=== PATIENT | male | born 1940 | race Caucasian/White ===

== ENCOUNTER 2017-08-14 13:01 | Emergency (ER) | payer BC ==
[2017-08-14] MEDS ORDERED: Tetan/Diph/Pertus SYR(Tdap)* 0.5 ML SYR(BOOSTRIX) use SYR IM ONE (14:06)
--- NOTE | 2017-08-14 14:28 | ED ---
Skin Complaint - HPI Summary HPI Summary: Patient is a 77-year-old male who presents emergency department for multiple skin tears that occurred just prior to arrival. Patient states he was cleaning out his garage when he tripped on a piece of equipment and fell to his left side. Patient did catch himself and did not fall to the ground. He denies striking his head or loss of consciousness. He is on [place]. Patient is unaware of his last tetanus immunization. Patient complains of some mild right wrist pain but otherwise is feeling well. Prior to falling patient denies chest pain, shortness of breath, lightheadedness, dizziness, recent illness. Symptoms are mild in severity. No current modifying factors. - History of Current Complaint Chief Complaint: EDExtremityUpper Time Seen by Provider: 08/14/17 13:50 Stated Complaint: FALL ARM LAC Hx Obtained From: Patient Pain Intensity: 8 - Additional Pertinent History Primary Care Physician: SARAH - Allergy/Home Medications Allergies/Adverse Reactions: Allergies Allergy/AdvReac Type Severity Reaction Status Date / Time No Known Allergies Allergy Verified 04/19/15 13:48 Home Medications: Home Medications Apixaban* [Eliquis*] 5 mg PO BID 08/14/17 [History Confirmed 08/14/17] Chlorthalidone TAB* [Hygroton TAB*] 25 mg PO DAILY 08/14/17 [History Confirmed 08/14/17] Diltiazem CD CAP* [Cardizem CD CAP*] 240 mg PO DAILY 08/14/17 [History Confirmed 08/14/17] Ferrous Sulfate TAB* 325 mg PO BID 08/14/17 [History Confirmed 08/14/17] Omeprazole CAP* [Prilosec CAP* 20 MG] 40 mg PO BID 08/14/17 [History Confirmed 08/14/17] PMH/Surg Hx/FS Hx/Imm Hx Previously Healthy: Yes Endocrine/Hematology History: Reports: Hx Blood Transfusions - For Upper GI Bleed, Hx Anemia Denies: Hx Diabetes, Hx Thyroid Disease Cardiovascular History: Reports: Hx Atrial Fibrillation, Hx Hypertension Denies: Hx Congestive Heart Failure, Hx Deep Vein Thrombosis, Hx Hypercholesterolemia Respiratory History: Denies: Hx Pneumonia, Hx Seasonal Allergies, Hx Sleep Apnea GI History: Reports: Hx Gastroesophageal Reflux Disease, Hx Gastrointestinal Bleed - Upper GI, Other GI Disorders - Gastritis Denies: Hx Hiatal Hernia Musculoskeletal History: Reports: Hx Arthritis, Hx Back Problems Denies: Hx Osteoporosis Sensory History: Reports: Hx Cataracts - Removal bilaterally, Hx Contacts or Glasses Denies: Hx Hearing Aid Opthamlomology History: Reports: Hx Cataracts - Removal bilaterally, Hx Contacts or Glasses Neurological History: Denies: Hx Headaches Psychiatric History: Reports: Hx Anxiety, Hx Depression - Surgical History Surgery Procedure, Year, and Place: -Cataract removal. -Bilateral hip replacement. -Left knee replacement. -Carpal tunnel Infectious Disease History: No Infectious Disease History: Denies: Traveled Outside the [place] in Last 30 Days - Social History Occupation: Retired Lives: With Family Alcohol Use: Daily Alcohol Amount: Some wine Hx Substance Use: No Substance Use Type: Reports: None Hx Tobacco Use: Yes Smoking Status (MU): Former Smoker Type: Cigarettes Length of Time of Smoking/Using Tobacco: 35 years Have You Smoked in the Last Year: No Review of Systems Constitutional: Negative Eyes: Negative ENT: Negative Cardiovascular: Negative Respiratory: Negative Gastrointestinal: Negative Positive: Other - Right wrist pain Positive: Other - Skin tears to left and right arm and right leg Neurological: Negative Negative: Weakness, Paresthesia, Numbness, Syncope All Other Systems Reviewed And Are Negative: Yes Physical Exam Triage Information Reviewed: Yes Vital Signs On Initial Exam: Initial Vitals Temp Pulse Resp BP Pulse Ox 98.2 F 88 18 142/84 97 08/14/17 13:18 08/14/17 13:18 08/14/17 13:18 08/14/17 13:18 08/14/17 13:18 Vital Signs Reviewed: Yes Appearance: Positive: Well-Appearing - Pt. sitting on the side of the bed in no acute distress. Pleasant. Skin: Positive: Warm, Dry Eyes: Positive: Normal Neck: Positive: Supple Musculoskeletal: Positive: Other - Superficial skin tear noted to the left distal forearm on the dorsal aspect without bony tenderness. No active bleeding. Superficial skin tear noted to the right medial distal forearm without bleeding. Mild pain over the medial wrists. Full range of motion of wrist. No proximal pain. Extremities are neurovascularly intact. Diagnostics - Vital Signs Vital Signs Temp Pulse Resp BP Pulse Ox 08/14/17 13:18 98.2 F 88 18 142/84 97 - Laboratory Lab Statement: Any lab studies that have been ordered have been reviewed, and results considered in the medical decision making process. Course/Dx - Course Course Of Treatment: Pt. presenting for evaluations of multiple skin tears after a minor injury. He does have some mild right wrist pain but declines xrays. He is afebrile with stable vital signs. Tetanus was updated. Wounds were cleaned and dressed. To f.u with PCP. To ice affected areas. Tylenol for pain as directed. To return to ER if symptoms change or worsen. - Diagnoses Provider Diagnoses: Skin tear Discharge - Sign-Out/Discharge Documenting (check all that apply): Discharge/Admit/Transfer - Discharge Plan Condition: Good Disposition: HOME Patient Education Materials: Skin Tear (ED) Referrals: Js Gonzalez MD [Primary Care Provider] - Additional Instructions: Follow up with your PCP Keep wounds clean and dry Can take Tylenol for pain as directed Can apply ice intermittently for pain Return to ER if symptoms change or worsen - Billing Disposition and Condition Condition: GOOD Disposition: HOME
[2017-08-14 14:58] VITALS: BP 150/81
== END 2017-08-14 14:53 | disposition home or self-care (01) ==
LOC: ED 13:01
DX: S41.112A Laceration without foreign body of left upper arm, initial encounter (principal); S41.111A Laceration without foreign body of right upper arm, initial encounter; S81.811A Laceration without foreign body, right lower leg, initial encounter; W01.0XXA Fall on same level from slipping, tripping and stumbling without subsequent striking against object, initial encounter; Y93.E9 Activity, other interior property and clothing maintenance; Y92.9 Unspecified place or not applicable; I48.91 Unspecified atrial fibrillation; I10 Essential (primary) hypertension; Z23 Encounter for immunization; Z87.891 Personal history of nicotine dependence; Z86.2 Personal history of diseases of the blood and blood-forming organs and certain disorders involving the immune mechanism
CPT/HCPCS: 90471; 90715; 99281

== ENCOUNTER 2018-09-27 14:24 | Inpatient (IN) | payer BC ==
[2018-09-27] MEDS ORDERED: NS 0.9% 1000 ML** 1,000 ML IV ONE ×3 (14:35→20:03)
[2018-09-27] MEDS ORDERED: Morphine 4 MG/ML VIAL (1 ml) 4 MG/ML VIAL IV ONE (14:42)
[2018-09-27] MEDS ORDERED: cefTRIAXone(*) 1 GM in NS 0.9% 50 ML* 50 ML IVPB ONE (14:44)
[2018-09-27] MEDS ORDERED: NS 0.9% 1000 ML** 2,720 ML IV ONE (14:45)
--- NOTE | 2018-09-27 14:46 | ED ---
Lower Extremity - HPI Summary HPI Summary: Patient is a 78 y old M brought by EMS to [facility] accompanied by with chief complaint of left lower extremity pain after falling on to his left [place] on [place] cruise [place] rated at 12/10 in severity with onset of 2 days. Symptoms alleviated by nothing and aggravated by movement. Patient reports that he has not been ambulatory since the fall. Per nurse, patient can no longer tolerate sitting in a wheel chair. Per nurse, patient has chills, temporal fever 100.4 F , tachycardia. Patient reports PMHx glaucoma. PMHX atrial fibrillation, gastritis, hypertension. Patient reports taking Eliquis. Per nurse, patient urinates a lot from blood pressure medication and is on Percocet. - History of Current Complaint Chief Complaint: EDHipPelvisInjury Stated Complaint: "LT HIP PAIN AFTER FALL PER EMS" Time Seen by Provider: 09/27/18 14:30 Hx Obtained From: Patient, Other: - nurse Mechanism Of Injury: Other - falling on to his left side on a cruise ship Onset/Duration: Still Present - 2 Severity Currently: Moderate Pain Intensity: 12 Pain Scale Used: 0-10 Numeric Timing: Constant Associated Signs And Symptoms: Positive: Fever, Other - chills, tachycardia Aggravating Factor(s): Movement Alleviating Factor(s): Nothing - Allergies/Home Medications Allergies/Adverse Reactions: Allergies Allergy/AdvReac Type Severity Reaction Status Date / Time No Known Allergies Allergy Verified 04/19/15 13:48 Home Medications: Home Medications Latanoprost 0.005%* [Xalatan 0.005%*] 1 drop BOTH EYES QPM 09/27/18 [History Confirmed 09/27/18] Oxycodone HCl/Acetaminophen [Percocet] 1 tab PO Q6HR PRN 09/27/18 [History Confirmed 09/27/18] PMH/Surg Hx/FS Hx/Imm Hx Previously Healthy: No Endocrine/Hematology History: Reports: Hx Blood Transfusions - For Upper GI Bleed, Hx Anemia Denies: Hx Diabetes, Hx Thyroid Disease Cardiovascular History: Reports: Hx Atrial Fibrillation, Hx Hypertension Denies: Hx Congestive Heart Failure, Hx Deep Vein Thrombosis, Hx Hypercholesterolemia Respiratory History: Denies: Hx Pneumonia, Hx Seasonal Allergies, Hx Sleep Apnea GI History: Reports: Hx Gastroesophageal Reflux Disease, Hx Gastrointestinal Bleed - Upper GI, Other GI Disorders - Gastritis Denies: Hx Hiatal Hernia Musculoskeletal History: Reports: Hx Arthritis, Hx Back Problems Denies: Hx Osteoporosis Sensory History: Reports: Hx Cataracts - Removal bilaterally, Hx Contacts or Glasses, Hx Glaucoma Denies: Hx Hearing Aid Opthamlomology History: Reports: Hx Cataracts - Removal bilaterally, Hx Contacts or Glasses, Hx Glaucoma Neurological History: Denies: Hx Headaches Psychiatric History: Reports: Hx Anxiety, Hx Depression - Surgical History Surgery Procedure, Year, and Place: -Cataract removal. -Bilateral hip replacement. -Left knee replacement. -Carpal tunnel Infectious Disease History: No Infectious Disease History: Reports: Traveled Outside the [place] in Last 30 Days - Family History Known Family History: Negative: Diabetes - Social History Alcohol Use: Daily Alcohol Amount: Some wine Hx Substance Use: No Substance Use Type: Reports: None Hx Tobacco Use: Yes Smoking Status (MU): Former Smoker Type: Cigarettes Length of Time of Smoking/Using Tobacco: 35 years Have You Smoked in the Last Year: No Review of Systems Positive: Fever - low grade, Chills Positive: Other - tachycardia Positive: Other - Left lower extremity pain, unable to ambulate All Other Systems Reviewed And Are Negative: Yes Physical Exam - Summary Physical Exam Summary: VITAL SIGNS: Reviewed. GENERAL: Patient is a well-developed and nourished MALE who is lying comfortable in the stretcher. Patient is not in any acute respiratory distress. HEAD AND FACE: No signs of trauma. No ecchymosis, hematomas or skull depressions. No sinus tenderness. EYES: PERRLA, EOMI x 2, No injected conjunctiva, no nystagmus. EARS: Hearing grossly intact. Ear canals and tympanic membranes are within normal limits. MOUTH: Oropharynx within normal limits. NECK: Supple, trachea is midline, no adenopathy, no JVD, no carotid bruit, no c- spine tenderness, neck with full ROM. CHEST: Symmetric, no tenderness at palpation. LUNGS: Clear to auscultation bilaterally. No wheezing or crackles. CVS: Regular rate and rhythm, S1 and S2 present, no murmurs or gallops appreciated. ABDOMEN: Soft, non-tender. No signs of distention. No rebound, no guarding, and no masses palpated. Bowel sounds are normal. EXTREMITIES: Decreased range of motion in left hip secondary to pain, tenderness in left hip upon palpation, good pulses in capillary field, shortening of the left lower extremity. NEURO: Alert and oriented x 3. No acute neurological deficits. Speech is normal and follows commands. SKIN: Dry and warm. Triage Information Reviewed: Yes Vital Signs On Initial Exam: Initial Vitals Temp Pulse Resp BP Pulse Ox 100.4 F 103 19 154/78 94 09/27/18 14:29 09/27/18 14:29 09/27/18 14:29 09/27/18 14:29 09/27/18 14:29 Vital Signs Reviewed: Yes Diagnostics - Vital Signs Vital Signs Temp Pulse Resp BP Pulse Ox 09/27/18 14:29 100.4 F 103 19 154/78 94 - Laboratory Result Diagrams: 09/29/18 06:53 09/29/18 06:53 Lab Statement: Any lab studies that have been ordered have been reviewed, and results considered in the medical decision making process. - Radiology Left hip x-ray Radiology Interpretation Completed By: Radiologist Summary of Radiographic Findings: 1. Normally located LEFT total hip prosthesis. No periprosthetic fracture or evidence for prosthesis loosening. ED physician has reviewed this report. [place] x-ray Radiology Interpretation Completed By: Radiologist Summary of Radiographic Findings: 1. Stigmata of obstructive lung disease. Cardiomegaly. No acute pulmonary or cardiac process evident. ED physician has reviewed this report. - CT Pelvis CT CT Interpretation Completed By: Radiologist Summary of CT Findings: Per radiologist,. 1. Negative for periprosthetic or other fracture or evidence for prosthesis loosening. 2. Subtle soft tissue fullness about the LEFT hip asymmetric with the RIGHT which may. reflect presence of a joint effusion. ED physician has reviewed this report. Re-Evaluation - Re-Evaluation First Eval Re-Evaluation Time: 17:48 Comment: Physician gave patient update on plan of care. Lower Extremity Course/Dx - Course Assessment/Plan: In the ED course the patient was placed in a registered nurse cardiac telemetry, IV access was obtained. I was informed by the nurse that the patient made in the sepsis criteria and the patient is febrile. Therefore the patient was given 30 ccs per KG and the patient was given Rocephin. Blood work without any significant abnormality except for WBCs of 11.9, hemoglobin is 8.3, hematocrit is 25, absolute neutrophils 10.0, ESR is 106, sodium 134, chloride 100, glucose 144, CRP and 185.9. Urinalysis is negative for UTI. Hip x ray IMPRESSION: #. Normally located LEFT total hip prosthesis. No periprosthetic fracture or evidence for prosthesis loosening. Hip CT IMPRESSION: #. Negative for periprosthetic or other fracture or evidence for prosthesis loosening. #. Subtle soft tissue fullness about the LEFT hip asymmetric with the RIGHT which may reflect the presence of a joint effusion. CXR IMPRESSION: #. Stigmata of obstructive lung disease. Cardiomegaly. No acute pulmonary or cardiac process evident. At this point I did not find any infection in the urine or the chest. The patient continues to have left hip pain therefore we need to rule out an infected joint. Therefore I discuss my physical exam and findings with and Dr. Abdul from orthopedics and he recommends for the hip to be aspirated. Therefore, he discussed the case with Dr. Valentine from radiology and he will do an aspiration via fluoroscopy for this patient. He also recommends for the patient to be admitted to the hospital services. Dr. Valentine reports that he was not able to obtain any fluid from the joint. As per recommendation from Dr. Abdul, I will order vancomycin and another dose of morphine for the pain and I will admit the patient to the hospital services to rule out possible septic joint. Therefore, I discussed my physical exam and findings with Dr. Infante from the hospitalist services who accepted the patient for admission. - Diagnoses Provider Diagnoses: Sepsis, Hip pain, Fever - Physician Notifications Discussed Care Of Patient With: Raúl Garza Time Discussed With Above Provider: 17:22 Instructed by Provider To: Other - Dr. Garza, orthopedics, spoke to Dr. Valentine, and said that Dr. Valentine agreed to perform an aspiration of the left hip to rule out septic left joint. At 18:57, Dr. Infante, hospitalist, agrees to admit patient. Discharge - Sign-Out/Discharge Documenting (check all that apply): Patient Departure - Admit Patient Received Moderate/Deep Sedation with Procedure: No - Discharge Plan Condition: Stable Disposition: ADMITTED TO [facility] - Billing Disposition and Condition Condition: STABLE Disposition: Admitted to [facility] - Attestation Statements Document Initiated by Scribe: Yes Documenting Scribe: Faith Sargent Provider For Whom Scribe is Documenting (Include Credential): Yaakov Mensah MD [employer] Attestation: I, Faith Sargent, scribed for Yaakov Mesnah MD on 09/29/18 at 2009. [place] Documentation Reviewed: Yes Provider Attestation: The documentation as recorded by the khanh, Faith Sargent accurately reflects the service I personally performed and the decisions made by , Yaakov Mensah MD Status of Scrbalaji Document: Viewed
[2018-09-27 15:11] LABS: ABS Lymphocytes 0.6 10^3/ul (1.0-4.8); ABS Monocytes 1.3 10^3/ul (0-0.8); Eosinophil % 0.2 %; Hematocrit 25 % (42-52); Hemoglobin 8.3 g/dL (14.0-18.0); Lymphocyte % 5.2 %; Mean Corpuscular HGB Conc 33 g/dL (31-36); Mean Corpuscular Hemoglobin 33 pg (27-31); Mean Corpuscular Volume 102 fL (80-94); Mean Platelet Volume 8.1 fL (7.4-10.4); Platelet Count 173 10^3/uL (150-450); Red Blood Count 2.49 10^6 /uL (4.18-5.48); Red Cell Distribution Width 14 % (10-15); White Blood Count 11.9 10^3/uL (3.5-10.8)
[2018-09-27 15:29] LABS: C Reactive Protein 185.96 mg/L (<8.01)
[2018-09-27 15:58] LABS: Albumin 3.8 g/dL (3.2-5.2); BUN/Creatinine Ratio 22.3 (8-20); Calcium 9.6 mg/dL (8.6-10.3); EGFR Non-African American 70.2 (>60); Potassium 3.7 mmol/L (3.5-5.0)
[2018-09-27 15:59] LABS: Albumin/Globulin Ratio 1.2 (1-3); Globulin 3.2 g/dL (2-4); Total Bilirubin 0.8 mg/dL (0.2-1.0)
[2018-09-27 16:32] LABS: Erythrocyte Sed Rate 106 mm/Hr (0-19)
[2018-09-27] MEDS ORDERED: Acetaminophen SUPP* 650 MG SUPP PR ONE (16:32)
[2018-09-27] MEDS ORDERED: Ondansetron INJ* 2 MG/ML VIAL IV ONE (16:47)
[2018-09-27] MEDS ORDERED: Vancomycin(*) 1,000 MG in NS 0.9% 250 ML* 250 ML IVPB ONE ×2 (17:05→19:02)
[2018-09-27 17:39] LABS: Urine Appearance Cloudy; Urine Bacteria Absent (Absent); Urine Bilirubin Negative (Negative); Urine Blood Negative (Negative); Urine Color Yellow; Urine Glucose Negative (Negative); Urine Ketones Negative (Negative); Urine Nitrite Negative (Negative); Urine Protein 2+(100 mg/dL) (Negative); Urine Red Blood Cell Absent (Absent); Urine Specific Gravity 1.018 (1.010-1.030); Urine Squamous Epithelial Cell Present (Absent); Urine Urobilinogen Negative (Negative); Urine White Blood Cell 1+(6-10/hpf) (Absent)
[2018-09-27] MEDS ORDERED: Acetaminophen TAB* 325 MG PO ONE (18:04)
[2018-09-27] MEDS ORDERED: oxyCODONE/Acetamin 5/325 MG* TAB PO PRN (19:58)
[2018-09-27] MEDS ORDERED: Morphine INJ* 2 MG/ML 1 ML SYRINGE (TWO MG - NEW SYRINGE VERSION) IV PRN ×2 (19:59→21:54)
[2018-09-27] MEDS ORDERED: Ferrous Sulfate TAB* 325 MG PO SCH (21:00)
--- NOTE | 2018-09-27 21:14 | CONSULT ---
Consult Consult: Orthopedic Surgery Consultation Date: 09/27/2018 Requesting Service: ER Chief Complaint: Left hip pain. History: A 78-year-old male who was on a cruise in the [place] when he fell while trying to sit down in a chair, 2 days ago. He landed on his lower back and on his left side. He had immediate pain in these areas, but was able to ambulate back to his room. Since that time he has been unable to ambulate. He does report that at baseline he is very stiff and does have difficulty walking. He reports no antecedent symptoms, however, in the left hip. No antecedent pain. No fevers. He returned to [place] and came into the emergency room for an evaluation. In the emergency room he was found to be febrile with a Tmax of 102.1. X-rays and CT scan of the left hip were obtained, which did not reveal any fractures or obvious prosthetic complication. Radiology attempted an aspiration of the left hip under fluoroscopic guidance, but had a dry tap. I did discuss with the radiologist and he is extremely confident that he was in the correct place. He does report that he has been battling a case of shingles on his right thorax 4 weeks. But otherwise has been feeling normal and at his baseline. The pain is located at the left hip and down the left leg and is constant, marked, sharp. Pain worse with moving the leg and attempting weightbearing and lessened when rested. Review of Systems: Negative for, recent visual changes, difficulty swallowing, chest pain, shortness of breath, abdominal pain, hematuria, easy bruising, and diffuse rash. Positive for fever, shingles, baseline difficulty with ambulation and stiffness, chronic low back pain. He reports frequent urination at baseline. PMH: Hypertension, atrial fibrillation, GERD, chronic back pain, gastritis PSH: Right total hip replacement by Dr. Berumen in 2013. Left total hip replacement by Dr. San about 20 years ago. Left knee replacement by Dr. Raza. Carpal tunnel release. Cataracts. Medications: Latanoprost, Percocet, Eliquis Allergies: No known drug allergies SH: No tobacco use. Mild alcohol use. FH: Noncontributory. Physical Examination: Constitutional: Temp Pulse Resp BP Pulse Ox 100.3 F 98 20 153/80 100 07/13/19 19:20 09/27/18 21:01 09/27/18 21:01 09/27/18 21:01 09/27/18 21:01 General appearance is healthy and non-septic in no acute distress. Cardiovascular: Pulse examination demonstrates positive pedal pulses with brisk capillary refill. There are no varicosities. Abdomen: Soft and nontender Lymphatic: No lymphadenopathy appreciated. Skin: Bilateral upper and lower extremity examination demonstrates no ulcerative lesions. Psychiatric / Neurological: Appropriate affect. Alert and oriented to person, place and time. There is no significant abnormality in coordination appreciated. Normoreflexive deep tendon reflex of the affected extremity. Musculoskeletal: Bilateral upper extremities and contralateral lower extremity show no evidence of instability and no tenderness with palpation and 5/5 strength. There is no gross deformity. Skin intact He does have tenderness to palpation at the lateral hip. He does have a shooting pain down the leg with straight leg raise. He doesn't have any pain with internal and external rotation of the hip. Gentle flexion the hip does not cause pain with a short arc of about 20, but he does have pain beyond this. 5/5 motor strength distally with intact sensation to light touch There is no global swelling, edema, or varicosities. No TTP at knee, lower leg, ankle, foot Palpable DP pulse. Flexes and extends ankle and toes. Imaging: X-rays and CT scan did not show any fractures about the left hip or any complication with the prosthesis. Labs: WBC 11.9 HCT 25 Platelets 173 Cr 1.03 ESR 106 CRP 185 UA negative Impression and Plan: Mr. Miller is a 78-year-old man with low back pain and left hip pain after a fall 2 days ago. Imaging does not reveal fracture of the left hip. Of more concern, is his fever and elevated inflammatory markers. Given that the worst of his pain appears to be at the left hip, there is concern for infection of his left total hip prosthesis. His exam is not totally consistent with this. He does not have much pain with gentle range of motion, and he does seem to be also having pain radiating down his leg from the lumbar spine. The story is also odd for an infection, given that his pain started after a fall. Attempted aspiration of the joint revealed no fluid. However, I do think an infected left total hip replacement still possible. I recommend imaging of his lumbar spine to better assess this potential source of pain. Please hold Eliquis. I agree with admission to the hospital for further workup of infection. I appreciate the medical team's input. I recommend chemical and mechanical DVT prophylaxis. Orthopedics will continue to follow along. Raúl Garza MD
[2018-09-27] MEDS ORDERED: Morphine 4 MG/ML VIAL (1 ml) 4 MG/ML VIAL IV PRN (22:02)
[2018-09-27] MEDS ORDERED: Vancomycin per Pharmacy* NOTE FOLLOW UP PRN (22:40)
--- NOTE | 2018-09-27 22:43 | HP ---
CC: Dr. Gonzalez.* HOSPITAL MEDICINE HISTORY AND PHYSICAL: DATE OF ADMISSION: 09/27/18 PRIMARY CARE PHYSICIAN: Dr. Gonzalez. ATTENDING PHYSICIAN: Dr. Candi Carty * (dictation provided by Ivone Gandara NP). CHIEF COMPLAINT: Left hip pain and fever. HISTORY OF PRESENT ILLNESS: Mr. Miller is a 78-year-old male with a past medical history of a left and right total hip replacement, a left knee replacement, anemia of uncertain source, atrial fibrillation on apixiban and hypertension who presents today to the hospital with concern for fever and left hip pain. Mr. Miller was in his normal state of health. He was on a cruise on when he went to sit in a chair and fell backwards and landed on his hip. He was able to get up, though it was painful and walked over to the medical office. By the time he arrived there, he was having severe pain in his left hip. He was assessed by the team on the ship with a x-ray, which per the report showed no fracture or malignment of the prosthesis. The patient did have a fever up to 103 at that point and was given Tylenol. He was also given Percocet and used a wheelchair to get around for the rest of the trip. He flew back from the cruise and arrived in [place]. He was then driven home to [place] by his . Immediately on arriving home, he was unable to get out of the car due to the pain and therefore, emergency medical services were called to bring him to the hospital. He has been taking the oxycodone and Percocet for his pain and there was no report of fever other than the one noted on the cruise. The patient denies pain, otherwise. He has no pain in the right hip, no pain in the left knee. He denies chest pain and denies shortness of breath. He states he has not had a bowel movement since . He has no abdominal pain, no nausea. He has been tolerating oral intake. The other thing to note is that the patient has a recent bout of shingles on the right torso at the base of the ribs that is resolving. In the emergency room, Mr. Miller had labs, which showed a white blood cell count of 11.9, his ESR is 106 and his CRP is 185.96. In the emergency room, his vitals showed a temperature max of 102.1. The remainder of his vitals show that his electrolytes are essentially normal. His BUN and creatinine are normal. His lactic acid is only 1.8. He has a hemoglobin of 8.3 and hematocrit 23, but this is consistent with the values that we see back up until 2013. He had a hip pelvis x- ray and a pelvis CT that failed to show any evidence of dislocation or fracture. There was also an attempt at hip aspiration from which they were unable to aspirate any fluid at all. PAST MEDICAL HISTORY: 1. Left total knee arthroplasty. 2. Right and left total hip replacements. 3. Anemia. 4. Hypertension. 5. Atrial fibrillation, on chronic Eliquis therapy. 6. GERD. 7. Chronic back pain. 8. History of carpal tunnel release. MEDICATIONS: Outpatient are: 1. Oxycodone with acetaminophen 1 tab p.o. q.6 hours p.r.n. 2. Omeprazole 40 mg p.o. b.i.d. 3. Ferrous sulfate 325 mg p.o. b.i.d. 4. Diltiazem CD 240 mg p.o. daily. 5. Chlorthalidone 25 mg p.o. daily. 6. Apixaban 5 mg p.o. b.i.d. 7. Latanoprost to both eyes nightly. ALLERGIES: No known drug allergies. FAMILY HISTORY: The patient reports his father around age 60 suddenly either from a heart attack or stroke. His mother lived into her 80s and with complications related to dementia. SOCIAL HISTORY: The patient is a former smoker and quit in 1987. He drinks about 2 glasses of wine per night. No reported drug use or illicit use. His is the healthcare proxy. REVIEW OF SYSTEMS: A 14-point review of systems was completed with Mr. Miller and all other than those mentioned above were negative. PHYSICAL EXAMINATION GENERAL: Mr. Miller is lying in the bed. He is shivering, but otherwise in no acute distress. His is at the bedside. VITAL SIGNS: Temperature max 102.1, last checked it was 100.3; heart rate 105; respiratory rate 18; O2 saturation 98% on room air; blood pressure 133/73. LUNGS: Clear to auscultation bilaterally. No accessory muscle use and good aeration. HEART: S1 and S2. No murmurs, rubs or gallop, and regular. ABDOMEN: Soft, nontender with bowel sounds positive x4. EXTREMITIES: No cyanosis or edema. Pain in the hip with any movement of the left lower extremity. NEURO: He is alert, he is oriented x3. He moves all extremities equally except for the left leg, which is limited by pain. There is no facial asymmetry or focal weakness. His extraocular movements are intact. SKIN: Intact. There is no evidence of herpetic lesions on the torso. DIAGNOSTIC STUDIES/LAB DATA: WBC 11.9, hemoglobin 8.3, hematocrit 25, platelet count 173,000. ESR 106. Sodium 134, potassium 3.7, chloride 100, serum bicarbonate 24, BUN 23, creatinine 1.03, glucose 144, CRP 185.96. Urine shows no evidence of infection. The hip/pelvis x-ray is as follows. "Normally located left total hip prosthesis. No periprosthetic fracture or evidence of prosthesis loosening." The chest x-ray is as follows. "Stigmata of obstructive lung disease, cardiomegaly, no acute pulmonary or cardiac process evident." The pelvis CT is as follows. "Negative for periprosthetic or other fracture or evidence for prosthesis loosening. Subtle soft tissue fullness about the left hip, asymmetric at the right, which may reflect presence of a joint effusion." EKG shows atrial fibrillation with a heart rate of 100 and no evidence of ischemia. ASSESSMENT/PLAN: Mr. Miller is a 78-year-old male with past medical history of left and right total hip replacement as well as the left knee replacement, anemia, atrial fibrillation on who presents today to the hospital with concern for a fall on resulting in severe hip pain associated with fever, felt to have likely septic arthritis to the left hip prosthesis. Our plans are for inpatient admission and his expected length of stay would be greater than 2 days with the following. 1. Sepsis: The patient's urinalysis is negative. His chest x-ray shows no evidence of an infection. I suspect based on the severe hip pain that this is septic arthritis. I will note that his lactic acid is normal and blood cultures have been sent. He did receive an appropriate level amount of IV fluids in the ED and I will be continuing those at a maintenance fluid rate. 2. Septic arthritis. Based on the fact that there was no aspirate obtained, we will continue with empiric treatment for traumatic bacterial arthritis with vancomycin and ceftriaxone. Dr. Garza from Orthopedics has been consulted and an orthopedic physician will be seeing the patient in consultation. He will have pain medications p.r.n. with bowel regimen. 3. Atrial fibrillation. Plan to hold apixiban for anticipation of a possible surgical procedure. Continue diltiazem. 4. Anemia. The patient's hemoglobin and hematocrit are consistent with previous, although on the most recent check they were higher. We will continue to monitor closely, recheck CBC in the a.m. I plan to hold his iron supplementation given that he will be on narcotics and likely will have difficulty with constipation and in fact, he has not had a bowel movement since . 5. Gastroesophageal reflux disease. Continue omeprazole. 6. Hypertension. Continue diltiazem, but hold chlorthalidone. 7. Glaucoma. Plan to continue latanoprost if available in formulary. 8. DVT prophylaxis with SCDs and we will be holding Eliquis dose and I would recommend that the patient start heparin subcu once this apixaban has had an opportunity to wash out. 9. Code status is full code. This was reviewed with the patient and his who was at the bedside. TIME SPENT: Approximately 60 minutes were spent on the admission of this patient, more than half the time spent with the patient at the bedside reviewing the events leading up to this hospitalization, performing the physical examination, and reviewing the plan of care. IVONE GANDARA NP [id number]/[facility] #: [id number] [place]
[2018-09-28] MEDS: Vancomycin(*) 1,250 MG in NS 0.9% 250 ML* 250 ML IVPB SCH ×3 (02:11→18:54)
[2018-09-28 06:41] LABS: ABS Lymphocytes 0.5 10^3/ul (1.0-4.8); ABS Monocytes 1.2 10^3/ul (0-0.8); ABS Neutrophils 8.8 10^3/ul (1.5-7.7); Hematocrit 23 % (42-52); Hemoglobin 7.7 g/dL (14.0-18.0); Lymphocyte % 4.8 %; Mean Corpuscular HGB Conc 34 g/dL (31-36); Mean Corpuscular Hemoglobin 35 pg (27-31); Mean Corpuscular Volume 102 fL (80-94); Mean Platelet Volume 8.5 fL (7.4-10.4); Platelet Count 138 10^3/uL (150-450); Red Blood Count 2.23 10^6 /uL (4.18-5.48); Red Cell Distribution Width 15 % (10-15); White Blood Count 10.6 10^3/uL (3.5-10.8)
[2018-09-28 06:56] LABS: Anion Gap 8 mmol/L (2-11); BUN/Creatinine Ratio 23.1 (8-20); Blood Urea Nitrogen 21 mg/dL (6-24); CO2 Carbon Dioxide 21 mmol/L (22-32); Calcium 7.9 mg/dL (8.6-10.3); Chloride 104 mmol/L (101-111); Glucose 160 mg/dL (70-100); Potassium 3.9 mmol/L (3.5-5.0); Sodium 133 mmol/L (135-145)
[2018-09-28] MEDS: Diltiazem CD CAP* 240 MG PO SCH (08:30)
[2018-09-28] MEDS: Pantoprazole TAB * 40 MG TAB PO SCH ×3 (08:30→21:04)
[2018-09-28] MEDS: oxyCODONE/Acetamin 5/325 MG* TAB PO PRN ×2 (08:34→21:04)
--- NOTE | 2018-09-28 10:56 | PN ---
Progress Note - Progress Note Date of Service: 09/28/18 SOAP: Subjective: He reports having less pain, but attributes that to just lying in bed. He reports that he has started having a productive cough this morning. He also noted pain with attempted insertion of a Shay. Otherwise, no complaints. Objective: Alert and oriented x3. No acute distress. He is frequently coughing and splitting out sputum. He is having a little bit more left hip pain with range of motion today, when compared to yesterday. He still has pain with straight leg raise. Temp Pulse Resp BP Pulse Ox 98.7 F 83 22 124/59 100 09/28/18 07:50 09/28/18 07:50 09/28/18 08:34 09/28/18 07:50 09/28/18 07:50 His blood culture is growing staph aureus. WPC now 10.6. Assessment/Plan: Some 6 or omentum with bacteremia. Also has lower back and left hip pain after a fall 3 days ago. He has developed a productive cough. Left hip septic arthritis is certainly still on the differential. I would still recommend imaging of his spine to rule out this as the source of infection. Appreciate the medical services workup of his infection. If no source is found, we may need to move forward with a left hip I&D. We will need to obtain implant information tomorrow from medical records given how old the prosthesis is. Raúl Garza MD
--- NOTE | 2018-09-28 12:18 | PN ---
Subjective Interval History: Blood cultures + for staph aureus, non MRSA. Afebrile (though diaphoretic and warm to touch on exam) Hgb 7.7 from 8.3. MCV 102 drinks 4-5 glasses of wine a night dull pain in left lateral thigh since the fall (into a soft chair) no blood in BMs that they can tell colonoscopy up to date Objective Active Medications: Acetaminophen (Tylenol Tab*) 650 mg PO Q6H PRN PRN Reason: pain/fever Diltiazem HCl (Cardizem Cd Cap*) 240 mg PO DAILY [facility] Last Admin: 09/28/18 08:30 Dose: 240 mg Docusate Sodium (Colace Cap*) 100 mg PO BID PRN PRN Reason: CONSTIPATION Vancomycin HCl 1,250 mg/ (Sodium Chloride) 250 mls @ 166.667 mls/hr IVPB Q8H [facility]; Protocol Last Admin: 09/28/18 09:51 Dose: 166.667 mls/hr Ceftriaxone Sodium 1 gm/ (Sodium Chloride) 50 mls @ 100 mls/hr IVPB Q24H [facility] Latanoprost (Xalatan 0.005%*) 1 drop BOTH EYES QPM [facility] Morphine Sulfate (Morphine 4 Mg/Ml Vial (1 Ml)) 4 mg IV Q2H PRN PRN Reason: SEVERE PAIN Oxycodone/Acetaminophen (Percocet 5/325 Tab*) 1 tab PO Q4H PRN PRN Reason: moderate pain Last Admin: 09/28/18 08:34 Dose: 1 tab Oxycodone/Acetaminophen (Percocet 5/325 Tab*) 2 tab PO Q4H PRN PRN Reason: SEVERE PAIN Pantoprazole Sodium (Protonix Tab*) 40 mg PO BID [facility] Last Admin: 09/28/18 08:30 Dose: 40 mg Pharmacy Consult (Vancomycin Per Pharmacy*) 1 note FOLLOW UP . PRN PRN Reason: PER PROTOCOL Pharmacy Profile Note (Vancomycin Trough Check) 1 note FOLLOW UP 1800 ONE Stop: 09/28/18 18:01 Polyethylene Glycol/Electrolytes (Miralax*) 17 gm PO DAILY PRN PRN Reason: CONSTIPATION Senna (Senokot Tab*) 1 tab PO BEDTIME [facility] Last Admin: 09/28/18 00:00 Dose: Not Given Vital Signs - 8 hr 09/28/18 09/28/18 09/28/18 07:50 08:00 08:34 Temperature 98.7 F Pulse Rate 83 Respiratory 22 22 22 Rate Blood Pressure 124/59 (mmHg) O2 Sat by Pulse 100 Oximetry 09/28/18 09/28/18 11:24 11:30 Temperature 99.8 F Pulse Rate 82 Respiratory 24 24 Rate Blood Pressure 127/64 (mmHg) O2 Sat by Pulse 100 Oximetry Oxygen Devices in Use Now: Nasal Cannula Appearance: NAD Eyes: No Scleral Icterus Ears/Nose/Mouth/Throat: NL Teeth, Lips, Gums Neck: NL Appearance and Movements; NL JVP, Trachea Midline Respiratory: Symmetrical Chest Expansion and Respiratory Effort, Clear to Auscultation Cardiovascular: NL Sounds; No Murmurs; No JVD, RRR Abdominal: NL Sounds; No Tenderness; No Distention, No Hepatosplenomegaly Extremities: No Edema, - - tenderness to palpation left hip Skin: No Rash or Ulcers Neurological: Alert and Oriented x 3, NL Sensation Nutrition: Taking PO's Result Diagrams: 09/28/18 06:27 09/28/18 06:27 Additional Lab and Data: Laboratory Results - last 24 hr 09/27/18 09/28/18 09/28/18 17:27 06:27 06:27 WBC 10.6 RBC 2.23 L Hgb 7.7 L Hct 23 L MCV 102 H MCH 35 H MCHC 34 RDW 15 Plt Count 138 L MPV 8.5 Neut % (Auto) 83.6 Lymph % (Auto) 4.8 [place] % (Auto) 11.5 Eos % (Auto) 0.0 Baso % (Auto) 0.1 Absolute Neuts (auto) 8.8 H Absolute Lymphs (auto) 0.5 L Absolute Monos (auto) 1.2 H Absolute Eos (auto) 0.0 Absolute Basos (auto) 0.0 Absolute Nucleated RBC 0.0 Nucleated RBC % 0.0 Sodium 133 L Potassium 3.9 Chloride 104 Carbon Dioxide 21 L Anion Gap 8 BUN 21 Creatinine 0.91 Est GFR ( Amer) 98.0 Est GFR (Non-Af Amer) 81.0 BUN/Creatinine Ratio 23.1 H Glucose 160 H Calcium 7.9 L Magnesium 1.6 L Iron < 20 L TIBC 358 % Saturation 6 L Unsat Iron Binding < 343 Transferrin 256 Ferritin 62.5 Vitamin B12 565 Folate 7.20 Urine Color Yellow Urine Appearance Cloudy Urine pH 5.0 Ur Specific [place] 1.018 Urine Protein 2+(100 mg/dl) A Urine Ketones Negative Urine Blood Negative Urine Nitrate Negative Urine Bilirubin Negative Urine Urobilinogen Negative Ur Leukocyte Esterase Negative Urine WBC (Auto) 1+(6-10/hpf) A Urine RBC (Auto) Absent Ur Squamous Epith Cells Present A Urine Bacteria Absent Hyaline Casts Present A Urine Glucose Negative Microbiology and Other Data: Microbiology 09/27/18 14:56 Aerobic Blood Culture - Preliminary Blood Venous Blood MRSA/MSSA (PCR) - Final Mrsa Negative S.aureus Positive 09/27/18 12:14 Aerobic Blood Culture - Preliminary Blood Venous Blood MRSA/MSSA (PCR) - Final Mrsa Negative S.aureus Positive Assess/Plan/Problems-Billing Assessment: 78 year old male PMH pAfib(Eliquis), HTN, b/l hip replacements, daily 4-5 glass wine drinker, [place]NER p/w fever and left hip pain after fell backward into soft chair. Sepsis secondary to MSSA bacteremia. Hgb 7.7 - Patient Problems (1) MSSA bacteremia Current Visit: Yes Status: Acute Code(s): R78.81 - BACTEREMIA SNOMED Code( s): 950525163 Comment: Repeat BCx today; repeat until clear Will continue vancomycin/ceftriaxone for now given still with increased left hip pain. May be able to switch to cefazolin tomorrow. Transthoracic ECHO to rule out vegetations. did have skin breaks since June when developed Zoster to right chest/back. ? source Will get MRI lumbar spine to rule out epidural abscess per request by Ortho. Has some left think and lower back pain CRP 186 at risk for hardware infection (b/l hip replacement) would need CECILIA if persistent bacteremia. (2) Sepsis Current Visit: Yes Status: Acute Comment: source MSSA bacteremia fever(resolving), tachycardia(resolved), leukocytois 11.9 CRP 186 no lactic acisdosis (3) Daily consumption of alcohol Current Visit: Yes Status: Acute Code(s): Z78.9 - OTHER SPECIFIED HEALTH STATUS SNOMED Code(s): 132943982 Comment: Last drink 09/24 no history of withdrawals or seizures (4) Macrocytic anemia Current Visit: Yes Status: Acute Code(s): D53.9 - NUTRITIONAL ANEMIA, UNSPECIFIED SNOMED Code(s): 97598079 Comment: Likely combination or iron deficiency and chronic EtOH related. B12 565 folate 7.20 Iron <20 Iron Sat 8% restart iron supplementation. CBC daily no hematochezia or other source. colonoscopy few years ago. (5) Left hip pain Current Visit: Yes Status: Acute Code(s): M25.552 - PAIN IN LEFT HIP SNOMED Code(s): 49054455 Comment: no e/o fracture on CT scan or Xray appreciate Ortho recs. ordered PT activity - up with assistance as tolerated (6) Chronic atrial fibrillation Current Visit: No Status: Acute Code(s): I48.2 - CHRONIC ATRIAL FIBRILLATION SNOMED Code(s): 946217009 Comment: Continue Diltiazem Eliquis is being held per Ortho. replete Mg>2, K>4 prn (7) DVT prophylaxis Current Visit: No Status: Acute Code(s): AFK9444 - SNOMED Code(s): 063179482 Comment: SCDs and heparin 5000TID (holding home eliquis per surgery) (8) Essential hypertension Current Visit: No Status: Acute Code(s): I10 - ESSENTIAL (PRIMARY) HYPERTENSION SNOMED Code(s): 60094001 Comment: continue Dilt 240mg daily Status and Disposition: medicine inpatient. Ortho consulting.
[2018-09-28 12:31] LABS: Total Iron Binding Capacity 358 mcg/dL (250-450); Transferrin 256 mg/dL (203-362)
[2018-09-28 12:32] LABS: Magnesium 1.6 mg/dL (1.9-2.7)
[2018-09-28 12:53] LABS: Ferritin 62.5 ng/mL (24-336)
[2018-09-28 12:55] LABS: % Iron Saturation 6 % (15-55); Iron < 20 ug/dL (50-212)
[2018-09-28] MEDS ORDERED: cefTRIAXone(*) 1 GM in NS 0.9% 50 ML* 50 ML IVPB SCH (15:00)
[2018-09-28] MEDS ORDERED: Magnesium Sulfate 2 GM IV* 2 GM/50 ML BAG IVPB ONE (16:59)
[2018-09-28] MEDS ORDERED: Vancomycin Trough Check NOTE FOLLOW UP ONE (18:00)
[2018-09-28] MEDS: Latanoprost 0.005%* 2.5 ml BTL BOTH EYES SCH (18:34)
[2018-09-28] MEDS: Senna TAB PO SCH ×2 (21:04)
[2018-09-28] MEDS: Ferrous Gluconate TAB* 324 MG TAB PO SCH (21:04)
[2018-09-29] MEDS: Vancomycin(*) 1,250 MG in NS 0.9% 250 ML* 250 ML IVPB SCH ×2 (02:30→10:03)
[2018-09-29 07:18] LABS: ABS Lymphocytes 0.4 10^3/ul (1.0-4.8); ABS Neutrophils 8.4 10^3/ul (1.5-7.7); Eosinophil % 0.1 %; Hematocrit 22 % (42-52); Hemoglobin 7.6 g/dL (14.0-18.0); Lymphocyte % 3.8 %; Mean Corpuscular HGB Conc 35 g/dL (31-36); Mean Corpuscular Hemoglobin 35 pg (27-31); Mean Corpuscular Volume 100 fL (80-94); Mean Platelet Volume 8.2 fL (7.4-10.4); Nucleated Red Blood Cells % 0.1; Platelet Count 152 10^3/uL (150-450); Red Blood Count 2.19 10^6 /uL (4.18-5.48); Red Cell Distribution Width 15 % (10-15); White Blood Count 9.7 10^3/uL (3.5-10.8)
[2018-09-29 07:35] LABS: INR 1.3 (0.82-1.09)
[2018-09-29 07:43] LABS: BUN/Creatinine Ratio 19.3 (8-20); Calcium 8.1 mg/dL (8.6-10.3); EGFR African American 47.3 (>60); EGFR Non-African American 39.1 (>60); Magnesium 2.2 mg/dL (1.9-2.7)
[2018-09-29] MEDS ORDERED: Perflutren Lipid Microsphere* 3 ML VIAL ONE (07:49)
[2018-09-29] MEDS: Polyethylene Glycol 3350* 17 GM PACKET PO PRN (08:21)
[2018-09-29] MEDS: Ferrous Gluconate TAB* 324 MG TAB PO SCH ×2 (08:22→21:51)
[2018-09-29] MEDS: Diltiazem CD CAP* 240 MG PO SCH (08:22)
[2018-09-29] MEDS: Docusate CAP* 100 MG PO PRN (08:22)
[2018-09-29] MEDS: oxyCODONE/Acetamin 5/325 MG* TAB PO PRN ×3 (08:22→22:31)
[2018-09-29] MEDS: Pantoprazole TAB * 40 MG TAB PO SCH ×2 (08:22→21:51)
--- NOTE | 2018-09-29 11:58 | ECHO ---
*[facility]* [place] [address] Fax #: [phone] Transthoracic Echocardiogram Patient: Sukhi Miller : 1940 Study Date: 09/29/2018 Age: 78 Gender: M HR: 93 bpm Height: 70 in /177.8 cm BSA: 2.09 m^2 Weight: 199.6 lb /90.7 kg BMI: 28.7 kg/m^2 *Life Trainer: Saray Marrero [facility] *Referring Physician: * Sai Infante *Reading Physician: * Miguel Larry MD Indications: Bacteremia. History: Atrial fibrillation. Risk factors: Hypertension. Conclusions Summary: 1. Left ventricle: The cavity size is at the upper limits of normal. Wall thickness is mildly increased. Systolic function is lower limits of normal left ventricle ejection fraction 50-55% and pt in a fib. 2. Left atrium: The atrium is severely dilated. 3. Right atrium: The atrium is moderately to severely dilated. 4. Mitral valve: There is mild regurgitation. 5. Tricuspid valve: There is moderate regurgitation. 6. Aortic root: The aortic root is mildly dilated. 7. Aortic arch: The aortic arch is mildly dilated. 8. Pulmonary arteries: Systolic pressure is mildly increased. The peak pressure during systole by Doppler is 39.0 mm Hg. 9. C/t 02/25/2013, left ventricle ejection fraction is stable. There is borderline increase in mitral regurgitation and tricuspid regurgitation now. 10. No obvious vegetation and suboptimal to evaluate well cardiac valves. If clinically indicated, transesophageal echocardiogram might be of further help. Study data: Transthoracic echocardiogram. Procedure: Transthoracic echocardiography was performed. Image quality was fair. Intravenous Definity , 2 mlswas administered. Complete 2D, spectral Doppler, and color flow Doppler. Location: Bedside. Patient status: Inpatient. Patient room number: 332. Rhythm: Atrial fibrillation. Findings Left ventricle: The cavity size is at the upper limits of normal. Wall thickness is mildly increased. Systolic function is lower limits of normal left ventricle ejection fraction 50-55% and pt in a fib. Wall motion is normal; there are no regional wall motion abnormalities. Left ventricular diastolic function parameters are indeterminate. Right ventricle: The cavity size is normal. Systolic function is normal. Left atrium: The atrium is severely dilated. Right atrium: The atrium is moderately to severely dilated. Mitral valve: The annulus is mildly calcified. The leaflets are mildly thickened. There is no evidence of stenosis. There is mild regurgitation. Aortic valve: The valve is trileaflet. The leaflets are mildly thickened. There is no evidence of stenosis. There is trivial regurgitation. Tricuspid valve: The leaflets are mildly thickened. There is no evidence of stenosis. There is moderate regurgitation. Pulmonic valve: The leaflets are normal thickness. There is no evidence of stenosis. There is trivial regurgitation. Aorta: Aortic root: The aortic root is mildly dilated. Ascending aorta: The ascending aorta is appears normal. Aortic arch: The aortic arch is mildly dilated. Pericardium: There is no significant pericardial effusion. Pulmonary arteries: The main pulmonary artery is normal-sized. Systolic pressure is mildly increased. Systemic veins: Inferior vena cava: The vessel is dilated. The respirophasic diameter changes are blunted (< 50%). Measurements Left ventricle Value Ref Aortic valve continued Value Ref CYNTHIA, LAX 5.5 cm 4.2 - 5.8 Peak v, S 1.74 m/sec ----- ESD, LAX (H) 4.1 cm 2.5 - 4.0 VTI, S 31.3 cm ----- FS, LAX 26 % 25 - 43 Mean grad, S 7.0 mm Hg ----- PW, ED, LAX (H) 1.2 cm 0.6 - 1.0 Peak grad, S 12.0 mm Hg ----- EF (L) 50 % 52 - 72 IMANI, VTI 2.86 cm^2 ----- E', lat saima, TDI 14.1 cm/sec >=10.0 IMANI, Vmax 2.86 cm^2 - ---- E/e', lat saima, 9 TDI Mitral valve Value Ref E', med saima, TDI 13.0 cm/sec >=7.0 Peak E 1.29 m/sec - ---- E/e', med saima, 10 Peak A 0.03 m/sec ---- - TDI Decel time 112 ms ----- E', avg, TDI 13.6 cm/sec PHT 89 ms ---- - E/e', avg, TDI 10 <=14 Mean grad, D 2.0 mm Hg - ---- Peak grad, D 7.0 mm Hg ----- LVOT Value Ref Peak E/A ratio 41.6 ----- Diam, S 2.20 cm MVA, PHT 3.0 cm^2 ----- Area 3.8 cm^2 Peak ashlie, S 1.31 m/sec Pulmonic valve Value Ref Peak grad, S 7 mm Hg Peak v, S 0.8 m/sec ----- Mean grad, S 4 mm Hg Peak grad, S 3.0 mm Hg ----- SV 88 ml SV/bsa 42 ml/m^2 Tricuspid valve Value Ref TR peak v (H) 2.9 m/sec <=2.8 Ventricular septum Value Ref Peak RV-RA grad, S 34 mm Hg ----- IVS, ED (H) 1.3 cm 0.6 - 1.0 Aortic root Value Ref Right ventricle Value Ref Root diam 3.9 cm <4.2 CYNTHIA, LAX 3.4 cm CYNTHIA minor ax, A4C 3.0 cm 1.9 - 3.5 Ascending aorta Value Ref mid AAo AP diam, S 3.1 cm ----- Pressure, S 42 mm Hg Aortic arch Value Ref Left atrium Value Ref Arch diam 3.8 cm ----- AP dim, ES (H) 4.90 cm 3.00 - 4.00 Decending aorta Value Ref ML dim, A4C 5.2 cm Kraig peak ashlie 0.5 m/sec ----- SI dim, A4C 7.6 cm Vol/bsa, ES, A/L (H) 68 ml/m^2 16 - 34 Pulmonary artery Value Ref Pressure, S 39.0 mm Hg ----- Right atrium Value Ref SI dim, ES (H) 6.9 cm 3.4 - 5.3 Inferior vena cava Value Ref ML dim, ES, A4C (H) 5.6 cm 2.6 - 4.4 Diam 2.6 cm ----- Estimated RAP 8 mm Hg Aortic valve Value Ref Saima diam, ED 2.1 cm Legend: (L) and (H) aurora values outside specified reference range. Prepared and electronically signed by Miguel Larry MD 09/29/2018 11:57
[2018-09-29] MEDS ORDERED: Gadoteridol* (CONTRAST) 279.3 MG/ML 10 ML IV ONE (13:00)
[2018-09-29] MEDS ORDERED: NS 0.9% 1000 ML** 1,000 ML IV SCH (15:00)
--- NOTE | 2018-09-29 17:12 | PN ---
<Hipolito Villegas - Last Filed: 09/29/18 20:10> Subjective Date of Service: 09/29/18 Interval History: Today patient is complaining of left hip pain. MRI lumbar spine done today showed no signs of epidural abscess. Blood culture showed MRSA Negative S. aureus. Started on cephazolin iv 8 hrly. Vancomycin stopped. Blood culture and Cardio consult sent. Started on Heparin drip. Hb and hematocrit is decreasing. Objective Active Medications: Acetaminophen (Tylenol Tab*) 650 mg PO Q6H PRN PRN Reason: pain/fever Diltiazem HCl (Cardizem Cd Cap*) 240 mg PO DAILY [facility] Last Admin: 09/29/18 08:22 Dose: 240 mg Docusate Sodium (Colace Cap*) 100 mg PO BID PRN PRN Reason: CONSTIPATION Last Admin: 09/29/18 08:22 Dose: 100 mg Ferrous Gluconate (Fergon Tab*) 324 mg PO BID [facility] Last Admin: 09/29/18 08:22 Dose: 324 mg Cefazolin Sodium 1 gm/ Sodium (Chloride) 50 mls @ 200 mls/hr IVPB Q8H [facility] Sodium Chloride (Ns 0.9% 1000 Ml) 1,000 mls @ 100 mls/hr IV PER RATE [facility] Stop: 09/30/18 00:59 Last Admin: 09/29/18 16:18 Dose: 100 mls/hr Latanoprost (Xalatan 0.005%*) 1 drop BOTH EYES QPM [facility] Last Admin: 09/28/18 18:34 Dose: 1 drop Morphine Sulfate (Morphine 4 Mg/Ml Vial (1 Ml)) 4 mg IV Q2H PRN PRN Reason: SEVERE PAIN Oxycodone/Acetaminophen (Percocet 5/325 Tab*) 1 tab PO Q4H PRN PRN Reason: moderate pain Last Admin: 09/29/18 16:23 Dose: 1 tab Oxycodone/Acetaminophen (Percocet 5/325 Tab*) 2 tab PO Q4H PRN PRN Reason: SEVERE PAIN Pantoprazole Sodium (Protonix Tab*) 40 mg PO BID [facility] Last Admin: 09/29/18 08:22 Dose: 40 mg Polyethylene Glycol/Electrolytes (Miralax*) 17 gm PO DAILY PRN PRN Reason: CONSTIPATION Last Admin: 09/29/18 08:21 Dose: 17 gm Senna (Senokot Tab*) 1 tab PO BEDTIME DEBBIE Last Admin: 09/28/18 21:04 Dose: 1 tab Vital Signs - 8 hr 09/29/18 09/29/18 09/29/18 09:25 11:42 15:35 Temperature 98.5 F 100.1 F Pulse Rate 87 69 Respiratory 20 20 Rate Blood Pressure 126/70 127/55 (mmHg) O2 Sat by Pulse 97 98 98 Oximetry 09/29/18 16:23 Temperature Pulse Rate Respiratory 22 Rate Blood Pressure (mmHg) O2 Sat by Pulse Oximetry Oxygen Devices in Use Now: Nasal Cannula Result Diagrams: 09/29/18 06:53 09/29/18 06:53 Additional Lab and Data: Laboratory Results - last 24 hr 09/27/18 09/28/18 09/28/18 17:27 06:27 06:27 WBC 10.6 RBC 2.23 L Hgb 7.7 L Hct 23 L MCV 102 H MCH 35 H MCHC 34 RDW 15 Plt Count 138 L MPV 8.5 Neut % (Auto) 83.6 Lymph % (Auto) 4.8 [place] % (Auto) 11.5 Eos % (Auto) 0.0 Baso % (Auto) 0.1 Absolute Neuts (auto) 8.8 H Absolute Lymphs (auto) 0.5 L Absolute Monos (auto) 1.2 H Absolute Eos (auto) 0.0 Absolute Basos (auto) 0.0 Absolute Nucleated RBC 0.0 Nucleated RBC % 0.0 Sodium 133 L Potassium 3.9 Chloride 104 Carbon Dioxide 21 L Anion Gap 8 BUN 21 Creatinine 0.91 Est GFR ( Amer) 98.0 Est GFR (Non-Af Amer) 81.0 BUN/Creatinine Ratio 23.1 H Glucose 160 H Calcium 7.9 L Magnesium 1.6 L Iron < 20 L TIBC 358 % Saturation 6 L Unsat Iron Binding < 343 Transferrin 256 Ferritin 62.5 Vitamin B12 565 Folate 7.20 Urine Color Yellow Urine Appearance Cloudy Urine pH 5.0 Ur Specific [place] 1.018 Urine Protein 2+(100 mg/dl) A Urine Ketones Negative Urine Blood Negative Urine Nitrate Negative Urine Bilirubin Negative Urine Urobilinogen Negative Ur Leukocyte Esterase Negative Urine WBC (Auto) 1+(6-10/hpf) A Urine RBC (Auto) Absent Ur Squamous Epith Cells Present A Urine Bacteria Absent Hyaline Casts Present A Urine Glucose Negative Microbiology and Other Data: Microbiology 09/27/18 14:56 Aerobic Blood Culture - Preliminary Blood Venous Blood MRSA/MSSA (PCR) - Final Mrsa Negative S.aureus Positive 09/27/18 12:14 Aerobic Blood Culture - Preliminary Blood Venous Blood MRSA/MSSA (PCR) - Final Mrsa Negative S.aureus Positive Assess/Plan/Problems-Billing Assessment: 78 y/o M w/ PMH of Atrial fibrillation, HTN, B/L Hip replacement, [facility]NER presented with left hip pain following fall from a soft chair and fever. Admitted with dagnosis of sepsis due to unspecified cause. Hospital course complicated by Acute Renal Failure. MRI lumbar spine done today showed no signs of epidural abscess. Blood culture showed MRSA Negative S. aureus. Started on cephazolin iv 8 hrly. Vancomycin stopped. 1 L of 0.9% NS given. Blood culture and Cardio consult sent. Started on Heparin drip. Hb and hematocrit is decreasing. - Patient Problems (1) MSSA bacteremia Current Visit: Yes Status: Acute Code(s): R78.81 - BACTEREMIA SNOMED Code( s): 171622750 Comment: Repeat BCx today; repeat until clear Will continue vancomycin/ceftriaxone for now given still with increased left hip pain. May be able to switch to cefazolin tomorrow. Transthoracic ECHO to rule out vegetations. did have skin breaks since June when developed Zoster to right chest/back. ? source Will get MRI lumbar spine to rule out epidural abscess per request by Ortho. Has some left think and lower back pain CRP 186 at risk for hardware infection (b/l hip replacement) would need CECILIA if persistent bacteremia. (2) Chronic atrial fibrillation Current Visit: No Status: Acute Code(s): I48.2 - CHRONIC ATRIAL FIBRILLATION SNOMED Code(s): 537476926 Comment: Continue Diltiazem Eliquis is being held per Ortho. replete Mg>2, K>4 prn (3) Iron deficiency anemia Current Visit: No Status: Acute Code(s): D50.9 - IRON DEFICIENCY ANEMIA, UNSPECIFIED SNOMED Code(s): 40927886 Comment: Suspect GIB in setting of initiation of xarelto EGD now May need capsule if source not apparent (mild gastritis on last check) c/w PPI gtt Start iron PO Holding xarelto. Do not plan on initiation of aspirin either unless source identified and controlled. Plan made in conjunction with patient. Status and Disposition: medicine inpatient. Ortho consulting. <Devon Rios - Last Filed: 09/30/18 17:09> Objective Active Medications: Acetaminophen (Tylenol Tab*) 650 mg PO Q6H PRN PRN Reason: pain/fever Diltiazem HCl (Cardizem Cd Cap*) 240 mg PO DAILY [facility] Last Admin: 09/30/18 11:46 Dose: Not Given Docusate Sodium (Colace Cap*) 100 mg PO BID PRN PRN Reason: CONSTIPATION Last Admin: 09/29/18 08:22 Dose: 100 mg Famotidine (Pepcid Iv*) 20 mg IV ONCE ONE Stop: 09/30/18 16:29 Last Admin: 09/30/18 16:45 Dose: 20 mg Ferrous Gluconate (Fergon Tab*) 324 mg PO BID [facility] Last Admin: 09/30/18 11:46 Dose: Not Given Cefazolin Sodium 1 gm/ Sodium (Chloride) 50 mls @ 200 mls/hr IVPB Q12HR [facility] Sodium Chloride (Ns 0.9% 1000 Ml) 1,000 mls @ 125 mls/hr IV PER RATE [facility] Latanoprost (Xalatan 0.005%*) 1 drop BOTH EYES QPM [facility] Last Admin: 09/29/18 18:43 Dose: 1 drop Lidocaine/Sodium Bicarbonate (Buffered Lidocaine 1% Syrin*) 0.2 ml INTRADERM ONCE ONE Stop: 09/30/18 16:29 Last Admin: 09/30/18 16:44 Dose: Not Given Morphine Sulfate (Morphine 4 Mg/Ml Vial (1 Ml)) 4 mg IV Q2H PRN PRN Reason: SEVERE PAIN Oxycodone/Acetaminophen (Percocet 5/325 Tab*) 1 tab PO Q4H PRN PRN Reason: moderate pain Last Admin: 09/29/18 22:31 Dose: 1 tab Oxycodone/Acetaminophen (Percocet 5/325 Tab*) 2 tab PO Q4H PRN PRN Reason: SEVERE PAIN Pantoprazole Sodium (Protonix Tab*) 40 mg PO BID [facility] Last Admin: 09/30/18 11:46 Dose: Not Given Polyethylene Glycol/Electrolytes (Miralax*) 17 gm PO DAILY PRN PRN Reason: CONSTIPATION Last Admin: 09/29/18 08:21 Dose: 17 gm Senna (Senokot Tab*) 1 tab PO BEDTIME DEBBIE Last Admin: 09/29/18 21:51 Dose: 1 tab Vital Signs - 8 hr 09/30/18 09/30/18 09/30/18 11:14 15:11 16:12 Temperature 99.3 F 99.0 F 100.9 F Pulse Rate 73 84 89 Respiratory 16 18 20 Rate Blood Pressure 140/57 137/73 140/76 (mmHg) O2 Sat by Pulse 100 100 100 Oximetry Result Diagrams: 09/30/18 04:12 09/30/18 04:12 Assess/Plan/Problems-Billing Assessment: 78 yo M h/o b/l hip replacements, afib p/w hip/back pain after fall found with fever and MSSA bacteremia with stay notable for AKF S: Pain with urination reported today. Bladder scan zero. Urine cx negative already and pain has been present x 1 month. O: Interactive NAD Pain with left hip flexion IRIR no mrg lungs CTA b/l No LE edema AOx3 Bacteremia - MSSA. Cultures have not cleared x 2 days -left hip being evaluated by ortho, potential for OR depending on subsequent evaluations -changed abx to cefazolin 09/29 -TTE negative, plan on CECILIA -NPO midnight -ID consult Afib - off eliquis pending possible OR -start heparin gtt now AKF - in setting of infection. Also potentially in setting of vancomycin, ? embolism -1 L NS now and vancomycin changed to cefazolin -repeat labs in AM -nephro c/s tomorrow DVT ppx - hep gtt Attestation Documenting Resident: Bakari Supervising Physician: Gabriel Attestation: This service has been performed in part by a resident under the direction of a teaching physician.Gabriel Huerta, performed the service, or was physically present during the critical, or crump portions of the service, furnished by the resident. I participated in the management of the patient.
[2018-09-29] MEDS ORDERED: Heparin DRIP 25,000 UNITS(*) 25,000 UNITS/500 ML BAG IV SCH (18:00)
[2018-09-29] MEDS ORDERED: Heparin VIAL(*) 5000 UNITS/ML VIAL (FIVE THOUSAND) IV PRN (18:03)
[2018-09-29] MEDS: ceFAZolin 1 GM ADVAN(*) 1 GM in NS 0.9% 50 ML* 50 ML IVPB SCH (18:40)
[2018-09-29] MEDS: Latanoprost 0.005%* 2.5 ml BTL BOTH EYES SCH (18:43)
[2018-09-29] MEDS: Senna TAB PO SCH (21:51)
--- NOTE | 2018-09-29 22:19 | CONS ---
CONSULTATION NOTE: DATE OF CONSULT: 09/29/18 ATTENDING PHYSICIAN: Thank you for this orthopedic consultation. CHIEF COMPLAINT: Left hip pain. INTERVAL HISTORY: Mr. Miller is a 78-year-old gentleman known to me in the past for right total hip arthroplasty. I am asked to take over the care of this patient from Dr. Garza, who was on-call on 09/27/18 when the patient was admitted. Per the history and the patient, he was on a cruise last , when he had a fall onto his buttocks. He developed left hip pain. He had x-rays which showed no obvious fracture. He had to use a wheelchair and Percocet for the rest of the trip. He was driven home to [place] by his and was unable to get out of the car because of the extreme pain. He was brought here to the hospital and was found to have sepsis with fever and bacteremia. Today, the patient reports that his hip pain is improving. He continues to have hip pain with ambulation and hip flexion. Source of his bacteremia has not been identified. The left hip was aspirated and no fluid was obtained. CT scan of the pelvis shows no periprosthetic fracture. The patient is currently anemic, has had leukocytosis and elevated ESR/CRP. He has been intermittently febrile. The patient reports he has a cough and some sinus problems since he was admitted , but does have chronic sinus problems. PAST MEDICAL HISTORY: Osteoarthritis, anemia, hypertension, atrial fibrillation , chronic back pain, GERD, history of anemia. PAST SURGICAL HISTORY: Bilateral total hip arthroplasty, left total knee arthroplasty, multiple endoscopies. HOME MEDICATIONS: 1. Oxycodone 5/325 with acetaminophen 1 tablet q.6 hours p.r.n. 2. Omeprazole 40 mg p.o. b.i.d. 3. Diltiazem 240 mg p.o. daily. 4. Chlorthalidone 25 mg p.o. daily. 5. Ferrous sulfate 325 mg p.o. b.i.d. 6. Apixaban 5 mg p.o. b.i.d. 7. Latanoprost both eyes nightly. ALLERGIES: No known drug allergies. FAMILY HISTORY: Paternal-heart disease. Maternal-dementia. SOCIAL HISTORY: The patient lives with his . He is a former smoker. No current tobacco or recreational drugs. Two alcoholic beverages per day. Normally ambulates independently. REVIEW OF SYSTEMS: Fourteen systems reviewed with the patient today. Positive for left hip pain, recent fall, fevers, chills, back pain, shortness of breath and cough. Otherwise, the patient reports review of systems is negative or not relevant. PHYSICAL EXAM: General: The patient is an overweight male, in no apparent distress. Alert and oriented x3, pleasant mood and appropriate affect. Vitals: Current temperature 100.1, pulse of 69, blood pressure 127/55. HEENT: Atraumatic, normocephalic. Pupils are equal and reactive to light. He has nasal cannula. Chest: Unlabored breathing. Abdomen: Soft, nontender, and nondistended. Left lower extremities: The patient's skin is intact. No abrasions or open wounds. No palpable masses or lymph nodes. He does seem to have some swelling and edema around the hip with warmth. No erythema. No drainage from the wound. Hip flexion to 80 degrees does cause groin pain. Distally neurovascularly intact with 5/5 ankle dorsiflexion and plantar flexion strength. Full sensation to light touch in the ulnar nerve distributions and 2 + palpable DP pulses. DIAGNOSTIC STUDIES/LAB DATA: Multiple views of the patient's left hip are reviewed which showed no obvious periprosthetic fracture and some mild periprosthetic loosening around the acetabulum which is normal for the age of the implant. CT scan of the left hip shows no obvious periprosthetic fracture, unclear whether there is a joint effusion. Most recent labs show white blood cells 9.7, hematocrit 22, platelets 152, most recent ESR 106, most recent CRP 186. Sodium 131, potassium 4.0, chloride 102. BUN and creatinine 33 and 1.71 respectively. Lactic acid 1.8 on 09/27/18. ASSESSMENT AND PLAN: Mr. Miller is a 78-year-old gentleman with left hip pain and sepsis. The patient's history is not consistent with a normal chain of events that we see with an infected total hip arthroplasty implant. The patient did have a trauma at which point his pain started. The patient continues to have low-grade fever, has been febrile, continues to have bacteremia. Aspiration attempted not yield any fluid. I will request an MRI of the left hip to evaluate for effusion or abscess/hematoma. The patient and I discussed the risks and benefits of a washout of the left hip. This would put him at increased risk of dislocation once the hip joint capsule is opened. Please continue to hold the Lovenox. I will assess the patient once again tomorrow. I need to see the MRI left hip results to decide on whether we should take this patient to the operating room. I have reviewed the recent MRI of his spine which shows no obvious epidural abscess. At this time, we have no other reasonable source for infection other than the hip. I would like to obtain the MRI at the at latest by the morning and decide on a washout possibly for tomorrow afternoon on 09/30/18. [id number]/CPS #: [id number] MTDD
[2018-09-30] MEDS: ceFAZolin 1 GM ADVAN(*) 1 GM in NS 0.9% 50 ML* 50 ML IVPB SCH ×3 (01:55→22:43)
[2018-09-30 04:25] LABS: ABS Lymphocytes 0.6 10^3/ul (1.0-4.8); ABS Monocytes 1.1 10^3/ul (0-0.8); ABS Neutrophils 10.4 10^3/ul (1.5-7.7); Eosinophil % 0.2 %; Hematocrit 23 % (42-52); Hemoglobin 7.5 g/dL (14.0-18.0); Lymphocyte % 4.9 %; Mean Corpuscular HGB Conc 33 g/dL (31-36); Mean Corpuscular Hemoglobin 33 pg (27-31); Mean Corpuscular Volume 100 fL (80-94); Mean Platelet Volume 8.3 fL (7.4-10.4); Platelet Count 196 10^3/uL (150-450); Red Blood Count 2.28 10^6 /uL (4.18-5.48); Red Cell Distribution Width 15 % (10-15); White Blood Count 12.1 10^3/uL (3.5-10.8)
[2018-09-30 04:36] LABS: BUN/Creatinine Ratio 16.2 (8-20); Calcium 8.4 mg/dL (8.6-10.3); EGFR Non-African American 22.3 (>60); Magnesium 2.3 mg/dL (1.9-2.7); Potassium 4.1 mmol/L (3.5-5.0)
--- NOTE | 2018-09-30 09:21 | PN ---
Progress Note - Progress Note Date of Service: 09/30/18 SOAP: Subjective: []Pt seen at bedside. He reports left hip pain, denies feeling of fever or chills. He has an MRi of his left hip last night which demonstrate a hematoma, he will go to the OR today with Dr Berumen at aprox 1700. Objective: []Gen: NAD, nontoxic appearing LLE: Skin envelope intact, no erythema. Tender to palpation over the superior and lateral thigh and hip. Assessment: []Infected hematoma left hip Plan: [NPO, stop heparin drip at 10am OR with Dr Berumen for washout this afternoon. Patient is aware and agreeable Discussed with Dr Rios and Dr Villegas, no further optimization needed prior to OR MRI Left Hip IMPRESSION: 1. Soft tissue swelling is identified lateral to each hip and involving the bilateral thighs. Additional soft tissue swelling is identified at the level of the lower abdomen and pelvis. Fascial edema is identified within the proximal thighs, left side greater than right, which is likely post traumatic, infectious, or inflammatory. 2. Bilateral hip prostheses. 3. Edema is identified within the left gluteal muscles, suggestive of muscle strain or myositis. 4. There is a multiloculated fluid collection lateral to the left greater trochanter and extending into the thigh. This measures approximately 12.1 x 5.4 x 1.1 cm and is consistent with complex fluid or hematoma. Complex bursitis and abscess are within the differential. Clinical correlation and follow-up MRI are recommended. 5. There is a partial tear of the right gluteus medius tendon. Mild right hamstring tendinopathy 6. There is a small amount of free fluid within the pelvis. 7. Additional findings described above. Vital Signs Temp 98.8 F 09/30/18 07:20 Pulse 86 09/30/18 07:20 Resp 17 09/30/18 07:20 BP 142/58 09/30/18 07:20 Pulse Ox 98 09/30/18 07:20 Intake & Output 09/29/18 09/30/18 09/30/18 18:59 06:59 18:59 Intake Total 500 1069 Output Total 150 175 Balance 350 894 Weight 200 lb Intake: IVPB 260 ABX - VANCOMYCIN 260 Heparin 219 Oral 240 850 Output: Urine 150 175 Other: Estimated Void Small # Bowel Movements 0 Laboratory Last Values WBC 12.1 10^3/uL (3.5-10.8) H 09/30/18 04:12 RBC 2.28 10^6 /uL (4.18-5.48) L 09/30/18 04:12 Hgb 7.5 g/dL (14.0-18.0) L 09/30/18 04:12 Hct 23 % (42-52) L 09/30/18 04:12 MCV 100 fL (80-94) H 09/30/18 04:12 MCH 33 pg (27-31) H 09/30/18 04:12 MCHC 33 g/dL (31-36) 09/30/18 04:12 RDW 15 % (10-15) 09/30/18 04:12 Plt Count 196 10^3/uL (150-450) 09/30/18 04:12 MPV 8.3 fL (7.4-10.4) 09/30/18 04:12 Neut % (Auto) 85.5 % 09/30/18 04:12 Lymph % (Auto) 4.9 % 09/30/18 04:12 [place] % (Auto) 9.2 % 09/30/18 04:12 Eos % (Auto) 0.2 % 09/30/18 04:12 Baso % (Auto) 0.2 % 09/30/18 04:12 Absolute Neuts (auto) 10.4 10^3/ul (1.5-7.7) H 09/30/18 04:12 Absolute Lymphs (auto) 0.6 10^3/ul (1.0-4.8) L 09/30/18 04:12 Absolute Monos (auto) 1.1 10^3/ul (0-0.8) H 09/30/18 04:12 Absolute Eos (auto) 0.0 10^3/ul (0-0.6) 09/30/18 04:12 Absolute Basos (auto) 0.0 10^3/ul (0-0.2) 09/30/18 04:12 Absolute Nucleated RBC 0.0 10^3/ul 09/30/18 04:12 Nucleated RBC % 0.0 09/30/18 04:12 ESR 106 mm/Hr (0-19) H 09/27/18 14:56 INR (Anticoag Therapy) 1.30 (0.82-1.09) H 09/29/18 06:53 APTT 70.1 seconds (26.0-38.0) H 09/30/18 04:12 Sodium 129 mmol/L (135-145) L 09/30/18 04:12 Potassium 4.1 mmol/L (3.5-5.0) 09/30/18 04:12 Chloride 99 mmol/L (101-111) L 09/30/18 04:12 Carbon Dioxide 18 mmol/L (22-32) L 09/30/18 04:12 Anion Gap 12 mmol/L (2-11) H 09/30/18 04:12 BUN 45 mg/dL (6-24) H 09/30/18 04:12 Creatinine 2.78 mg/dL (0.67-1.17) H 09/30/18 04:12 Est GFR ( Amer) 27.0 (>60) 09/30/18 04:12 Est GFR (Non-Af Amer) 22.3 (>60) 09/30/18 04:12 BUN/Creatinine Ratio 16.2 (8-20) 09/30/18 04:12 Glucose 141 mg/dL (70-100) H 09/30/18 04:12 Lactic Acid 1.8 mmol/L (0.5-2.0) 09/27/18 14:56 Uric Acid 7.0 mg/dL (4.4-7.6) 09/27/18 14:56 Calcium 8.4 mg/dL (8.6-10.3) L 09/30/18 04:12 Magnesium 2.3 mg/dL (1.9-2.7) 09/30/18 04:12 Iron < 20 ug/dL (50-212) L 09/28/18 06:27 TIBC 358 mcg/dL (250-450) 09/28/18 06:27 % Saturation 6 % (15-55) L 09/28/18 06:27 Unsat Iron Binding < 343 ug/dL 09/28/18 06:27 Transferrin 256 mg/dL (203-362) 09/28/18 06:27 Ferritin 62.5 ng/mL (24-336) 09/28/18 06:27 Total Bilirubin 0.80 mg/dL (0.2-1.0) 09/27/18 14:56 AST 37 U/L (13-39) 09/27/18 14:56 ALT 29 U/L (7-52) 09/27/18 14:56 Alkaline Phosphatase 92 U/L (34-104) 09/27/18 14:56 C-Reactive Protein 185.96 mg/L (<8.01) H 09/27/18 14:56 Total Protein 7.0 g/dL (6.4-8.9) 09/27/18 14:56 Albumin 3.8 g/dL (3.2-5.2) 09/27/18 14:56 Globulin 3.2 g/dL (2-4) 09/27/18 14:56 Albumin/Globulin Ratio 1.2 (1-3) 09/27/18 14:56 Vitamin B12 565 pg/mL (180-914) 09/28/18 06:27 Folate 7.20 ng/mL (>3.99) 09/28/18 06:27 Urine Color Yellow 09/27/18 17:27 Urine Appearance Cloudy 09/27/18 17:27 Urine pH 5.0 (5-9) 09/27/18 17:27 Ur Specific [place] 1.018 (1.010-1.030) 09/27/18 17:27 Urine Protein 2+(100 mg/dl) (Negative) A 09/27/18 17:27 Urine Ketones Negative (Negative) 09/27/18 17:27 Urine Blood Negative (Negative) 09/27/18 17:27 Urine Nitrate Negative (Negative) 09/27/18 17:27 Urine Bilirubin Negative (Negative) 09/27/18 17:27 Urine Urobilinogen Negative (Negative) 09/27/18 17:27 Ur Leukocyte Esterase Negative (Negative) 09/27/18 17:27 Urine WBC (Auto) 1+(6-10/hpf) (Absent) A 09/27/18 17:27 Urine RBC (Auto) Absent (Absent) 09/27/18 17:27 Ur Squamous Epith Cells Present (Absent) A 09/27/18 17:27 Urine Bacteria Absent (Absent) 09/27/18 17:27 Hyaline Casts Present (Absent) A 09/27/18 17:27 Urine Glucose Negative (Negative) 09/27/18 17:27 Vancomycin Trough 18.5 mcg/mL 09/28/18 17:29 Blood Type O Positive 09/27/18 14:56 Antibody Screen Negative 09/27/18 14:56
[2018-09-30] MEDS: Ferrous Gluconate TAB* 324 MG TAB PO SCH ×2 (11:46→22:40)
[2018-09-30] MEDS: Diltiazem CD CAP* 240 MG PO SCH (11:46)
[2018-09-30] MEDS: Pantoprazole TAB * 40 MG TAB PO SCH ×2 (11:46→22:40)
[2018-09-30] MEDS ORDERED: Buffered Lidocaine 1% SYRIN* 1 ML/SYRINGE INTRADERM ONE (16:28)
[2018-09-30] MEDS ORDERED: Famotidine IV* 10 MG/ML 2 ML (20 mg) IV ONE (16:28)
[2018-09-30] MEDS ORDERED: Atracurium* 10 MG/ML 10 ML VIAL ONE (16:33)
[2018-09-30] MEDS ORDERED: Midazolam* 1 MG/ML 5 ML VIAL (5 MG) ONE (16:33)
[2018-09-30] MEDS ORDERED: KETAMINE HCL* 50 MG/ML 10 ML VIAL ONE (16:33)
[2018-09-30] MEDS ORDERED: fentaNYL* 50 MCG/ML 2 ML VIAL (100 MCG VIAL) ONE (16:33)
--- NOTE | 2018-09-30 16:33 | PN ---
Progress Note - Progress Note Date of Service: 09/30/18 Note: Pt seen and examined today with Dr. Villegas. I agree with the plan as outlined in her note today and as further delineated below. Mr. Miller reports mild CHAPMAN today but no CP/SOB, N/V He notes continued burning when urinating but insists it has been constant x 1 month The RN has noted a small amount of blood from his meatus We discussed our suggestion for to place a helms catheter but he is quite anxious about its placement since the first attempt this hospital stay was complicated, painful and unsuccessful. Microbiology 09/28/18 12:37 Aerobic Blood Culture - Final Blood Venous Not Reportable Anaerobic Blood Culture - Final Not Reportable Blood Culture - Final Staphylococcus Aureus Blood MRSA/MSSA (PCR) - Final Mrsa Negative S.aureus Positive 09/28/18 12:12 Aerobic Blood Culture - Final Blood Venous Staphylococcus Aureus Anaerobic Blood Culture - Final Staphylococcus Aureus Blood MRSA/MSSA (PCR) - Final Mrsa Negative S.aureus Positive 09/27/18 12:14 Aerobic Blood Culture - Final Blood Venous Staphylococcus Aureus Anaerobic Blood Culture - Final Staphylococcus Aureus Blood MRSA/MSSA (PCR) - Final Mrsa Negative S.aureus Positive Exam: Sitting up in bed, NAD, interactive rrr, no mrg CTA b/l although develops upper respiratory wheezing concordant with devloping anxiety surrounding discussion of helms placement abd soft, NT, ND left hip ttp AOx3 78 yo M h/o pAF (off eliquis since admission), heavy alcohol use, b/l hip replacements pw left hip pain and fever found with persistent MSSA bacteremia MSSA bacteremia- -bcx positive 09/27 and 09/28, results from 09/29 pending -changed vanco to cefazolin 09/29 -appreciate ortho assistance - plan for OR today, MRI with possible abscess v hematoma v infected hematom -likely to need CECILIA as well Renal failure - dramatic worsening over last 48 hrs. Concern for vancomycin toxicity vs embolism v pre renal in setting of sepsis. Post void residual has been nominal but blood on meatus could indicate retention -nephrology consultation -vanco changed to cefazolin and dosed accordingly -volume today delivered as 1 U PRBC -check renal/bladder US -place helms and monitor Afib -heparin bridge prior to OR started 09/29 -stopped today at 100am Anemia - longstanding and chronic -1 U PRBC now Pre-operative evaluation - risk increased over last 48 hrs given worsening kidney fxn. Concern for underlying sepsis as contributing factor to renal failure. I do not think waiting for his renal function to normalize is the safest course of therapy and the safest course would be to proceed to OR to attempt definitive therapy for a potential nidus of infection. No further interventions or evaluation prior to OR necessary from the medicine team's perspective DVT ppx - SCDs s/p OR and restart eliquis when safe from surgical teams perspective
[2018-09-30] MEDS ORDERED: Famotidine IV* 10 MG/ML 2 ML (20 mg) ONE (16:44)
[2018-09-30] MEDS ORDERED: ceFAZolin 1 GM ADVAN(*) 1 GM ADDV.VIAL IVPB ONE (16:46)
[2018-09-30 17:11] LABS: Urine Appearance Turbid; Urine Bacteria 1+ (Absent); Urine Bilirubin Negative (Negative); Urine Blood 3+ (Negative); Urine Color Amber; Urine Glucose Negative (Negative); Urine Ketones Negative (Negative); Urine Nitrite Negative (Negative); Urine Protein 2+(100 mg/dL) (Negative); Urine Red Blood Cell 3+(>10/hpf) (Absent); Urine Specific Gravity 1.014 (1.010-1.030); Urine Urobilinogen Negative (Negative); Urine White Blood Cell 3+(>20/hpf) (Absent)
--- NOTE | 2018-09-30 18:01 | PN ---
Subjective Date of Service: 09/30/18 Interval History: Patient complains of mild headache today. No fever. He also has dysuria but it is present since 1 month. No any other active complaints. Objective Active Medications: Acetaminophen (Tylenol Tab*) 650 mg PO Q6H PRN PRN Reason: pain/fever Diltiazem HCl (Cardizem Cd Cap*) 240 mg PO DAILY [facility] Last Admin: 09/30/18 11:46 Dose: Not Given Docusate Sodium (Colace Cap*) 100 mg PO BID PRN PRN Reason: CONSTIPATION Last Admin: 09/29/18 08:22 Dose: 100 mg Ferrous Gluconate (Fergon Tab*) 324 mg PO BID [facility] Last Admin: 09/30/18 11:46 Dose: Not Given Cefazolin Sodium 1 gm/ Sodium (Chloride) 50 mls @ 200 mls/hr IVPB Q12HR [facility] Sodium Chloride (Ns 0.9% 1000 Ml) 1,000 mls @ 125 mls/hr IV PER RATE [facility] Latanoprost (Xalatan 0.005%*) 1 drop BOTH EYES QPM [facility] Last Admin: 09/29/18 18:43 Dose: 1 drop Morphine Sulfate (Morphine 4 Mg/Ml Vial (1 Ml)) 4 mg IV Q2H PRN PRN Reason: SEVERE PAIN Oxycodone/Acetaminophen (Percocet 5/325 Tab*) 1 tab PO Q4H PRN PRN Reason: moderate pain Last Admin: 09/29/18 22:31 Dose: 1 tab Oxycodone/Acetaminophen (Percocet 5/325 Tab*) 2 tab PO Q4H PRN PRN Reason: SEVERE PAIN Pantoprazole Sodium (Protonix Tab*) 40 mg PO BID [facility] Last Admin: 09/30/18 11:46 Dose: Not Given Polyethylene Glycol/Electrolytes (Miralax*) 17 gm PO DAILY PRN PRN Reason: CONSTIPATION Last Admin: 09/29/18 08:21 Dose: 17 gm Senna (Senokot Tab*) 1 tab PO BEDTIME [facility] Last Admin: 09/29/18 21:51 Dose: 1 tab Vital Signs - 8 hr 09/30/18 09/30/18 09/30/18 11:14 15:11 16:12 Temperature 99.3 F 99.0 F 100.9 F Pulse Rate 73 84 89 Respiratory 16 18 20 Rate Blood Pressure 140/57 137/73 140/76 (mmHg) O2 Sat by Pulse 100 100 100 Oximetry Oxygen Devices in Use Now: Nasal Cannula Exam: Patient is on 2L of oxygen through [place]. Chest: Wheezing on b/l lungs. Result Diagrams: 09/30/18 04:12 09/30/18 04:12 Additional Lab and Data: Laboratory Results - last 24 hr 09/27/18 09/28/18 09/28/18 17:27 06:27 06:27 WBC 10.6 RBC 2.23 L Hgb 7.7 L Hct 23 L MCV 102 H MCH 35 H MCHC 34 RDW 15 Plt Count 138 L MPV 8.5 Neut % (Auto) 83.6 Lymph % (Auto) 4.8 [place] % (Auto) 11.5 Eos % (Auto) 0.0 Baso % (Auto) 0.1 Absolute Neuts (auto) 8.8 H Absolute Lymphs (auto) 0.5 L Absolute Monos (auto) 1.2 H Absolute Eos (auto) 0.0 Absolute Basos (auto) 0.0 Absolute Nucleated RBC 0.0 Nucleated RBC % 0.0 Sodium 133 L Potassium 3.9 Chloride 104 Carbon Dioxide 21 L Anion Gap 8 BUN 21 Creatinine 0.91 Est GFR ( Amer) 98.0 Est GFR (Non-Af Amer) 81.0 BUN/Creatinine Ratio 23.1 H Glucose 160 H Calcium 7.9 L Magnesium 1.6 L Iron < 20 L TIBC 358 % Saturation 6 L Unsat Iron Binding < 343 Transferrin 256 Ferritin 62.5 Vitamin B12 565 Folate 7.20 Urine Color Yellow Urine Appearance Cloudy Urine pH 5.0 Ur Specific [place] 1.018 Urine Protein 2+(100 mg/dl) A Urine Ketones Negative Urine Blood Negative Urine Nitrate Negative Urine Bilirubin Negative Urine Urobilinogen Negative Ur Leukocyte Esterase Negative Urine WBC (Auto) 1+(6-10/hpf) A Urine RBC (Auto) Absent Ur Squamous Epith Cells Present A Urine Bacteria Absent Hyaline Casts Present A Urine Glucose Negative Microbiology and Other Data: Microbiology 09/27/18 14:56 Aerobic Blood Culture - Preliminary Blood Venous Blood MRSA/MSSA (PCR) - Final Mrsa Negative S.aureus Positive 09/27/18 12:14 Aerobic Blood Culture - Preliminary Blood Venous Blood MRSA/MSSA (PCR) - Final Mrsa Negative S.aureus Positive Assess/Plan/Problems-Billing Assessment: 78 y/o M w/ PMH HTN, B/L hip replacement presents with fever and left hip pain after fall from a chair. Admitted with diagnosis of MSSA Bacteremia most probably source from left hip. Hospital stay complicated by anemia and renal failure. - Patient Problems (1) MSSA bacteremia Current Visit: Yes Status: Acute Code(s): R78.81 - BACTEREMIA SNOMED Code( s): 345657231 Comment: Probably from left hip infection. But fluid could not be aspirated. MRI done showed hematoma. Planned for wash out of left hip today. MRI lumbar spine ruled out epidural abscess. No vegetation on transthoracic echo. Patient is on cephazolin and dose is renally adjusted. Vanco stopped. (2) Iron deficiency anemia Current Visit: No Status: Acute Code(s): D50.9 - IRON DEFICIENCY ANEMIA, UNSPECIFIED SNOMED Code(s): 98778979 Comment: Patient hemoglobin is 7.5. 1U of PRBC given prior to washout procedure as per anesthesiology consultation. do CBC. (3) Acute renal failure (ARF) Current Visit: Yes Status: Acute Comment: Patient renal function deteriorated rapidly within 48 hr may be d/t sepsis or vancomycin. Creatinine is 2.78 Asked RN to put helms's. Ordered USG renal and bladder. Monitor BMP. (4) Atrial fibrillation Current Visit: Yes Status: Acute Code(s): I48.91 - UNSPECIFIED ATRIAL FIBRILLATION SNOMED Code(s): 95787241 Comment: Patient was on heparin but stopped today morning for his wash out procedure. will restart again probably after 6 hr of surgery or ortho consultation. Status and Disposition: medicine inpatient. Ortho consulting.
[2018-09-30] MEDS ORDERED: HYDROmorphone INJ1* 1 MG/ML SYRINGE ONE (18:50)
[2018-09-30] MEDS ORDERED: Scopolamine 1.5 mg* PATCH TRANSDERM PRN (19:15)
[2018-09-30] MEDS ORDERED: DiMENhydriNATE IV* 50 MG/ML VIAL IV PUSH PRN (19:15)
[2018-09-30] MEDS ORDERED: HYDROmorphone INJ1* 1 MG/ML SYRINGE IV PRN (19:15)
[2018-09-30] MEDS ORDERED: fentaNYL* 50 MCG/ML 2 ML VIAL (100 MCG VIAL) IV PRN (19:15)
[2018-09-30] MEDS ORDERED: Naloxone* 0.4 MG/ML 1 ML VIAL IV PRN (19:15)
[2018-09-30] MEDS ORDERED: Lidocaine 2% PF * 5 ML VIAL ONE (19:37)
[2018-09-30] MEDS ORDERED: PROCHLORPERAZINE INJ 5 MG/ML 2 ML VIAL ONE (19:37)
[2018-09-30] MEDS ORDERED: Norepinephrine VIAL* 1 MG/ML 4 ML VIAL ONE (19:37)
[2018-09-30] MEDS ORDERED: Phenylephrine 10 MG/ML VIAL* 1 ML VIAL ONE (19:37)
[2018-09-30] MEDS ORDERED: Propofol* 10 MG/ML 20 ML BTL ONE (19:37)
[2018-09-30] MEDS ORDERED: Ondansetron INJ* 2 MG/ML VIAL ONE (19:37)
[2018-09-30] MEDS ORDERED: Acetaminophen IV 1GM/100ML * 100 ML ONE (19:40)
[2018-09-30] MEDS ORDERED: Levalbuterol 0.63MG/3ML NEB* UNIT OF USE INH ONE (21:16)
--- NOTE | 2018-09-30 22:24 | OP ---
DATE OF SURGERY: 09/30/18 - ROOM #ICU-03 DATE OF : 44 SURGEON: Tamara Berumen MD. DRILLING FOREMAN: NYDIA Jensen. ANESTHESIOLOGIST: Dr. Edgar. ANESTHESIA: General. PRE-OP DIAGNOSIS: Left hip infected hematoma. 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 OPERATIVE PROCEDURE: Open arthrotomy of the left hip joint and lateral thigh with irrigation and debridement of infection. ESTIMATED BLOOD LOSS: 100 cc. COMPLICATIONS: None. SPECIMEN: Multiple culture swabs and purulent fluid was collected and sent to Microbiology. BRIEF HISTORY/INDICATION: Mr. Miller is a 78-year-old gentleman who had a left total hip [place] [address] San. Last , approximately 5 days ago, he had a fall while on a cruise ship. He reports this was a minimal fall, and he did have pain in the left hip with difficulty ambulating after that. The patient and his traveled home, and on 09/27/18, they arrived in [place]. He was in severe pain, and upon presentation to the hospital , was septic. The patient was initially worked up for a possible left hip infection or fracture. CT was negative for significant fluid collection or fracture. An aspiration attempt to the left hip was reported dry tap. I was consulted to evaluate the patient on 09/29/18 by my colleague, Dr. Garza. I ordered an MRI of the hip to look for any fluid collections, and a large hematoma was noted. I felt that the hematoma was likely the source of infection. I discussed open irrigation and debridement of the infected hematoma with evaluation of the hip joint at the same time with the patient and his . They did wish to proceed with operative intervention. They wished to proceed with a washout but were clear that they did not want explant or removal of the hip hardware. The patient was medically optimized. Although he did have some new renal functional impairment on 09/30/18, decision was made to take him to the operating room for a formal washout. Informed consent was obtained from the patient and his . They understood the risks of the surgery included, but were not limited to, bleeding, infection, continued infection, damage to nearby structures, continued pain, dislocation, leg length discrepancy, stroke, heart attack, blood clot, , need for further surgery, anesthesia complications. The patient wished to proceed. INTRAOPERATIVE FINDINGS: Intraoperatively, as soon as the lateral fascial layer was incised, there was abundant copious purulent fluid. This was yellow pus that extended into the patient's anterior thigh and directly into the hip joint. There was visible and palpable communication with the hip joint posteriorly. DESCRIPTION OF PROCEDURE: Mr. Miller was identified in the preanesthesia unit. His left lower extremity was marked as the corrective operative side. Informed consent was signed and placed in the chart. The patient was taken to the operating room and placed under anesthesia without complication. He was placed in the right lateral decubitus position on the pegboard. Left lower extremity was prepped and draped in the usual sterile fashion. Preop time-out was made to correctly identify the patient, side, and site. The patient had IV antibiotics but was given an additional 1 g of IV Ancef. The patient's prior hip incision was incised with a 10-blade and carried down to the fascial layer. A new 10-blade was used to incise the facial layer in line with the skin incision. There was immediate copious amounts of purulence. This was thick yellow pus. This was collected with multiple culture swabs and a syringe. The specimen was sent to Microbiology. Charnley retractor was placed. The lateral hip was copiously irrigated with 3 L of sterile saline. This area of infection did extend down into the anterior thigh under the fascia and this was also washed out carefully. Inspection of the posterior hip joint showed direct communication of the infection with the hip joint and visible hardware. A small amount of posterior capsule was opened up and tagged. The hip joint was copiously irrigated with an additional 6 L of sterile saline. Any necrotic or purulent appearing soft tissue was carefully removed using a rongeur. There was minimal polyethylene wear noted. The posterior capsule was carefully repaired back to the greater trochanter. The lateral fascial layer was closed using interrupted #1 Vicryl and #5 Ethibond. The rest of the incision was closed in a layered fashion using 0 and 2-0 Vicryl. Skin was closed using running 3-0 nylon suture. Sterile Xeroform, 4x4s, and paper tape were used to cover the incision. The patient's anesthesia was reversed without difficulty. He was taken to the PACU in stable condition. He will be monitored carefully overnight by the hospitalist team. He will be weightbearing as tolerated with posterior hip precautions. We will have Infectious Disease consult and a PICC line placed. This patient will need long-term IV antibiotic treatment. He may require additional washout and/or explant of the hardware. This was all discussed with his . I will follow the patient daily and we will monitor his progress. [id number]/CPS #: [id number] MTDD
[2018-09-30] MEDS: oxyCODONE/Acetamin 5/325 MG* TAB PO PRN (22:40)
[2018-09-30] MEDS: Senna TAB PO SCH (22:40)
[2018-09-30] MEDS: Latanoprost 0.005%* 2.5 ml BTL BOTH EYES SCH (22:43)
[2018-09-30] MEDS: NS 0.9% 1000 ML** 1,000 ML IV SCH (22:49)
[2018-10-01 04:35] LABS: ABS Lymphocytes 0.6 10^3/ul (1.0-4.8); ABS Neutrophils 11.4 10^3/ul (1.5-7.7); Eosinophil % 0.4 %; Hematocrit 24 % (42-52); Lymphocyte % 4.4 %; Mean Corpuscular HGB Conc 33 g/dL (31-36); Mean Corpuscular Hemoglobin 32 pg (27-31); Mean Corpuscular Volume 99 fL (80-94); Mean Platelet Volume 8.5 fL (7.4-10.4); Platelet Count 197 10^3/uL (150-450); Red Blood Count 2.48 10^6 /uL (4.18-5.48); Red Cell Distribution Width 17 % (10-15); White Blood Count 13.1 10^3/uL (3.5-10.8)
[2018-10-01 04:52] LABS: BUN/Creatinine Ratio 17.9 (8-20); Calcium 8.2 mg/dL (8.6-10.3); EGFR African American 23.6 (>60); EGFR Non-African American 19.5 (>60)
[2018-10-01] MEDS: Morphine INJ* 2 MG/ML 1 ML SYRINGE (TWO MG - NEW SYRINGE VERSION) IV PRN (05:48)
--- NOTE | 2018-10-01 07:34 | PN ---
Progress Note - Progress Note Date of Service: 10/01/18 SOAP: Subjective: Pt. reports L hip pain moderate, primary complaint remains urinary symptoms - sharp pain and spasms with helms. Objective: Vital Signs: Temp Pulse Resp BP Pulse Ox 97.1 F 76 15 119/86 93 10/01/18 03:43 10/01/18 06:00 10/01/18 06:00 10/01/18 06:00 10/01/18 06:00 Laboratory Results - last 24 hr 09/27/18 09/30/18 09/30/18 23:58 10:04 14:37 WBC RBC Hgb Hct MCV MCH MCHC RDW Plt Count MPV Neut % (Auto) Lymph % (Auto) Lane % (Auto) Eos % (Auto) Baso % (Auto) Absolute Neuts (auto) Absolute Lymphs (auto) Absolute Monos (auto) Absolute Eos (auto) Absolute Basos (auto) Absolute Nucleated RBC Nucleated RBC % APTT 60.7 H Patient Temperature Not Reportable ABG pH 7.39 ABG pH (Temp Correct) Not Reportable ABG pCO2 26 L ABG pCO2 (Temp Corrct Not Reportable ABG pO2 119 H ABG pO2 (Temp Correct Not Reportable ABG HCO3 19.0 ABG O2 Saturation 100.0 H ABG Base Excess -7.6 L Respiration Rate Not Reportable O2 Delivery Device nasal cannula Ventilator Type Not Reportable Vent Mode Not Reportable FiO2 2 Inspiratory Time Not Reportable PEEP Not Reportable Pressure Support Not Reportable Pressure Control Not Reportable EPAP Not Reportable IPAP Not Reportable BiPAP Not Reportable Sodium Potassium Chloride Carbon Dioxide Anion Gap BUN Creatinine Est GFR ( Amer) Est GFR (Non-Af Amer) BUN/Creatinine Ratio Glucose Calcium Urine Color Urine Appearance Urine pH Ur Specific [place] Urine Protein Urine Ketones Urine Blood Urine Nitrate Urine Bilirubin Urine Urobilinogen Ur Leukocyte Esterase Urine WBC (Auto) Urine RBC (Auto) Urine Bacteria Urine Glucose Blood Type O Positive Antibody Screen Negative Crossmatch See Detail 09/30/18 09/30/18 10/01/18 15:30 15:55 04:24 WBC 13.1 H RBC 2.48 L Hgb 8.0 L Hct 24 L MCV 99 H MCH 32 H MCHC 33 RDW 17 H Plt Count 197 MPV 8.5 Neut % (Auto) 87.2 Lymph % (Auto) 4.4 Lane % (Auto) 7.8 Eos % (Auto) 0.4 Baso % (Auto) 0.2 Absolute Neuts (auto) 11.4 H Absolute Lymphs (auto) 0.6 L Absolute Monos (auto) 1.0 H Absolute Eos (auto) 0.0 Absolute Basos (auto) 0.0 Absolute Nucleated RBC 0.0 Nucleated RBC % 0.0 APTT 37.4 Patient Temperature ABG pH ABG pH (Temp Correct) ABG pCO2 ABG pCO2 (Temp Corrct ABG pO2 ABG pO2 (Temp Correct ABG HCO3 ABG O2 Saturation ABG Base Excess Respiration Rate O2 Delivery Device Ventilator Type Vent Mode FiO2 Inspiratory Time PEEP Pressure Support Pressure Control EPAP IPAP BiPAP Sodium Potassium Chloride Carbon Dioxide Anion Gap BUN Creatinine Est GFR ( Amer) Est GFR (Non-Af Amer) BUN/Creatinine Ratio Glucose Calcium Urine Color [place] Urine Appearance Turbid Urine pH 5.0 Ur Specific [place] 1.014 Urine Protein 2+(100 mg/dl) A Urine Ketones Negative Urine Blood 3+ A Urine Nitrate Negative Urine Bilirubin Negative Urine Urobilinogen Negative Ur Leukocyte Esterase Negative Urine WBC (Auto) 3+(>20/hpf) A Urine RBC (Auto) 3+(>10/hpf) A Urine Bacteria 1+ A Urine Glucose Negative Blood Type Antibody Screen Crossmatch 10/01/18 04:24 WBC RBC Hgb Hct MCV MCH MCHC RDW Plt Count MPV Neut % (Auto) Lymph % (Auto) Lane % (Auto) Eos % (Auto) Baso % (Auto) Absolute Neuts (auto) Absolute Lymphs (auto) Absolute Monos (auto) Absolute Eos (auto) Absolute Basos (auto) Absolute Nucleated RBC Nucleated RBC % APTT Patient Temperature ABG pH ABG pH (Temp Correct) ABG pCO2 ABG pCO2 (Temp Corrct ABG pO2 ABG pO2 (Temp Correct ABG HCO3 ABG O2 Saturation ABG Base Excess Respiration Rate O2 Delivery Device Ventilator Type Vent Mode FiO2 Inspiratory Time PEEP Pressure Support Pressure Control EPAP IPAP BiPAP Sodium 130 L Potassium 4.0 Chloride 101 Carbon Dioxide 17 L Anion Gap 12 H BUN 56 H Creatinine 3.12 H Est GFR ( Amer) 23.6 Est GFR (Non-Af Amer) 19.5 BUN/Creatinine Ratio 17.9 Glucose 111 H Calcium 8.2 L Urine Color Urine Appearance Urine pH Ur Specific [place] Urine Protein Urine Ketones Urine Blood Urine Nitrate Urine Bilirubin Urine Urobilinogen Ur Leukocyte Esterase Urine WBC (Auto) Urine RBC (Auto) Urine Bacteria Urine Glucose Blood Type Antibody Screen Crossmatch LLE - dressing c/d/i. thigh less swollen, soft and compressible. distally nvi. 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 Pt. has staph aureus bacteremia and shingles currently. He is complaining of urinary symptoms and has recent renal insufficiency. Plan: IV antibiotics x 6 weeks - will need PICC line ID consult wbat lle with posterior hip precautions pt/ot pt. and I discussed his alcohol abuse today - this was at his 's request. I explained he is causing himself harm, hurting his immune system and organs, and putting himself at risk of . He voiced understanding.
[2018-10-01] MEDS: Diltiazem CD CAP* 240 MG PO SCH (07:48)
[2018-10-01] MEDS: Ferrous Gluconate TAB* 324 MG TAB PO SCH ×2 (07:48→21:25)
[2018-10-01] MEDS: NS 0.9% 1000 ML** 1,000 ML IV SCH (07:50)
[2018-10-01] MEDS: ceFAZolin 1 GM ADVAN(*) 1 GM in NS 0.9% 50 ML* 50 ML IVPB SCH ×2 (07:51→21:29)
[2018-10-01] MEDS: Sodium Bicarbonate (ANTACID)* 650 MG TAB PO SCH ×2 (15:24→21:36)
[2018-10-01] MEDS: Polyethylene Glycol 3350* 17 GM PACKET PO PRN (16:17)
[2018-10-01] MEDS: Docusate CAP* 100 MG PO PRN (16:18)
[2018-10-01] MEDS: oxyCODONE/Acetamin 5/325 MG* TAB PO PRN ×2 (16:18→21:26)
--- NOTE | 2018-10-01 17:52 | PN ---
Subjective Date of Service: 10/01/18 Interval History: Pain improved, tolerated procedure well and monitored in ICU overnight Denies SOB, CP, N/V, LH Objective Active Medications: Acetaminophen (Tylenol Tab*) 650 mg PO Q6H PRN PRN Reason: pain/fever Albuterol (Ventolin 2.5 Mg/3 Ml Neb.Oxana*) 2.5 mg INH Q4H PRN PRN Reason: SOB/WHEEZING Diltiazem HCl (Cardizem Cd Cap*) 240 mg PO DAILY [facility] Last Admin: 10/01/18 07:48 Dose: 240 mg Docusate Sodium (Colace Cap*) 100 mg PO BID PRN PRN Reason: CONSTIPATION Last Admin: 10/01/18 16:18 Dose: 100 mg Ferrous Gluconate (Fergon Tab*) 324 mg PO BID [facility] Last Admin: 10/01/18 07:48 Dose: 324 mg Cefazolin Sodium 1 gm/ Sodium (Chloride) 50 mls @ 200 mls/hr IVPB Q12HR [facility] Last Admin: 10/01/18 07:51 Dose: 200 mls/hr Sodium Chloride (Ns 0.9% 1000 Ml) 1,000 mls @ 125 mls/hr IV PER RATE [facility] Stop: 10/02/18 00:29 Last Admin: 10/01/18 07:50 Dose: 125 mls/hr Latanoprost (Xalatan 0.005%*) 1 drop BOTH EYES QPM [facility] Last Admin: 09/30/18 22:43 Dose: 1 drop Morphine Sulfate (Morphine Inj (Syringe))*) 2 mg IV Q2H PRN PRN Reason: PAIN Last Admin: 10/01/18 05:48 Dose: 2 mg Oxycodone/Acetaminophen (Percocet 5/325 Tab*) 1 tab PO Q4H PRN PRN Reason: moderate pain Last Admin: 10/01/18 16:18 Dose: 1 tab Pharmacy Profile Note (Scopolamine Patch Remove*) 1 note PATCH OFF Q72H ONE Stop: 10/03/18 19:16 Polyethylene Glycol/Electrolytes (Miralax*) 17 gm PO DAILY PRN PRN Reason: CONSTIPATION Last Admin: 10/01/18 16:17 Dose: 17 gm Senna (Senokot Tab*) 1 tab PO BEDTIME [facility] Last Admin: 09/30/18 22:40 Dose: 1 tab Sodium Bicarbonate (Sodium Bicarbonate (Antacid)*) 650 mg PO TID [facility] Last Admin: 10/01/18 15:24 Dose: 650 mg Vital Signs - 8 hr 10/01/18 10/01/18 10/01/18 10:00 11:00 12:00 Temperature 99.5 F Pulse Rate 81 87 82 Respiratory 20 22 24 Rate Blood Pressure 125/77 136/79 144/71 (mmHg) O2 Sat by Pulse 97 96 98 Oximetry 10/01/18 10/01/18 10/01/18 13:00 13:01 14:00 Temperature Pulse Rate 80 78 72 Respiratory 25 24 21 Rate Blood Pressure 147/66 131/77 (mmHg) O2 Sat by Pulse 92 95 95 Oximetry 10/01/18 10/01/18 10/01/18 15:00 15:27 15:29 Temperature 98.8 F Pulse Rate 81 73 Respiratory 29 16 18 Rate Blood Pressure 136/66 98/67 (mmHg) O2 Sat by Pulse 99 97 Oximetry 10/01/18 16:18 Temperature Pulse Rate Respiratory 16 Rate Blood Pressure (mmHg) O2 Sat by Pulse Oximetry Oxygen Devices in Use Now: None Appearance: NAD Eyes: No Scleral Icterus, PERRLA Ears/Nose/Mouth/Throat: NL Teeth, Lips, Gums, Clear Oropharnyx Neck: NL Appearance and Movements; NL JVP, Trachea Midline Respiratory: Symmetrical Chest Expansion and Respiratory Effort, Clear to Auscultation Cardiovascular: - - irir Abdominal: NL Sounds; No Tenderness; No Distention, No Hepatosplenomegaly Lymphatic: No Cervical Adenopathy Skin: - - left hip dressed, no LE edema Neurological: Alert and Oriented x 3 Lines/Tubes/Other Access: Clean, Dry and Intact Shay Result Diagrams: 10/01/18 04:24 10/01/18 04:24 Additional Lab and Data: Laboratory Results - last 24 hr 09/27/18 09/28/18 09/28/18 17:27 06:27 06:27 WBC 10.6 RBC 2.23 L Hgb 7.7 L Hct 23 L MCV 102 H MCH 35 H MCHC 34 RDW 15 Plt Count 138 L MPV 8.5 Neut % (Auto) 83.6 Lymph % (Auto) 4.8 [place] % (Auto) 11.5 Eos % (Auto) 0.0 Baso % (Auto) 0.1 Absolute Neuts (auto) 8.8 H Absolute Lymphs (auto) 0.5 L Absolute Monos (auto) 1.2 H Absolute Eos (auto) 0.0 Absolute Basos (auto) 0.0 Absolute Nucleated RBC 0.0 Nucleated RBC % 0.0 Sodium 133 L Potassium 3.9 Chloride 104 Carbon Dioxide 21 L Anion Gap 8 BUN 21 Creatinine 0.91 Est GFR ( Amer) 98.0 Est GFR (Non-Af Amer) 81.0 BUN/Creatinine Ratio 23.1 H Glucose 160 H Calcium 7.9 L Magnesium 1.6 L Iron < 20 L TIBC 358 % Saturation 6 L Unsat Iron Binding < 343 Transferrin 256 Ferritin 62.5 Vitamin B12 565 Folate 7.20 Urine Color Yellow Urine Appearance Cloudy Urine pH 5.0 Ur Specific [place] 1.018 Urine Protein 2+(100 mg/dl) A Urine Ketones Negative Urine Blood Negative Urine Nitrate Negative Urine Bilirubin Negative Urine Urobilinogen Negative Ur Leukocyte Esterase Negative Urine WBC (Auto) 1+(6-10/hpf) A Urine RBC (Auto) Absent Ur Squamous Epith Cells Present A Urine Bacteria Absent Hyaline Casts Present A Urine Glucose Negative Microbiology and Other Data: Microbiology 09/27/18 14:56 Aerobic Blood Culture - Preliminary Blood Venous Blood MRSA/MSSA (PCR) - Final Mrsa Negative S.aureus Positive 09/27/18 12:14 Aerobic Blood Culture - Preliminary Blood Venous Blood MRSA/MSSA (PCR) - Final Mrsa Negative S.aureus Positive Assess/Plan/Problems-Billing Assessment: 78 y/o M w/ PMH HTN, B/L hip replacement presents with fever and left hip pain after fall from a chair. Admitted with diagnosis of MSSA Bacteremia most probably source from left hip. Hospital stay complicated by anemia and renal failure. - Patient Problems (1) Acute renal failure (ARF) Current Visit: Yes Status: Acute Comment: Shay placed 09/30 appreciate nephrology c/s - labs sent and pending Renal/Bladder US pending continued hydration but suspect ATN v AIN repeat labs in AM (2) Atrial fibrillation Comment: Off heparin Restart heparin if unable to restart eliquis. Timing of restarting AC depening on ortho recommendations regarding safety s/p operation as well as possible need for additional surgeries (3) MSSA bacteremia Comment: Complicated by left septic hip joint s/p washout 09/30 Considderation for CECILIA although will not change duration of therapy Cefazolin PICC line placement (4) Sepsis Comment: source MSSA bacteremia initial source unclear but may have been skin cefazolin sepsis resolved Status and Disposition: medicine inpatient. Ortho consulting.
[2018-10-01] MEDS: Latanoprost 0.005%* 2.5 ml BTL BOTH EYES SCH (18:11)
[2018-10-01 19:41] LABS: Urine Appearance Turbid; Urine Bacteria 1+ (Absent); Urine Bilirubin Negative (Negative); Urine Blood 2+ (Negative); Urine Color Amber; Urine Glucose Negative (Negative); Urine Ketones Negative (Negative); Urine Nitrite Negative (Negative); Urine Protein 2+(100 mg/dL) (Negative); Urine Red Blood Cell 3+(>10/hpf) (Absent); Urine Specific Gravity 1.016 (1.010-1.030); Urine Urobilinogen Negative (Negative); Urine White Blood Cell 3+(>20/hpf) (Absent)
--- NOTE | 2018-10-01 20:15 | CONS ---
NEPHROLOGY CONSULTATION: DATE OF CONSULT: 10/01/18 - ROOM #335 REQUESTING PHYSICIAN: Dr. Rios. SERVICE: [facility] Nephrology. REASON FOR CONSULT: Acute kidney injury. HISTORY OF PRESENT ILLNESS: A 78-year-old male with past medical history of left and right total hip replacement; left knee replacement; anemia; atrial fibrillation, on Eliquis; and hypertension, came into the hospital with fever and left hip pain, also recently had a fall on a cruise ship. The patient was noted to have a fever of 103 and has been in the hospital a few days. The patient was noted to have a left total hip arthroplasty infection and lateral thigh hematoma infection and the patient is status post open arthrotomy of the left hip joint and lateral thigh with irrigation and debridement of infection yesterday, 09/30/18, with Dr. Berumen, which is the likely source of his sepsis. His blood cultures were growing Staph aureus. The patient was initially on vancomycin for about 2 days and switched to cefazolin. The patient's left hip cultures also growing Staph aureus. The patient had a transthoracic echocardiogram, which did not show endocarditis. The patient is scheduled for a CECILIA soon. With respect to his kidney function, the patient denies any known history of kidney problems or family history of kidney disease. Denies a history of diabetes. Denies any known history of prostate problems; however, later it appears that it was very difficult to place Shay and multiple attempts were required and condom catheter was placed per discussion with the patient. The patient's baseline creatinine noted to be 0.9 to 1. When he came to the hospital, initially, the patient's creatinine was noted to be 0.9 on 09/28/18, increased to 1.7 on 09/29/18, later to 2.7 yesterday on 09/30/18 and today noted to be 3.1 when Nephrology is consulted. The patient also noted to have some decrease in his urine output and has been making around 30 cc an hour, had 510 mL urine output yesterday and so far has had 193 cc from his Shay today. PAST MEDICAL HISTORY: 1. Left total knee arthroplasty. 2. Right and left total hip replacements. 3. Anemia. 4. Hypertension. 5. Atrial fibrillation, on Eliquis. 6. GERD. 7. Chronic back pain. 8. History of carpal tunnel release. MEDICATION LIST: Prior to hospital stay: 1. Oxycodone with Tylenol. 2. Omeprazole 40 mg p.o. b.i.d. 3. Ferrous sulfate 325 mg p.o. b.i.d. 4. Cardizem 240 mg p.o. daily. 5. Chlorthalidone 25 mg p.o. daily. 6. Apixaban 5 mg p.o. b.i.d. 7. Latanoprost. As discussed, the patient was on vancomycin for a couple of days and has been on cefazolin currently. ALLERGIES: No known drug allergies. FAMILY HISTORY: Father had a heart attack in his 60s. Mother had dementia. SOCIAL HISTORY: Former smoker, quit in 1987. Drinks about 2 glasses of wine per night. No illicit drug use. 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 REVIEW OF SYSTEMS: Reports some shortness of breath. Denies chest pain. Reports some leg edema. Reports baseline anxiety. Other 14-point review of systems noted to be negative. PHYSICAL EXAM: General: Lying in bed, interactive, in no acute distress. HEENT: NC/AT. Heart: S1, S2 present. Regular at the time of exam. No murmurs. Lungs: Clear to auscultation bilaterally. Abdomen: Soft, obese. No rebound. No guarding. Extremities noted to have no edema. Neuro: Alert, oriented x3. LABORATORY DATA: Blood cultures growing Staph aureus. Wound culture growing Staph aureus. UA with 2+ protein, 3+ wbc's, 3+ rbc's, but had a traumatic Shay insertion. Initial UA had hyaline casts. Sodium 130, potassium 4, chloride 101, CO2 of 17, BUN 56, creatinine 3.1, glucose 111, magnesium 2.3. T sat 6. WBC 13.1, hemoglobin 8, hematocrit 24, platelets noted to be 197. ASSESSMENT AND PLAN: A 78-year-old male with history of paroxysmal atrial fibrillation, alcohol use, bilateral hip replacement with methicillin- susceptible Staphylococcus aureus bacteremia. 1. Acute kidney injury in the setting of sepsis. The patient's blood pressure has not been significantly low through hospital course. The patient was initially on vancomycin, but his vancomycin trough levels are not noted to be significantly elevated. At this time, the patient has already been switched to cefazolin. The etiology of his renal failure at this time could be acute tubular necrosis in the setting of sepsis, acute interstitial nephritis in the setting of antibiotic use, post staphylococcus glomerulonephritis/ postinfectious glomerulonephritis in the setting of Staphylococcus aureus sepsis. The patient does not have livedo reticularis on exam or suggestion of thromboembolic disease. The patient's transthoracic echo was also not concerning for endocarditis, but the CECILIA is pending. Recommend checking ASO titer, ESR, ANCA level. The patient noted to have 2+ protein in his urine in the absence of a history of diabetes, which could be in the acute interstitial nephritis/acute tubular necrosis/glomerulonephritis range. Recommend checking a 24-hour urine for protein and creatinine as the patient already has a Shay. Can check the patient for vasculitis. The patient does not have any new rashes except for recent shingles that he has recovered from. Most likely, the patient has acute tubular necrosis with allergic interstitial nephritis also being a possibility. Can check urine eosinophils, but this would be low yield. Recommend checking urine electrolytes including urine sodium, creatinine, urea to evaluate fractional excretion of sodium/low sodium levels which could be indicative of prerenal etiology. In light of difficulty with Shay catheter placement, it will also be important to rule out any obstructive etiology and recommend getting ultrasound of his kidneys to rule out hydronephrosis or obstructive pathology. 2. Metabolic acidosis. Recommend starting him on bicarbonate supplementation orally. 3. Anemia with severe iron-deficiency anemia and low transferrin saturation. The patient would benefit from IV iron infusion; however, would use with caution in the setting of infection and this can possibly be pursued as an outpatient or when he is more stable from the infection standpoint. 4. Recent surgery and the patient received 1 unit PRBC. 5. At the present time, the patient does not have any emergent indications for dialysis, but his clinical course and need for dialysis would be dependent on his volume status and his urine output. If the patient is still in the injury phase of acute tubular necrosis and the patient's creatinine continues to uptrend and his urine output diminishes, renal replacement therapy can be considered; however, at this time as the rate of increase in his creatinine has slowed from yesterday to today, there is a good chance that the patient may be able to recover kidney function in a few days if there are no further renal insults or complications in his course. We will follow with the primary medical team. TIME SPENT: Total time spent is equal to approximately 60 minutes. [id number]/CPS #: [id number] [facility] MEDICAL CENTERWilfredo
[2018-10-01] MEDS: Senna TAB PO SCH (21:25)
--- NOTE | 2018-10-01 21:30 | CONS ---
CONSULTATION REPORT: DATE OF CONSULT: 10/01/18 PROVIDER REQUESTING CONSULTATION: Dr. Devon Rios. CONSULTING SERVICE: Infectious Disease. PROVIDER: Filippo Dalton NP ATTENDING PROVIDER: Dr. Thomas Justin.* (DICTATED BY FILIPPO DALTON NP) REASON FOR CONSULTATION: Staph aureus bacteremia in the setting of a left prosthetic hip infection. IMPRESSION: 1. Septic left hip in the setting of a left hip arthroplasty. The patient is status post wash out with Dr. Berumen on postop day 1. Cultures with Staph aureus. His left knee prosthetic below this is benign and he has good range of motion, no warmth, or effusion noted. He does have leukocytosis. His fevers have resolved at this time. 2. Staph aureus bacteremia. This is in the setting of a left prosthetic hip infection. He underwent a transthoracic echocardiogram showing a mitral regurgitation. His blood cultures have cleared, on repeat cultures done 2 days after the initial blood cultures. There is no growth in his urine. He had a lumbar spine MRI showing no signs of an epidural abscess. 3. Acute kidney injury. The patient was undergoing a renal bladder ultrasound during my visit and has been seen by Nephrology. 4. Chronic back pain. Back pain has returned to baseline. RECOMMENDATIONS: Recommend continuing cefazolin at the current dosing due to his acute kidney injury. Additionally, the patient should undergo a transesophageal echocardiogram to better evaluate the mitral valve and he will likely need a long course of antibiotics. He is hesitant to have a CECILIA without discussing this with his Screen Stretcher, Dr. Miguel draper. HISTORY OF PRESENT ILLNESS: Mr. Miller is a 78-year-old male with past medical history significant for a left total knee arthroplasty, bilateral hip arthroplasties, anemia, hypertension, atrial fibrillation, GERD, chronic back pain, who presented to the hospital with complaints of fever and left hip pain. Mr. Miller was recently on a cruise. He states that he went to sit down on a chair, and fell backwards landing on his left hip. He was able to get up, though he had pain, walked and was able to walk to the medical area to be seen, but by the time he arrived there, he was having severe pain. He was seen by the medical team while on the cruise ship and had an x-ray, which he reports showed no fracture or concerns with the prosthetic. He had fever up to 103, was given Tylenol. He was also given Percocet and used a wheelchair to get around for the rest of his trip. He flew back home from the cruise and was driven home by his from [place]. When he returned home, he was unable to get out of the car and EMS was called and he was brought to the emergency room for evaluation. While in the emergency room, he had a white blood cell count of 11.9, ESR 106, CRP 185.96 with a temperature max of 102.1. He was noted to be anemic with a hemoglobin of 8.3, hematocrit 23, but consistent with previous values back to 2013. He had a pelvic x-ray and pelvic CT showing no evidence of fracture or dislocation. Dr. Garza with Orthopedics saw the patient and felt that there was concern for a left total hip prosthetic infection, although his exam was not totally consisted with that. An attempted to aspirate fluid was made and there was no fluid. He was referred to the Hospitalist's service for admission. While in the hospital he had a lumbar spine MRI due to the complaints of pain radiating showing no epidural abscess, varying degree of multilevel spondylosis and [id number] right neuroforaminal stenosis at L5 to S1. Left lateral recess narrowing contacts the descending L5 nerve root at L4 to L5. Additionally, he had a transthoracic echocardiogram showing mild mitral valve regurgitation. No vegetation seen. He additionally had a left hip MRI showing soft tissue swelling lateral to each hip involving bilateral thighs with the left greater than the right, which felt to be likely posttraumatic infectious or inflammatory, bilateral hip prosthetics are seen, edema in the left gluteal muscle, a multiloculated fluid collection lateral to the left great trochanter and extending into the thigh consistent with complex fluid or hematoma, complex bursitis and abscess are in the differential, partial tear of the right gluteus meatus tendon. The patient was then seen in consultation by Dr. Tamara Berumen with Orthopedic Surgery as there were no other reasonable suggestions for an infection. It was felt that this likely represented a left hip infection and the patient was taken to the operating room on 09/30/[address] Berumen and underwent an open arthrotomy of the left hip joint and lateral thigh with irrigation and debridement of infection. Purulent fluid was collected and sent. The patient denies any current fevers or chills. He has been afebrile since 09/28/18, is noted to have a low-grade fever yesterday afternoon. His initial leukocytosis was resolved and then returned postoperatively. Cultures showed both Staph aureus bacteremia in his left hip. He had repeat blood culture showing no growth. He had a urine culture without growth. The patient does report cough, but has chronic sinus problems. He occasionally brings up white mucus. He denies diarrhea. He reports low back pain that was radiating into his left leg and states this has resolved. PAST MEDICAL HISTORY: 1. Anemia. 2. Hypertension. 3. Atrial fibrillation, on Eliquis. 4. GERD. 5. Chronic back pain. PAST SURGICAL HISTORY: 1. Status post carpal tunnel release. 2. Status post left total knee arthroplasty. 3. Status post right total hip arthroplasty. 4. Status post left total hip arthroplasty. MEDICATIONS: Home medications: 1. Latanoprost 0.005% 1 drop to both eyes every evening. 2. Percocet 1 tablet by mouth every 6 hours as needed for pain. 3. Omeprazole 40 mg by mouth twice daily. 4. Ferrous sulfate 325 mg by mouth twice daily. 5. Diltiazem 240 mg by mouth daily. 6. Chlorthalidone 25 mg by mouth daily. 7. Eliquis 5 mg by mouth daily. Hospital medications: 1. Acetaminophen 650 mg by mouth every 6 hours as needed for fever and pain. 2. Albuterol 2.5 mg inhalation every 4 hours as needed for shortness of breath or wheeze. 3. Cefazolin 1 g IV every 12 hours. 4. Diltiazem 240 mg by mouth daily. 5. Colace 100 mg by mouth twice daily as needed for constipation. 6. Ferrous gluconate 324 mg by mouth twice daily. 7. Latanoprost 1 drop to both eyes every evening. 8. Morphine sulfate 2 mg IV every 2 hours as needed for pain. 9. Percocet 5/325 one tablet by mouth every 4 hours as needed for pain. 10. MiraLAX 17 g by mouth daily as needed for constipation. 11. Senokot 1 tablet by mouth daily at bedtime. 12. Sodium bicarbonate 650 mg by mouth 3 times daily. 13. Sodium chloride 125 mg an hour. ALLERGIES: No known drug allergies. FAMILY HISTORY: Father passed around age 60 from sudden , which the patient believes possibly a heart attack or stroke. Mother lived into her 80s and passed secondary to complications from dementia. SOCIAL HISTORY: The patient is a former smoker and he quit smoking in 1987. He drinks 2 glasses of wine at night. Denies recreational drug use. REVIEW OF SYSTEMS: I performed a 10-point review of systems. All other pertinent positives and negatives are mentioned in the history of present illness. The remaining review of systems are negative. PHYSICAL EXAMINATION: Vital Signs: Temperature 98.8, heart rate 97, respiratory rate 18, O2 sat 97% on room air, and blood pressure 98/67. General Appearance: Appears to be in no acute distress. Head: Normocephalic, atraumatic. EENT: Pupils are equal and reactive to light. Extraocular movements are intact. No conjunctival hemorrhage. Mucous membranes are moist. Neurological: Alert and oriented x4. Cranial nerves II through XII are grossly intact. Cardiovascular: Regular rate and rhythm. No murmurs, rubs, or gallops heard. Respiratory: No accessory muscle use. The lungs are clear to auscultation bilaterally, but there is upper airway intermittent wheezing noted, that is audible without a stethoscope. Abdomen: Bowel sounds present. Abdomen is large, soft, nontender, nondistended. Extremities: Mild bilateral lower extremity edema. DP and PT pulses 1+ and symmetric. Musculoskeletal: No clubbing or cyanosis noted. The patient exhibits good strength in all extremities. He has no tenderness with palpation of the left knee, no effusion or crepitus noted. He has negative logroll test to bilateral hips. Right knee has no tenderness with palpation and no swelling. Psychological: Calm and cooperative. Skin: No rashes or abnormalities seen. He has a dressing to his left hip. No warmth to any of his joints. DIAGNOSTIC STUDIES/LAB DATA: Sodium 130, potassium 4.0, chloride 101, CO2 17, BUN 56, creatinine 3.12, glucose 111. White blood cell count 13.1, hemoglobin 8.0, hematocrit 24, platelet count 192. ESR greater than 120. CRP 185.96 on the day of admission. Urinalysis significant for 3+ blood, 3+ wbcs, 3+ rbcs. Please see impression and recommendations outlined above. Thank you for asking us to see Mr. Miller in consultation. Recommendations have been discussed with NYDIA Gomes. The case has been reviewed with the attending Dr. Thomas Justin, who agrees with the plan of care. Reviewed by LUCY SINGH-Rocio 10/02/18 [id number] [id number]/[facility] #: [id number] MTDD
[2018-10-02] MEDS: oxyCODONE/Acetamin 5/325 MG* TAB PO PRN ×5 (01:50→23:06)
[2018-10-02 06:43] LABS: ABS Eosinophils 0.1 10^3/ul (0-0.6); ABS Lymphocytes 0.4 10^3/ul (1.0-4.8); ABS Monocytes 0.9 10^3/ul (0-0.8); ABS Neutrophils 9.4 10^3/ul (1.5-7.7); Eosinophil % 0.8 %; Hematocrit 22 % (42-52); Hemoglobin 7.4 g/dL (14.0-18.0); Mean Corpuscular HGB Conc 34 g/dL (31-36); Mean Corpuscular Hemoglobin 33 pg (27-31); Mean Corpuscular Volume 98 fL (80-94); Mean Platelet Volume 8.1 fL (7.4-10.4); Nucleated Red Blood Cells % 0.1; Platelet Count 231 10^3/uL (150-450); Red Blood Count 2.23 10^6 /uL (4.18-5.48); Red Cell Distribution Width 17 % (10-15); White Blood Count 10.9 10^3/uL (3.5-10.8)
[2018-10-02 06:55] LABS: BUN/Creatinine Ratio 19.5 (8-20); Calcium 7.7 mg/dL (8.6-10.3); EGFR African American 22.2 (>60); EGFR Non-African American 18.4 (>60); Potassium 3.8 mmol/L (3.5-5.0)
[2018-10-02] MEDS: Ferrous Gluconate TAB* 324 MG TAB PO SCH ×2 (08:21→23:05)
[2018-10-02] MEDS: Sodium Bicarbonate (ANTACID)* 650 MG TAB PO SCH ×3 (08:21→23:06)
[2018-10-02] MEDS: ceFAZolin 1 GM ADVAN(*) 1 GM in NS 0.9% 50 ML* 50 ML IVPB SCH ×2 (08:21→23:36)
[2018-10-02] MEDS: Diltiazem CD CAP* 240 MG PO SCH (08:21)
[2018-10-02] MEDS: Albuterol 2.5 MG/3 ML NEB.SOL* (0.083%) INH PRN (08:45)
--- NOTE | 2018-10-02 09:59 | PN ---
Progress Note - Progress Note Date of Service: 10/02/18 SOAP: Subjective: CC: Left prosthetic hip infection HPI: Mr. Miller is a 78 yo male with PMH significant for left TKA, bilateral ZEKE, anemia, HTN, A fib, GERD, and chronic back pain, who presented to the emergency room for left hip pain and inability to ambulate. 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 Denies fever, chills, back pain, ABD pain, nausea, vomiting, or diarrhea. Reports left hip pain that is improving. No pain in the left knee or right hip. Continues to have an occasional cough with white mucous production, states that this is baseline for him. Objective: Vital Signs - 8 hr 10/02/18 10/02/18 10/02/18 03:17 04:45 07:43 Temperature 98.0 F 97.4 F Pulse Rate 68 83 Respiratory 16 16 18 Rate Blood Pressure 115/49 151/71 (mmHg) O2 Sat by Pulse 96 100 Oximetry Physical Exam: General: NAD, sitting up in a chair Neurological: Alert and Oriented HEENT: No conjuc hemorrhage, moist MM, no thrush Cardiovascular: Heart rate regular Respiratory: Lung sounds clear Abdominal: Bowel sounds present; ABD large, firm and non tender MSK: No pain with palpation, no effusion or warmth of the left knee. Mild tenderness with palpation of the left hip, no warmth. No warmth or tenderness with palpation of the right hip Skin: No rash, surgical dressing to left hip Laboratory Last Values WBC 10.9 10^3/uL (3.5-10.8) H 10/02/18 06:02 RBC 2.23 10^6 /uL (4.18-5.48) L 10/02/18 06:02 Hgb 7.4 g/dL (14.0-18.0) L 10/02/18 06:02 Hct 22 % (42-52) L 10/02/18 06:02 MCV 98 fL (80-94) H 10/02/18 06:02 MCH 33 pg (27-31) H 10/02/18 06:02 MCHC 34 g/dL (31-36) 10/02/18 06:02 RDW 17 % (10-15) H 10/02/18 06:02 Plt Count 231 10^3/uL (150-450) 10/02/18 06:02 MPV 8.1 fL (7.4-10.4) 10/02/18 06:02 Neut % (Auto) 86.7 % 10/02/18 06:02 Lymph % (Auto) 4.0 % 10/02/18 06:02 Butts % (Auto) 8.2 % 10/02/18 06:02 Eos % (Auto) 0.8 % 10/02/18 06:02 Baso % (Auto) 0.3 % 10/02/18 06:02 Absolute Neuts (auto) 9.4 10^3/ul (1.5-7.7) H 10/02/18 06:02 Absolute Lymphs (auto) 0.4 10^3/ul (1.0-4.8) L 10/02/18 06:02 Absolute Monos (auto) 0.9 10^3/ul (0-0.8) H 10/02/18 06:02 Absolute Eos (auto) 0.1 10^3/ul (0-0.6) 10/02/18 06:02 Absolute Basos (auto) 0.0 10^3/ul (0-0.2) 10/02/18 06:02 Absolute Nucleated RBC 0.0 10^3/ul 10/02/18 06:02 Nucleated RBC % 0.1 10/02/18 06:02 ESR > 120 mm/Hr (0-19) H 10/01/18 14:31 INR (Anticoag Therapy) 1.30 (0.82-1.09) H 09/29/18 06:53 APTT 37.4 seconds (26.0-38.0) 09/30/18 15:55 Patient Temperature Not Reportable 09/30/18 14:37 ABG pH 7.39 (7.35-7.45) 09/30/18 14:37 ABG pH (Temp Correct) Not Reportable 09/30/18 14:37 ABG pCO2 26 mmHg (35-45) L 09/30/18 14:37 ABG pCO2 (Temp Corrct Not Reportable 09/30/18 14:37 ABG pO2 119 mmHg (80-100) H 09/30/18 14:37 ABG pO2 (Temp Correct Not Reportable 09/30/18 14:37 ABG HCO3 19.0 mmol/L (19-31) 09/30/18 14:37 ABG O2 Saturation 100.0 % (94.0-98.0) H 09/30/18 14:37 ABG Base Excess -7.6 mmol/L (-2.0-2.0) L 09/30/18 14:37 Respiration Rate Not Reportable 09/30/18 14:37 O2 Delivery Device nasal cannula 09/30/18 14:37 Ventilator Type Not Reportable 09/30/18 14:37 Vent Mode Not Reportable 09/30/18 14:37 FiO2 2 09/30/18 14:37 Inspiratory Time Not Reportable 09/30/18 14:37 PEEP Not Reportable 09/30/18 14:37 Pressure Support Not Reportable 09/30/18 14:37 Pressure Control Not Reportable 09/30/18 14:37 EPAP Not Reportable 09/30/18 14:37 IPAP Not Reportable 09/30/18 14:37 BiPAP Not Reportable 09/30/18 14:37 Sodium 132 mmol/L (135-145) L 10/02/18 06:02 Potassium 3.8 mmol/L (3.5-5.0) 10/02/18 06:02 Chloride 105 mmol/L (101-111) 10/02/18 06:02 Carbon Dioxide 18 mmol/L (22-32) L 10/02/18 06:02 Anion Gap 9 mmol/L (2-11) 10/02/18 06:02 BUN 64 mg/dL (6-24) H 10/02/18 06:02 Creatinine 3.29 mg/dL (0.67-1.17) H 10/02/18 06:02 Est GFR ( Amer) 22.2 (>60) 10/02/18 06:02 Est GFR (Non-Af Amer) 18.4 (>60) 10/02/18 06:02 BUN/Creatinine Ratio 19.5 (8-20) 10/02/18 06:02 Glucose 129 mg/dL (70-100) H 10/02/18 06:02 Lactic Acid 1.8 mmol/L (0.5-2.0) 09/27/18 14:56 Uric Acid 7.0 mg/dL (4.4-7.6) 09/27/18 14:56 Calcium 7.7 mg/dL (8.6-10.3) L 10/02/18 06:02 Magnesium 2.3 mg/dL (1.9-2.7) 09/30/18 04:12 Iron < 20 ug/dL (50-212) L 09/28/18 06:27 TIBC 358 mcg/dL (250-450) 09/28/18 06:27 % Saturation 6 % (15-55) L 09/28/18 06:27 Unsat Iron Binding < 343 ug/dL 09/28/18 06:27 Transferrin 256 mg/dL (203-362) 09/28/18 06:27 Ferritin 62.5 ng/mL (24-336) 09/28/18 06:27 Total Bilirubin 0.80 mg/dL (0.2-1.0) 09/27/18 14:56 AST 37 U/L (13-39) 09/27/18 14:56 ALT 29 U/L (7-52) 09/27/18 14:56 Alkaline Phosphatase 92 U/L (34-104) 09/27/18 14:56 C-Reactive Protein 185.96 mg/L (<8.01) H 09/27/18 14:56 Total Protein 7.0 g/dL (6.4-8.9) 09/27/18 14:56 Albumin 3.8 g/dL (3.2-5.2) 09/27/18 14:56 Globulin 3.2 g/dL (2-4) 09/27/18 14:56 Albumin/Globulin Ratio 1.2 (1-3) 09/27/18 14:56 Vitamin B12 565 pg/mL (180-914) 09/28/18 06:27 Folate 7.20 ng/mL (>3.99) 09/28/18 06:27 Urine Color Keily 10/01/18 19:13 Urine Appearance Turbid 10/01/18 19:13 Urine pH 5.0 (5-9) 10/01/18 19:13 Ur Specific [place] 1.016 (1.010-1.030) 10/01/18 19:13 Urine Protein 2+(100 mg/dl) (Negative) A 10/01/18 19:13 Urine Ketones Negative (Negative) 10/01/18 19:13 Urine Blood 2+ (Negative) A 10/01/18 19:13 Urine Nitrate Negative (Negative) 10/01/18 19:13 Urine Bilirubin Negative (Negative) 10/01/18 19:13 Urine Urobilinogen Negative (Negative) 10/01/18 19:13 Ur Leukocyte Esterase Trace (Negative) A 10/01/18 19:13 Urine WBC (Auto) 3+(>20/hpf) (Absent) A 10/01/18 19:13 Urine RBC (Auto) 3+(>10/hpf) (Absent) A 10/01/18 19:13 Ur Squamous Epith Cells Present (Absent) A 09/27/18 17:27 Urine Bacteria 1+ (Absent) A 10/01/18 19:13 Hyaline Casts Present (Absent) A 09/27/18 17:27 Urine Glucose Negative (Negative) 10/01/18 19:13 Vancomycin Trough 18.5 mcg/mL 09/28/18 17:29 Anti-Streptolysin Titr Negative IU/mL (<200 IU/mL) 10/01/18 14:31 Blood Type O Positive 09/27/18 23:58 Antibody Screen Negative 09/27/18 23:58 Crossmatch See Detail 09/27/18 23:58 Microbiology 09/30/18 19:12 Wound Gram Stain - Final Tissue - Hip Left Tissue Culture - Preliminary Staphylococcus Aureus Anaerobic Culture - Preliminary No Growth Day 1 Skin and Soft Tissue MRSA/MSSA (PCR - Final Mrsa Negative S.aureus Positive 09/29/18 19:44 Aerobic Blood Culture - Preliminary Blood Venous No Growth Day 2 Anaerobic Blood Culture - Preliminary No Growth Day 2 09/29/18 19:45 Aerobic Blood Culture - Preliminary Blood Venous No Growth Day 2 Anaerobic Blood Culture - Preliminary No Growth Day 2 09/30/18 15:30 Urine Culture - Final Urine No Growth (<1,000 CFU/mL) 09/30/18 19:12 Skin and Soft Tissue MRSA/MSSA (PCR - Final Hip Left Mrsa Negative S.aureus Positive Gram Stain - Final Wound Culture - Preliminary Staphylococcus Aureus 09/30/18 22:40 Nasal Screen MRSA (PCR) - Final Nasal Mrsa Not Detected 09/28/18 12:37 Aerobic Blood Culture - Final Blood Venous Not Reportable Anaerobic Blood Culture - Final Not Reportable Blood Culture - Final Staphylococcus Aureus Blood MRSA/MSSA (PCR) - Final Mrsa Negative S.aureus Positive 09/28/18 12:12 Aerobic Blood Culture - Final Blood Venous Staphylococcus Aureus Anaerobic Blood Culture - Final Staphylococcus Aureus Blood MRSA/MSSA (PCR) - Final Mrsa Negative S.aureus Positive 09/27/18 12:14 Aerobic Blood Culture - Final Blood Venous Staphylococcus Aureus Anaerobic Blood Culture - Final Staphylococcus Aureus Blood MRSA/MSSA (PCR) - Final Mrsa Negative S.aureus Positive 09/27/18 14:56 Aerobic Blood Culture - Final Blood Venous Staphylococcus Aureus Anaerobic Blood Culture - Final Staphylococcus Aureus Blood MRSA/MSSA (PCR) - Final Mrsa Negative S.aureus Positive 09/27/18 17:27 Urine Culture - Final Urine No Growth (<1,000 CFU/mL) Assessment: 1. 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 S/P wash out, POD # 2.Preliminary cultures with staph aureus. Afebrile for over 24 hours, leukocytosis is improving. 2. Staph aureus bacteremia. Initial blood cultures with 4/4 bottles positive. Repeat cultures from 09/29 with no growth on day 2. TTE without signs of vegetation. Lumbar MRI without signs of epidural abscess. 3. JOSELUIS. Creatinine continues to elevate. Renal/bladder US yesterday with no sign of hydronephrosis. Nephrology consulting. 4. CONNER. 5. Prosthetic right hip and left knee. Joints are benign, with no redness or swelling. Plan: Continue Cefazolin 1gm IV Q12H (renally dosed). Should consider CECILIA to better evaluate the mitral valve (patient declined at this time, stating he wanted to discuss with his Privacy Attorney - Dr. Rivera). Will need to have an extended course of ABX.
--- NOTE | 2018-10-02 10:09 | PN ---
Progress Note - Progress Note Date of Service: 10/02/18 SOAP: Subjective: []Pt seen at bedside. He feels well and deniesfever, chills, CP, SOB, dizziness , nausea. Objective: []Gen: Nontoxic appearing, NAD LLE - dressing changed incision is c/d/i without erythema or discharge. thigh soft and compressible. DF/PF intact, DP2+, sensation intact to light touch distally. 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 Pt. has staph aureus bacteremia and shingles currently. He is complaining of urinary symptoms and has recent renal insufficiency. Plan: ID consulted, on cefazolin wbat lle with posterior hip precautions pt/ot []ok to start heparin drip from ortho standpoint, hold eliquis for now as not to cause delay should repeat washout be needed Vital Signs Temp 97.9 F 10/02/18 15:06 Pulse 72 10/02/18 15:06 Resp 17 10/02/18 15:06 BP 132/47 10/02/18 15:06 Pulse Ox 98 10/02/18 15:06 Intake & Output 10/01/18 10/02/18 10/02/18 18:59 06:59 18:59 Intake Total 1026 680 840 Output Total 193 825 250 Balance 833 -145 590 Intake: IV Fluids 976 Cefazolin 976 IVPB 50 Cefazolin 50 Oral 680 840 Output: Shay 193 825 250 Other: # Bowel Movements 0 Laboratory Last Values WBC 12.6 10^3/uL (3.5-10.8) H 10/02/18 12:45 RBC 2.30 10^6 /uL (4.18-5.48) L 10/02/18 12:45 Hgb 7.4 g/dL (14.0-18.0) L 10/02/18 12:45 Hct 23 % (42-52) L 10/02/18 12:45 MCV 98 fL (80-94) H 10/02/18 12:45 MCH 32 pg (27-31) H 10/02/18 12:45 MCHC 33 g/dL (31-36) 10/02/18 12:45 RDW 17 % (10-15) H 10/02/18 12:45 Plt Count 250 10^3/uL (150-450) 10/02/18 12:45 MPV 8.2 fL (7.4-10.4) 10/02/18 12:45 Neut % (Auto) 86.9 % 10/02/18 12:45 Lymph % (Auto) 4.1 % 10/02/18 12:45 [place] % (Auto) 7.5 % 10/02/18 12:45 Eos % (Auto) 0.9 % 10/02/18 12:45 Baso % (Auto) 0.6 % 10/02/18 12:45 Absolute Neuts (auto) 10.9 10^3/ul (1.5-7.7) H 10/02/18 12:45 Absolute Lymphs (auto) 0.5 10^3/ul (1.0-4.8) L 10/02/18 12:45 Absolute Monos (auto) 0.9 10^3/ul (0-0.8) H 10/02/18 12:45 Absolute Eos (auto) 0.1 10^3/ul (0-0.6) 10/02/18 12:45 Absolute Basos (auto) 0.1 10^3/ul (0-0.2) 10/02/18 12:45 Absolute Nucleated RBC 0.0 10^3/ul 10/02/18 12:45 Nucleated RBC % 0.0 10/02/18 12:45 ESR > 120 mm/Hr (0-19) H 10/01/18 14:31 INR (Anticoag Therapy) 1.31 (0.82-1.09) H 10/02/18 12:47 APTT 33.3 seconds (26.0-38.0) 10/02/18 12:47 Patient Temperature Not Reportable 09/30/18 14:37 ABG pH 7.39 (7.35-7.45) 09/30/18 14:37 ABG pH (Temp Correct) Not Reportable 09/30/18 14:37 ABG pCO2 26 mmHg (35-45) L 09/30/18 14:37 ABG pCO2 (Temp Corrct Not Reportable 09/30/18 14:37 ABG pO2 119 mmHg (80-100) H 09/30/18 14:37 ABG pO2 (Temp Correct Not Reportable 09/30/18 14:37 ABG HCO3 19.0 mmol/L (19-31) 09/30/18 14:37 ABG O2 Saturation 100.0 % (94.0-98.0) H 09/30/18 14:37 ABG Base Excess -7.6 mmol/L (-2.0-2.0) L 09/30/18 14:37 Respiration Rate Not Reportable 09/30/18 14:37 O2 Delivery Device nasal cannula 09/30/18 14:37 Ventilator Type Not Reportable 09/30/18 14:37 Vent Mode Not Reportable 09/30/18 14:37 FiO2 2 09/30/18 14:37 Inspiratory Time Not Reportable 09/30/18 14:37 PEEP Not Reportable 09/30/18 14:37 Pressure Support Not Reportable 09/30/18 14:37 Pressure Control Not Reportable 09/30/18 14:37 EPAP Not Reportable 09/30/18 14:37 IPAP Not Reportable 09/30/18 14:37 BiPAP Not Reportable 09/30/18 14:37 Sodium 132 mmol/L (135-145) L 10/02/18 06:02 Potassium 3.8 mmol/L (3.5-5.0) 10/02/18 06:02 Chloride 105 mmol/L (101-111) 10/02/18 06:02 Carbon Dioxide 18 mmol/L (22-32) L 10/02/18 06:02 Anion Gap 9 mmol/L (2-11) 10/02/18 06:02 BUN 65 mg/dL (6-24) H 10/02/18 12:45 Creatinine 3.32 mg/dL (0.67-1.17) H 10/02/18 12:45 Est GFR ( Amer) 22.0 (>60) 10/02/18 12:45 Est GFR (Non-Af Amer) 18.2 (>60) 10/02/18 12:45 BUN/Creatinine Ratio 19.5 (8-20) 10/02/18 06:02 Glucose 129 mg/dL (70-100) H 10/02/18 06:02 Lactic Acid 1.8 mmol/L (0.5-2.0) 09/27/18 14:56 Uric Acid 7.0 mg/dL (4.4-7.6) 09/27/18 14:56 Calcium 7.7 mg/dL (8.6-10.3) L 10/02/18 06:02 Magnesium 2.3 mg/dL (1.9-2.7) 09/30/18 04:12 Iron < 20 ug/dL (50-212) L 09/28/18 06:27 TIBC 358 mcg/dL (250-450) 09/28/18 06:27 % Saturation 6 % (15-55) L 09/28/18 06:27 Unsat Iron Binding < 343 ug/dL 09/28/18 06:27 Transferrin 256 mg/dL (203-362) 09/28/18 06:27 Ferritin 62.5 ng/mL (24-336) 09/28/18 06:27 Total Bilirubin 0.80 mg/dL (0.2-1.0) 09/27/18 14:56 AST 37 U/L (13-39) 09/27/18 14:56 ALT 29 U/L (7-52) 09/27/18 14:56 Alkaline Phosphatase 92 U/L (34-104) 09/27/18 14:56 C-Reactive Protein 185.96 mg/L (<8.01) H 09/27/18 14:56 Total Protein 7.0 g/dL (6.4-8.9) 09/27/18 14:56 Albumin 3.8 g/dL (3.2-5.2) 09/27/18 14:56 Globulin 3.2 g/dL (2-4) 09/27/18 14:56 Albumin/Globulin Ratio 1.2 (1-3) 09/27/18 14:56 Vitamin B12 565 pg/mL (180-914) 09/28/18 06:27 Folate 7.20 ng/mL (>3.99) 09/28/18 06:27 Urine Color Keily 10/01/18 19:13 Urine Appearance Turbid 10/01/18 19:13 Urine pH 5.0 (5-9) 10/01/18 19:13 Ur Specific [place] 1.016 (1.010-1.030) 10/01/18 19:13 Urine Protein 2+(100 mg/dl) (Negative) A 10/01/18 19:13 Urine Ketones Negative (Negative) 10/01/18 19:13 Urine Blood 2+ (Negative) A 10/01/18 19:13 Urine Nitrate Negative (Negative) 10/01/18 19:13 Urine Bilirubin Negative (Negative) 10/01/18 19:13 Urine Urobilinogen Negative (Negative) 10/01/18 19:13 Ur Leukocyte Esterase Trace (Negative) A 10/01/18 19:13 Urine WBC (Auto) 3+(>20/hpf) (Absent) A 10/01/18 19:13 Urine RBC (Auto) 3+(>10/hpf) (Absent) A 10/01/18 19:13 Ur Squamous Epith Cells Present (Absent) A 09/27/18 17:27 Urine Bacteria 1+ (Absent) A 10/01/18 19:13 Hyaline Casts Present (Absent) A 09/27/18 17:27 Urine Collection Time 24 hr 10/01/18 13:32 Urine Total Volume 900 mL 10/01/18 13:32 Ur Creatinine 24 Hour 1019.88 mg/24Hr (600-1800) 10/01/18 13:32 Ur Creatinine Concen 113.32 mg/dL 10/01/18 13:32 Ur Total Protein Conc 181 mg/dL 10/01/18 13:32 Ur Total Protein 24 Hr 1629 mg/24Hr (0-165) H 10/01/18 13:32 Urine Glucose Negative (Negative) 10/01/18 19:13 Vancomycin Trough 18.5 mcg/mL 09/28/18 17:29 Anti-Streptolysin Titr Negative IU/mL (<200 IU/mL) 10/01/18 14:31 Blood Type O Positive 09/27/18 23:58 Antibody Screen Negative 09/27/18 23:58 Crossmatch See Detail 09/27/18 23:58
[2018-10-02 13:06] LABS: Hematocrit 23 % (42-52); Hemoglobin 7.4 g/dL (14.0-18.0); Mean Corpuscular HGB Conc 33 g/dL (31-36); Mean Corpuscular Hemoglobin 32 pg (27-31); Mean Corpuscular Volume 98 fL (80-94); Mean Platelet Volume 8.2 fL (7.4-10.4); Platelet Count 250 10^3/uL (150-450); Red Cell Distribution Width 17 % (10-15); White Blood Count 12.6 10^3/uL (3.5-10.8)
[2018-10-02 13:19] LABS: ABS Basophils 0.1 10^3/ul (0-0.2); ABS Eosinophils 0.1 10^3/ul (0-0.6); ABS Lymphocytes 0.5 10^3/ul (1.0-4.8); ABS Monocytes 0.9 10^3/ul (0-0.8); ABS Neutrophils 10.9 10^3/ul (1.5-7.7); Eosinophil % 0.9 %; Lymphocyte % 4.1 %
[2018-10-02 13:20] LABS: Activated Partial Thrombo Time 33.3 seconds (26.0-38.0); INR 1.31 (0.82-1.09)
[2018-10-02 13:24] LABS: EGFR Non-African American 18.2 (>60)
[2018-10-02] MEDS ORDERED: Heparin VIAL(*) 5000 UNITS/ML VIAL (FIVE THOUSAND) SUBCUT SCH ×2 (14:00→15:00)
[2018-10-02 14:59] LABS: Urine Creatinine Concentration 113.32 mg/dL
--- NOTE | 2018-10-02 15:21 | PN ---
<RohithHipolito nunez - Last Filed: 10/02/18 16:05> Subjective Date of Service: 10/02/18 Interval History: Patient complains of feeling tired after walking around. Doesnot have SOB, chest pain, fever and any pain. Objective Active Medications: Acetaminophen (Tylenol Tab*) 650 mg PO Q6H PRN PRN Reason: pain/fever Albuterol (Ventolin 2.5 Mg/3 Ml Neb.Oxana*) 2.5 mg INH Q4H PRN PRN Reason: SOB/WHEEZING Last Admin: 10/02/18 08:45 Dose: 2.5 mg Diltiazem HCl (Cardizem Cd Cap*) 240 mg PO DAILY [facility] Last Admin: 10/02/18 08:21 Dose: 240 mg Docusate Sodium (Colace Cap*) 100 mg PO BID PRN PRN Reason: CONSTIPATION Last Admin: 10/01/18 16:18 Dose: 100 mg Ferrous Gluconate (Fergon Tab*) 324 mg PO BID [facility] Last Admin: 10/02/18 08:21 Dose: 324 mg Heparin Sodium (Porcine) (Heparin Vial(*)) 5,000 units SUBCUT Q8HR [facility] Cefazolin Sodium 1 gm/ Sodium (Chloride) 50 mls @ 200 mls/hr IVPB Q12HR [facility] Last Admin: 10/02/18 08:21 Dose: 200 mls/hr Latanoprost (Xalatan 0.005%*) 1 drop BOTH EYES QPM [facility] Last Admin: 10/01/18 18:11 Dose: 1 drop Morphine Sulfate (Morphine Inj (Syringe))*) 2 mg IV Q2H PRN PRN Reason: PAIN Last Admin: 10/01/18 05:48 Dose: 2 mg Oxycodone/Acetaminophen (Percocet 5/325 Tab*) 1 tab PO Q4H PRN PRN Reason: moderate pain Last Admin: 10/02/18 13:02 Dose: 1 tab Pharmacy Profile Note (Scopolamine Patch Remove*) 1 note PATCH OFF Q72H ONE Stop: 10/03/18 19:16 Polyethylene Glycol/Electrolytes (Miralax*) 17 gm PO DAILY PRN PRN Reason: CONSTIPATION Last Admin: 10/01/18 16:17 Dose: 17 gm Senna (Senokot Tab*) 1 tab PO BEDTIME [facility] Last Admin: 10/01/18 21:25 Dose: 1 tab Sodium Bicarbonate (Sodium Bicarbonate (Antacid)*) 650 mg PO TID [facility] Last Admin: 10/02/18 14:21 Dose: 650 mg Vital Signs - 8 hr 10/02/18 10/02/18 10/02/18 07:43 08:00 08:21 Temperature 97.4 F Pulse Rate 83 Respiratory 18 16 18 Rate Blood Pressure 151/71 (mmHg) O2 Sat by Pulse 100 Oximetry 10/02/18 10/02/18 10/02/18 08:46 10:21 11:30 Temperature 97.6 F Pulse Rate 68 89 Respiratory 14 16 20 Rate Blood Pressure 140/54 (mmHg) O2 Sat by Pulse 98 100 Oximetry 10/02/18 10/02/18 13:02 15:06 Temperature 97.9 F Pulse Rate 72 Respiratory 16 17 Rate Blood Pressure 132/47 (mmHg) O2 Sat by Pulse 98 Oximetry Oxygen Devices in Use Now: None Exam: Patient was not in acute distress. There are scattered bruise in his both arm, forearm and hand. Respiratory:wheezing heard. CVS: Normal heart sound with no any murmur heard. Neuro: Alert, oriented to time, place and person. Motor and sensory intact. GI: No any tenderness and normal bowel sound heard. Result Diagrams: 10/02/18 12:45 10/02/18 12:45 Additional Lab and Data: Laboratory Results - last 24 hr 09/27/18 09/28/18 09/28/18 17:27 06:27 06:27 WBC 10.6 RBC 2.23 L Hgb 7.7 L Hct 23 L MCV 102 H MCH 35 H MCHC 34 RDW 15 Plt Count 138 L MPV 8.5 Neut % (Auto) 83.6 Lymph % (Auto) 4.8 Becker % (Auto) 11.5 Eos % (Auto) 0.0 Baso % (Auto) 0.1 Absolute Neuts (auto) 8.8 H Absolute Lymphs (auto) 0.5 L Absolute Monos (auto) 1.2 H Absolute Eos (auto) 0.0 Absolute Basos (auto) 0.0 Absolute Nucleated RBC 0.0 Nucleated RBC % 0.0 Sodium 133 L Potassium 3.9 Chloride 104 Carbon Dioxide 21 L Anion Gap 8 BUN 21 Creatinine 0.91 Est GFR ( Amer) 98.0 Est GFR (Non-Af Amer) 81.0 BUN/Creatinine Ratio 23.1 H Glucose 160 H Calcium 7.9 L Magnesium 1.6 L Iron < 20 L TIBC 358 % Saturation 6 L Unsat Iron Binding < 343 Transferrin 256 Ferritin 62.5 Vitamin B12 565 Folate 7.20 Urine Color Yellow Urine Appearance Cloudy Urine pH 5.0 Ur Specific Isaban 1.018 Urine Protein 2+(100 mg/dl) A Urine Ketones Negative Urine Blood Negative Urine Nitrate Negative Urine Bilirubin Negative Urine Urobilinogen Negative Ur Leukocyte Esterase Negative Urine WBC (Auto) 1+(6-10/hpf) A Urine RBC (Auto) Absent Ur Squamous Epith Cells Present A Urine Bacteria Absent Hyaline Casts Present A Urine Glucose Negative Microbiology and Other Data: Microbiology 09/27/18 14:56 Aerobic Blood Culture - Preliminary Blood Venous Blood MRSA/MSSA (PCR) - Final Mrsa Negative S.aureus Positive 09/27/18 12:14 Aerobic Blood Culture - Preliminary Blood Venous Blood MRSA/MSSA (PCR) - Final Mrsa Negative S.aureus Positive Assess/Plan/Problems-Billing Assessment: 78 y/o M w/ PMH HTN, B/L hip replacement presents with fever and left hip pain after fall from a chair. Admitted with diagnosis of MSSA Bacteremia most probably source from left hip. Hospital stay complicated by anemia and renal failure. - Patient Problems (1) MSSA bacteremia Current Visit: Yes Status: Acute Code(s): R78.81 - BACTEREMIA SNOMED Code( s): 268464163 Comment: Secondary to left hip septic arthritis. Wash out done. Pus sent to examination. Continue antibiotics. (2) Iron deficiency anemia Current Visit: No Status: Acute Code(s): D50.9 - IRON DEFICIENCY ANEMIA, UNSPECIFIED SNOMED Code(s): 09268030 Comment: 1 U of PRBC given before surgery and now Hb is 7.5. Continue CBC. (3) Acute renal failure (ARF) Current Visit: Yes Status: Acute Comment: Creatinine is 3.2. Nephrology consulted. Further blood workup sent. Report pending. USG didnot show any obstruction. Check for endocarditis. Monitir BMP. (4) Atrial fibrillation Current Visit: Yes Status: Acute Code(s): I48.91 - UNSPECIFIED ATRIAL FIBRILLATION SNOMED Code(s): 15972681 Comment: Started on warfarin and heparin. heparin until warfarin takes its effect. If additional procedures needed we have to stop warfarin. Status and Disposition: medicine inpatient. Ortho consulting.Nephro consulting. <Devon Rios - Last Filed: 10/02/18 18:43> Objective Active Medications: Acetaminophen (Tylenol Tab*) 650 mg PO Q6H PRN PRN Reason: pain/fever Albuterol (Ventolin 2.5 Mg/3 Ml Neb.Oxana*) 2.5 mg INH Q4H PRN PRN Reason: SOB/WHEEZING Last Admin: 10/02/18 08:45 Dose: 2.5 mg Diltiazem HCl (Cardizem Cd Cap*) 240 mg PO DAILY [facility] Last Admin: 10/02/18 08:21 Dose: 240 mg Docusate Sodium (Colace Cap*) 100 mg PO BID PRN PRN Reason: CONSTIPATION Last Admin: 10/01/18 16:18 Dose: 100 mg Ferrous Gluconate (Fergon Tab*) 324 mg PO BID [facility] Last Admin: 10/02/18 08:21 Dose: 324 mg Heparin Sodium (Porcine) (Heparin Vial(*)) 0 units IV .PER PROTOCOL [facility] Last Admin: 10/02/18 16:35 Dose: 6,500 units Cefazolin Sodium 1 gm/ Sodium (Chloride) 50 mls @ 200 mls/hr IVPB Q12HR [facility] Last Admin: 10/02/18 08:21 Dose: 200 mls/hr Heparin Sodium/Dextrose (Heparin Drip 25,000 Units(*)) 25,000 units in 500 mls @ 0 mls/hr IV PER RATE [facility]; Protocol Last Admin: 10/02/18 16:36 Dose: 28 mls/hr Latanoprost (Xalatan 0.005%*) 1 drop BOTH EYES QPM [facility] Last Admin: 10/02/18 18:06 Dose: 1 drop Morphine Sulfate (Morphine Inj (Syringe))*) 2 mg IV Q2H PRN PRN Reason: PAIN Last Admin: 10/01/18 05:48 Dose: 2 mg Oxycodone/Acetaminophen (Percocet 5/325 Tab*) 1 tab PO Q4H PRN PRN Reason: moderate pain Last Admin: 10/02/18 18:03 Dose: 1 tab Pharmacy Profile Note (Scopolamine Patch Remove*) 1 note PATCH OFF Q72H ONE Stop: 10/03/18 19:16 Pharmacy Profile Note (Coumadin Per Pharmacy*) 1 note FOLLOW UP .PER PHARMACY PROTOC [facility]; Protocol Polyethylene Glycol/Electrolytes (Miralax*) 17 gm PO DAILY PRN PRN Reason: CONSTIPATION Last Admin: 10/01/18 16:17 Dose: 17 gm Senna (Senokot Tab*) 1 tab PO BEDTIME [facility] Last Admin: 10/01/18 21:25 Dose: 1 tab Sodium Bicarbonate (Sodium Bicarbonate (Antacid)*) 650 mg PO TID [facility] Last Admin: 10/02/18 14:21 Dose: 650 mg Vital Signs - 8 hr 10/02/18 10/02/18 10/02/18 11:30 13:02 15:02 Temperature 97.6 F Pulse Rate 89 Respiratory 20 16 16 Rate Blood Pressure 140/54 (mmHg) O2 Sat by Pulse 100 Oximetry 10/02/18 10/02/18 15:06 18:03 Temperature 97.9 F Pulse Rate 72 Respiratory 17 16 Rate Blood Pressure 132/47 (mmHg) O2 Sat by Pulse 98 Oximetry Result Diagrams: 10/02/18 12:45 10/02/18 12:45 Assess/Plan/Problems-Billing Assessment: 78 yo h/o afib, b/l hip replacements pw sepsis from septic left hip a/w MSSA bacteremia s/p washout with stay c/b AKF AKF- suspect ATN v AIN in setting of sepsis vs medications respectively -rate of change slowing with better urine output in last 24 hrs -multiple tests pending for evaluation -check again tomorrow Sepsis on abx -working with ortho and ID re: need for addition operations -CECILIA pending and ordered Afib - back on heparin bridge to coumadin -confirmed appropriateness with ortho team - Patient Problems (1) Acute renal failure (ARF) Current Visit: Yes Status: Acute Comment: Creatinine is 3.2. Nephrology consulted. Further blood workup sent. Report pending. USG didnot show any obstruction. Check for endocarditis. Monitir BMP. (2) Atrial fibrillation Comment: Started on warfarin and heparin. heparin until warfarin takes its effect. If additional procedures needed we have to stop warfarin. (3) MSSA bacteremia Comment: Secondary to left hip septic arthritis. Wash out done. Pus sent to examination. Continue antibiotics. (4) Sepsis Comment: source MSSA bacteremia initial source unclear but may have been skin cefazolin sepsis resolved Attestation Documenting Resident: Bakari Supervising Physician: Gabriel Attestation: This service has been performed in part by a resident under the direction of a teaching physician.IGabriel, performed the service, or was physically present during the critical, or crump portions of the service, furnished by the resident. I participated in the management of the patient.
[2018-10-02] MEDS: Heparin DRIP 25,000 UNITS(*) 25,000 UNITS/500 ML BAG IV SCH (16:36)
[2018-10-02] MEDS ORDERED: Heparin VIAL(*) 5000 UNITS/ML VIAL (FIVE THOUSAND) IV SCH (17:00)
[2018-10-02] MEDS ORDERED: Warfarin TAB(*) 3 MG PO ONE ×2 (17:00→18:00)
[2018-10-02] MEDS: Latanoprost 0.005%* 2.5 ml BTL BOTH EYES SCH (18:06)
--- NOTE | 2018-10-02 21:21 | PN ---
PROGRESS NOTE: DATE OF VISIT: 10/02/18 - ROOM #335 REASON FOR VISIT: Acute kidney injury. SERVICE: [facility] Nephrology. SUBJECTIVE: The patient was seen and examined at bedside. Reports that he feels better. Walked around today; however, gets very anxious when physician goes to see the patient, then starts coughing. It seems like this has been the trend. At other times, the patient reports that he feels well. Vitals and labs have been reviewed. PHYSICAL EXAMINATION: HEENT: NC/AT. Heart: S1, S2 present. Regular at the time of exam. Lungs: Decreased breath sounds bilaterally. Noted to have audible wheezes. Abdomen: Soft. Extremities: Mild edema. Neuro: Alert and oriented. ASSESSMENT AND PLAN: 1. Acute kidney injury. Workup is in progress. Please refer to my initial note for full details. At this time, it is positive that the patient's urine output has picked up and the patient has already put out 1000 cc, which indicates that his kidneys should recover. The patient's rate of worsening of his kidney injury also seems to be stabilizing and the patient may be in the plateau phase of acute tubular necrosis. We will follow trend closely. The patient has no emergent dialysis initiation indication. 2. Iron deficiency anemia. Would treat, but after his active infection is treated. 3. Please refer to the note from yesterday for further workup that is pending. [id number]/CPS #: [id number] MTDD
[2018-10-02] MEDS: Senna TAB PO SCH (23:05)
[2018-10-03 05:20] LABS: Activated Partial Thrombo Time 51.7 seconds (26.0-38.0); INR 1.29 (0.82-1.09)
[2018-10-03 05:45] LABS: BUN/Creatinine Ratio 18.7 (8-20); Calcium 8.3 mg/dL (8.6-10.3); EGFR African American 20.5 (>60); EGFR Non-African American 16.9 (>60); Potassium 3.9 mmol/L (3.5-5.0)
[2018-10-03] MEDS: Morphine INJ* 2 MG/ML 1 ML SYRINGE (TWO MG - NEW SYRINGE VERSION) IV PRN (07:30)
[2018-10-03] MEDS: Heparin DRIP 25,000 UNITS(*) 25,000 UNITS/500 ML BAG IV SCH (08:51)
[2018-10-03] MEDS: ceFAZolin 1 GM ADVAN(*) 1 GM in NS 0.9% 50 ML* 50 ML IVPB SCH ×2 (08:56→22:30)
[2018-10-03] MEDS ORDERED: Naloxone* 0.4 MG/ML 1 ML VIAL ONE (09:27)
[2018-10-03] MEDS ORDERED: Midazolam* 1 MG/ML 5 ML VIAL (5 MG) ONE (09:27)
[2018-10-03] MEDS ORDERED: fentaNYL* 50 MCG/ML 2 ML VIAL (100 MCG VIAL) ONE (09:27)
[2018-10-03] MEDS ORDERED: Flumazenil* 0.1 MG/ML 5 ML MDV ONE (09:27)
[2018-10-03] MEDS ORDERED: Lidocaine 2% VISCOUS* 15 ML UDC ONE (09:28)
--- NOTE | 2018-10-03 11:08 | PN ---
Progress Note - Progress Note Date of Service: 10/03/18 SOAP: Subjective: CC: septic hip HPI: 78 year old man left hip arthroplasty infection s/p I&D, today denies pain , fever, rash, or diarrhea. Appetite is decreased. Objective: Vital Signs Temp 37.6 C 10/03/18 07:57 Pulse 78 10/03/18 10:31 Resp 16 10/03/18 07:57 BP 148/80 10/03/18 10:31 Pulse Ox 95 10/03/18 10:31 Intake & Output 10/02/18 10/03/18 10/03/18 18:59 06:59 18:59 Intake Total 1376.9 1783 100 Output Total 250 400 Balance 1126.9 1383 100 Intake: IV Fluids 29 100 Normal saline 29 IVPB 53 Cefazolin 53 Heparin 56.9 941 Oral 1320 760 0 Output: Shay 250 400 Other: Estimated Void Small # Voids 1 Gen:awake, no distress HEENT: no thrush Heart:RRR no murmur Lungs:CTA BL Abd:+BS NTND soft Skin: no rash MSK: Left knee mild edema. left hip incision intact Laboratory Results - last 24 hr 10/01/18 10/02/18 10/02/18 13:32 12:45 12:45 WBC 12.6 H RBC 2.30 L Hgb 7.4 L Hct 23 L MCV 98 H MCH 32 H MCHC 33 RDW 17 H Plt Count 250 MPV 8.2 Neut % (Auto) 86.9 Lymph % (Auto) 4.1 Phillips % (Auto) 7.5 Eos % (Auto) 0.9 Baso % (Auto) 0.6 Absolute Neuts (auto) 10.9 H Absolute Lymphs (auto) 0.5 L Absolute Monos (auto) 0.9 H Absolute Eos (auto) 0.1 Absolute Basos (auto) 0.1 Absolute Nucleated RBC 0.0 Nucleated RBC % 0.0 INR (Anticoag Therapy) APTT Sodium Potassium Chloride Carbon Dioxide Anion Gap BUN 65 H Creatinine 3.32 H Est GFR ( Amer) 22.0 Est GFR (Non-Af Amer) 18.2 BUN/Creatinine Ratio Glucose Calcium Urine Collection Time 24 Urine Total Volume 900 Ur Creatinine 24 Hour 1019.88 Ur Creatinine Concen 113.32 Ur Total Protein Conc 181 Ur Total Protein 24 Hr 1629 H 10/02/18 10/02/18 10/03/18 12:47 22:39 04:52 WBC RBC Hgb Hct MCV MCH MCHC RDW Plt Count MPV Neut % (Auto) Lymph % (Auto) Phillips % (Auto) Eos % (Auto) Baso % (Auto) Absolute Neuts (auto) Absolute Lymphs (auto) Absolute Monos (auto) Absolute Eos (auto) Absolute Basos (auto) Absolute Nucleated RBC Nucleated RBC % INR (Anticoag Therapy) 1.31 H 1.29 H APTT 33.3 56.7 H 51.7 H Sodium Potassium Chloride Carbon Dioxide Anion Gap BUN Creatinine Est GFR ( Amer) Est GFR (Non-Af Amer) BUN/Creatinine Ratio Glucose Calcium Urine Collection Time Urine Total Volume Ur Creatinine 24 Hour Ur Creatinine Concen Ur Total Protein Conc Ur Total Protein 24 Hr 10/03/18 04:52 WBC RBC Hgb Hct MCV MCH MCHC RDW Plt Count MPV Neut % (Auto) Lymph % (Auto) Phillips % (Auto) Eos % (Auto) Baso % (Auto) Absolute Neuts (auto) Absolute Lymphs (auto) Absolute Monos (auto) Absolute Eos (auto) Absolute Basos (auto) Absolute Nucleated RBC Nucleated RBC % INR (Anticoag Therapy) APTT Sodium 133 L Potassium 3.9 Chloride 104 Carbon Dioxide 18 L Anion Gap 11 BUN 66 H Creatinine 3.53 H Est GFR ( Amer) 20.5 Est GFR (Non-Af Amer) 16.9 BUN/Creatinine Ratio 18.7 Glucose 137 H Calcium 8.3 L Urine Collection Time Urine Total Volume Ur Creatinine 24 Hour Ur Creatinine Concen Ur Total Protein Conc Ur Total Protein 24 Hr Assessment: 1. MSSA septic left hip arthroplasty s/p I&D, with bacteremia, resolved; infectious endocarditis on the differential, stable MR on TTE 2. Presence of left knee arthroplasty which is more edematous ?seeding of knee 3. Acute kidney injury, ?ATN or GN related to systemic Staph infection Plan: 1. continue ancef dosed for GFR <10, will adjust as needed. 8 weeks IV ancef, eventual rifampin, then emt intermediate oral antibiotics 2. ?Left knee aspiration, discussed with ortho team
--- NOTE | 2018-10-03 11:14 | TEE ---
*[facility]* [place] [address] Fax #: [phone] Transesophageal Echocardiogram Patient: Sukhi Miller : 1940 Study Date: 10/03/2018 Age: 78 Gender: M HR: 88 bpm Height: 70 in /177.8 cm BSA: 2.09 m^2 Weight: 199.6 lb /90.7 kg BMI: 28.7 kg/m^2 *Assistant Professor Of Criminal Justice: * Mignon Jackson [facility] *Referring Physician: * Hipolito Villegas *Reading Physician: * Miguel Larry MD Indications: Bacteremia. History: Atrial fibrillation. Risk factors: Hypertension. Conclusions Summary: 1. Left ventricle: The cavity size is at the upper limits of normal. There is mild concentric hypertrophy. Systolic function is at the lower limits of normal by visual assessment. The estimated ejection fraction is 50-55%, by visual assessment. 2. Left atrium: The atrium is severely dilated. Emptying velocity is mildly reduced. There is mildintermittent spontaneous echo contrast ("smoke") in the cavity and the appendage. 3. Right atrium: The atrium is moderately to severely dilated. 4. Atrial septum: Delayed appearance of agitated saline contrast in the LA suggestive of possible transpulmonary passage or shunt. 5. Mitral valve: There is mild to moderate regurgitation, with multiple jets. 6. Aortic valve: There is a 0.4 cm (L) x 0.7 cm (W), mobile vegetation. On the anterior leaflet of the aortic valve. There is trace regurgitation. 7. Tricuspid valve: There is moderate-severe regurgitation. 8. Pulmonic valve: There is trivial regurgitation. 9. Aorta: There is mild plaque visualized in the Descending Aorta. 10. Aortic root: The aortic root is mildly dilated. Study data: Diagnostic Transesophageal Echocardiogram Consent: The risks and benefits of the procedure, including alternatives were discussed with the patient and/or their health care parts sales representative and written informed consent was obtained. Procedure: Initial setup: The patient was brought to the laboratory in the fasting state.Intravenous access was obtained. Surface ECG leads, heart rate, heart rhythm, blood pressure measurements, pulse oximetric signals, and mainstream end-tidal CO2 tracings were monitored throughout the procedure. Sedation. Moderate sedation was administered by nursing staff. By Billy Gill RN. History and physical as well as labs were reviewed. An oral bite block was inserted for protection of oral dentition. The patient was placed in the left lateral decubitus position for endocarditis evaluation. Topical anesthesia was obtained using viscous lidocaine. A transesophageal probe was inserted by the attending herb doctor. Transesophageal echocardiography was performed, image quality was good, and all standard views were attempted within the limitations of patient tolerance and safety. Multiple 2D, color flow Doppler and spectral Doppler images were obtained. The transesophageal probe was removed. A bubble study was performed. Location: Procedure room. Patient status: Inpatient. Patient room number: 335. Study completion: The patient tolerated the procedure well. There were no complications. Administered medications: Midazolam, 4mg. Fentanyl, 100mcg. Rhythm: Atrial fibrillation. Findings Left ventricle: The cavity size is at the upper limits of normal. There is mild concentric hypertrophy. Systolic function is at the lower limits of normal by visual assessment. The estimated ejection fraction is 50-55%, by visual assessment. Right ventricle: The cavity size is normal. The moderator band is in a normal position. Systolic function is normal. Systolic pressure is moderately increased. Left atrium: The atrium is severely dilated. Emptying velocity is mildly reduced. There is no evidence of a thrombus in the atrial cavity or appendage. There is mildintermittent spontaneous echo contrast ("smoke") in the cavity and the appendage. Right atrium: The atrium is moderately to severely dilated. Atrial septum: Delayed appearance of agitated saline contrast in the LA suggestive of possible transpulmonary passage or shunt. Image 46. Mitral valve: The leaflets are mildly thickened. There is no evidence of a vegetation. There is no evidence of stenosis. There is mild to moderate regurgitation, with multiple jets. Aortic valve: The leaflets are mildly thickened. There is a 0.4 cm (L) x 0.7 cm (W), mobile vegetation. On the anterior leaflet of the aortic valve. There is no evidence of stenosis. There is trace regurgitation. Tricuspid valve: There is no evidence of a vegetation. There is no evidence of stenosis. There is moderate-severe regurgitation. Pulmonic valve: The leaflets are normal thickness. There is no evidence of a vegetation. There is no evidence of stenosis. There is trivial regurgitation. Aorta: There is mild plaque visualized in the Descending Aorta. Aortic root: The aortic root is mildly dilated. Ascending aorta: The ascending aorta is upper normal in size. Pericardium: A prominent pericardial fat pad is present. There is no significant pericardial effusion. Pulmonary arteries: The main pulmonary artery is normal-sized. Systemic veins: Inferior vena cava: The vessel is normal in size. Superior vena cava: The vessel is appears normal. Measurements Right ventricle Value 09/29/2018 Ref Tricuspid valve Value 09/29/2018 Ref Pressure, S 47 mm Hg 42 ---- TR peak v (H) 3.12 m/sec 2.9 <=2.8 Peak RV-RA 39 mm Hg 34 ----- Right atrium Value 09/29/2018 Ref grad, S Estimated RAP 8 mm Hg 8 ---- Aortic root Value 09/29/2018 Ref Aortic valve Value 09/29/2018 Ref Root diam 3.8 cm 3.9 <4.2 Joaquina diam, ED 2.1 cm 2.1 ---- Ascending aorta Value 09/29/2018 Ref Mitral valve Value 09/29/2018 Ref AAo AP diam, 3.6 cm 3.1 ----- Peak E 1.05 m/sec 1.29 ---- S Peak A 0 m/sec 0.03 ---- Decel time 156 ms 112 ---- Pulmonary artery Value 09/29/2018 Ref Peak grad, D 4.4 mm Hg 7.0 ---- Pressure, S 47.0 mm Hg ----- Peak E/A ratio 350 41.6 ---- Legend: (L) and (H) aurora values outside specified reference range. Prepared and electronically signed by Miguel Larry MD 10/03/2018 11:13
--- NOTE | 2018-10-03 11:26 | PN ---
Progress Note - Progress Note Date of Service: 10/03/18 SOAP: Subjective: [The pt was seen sititng up in the chair today. He states that his knee has been swelling. Hip pain is controlled but he does have some soreness. No fevers chills. ] Objective: []Gen: Nontoxic appearing, NAD LLE - dressing is c/d/i. thigh soft and compressible. DF/PF intact, DP2+, sensation intact to light touch distally. Calves supple and nontender. Left knee has a moderate amount of swelling, proximal to the patella there is a mobile effusion. No erythema about the knee. No pain with passive ROM of the knee from 0 - 70, describes a tight feeling at 70 degrees. Vital Signs Temp 99.7 F 10/03/18 07:57 Pulse 78 10/03/18 10:31 Resp 16 10/03/18 07:57 BP 148/80 10/03/18 10:31 Pulse Ox 95 10/03/18 10:31 Intake & Output 10/02/18 10/03/18 10/03/18 18:59 06:59 18:59 Intake Total 1376.9 1783 100 Output Total 250 400 Balance 1126.9 1383 100 Intake: IV Fluids 29 100 Normal saline 29 IVPB 53 Cefazolin 53 Heparin 56.9 941 Oral 1320 760 0 Output: Shay 250 400 Other: Estimated Void Small # Voids 1 Assessment: 78 yo M pod 3 s/p L ZEKE infection I and D. Pt. has staph aureus bacteremia and shingles currently. He is complaining of urinary symptoms and has recent renal insufficiency. Plan: ID consulted, on cefazolin wbat lle with posterior hip precautions pt/ot Continue with heparin Ice to the left knee and pillows under the ankle. We will return and evaluate again today We will discuss this knee with Dr. Berumen, possible aspiration later today should swelling not improve.
[2018-10-03] MEDS: Sodium Bicarbonate (ANTACID)* 650 MG TAB PO SCH ×3 (13:06→22:30)
[2018-10-03] MEDS: Ferrous Gluconate TAB* 324 MG TAB PO SCH ×2 (13:06→22:30)
[2018-10-03] MEDS: oxyCODONE/Acetamin 5/325 MG* TAB PO PRN ×3 (13:06→23:22)
[2018-10-03] MEDS: Diltiazem CD CAP* 240 MG PO SCH (13:07)
[2018-10-03] MEDS: Polyethylene Glycol 3350* 17 GM PACKET PO PRN (17:55)
[2018-10-03] MEDS: Latanoprost 0.005%* 2.5 ml BTL BOTH EYES SCH (17:58)
[2018-10-03] MEDS: Albuterol 2.5 MG/3 ML NEB.SOL* (0.083%) INH PRN (18:18)
[2018-10-03 18:39] LABS: Body Fluid Source Synovial Fluid
[2018-10-03] MEDS ORDERED: Scopolamine PATCH Remove* 1 NOTE MISC PATCH OFF ONE (19:15)
--- NOTE | 2018-10-03 19:28 | PN ---
<Hipolito Villegas - Last Filed: 10/03/18 19:23> Subjective Date of Service: 10/03/18 Interval History: Patient complains of left knee swelling and pain. He doesnot have fever, chest pain or SOB. Objective Active Medications: Acetaminophen (Tylenol Tab*) 650 mg PO Q6H PRN PRN Reason: pain/fever Albuterol (Ventolin 2.5 Mg/3 Ml Neb.Oxana*) 2.5 mg INH Q4H PRN PRN Reason: SOB/WHEEZING Last Admin: 10/03/18 18:18 Dose: 2.5 mg Diltiazem HCl (Cardizem Cd Cap*) 240 mg PO DAILY [facility] Last Admin: 10/03/18 13:07 Dose: 240 mg Docusate Sodium (Colace Cap*) 100 mg PO BID PRN PRN Reason: CONSTIPATION Last Admin: 10/01/18 16:18 Dose: 100 mg Ferrous Gluconate (Fergon Tab*) 324 mg PO BID [facility] Last Admin: 10/03/18 13:06 Dose: 324 mg Heparin Sodium (Porcine) (Heparin Vial(*)) 0 units IV .PER PROTOCOL [facility] Last Admin: 10/02/18 16:35 Dose: 6,500 units Cefazolin Sodium 1 gm/ Sodium (Chloride) 50 mls @ 200 mls/hr IVPB Q12HR [facility] Last Admin: 10/03/18 08:56 Dose: 200 mls/hr Heparin Sodium/Dextrose (Heparin Drip 25,000 Units(*)) 25,000 units in 500 mls @ 0 mls/hr IV PER RATE [facility]; Protocol Last Admin: 10/03/18 08:51 Dose: 32 mls/hr Latanoprost (Xalatan 0.005%*) 1 drop BOTH EYES QPM [facility] Last Admin: 10/03/18 17:58 Dose: 1 drop Morphine Sulfate (Morphine Inj (Syringe))*) 2 mg IV Q2H PRN PRN Reason: PAIN Last Admin: 10/03/18 07:30 Dose: 2 mg Oxycodone/Acetaminophen (Percocet 5/325 Tab*) 1 tab PO Q4H PRN PRN Reason: moderate pain Last Admin: 10/03/18 17:55 Dose: 1 tab Pharmacy Profile Note (Coumadin Per Pharmacy*) 1 note FOLLOW UP .PER PHARMACY PROTOC [facility]; Protocol Polyethylene Glycol/Electrolytes (Miralax*) 17 gm PO DAILY PRN PRN Reason: CONSTIPATION Last Admin: 10/03/18 17:55 Dose: 17 gm Senna (Senokot Tab*) 1 tab PO BEDTIME [facility] Last Admin: 10/02/18 23:05 Dose: 1 tab Sodium Bicarbonate (Sodium Bicarbonate (Antacid)*) 1,300 mg PO TID [facility] Last Admin: 10/03/18 13:06 Dose: 1,300 mg Vital Signs - 8 hr 10/03/18 10/03/18 10/03/18 13:06 15:42 16:15 Temperature 98.5 F Pulse Rate 67 Respiratory 16 16 17 Rate Blood Pressure 127/56 (mmHg) O2 Sat by Pulse 96 Oximetry 10/03/18 17:55 Temperature Pulse Rate Respiratory 16 Rate Blood Pressure (mmHg) O2 Sat by Pulse Oximetry Oxygen Devices in Use Now: None Exam: Patient is lying on bed. General: There is diffuse swelling of left leg more on left knee. CVS: Normal heart sound heard. Respiratory: Mild wheezes heard. GI: Normal bowel sound heard. Neuro: Alert, conscious and oriented. Result Diagrams: 10/02/18 12:45 10/03/18 04:52 Additional Lab and Data: Laboratory Results - last 24 hr 09/27/18 09/28/18 09/28/18 17:27 06:27 06:27 WBC 10.6 RBC 2.23 L Hgb 7.7 L Hct 23 L MCV 102 H MCH 35 H MCHC 34 RDW 15 Plt Count 138 L MPV 8.5 Neut % (Auto) 83.6 Lymph % (Auto) 4.8 [place] % (Auto) 11.5 Eos % (Auto) 0.0 Baso % (Auto) 0.1 Absolute Neuts (auto) 8.8 H Absolute Lymphs (auto) 0.5 L Absolute Monos (auto) 1.2 H Absolute Eos (auto) 0.0 Absolute Basos (auto) 0.0 Absolute Nucleated RBC 0.0 Nucleated RBC % 0.0 Sodium 133 L Potassium 3.9 Chloride 104 Carbon Dioxide 21 L Anion Gap 8 BUN 21 Creatinine 0.91 Est GFR ( Amer) 98.0 Est GFR (Non-Af Amer) 81.0 BUN/Creatinine Ratio 23.1 H Glucose 160 H Calcium 7.9 L Magnesium 1.6 L Iron < 20 L TIBC 358 % Saturation 6 L Unsat Iron Binding < 343 Transferrin 256 Ferritin 62.5 Vitamin B12 565 Folate 7.20 Urine Color Yellow Urine Appearance Cloudy Urine pH 5.0 Ur Specific [place] 1.018 Urine Protein 2+(100 mg/dl) A Urine Ketones Negative Urine Blood Negative Urine Nitrate Negative Urine Bilirubin Negative Urine Urobilinogen Negative Ur Leukocyte Esterase Negative Urine WBC (Auto) 1+(6-10/hpf) A Urine RBC (Auto) Absent Ur Squamous Epith Cells Present A Urine Bacteria Absent Hyaline Casts Present A Urine Glucose Negative Microbiology and Other Data: Microbiology 09/27/18 14:56 Aerobic Blood Culture - Preliminary Blood Venous Blood MRSA/MSSA (PCR) - Final Mrsa Negative S.aureus Positive 09/27/18 12:14 Aerobic Blood Culture - Preliminary Blood Venous Blood MRSA/MSSA (PCR) - Final Mrsa Negative S.aureus Positive Assess/Plan/Problems-Billing Assessment: 78 y/o M w/ PMH HTN, B/L hip replacement presents with fever and left hip pain after fall from a chair. Admitted with diagnosis of MSSA Bacteremia secondary to left hip infection s/p wash out. Hospital stay complicated by anemia and renal failure. He also has endocarditis. - Patient Problems (1) MSSA bacteremia Current Visit: Yes Status: Acute Code(s): R78.81 - BACTEREMIA SNOMED Code( s): 592549058 Comment: Secondary to left hip septic arthritis. Wash out done. Pus sent to examination. Continue antibiotics. (2) Iron deficiency anemia Current Visit: No Status: Acute Code(s): D50.9 - IRON DEFICIENCY ANEMIA, UNSPECIFIED SNOMED Code(s): 31904784 Comment: 1 U of PRBC given before surgery and now Hb is 7.5. Continue CBC. (3) Acute renal failure (ARF) Current Visit: Yes Status: Acute Comment: Creatinine is 3.2. Nephrology consulted. Further blood workup sent. Report pending. USG didnot show any obstruction. Monitir BMP. (4) Atrial fibrillation Current Visit: Yes Status: Acute Code(s): I48.91 - UNSPECIFIED ATRIAL FIBRILLATION SNOMED Code(s): 88809019 Comment: Started on warfarin and heparin. heparin until warfarin takes its effect. If additional procedures needed we have to stop warfarin. (5) Endocarditis Current Visit: Yes Status: Acute Code(s): I38 - ENDOCARDITIS, VALVE UNSPECIFIED SNOMED Code(s): 37480817 Comment: Vegetation seen on Aortic valve on CECILIA. Antibiotic started. (6) DVT prophylaxis Current Visit: No Status: Acute Code(s): AJX4299 - SNOMED Code(s): 833399664 Comment: Patient started on heparin and warfarin yesterday. Patient has left leg swelling and pain. US doppler sent. Status and Disposition: medicine inpatient. Ortho consulting.Nephro consulting. Attending: Devon Rios <Devon Rios - Last Filed: 10/04/18 12:14> Objective Active Medications: Acetaminophen (Tylenol Tab*) 650 mg PO Q6H PRN PRN Reason: pain/fever Albuterol (Ventolin 2.5 Mg/3 Ml Neb.Oxana*) 2.5 mg INH Q4H PRN PRN Reason: SOB/WHEEZING Last Admin: 10/03/18 18:18 Dose: 2.5 mg Diltiazem HCl (Cardizem Cd Cap*) 240 mg PO DAILY [facility] Last Admin: 10/04/18 09:56 Dose: 240 mg Docusate Sodium (Colace Cap*) 100 mg PO BID PRN PRN Reason: CONSTIPATION Last Admin: 10/04/18 09:56 Dose: 100 mg Ferrous Gluconate (Fergon Tab*) 324 mg PO BID [facility] Last Admin: 10/04/18 09:56 Dose: 324 mg Heparin Sodium (Porcine) (Heparin Vial(*)) 0 units IV .PER PROTOCOL [facility] Last Admin: 10/02/18 16:35 Dose: 6,500 units Cefazolin Sodium 1 gm/ Sodium (Chloride) 50 mls @ 200 mls/hr IVPB Q12HR [facility] Last Admin: 10/04/18 09:57 Dose: 200 mls/hr Heparin Sodium/Dextrose (Heparin Drip 25,000 Units(*)) 25,000 units in 500 mls @ 0 mls/hr IV PER RATE [facility]; Protocol Last Admin: 10/04/18 00:23 Dose: 32 mls/hr Latanoprost (Xalatan 0.005%*) 1 drop BOTH EYES QPM [facility] Last Admin: 10/03/18 17:58 Dose: 1 drop Morphine Sulfate (Morphine Inj (Syringe))*) 2 mg IV Q2H PRN PRN Reason: PAIN Last Admin: 10/03/18 07:30 Dose: 2 mg Oxycodone/Acetaminophen (Percocet 5/325 Tab*) 1 tab PO Q4H PRN PRN Reason: moderate pain Last Admin: 10/03/18 23:22 Dose: 1 tab Pharmacy Profile Note (Coumadin Per Pharmacy*) 1 note FOLLOW UP .PER PHARMACY PROTOC [facility]; Protocol Polyethylene Glycol/Electrolytes (Miralax*) 17 gm PO DAILY PRN PRN Reason: CONSTIPATION Last Admin: 10/04/18 09:55 Dose: 17 gm Senna (Senokot Tab*) 1 tab PO BEDTIME [facility] Last Admin: 10/03/18 22:30 Dose: 1 tab Sodium Bicarbonate (Sodium Bicarbonate (Antacid)*) 1,300 mg PO TID [facility] Last Admin: 10/04/18 09:57 Dose: 1,300 mg Vital Signs - 8 hr 10/04/18 10/04/18 10/04/18 07:58 09:45 12:03 Temperature 98.0 F 98.0 F Pulse Rate 72 64 Respiratory 18 16 16 Rate Blood Pressure 133/59 136/51 (mmHg) O2 Sat by Pulse 97 98 Oximetry Result Diagrams: 10/02/18 12:45 10/04/18 08:37 Assess/Plan/Problems-Billing Sitting up in bed, NAD OP clear, mmm IRIR CTA b/l Soft, NT, ND Left LE 2-3+ edema to groin AOx3 Assessment: 78 M admitted with sepsis 2/2 septic left hip, infective endocarditis, MSSA bacteremia with stay notable AKF AKF - has not plateaued -volume up with PO and heparin gtt, will not admin additional IV fluids. Afib -heparin to coumadin bridge MSSA bacteremia c/b septic joint, IE -8 weeks abx -concern left knee prosthesis may be involved, orthopedics evaluating -check LE doppler to r/o DVT - Patient Problems (1) Acute renal failure (ARF) Comment: Creatinine with slight improvement today ATN v AIN (2) Atrial fibrillation Comment: Started on warfarin and heparin. Can consider NOAC if creatinine improves (3) MSSA bacteremia Comment: c/w cefazolin (4) Septic hip Comment: s/p washout no plan for explant will need fdc or life long suppressive abx Will need to discuss any additional plans for surgery if we decide to start a NOAC (5) Edema Comment: significant at left lower leg >4 liters PO water intake yesterday fluid restrict to 2 liters/24 hrs elevate leg Start wrapping leg in REBECCA badage tomorrow (6) Endocarditis Comment: Vegetation seen on Aortic valve on CECILIA. 8 wks IV abx Attestation Documenting Resident: Bakari Supervising Physician: Gabriel Attestation: This service has been performed in part by a resident under the direction of a teaching physician.IGabriel, performed the service, or was physically present during the critical, or crump portions of the service, furnished by the resident. I participated in the management of the patient.
[2018-10-03 20:04] LABS: Body Fluid Mono 20 %; Body Fluid Other Cells 2
[2018-10-03] MEDS: Senna TAB PO SCH (22:30)
--- NOTE | 2018-10-03 22:54 | OP ---
OPERATIVE REPORT: DATE OF OPERATION: 10/03/18 DATE OF : 44 ATTENDING SURGEON: Tamara Berumen MD PRE-OP DIAGNOSIS: Painful left total knee arthroplasty with effusion. POST-OP DIAGNOSIS: Painful left total knee arthroplasty with effusion. OPERATIVE PROCEDURE: Left knee aspiration. SPECIMEN: About 10 cc of clear yellow joint fluid was walked to microbiology lab. They will obtain c ell count, gram stain, crystals, aerobic, anaerobic, microbacterial and fungal cultures. COMPLICATIONS: None. ESTIMATED BLOOD LOSS: Less than 10 cc. BRIEF HISTORY/INDICATIONS: Mr. Miller is a 78-year-old gentleman admitted with sepsis and he did have infected left total hip arthroplasty. On 09/30/18, he had I and D of the left total hip arthroplast y infection. Today on 10/03/18, he reports increased left knee pain. He did have prior left total k nee arthroplasty. The patient and I discussed that we ought to aspirate the knee joint to ensure thi s is not infected and he agreed. Nursing helped to perform the appropriate preprocedure time-out and this was all documented. DESCRIPTION OF PROCEDURE: The patient's left knee was sterilely prepped and marked with ChloraPrep. Using sterile gloves and sterile equipment, 10 cc of clear yellow joint fluid was aspirated from the left knee joint. This was correctly marked and walked to microbiology lab. The appropriate labs we re ordered. I will of course follow along on these cultures. The patient understood that the joint fluid did not look purulent, but of course we will be checking the labs. [id number]/[facility] #: [id number]
[2018-10-04] MEDS: Heparin DRIP 25,000 UNITS(*) 25,000 UNITS/500 ML BAG IV SCH ×2 (00:23→14:37)
[2018-10-04 09:09] LABS: INR 1.43 (0.82-1.09)
[2018-10-04 09:13] LABS: EGFR African American 21.3 (>60); EGFR Non-African American 17.6 (>60)
[2018-10-04] MEDS: Polyethylene Glycol 3350* 17 GM PACKET PO PRN (09:55)
[2018-10-04] MEDS: Docusate CAP* 100 MG PO PRN (09:56)
[2018-10-04] MEDS: Ferrous Gluconate TAB* 324 MG TAB PO SCH ×2 (09:56→21:03)
[2018-10-04] MEDS: Diltiazem CD CAP* 240 MG PO SCH (09:56)
[2018-10-04] MEDS: ceFAZolin 1 GM ADVAN(*) 1 GM in NS 0.9% 50 ML* 50 ML IVPB SCH ×2 (09:57→21:03)
[2018-10-04] MEDS: Sodium Bicarbonate (ANTACID)* 650 MG TAB PO SCH ×3 (09:57→21:04)
--- NOTE | 2018-10-04 11:03 | PN ---
Progress Note - Progress Note Date of Service: 10/04/18 SOAP: Subjective: []Patient seen OOB in chair, helped with 2 assist up to stand for dressing change. Left knee pain better. Denies fever, chills, nausea. Objective: [] Vital Signs Temp 98.0 F 10/04/18 07:58 Pulse 72 10/04/18 07:58 Resp 16 10/04/18 09:45 BP 133/59 10/04/18 07:58 Pulse Ox 97 10/04/18 07:58 Intake & Output 10/03/18 10/04/18 10/04/18 18:59 06:59 18:59 Intake Total 1552 2770 Output Total 450 450 Balance 1102 2320 Intake: IV Fluids 100 Heparin 1302 1910 Oral 150 860 Output: Shay 450 450 Other: Estimated Void Small # Voids 1 Laboratory Results - last 24 hr 10/01/18 10/02/18 10/03/18 14:31 06:02 11:43 INR (Anticoag Therapy) APTT 66.2 H Sodium Potassium Chloride Carbon Dioxide Anion Gap BUN Creatinine Est GFR ( Amer) Est GFR (Non-Af Amer) BUN/Creatinine Ratio Glucose Calcium Fluid Source Fluid Volume Fluid Color Fluid Appearance Fluid WBC Fluid RBC Fluid Tot Cell Count Fluid Neutrophils Fluid Lymphocytes Fluid Monocytes Fluid Basophils Fluid Other Cells Anti-Nuclear Antibody 0.2 Proteinase 3 (PR3) < 0.2 Myeloperoxidase Ab < 0.2 Glomerular Base Memb Ab <0.2 10/03/18 10/03/18 10/04/18 17:45 18:15 08:37 INR (Anticoag Therapy) 1.43 H APTT 75.1 H Sodium Potassium Chloride Carbon Dioxide Anion Gap BUN Creatinine Est GFR ( Amer) Est GFR (Non-Af Amer) BUN/Creatinine Ratio Glucose Calcium Fluid Source Synovial fluid Fluid Volume 9 Fluid Color [place] Fluid Appearance Cloudy Fluid WBC 230 Fluid RBC 7346 Fluid Tot Cell Count 100 Fluid Neutrophils 67 Fluid Lymphocytes 12 Fluid Monocytes 20 Fluid Basophils 1 Fluid Other Cells 2 Anti-Nuclear Antibody Proteinase 3 (PR3) Myeloperoxidase Ab Glomerular Base Memb Ab 10/04/18 08:37 INR (Anticoag Therapy) APTT Sodium 133 L Potassium 4.0 Chloride 102 Carbon Dioxide 21 L Anion Gap 10 BUN 65 H Creatinine 3.42 H Est GFR ( Amer) 21.3 Est GFR (Non-Af Amer) 17.6 BUN/Creatinine Ratio 19.0 Glucose 142 H Calcium 8.0 L Fluid Source Fluid Volume Fluid Color Fluid Appearance Fluid WBC Fluid RBC Fluid Tot Cell Count Fluid Neutrophils Fluid Lymphocytes Fluid Monocytes Fluid Basophils Fluid Other Cells Anti-Nuclear Antibody Proteinase 3 (PR3) Myeloperoxidase Ab Glomerular Base Memb Ab Microbiology 09/30/18 19:12 Wound Gram Stain - Final Tissue - Hip Left Tissue Culture - Final Staphylococcus Aureus Anaerobic Culture - Final Skin and Soft Tissue MRSA/MSSA (PCR - Final Mrsa Negative S.aureus Positive 10/03/18 18:15 Acid Fast Bacilli Smear - Final Body Fluid 10/03/18 18:15 Gram Stain - Final Joint Fluid(Synovial) Skin and Soft Tissue MRSA/MSSA (PCR - Final Mrsa Negative S.aureus Negative 09/29/18 19:44 Aerobic Blood Culture - Preliminary Blood Venous No Growth Day 4 Anaerobic Blood Culture - Preliminary No Growth Day 4 09/29/18 19:45 Aerobic Blood Culture - Preliminary Blood Venous No Growth Day 4 Anaerobic Blood Culture - Preliminary No Growth Day 4 10/01/18 19:13 Urine Culture - Final Urine No Growth (<1,000 CFU/mL) 09/30/18 19:12 Skin and Soft Tissue MRSA/MSSA (PCR - Final Hip Left Mrsa Negative S.aureus Positive Gram Stain - Final Wound Culture - Final Staphylococcus Aureus 09/30/18 15:30 Urine Culture - Final Urine No Growth (<1,000 CFU/mL) 09/30/18 22:40 Nasal Screen MRSA (PCR) - Final Nasal Mrsa Not Detected 09/28/18 12:37 Aerobic Blood Culture - Final Blood Venous Not Reportable Anaerobic Blood Culture - Final Not Reportable Blood Culture - Final Staphylococcus Aureus Blood MRSA/MSSA (PCR) - Final Mrsa Negative S.aureus Positive 09/28/18 12:12 Aerobic Blood Culture - Final Blood Venous Staphylococcus Aureus Anaerobic Blood Culture - Final Staphylococcus Aureus Blood MRSA/MSSA (PCR) - Final Mrsa Negative S.aureus Positive 09/27/18 12:14 Aerobic Blood Culture - Final Blood Venous Staphylococcus Aureus Anaerobic Blood Culture - Final Staphylococcus Aureus Blood MRSA/MSSA (PCR) - Final Mrsa Negative S.aureus Positive 09/27/18 14:56 Aerobic Blood Culture - Final Blood Venous Staphylococcus Aureus Anaerobic Blood Culture - Final Staphylococcus Aureus Blood MRSA/MSSA (PCR) - Final Mrsa Negative S.aureus Positive 09/27/18 17:27 Urine Culture - Final Urine No Growth (<1,000 CFU/mL) Dressings removed left hip small amount serosanguenous fluid noted left thigh and knee edema presenst, left knee less tender calf NT and soft LLE +DF left ankle 4x4 and tape applied to incision Assessment: []Infected right total hip, s/p I&D 10/02/18, growing MSSA Left Knee aspirate, no organisms to date Plan: []WBAT LLE Cefazolin ABX Coumadin with heparin drip SNF rehab likely needed
--- NOTE | 2018-10-04 12:05 | PN ---
Subjective Date of Service: 10/04/18 Interval History: Left leg feels more swollen Breathing good, no pain Objective Active Medications: Acetaminophen (Tylenol Tab*) 650 mg PO Q6H PRN PRN Reason: pain/fever Albuterol (Ventolin 2.5 Mg/3 Ml Neb.Oxana*) 2.5 mg INH Q4H PRN PRN Reason: SOB/WHEEZING Last Admin: 10/03/18 18:18 Dose: 2.5 mg Diltiazem HCl (Cardizem Cd Cap*) 240 mg PO DAILY [facility] Last Admin: 10/04/18 09:56 Dose: 240 mg Docusate Sodium (Colace Cap*) 100 mg PO BID PRN PRN Reason: CONSTIPATION Last Admin: 10/04/18 09:56 Dose: 100 mg Ferrous Gluconate (Fergon Tab*) 324 mg PO BID [facility] Last Admin: 10/04/18 09:56 Dose: 324 mg Heparin Sodium (Porcine) (Heparin Vial(*)) 0 units IV .PER PROTOCOL [facility]BBI[facility] Last Admin: 10/02/18 16:35 Dose: 6,500 units Cefazolin Sodium 1 gm/ Sodium (Chloride) 50 mls @ 200 mls/hr IVPB Q12HR [facility] Last Admin: 10/04/18 09:57 Dose: 200 mls/hr Heparin Sodium/Dextrose (Heparin Drip 25,000 Units(*)) 25,000 units in 500 mls @ 0 mls/hr IV PER RATE [facility]; Protocol Last Admin: 10/04/18 00:23 Dose: 32 mls/hr Latanoprost (Xalatan 0.005%*) 1 drop BOTH EYES QPM [facility] Last Admin: 10/03/18 17:58 Dose: 1 drop Morphine Sulfate (Morphine Inj (Syringe))*) 2 mg IV Q2H PRN PRN Reason: PAIN Last Admin: 10/03/18 07:30 Dose: 2 mg Oxycodone/Acetaminophen (Percocet 5/325 Tab*) 1 tab PO Q4H PRN PRN Reason: moderate pain Last Admin: 10/03/18 23:22 Dose: 1 tab Pharmacy Profile Note (Coumadin Per Pharmacy*) 1 note FOLLOW UP .PER PHARMACY PROTOC [facility]; Protocol Polyethylene Glycol/Electrolytes (Miralax*) 17 gm PO DAILY PRN PRN Reason: CONSTIPATION Last Admin: 10/04/18 09:55 Dose: 17 gm Senna (Senokot Tab*) 1 tab PO BEDTIME [facility] Last Admin: 10/03/18 22:30 Dose: 1 tab Sodium Bicarbonate (Sodium Bicarbonate (Antacid)*) 1,300 mg PO TID [facility] Last Admin: 10/04/18 09:57 Dose: 1,300 mg Vital Signs - 8 hr 10/04/18 10/04/18 07:58 09:45 Temperature 98.0 F Pulse Rate 72 Respiratory 18 16 Rate Blood Pressure 133/59 (mmHg) O2 Sat by Pulse 97 Oximetry Oxygen Devices in Use Now: None Appearance: NAD Eyes: No Scleral Icterus, PERRLA Ears/Nose/Mouth/Throat: NL Teeth, Lips, Gums, Clear Oropharnyx Neck: NL Appearance and Movements; NL JVP, Trachea Midline Respiratory: Symmetrical Chest Expansion and Respiratory Effort, Clear to Auscultation Cardiovascular: - - IRIR, no mrg Abdominal: NL Sounds; No Tenderness; No Distention, No Hepatosplenomegaly Extremities: - - right leg 1-2+ edema left leg 3+ edema, edematous scrotum Neurological: Alert and Oriented x 3 Result Diagrams: 10/02/18 12:45 10/04/18 08:37 Additional Lab and Data: Laboratory Results - last 24 hr 09/27/18 09/28/18 09/28/18 17:27 06:27 06:27 WBC 10.6 RBC 2.23 L Hgb 7.7 L Hct 23 L MCV 102 H MCH 35 H MCHC 34 RDW 15 Plt Count 138 L MPV 8.5 Neut % (Auto) 83.6 Lymph % (Auto) 4.8 [place] % (Auto) 11.5 Eos % (Auto) 0.0 Baso % (Auto) 0.1 Absolute Neuts (auto) 8.8 H Absolute Lymphs (auto) 0.5 L Absolute Monos (auto) 1.2 H Absolute Eos (auto) 0.0 Absolute Basos (auto) 0.0 Absolute Nucleated RBC 0.0 Nucleated RBC % 0.0 Sodium 133 L Potassium 3.9 Chloride 104 Carbon Dioxide 21 L Anion Gap 8 BUN 21 Creatinine 0.91 Est GFR ( Amer) 98.0 Est GFR (Non-Af Amer) 81.0 BUN/Creatinine Ratio 23.1 H Glucose 160 H Calcium 7.9 L Magnesium 1.6 L Iron < 20 L TIBC 358 % Saturation 6 L Unsat Iron Binding < 343 Transferrin 256 Ferritin 62.5 Vitamin B12 565 Folate 7.20 Urine Color Yellow Urine Appearance Cloudy Urine pH 5.0 Ur Specific [place] 1.018 Urine Protein 2+(100 mg/dl) A Urine Ketones Negative Urine Blood Negative Urine Nitrate Negative Urine Bilirubin Negative Urine Urobilinogen Negative Ur Leukocyte Esterase Negative Urine WBC (Auto) 1+(6-10/hpf) A Urine RBC (Auto) Absent Ur Squamous Epith Cells Present A Urine Bacteria Absent Hyaline Casts Present A Urine Glucose Negative Microbiology and Other Data: Microbiology 09/27/18 14:56 Aerobic Blood Culture - Preliminary Blood Venous Blood MRSA/MSSA (PCR) - Final Mrsa Negative S.aureus Positive 09/27/18 12:14 Aerobic Blood Culture - Preliminary Blood Venous Blood MRSA/MSSA (PCR) - Final Mrsa Negative S.aureus Positive Assess/Plan/Problems-Billing Assessment: 78 y/o M w/ PMH HTN, B/L hip replacements, afib pw MSSA bacteremia c/b infective endocarditis, left septic hip and AKF - Patient Problems (1) Acute renal failure (ARF) Comment: Creatinine with slight improvement today ATN v AIN (2) Atrial fibrillation Comment: Started on warfarin and heparin. Can consider NOAC if creatinine improves (3) MSSA bacteremia Comment: c/w cefazolin (4) Septic hip Comment: s/p washout no plan for explant will need nursing home or life long suppressive abx Will need to discuss any additional plans for surgery if we decide to start a NOAC (5) Edema Comment: significant at left lower leg >4 liters PO water intake yesterday fluid restrict to 2 liters/24 hrs elevate leg Start wrapping leg in REBECCA badage tomorrow (6) Endocarditis Comment: Vegetation seen on Aortic valve on CECILIA. 8 wks IV abx Status and Disposition: medicine inpatient.
[2018-10-04] MEDS ORDERED: Warfarin TAB(*) 3 MG PO ONE (17:00)
[2018-10-04] MEDS: Latanoprost 0.005%* 2.5 ml BTL BOTH EYES SCH (17:38)
[2018-10-04] MEDS: Senna TAB PO SCH (21:03)
[2018-10-05] MEDS: Heparin DRIP 25,000 UNITS(*) 25,000 UNITS/500 ML BAG IV SCH ×2 (05:20→20:02)
[2018-10-05 07:08] LABS: ABS Eosinophils 0.2 10^3/ul (0-0.6); ABS Lymphocytes 0.6 10^3/ul (1.0-4.8); ABS Monocytes 0.9 10^3/ul (0-0.8); ABS Neutrophils 7.4 10^3/ul (1.5-7.7); Hematocrit 22 % (42-52); Hemoglobin 7.3 g/dL (14.0-18.0); Lymphocyte % 7.1 %; Mean Corpuscular HGB Conc 34 g/dL (31-36); Mean Corpuscular Hemoglobin 32 pg (27-31); Mean Corpuscular Volume 94 fL (80-94); Mean Platelet Volume 7.7 fL (7.4-10.4); Platelet Count 336 10^3/uL (150-450); Red Blood Count 2.28 10^6 /uL (4.18-5.48); Red Cell Distribution Width 17 % (10-15); White Blood Count 9.2 10^3/uL (3.5-10.8)
[2018-10-05 07:13] LABS: INR 1.4 (0.82-1.09)
[2018-10-05 07:34] LABS: BUN/Creatinine Ratio 18.8 (8-20); Calcium 8.3 mg/dL (8.6-10.3); EGFR African American 21.1 (>60); EGFR Non-African American 17.4 (>60); Potassium 4.1 mmol/L (3.5-5.0)
[2018-10-05] MEDS: Ferrous Gluconate TAB* 324 MG TAB PO SCH ×2 (09:39→20:14)
[2018-10-05] MEDS: Sodium Bicarbonate (ANTACID)* 650 MG TAB PO SCH ×3 (09:39→20:14)
[2018-10-05] MEDS: Diltiazem CD CAP* 240 MG PO SCH (09:39)
[2018-10-05] MEDS: ceFAZolin 1 GM ADVAN(*) 1 GM in NS 0.9% 50 ML* 50 ML IVPB SCH ×2 (09:40→21:22)
[2018-10-05] MEDS: Acetaminophen TAB* 325 MG PO PRN (09:43)
--- NOTE | 2018-10-05 11:57 | PN ---
Progress Note - Progress Note Date of Service: 10/05/18 SOAP: Subjective: []Patient seen OOB in chair, present. His pain is controlled left hip , legs more edematous. Kidney function improving some. Denies CP, SOB. Objective: [] Vital Signs Temp 97.7 F 10/05/18 11:16 Pulse 72 10/05/18 11:16 Resp 18 10/05/18 11:16 BP 133/50 10/05/18 11:16 Pulse Ox 98 10/05/18 11:16 Intake & Output 10/04/18 10/05/18 10/05/18 18:59 06:59 18:59 Intake Total 993 941 420 Output Total 250 500 Balance 743 441 420 Intake: IV Fluids 70 Cefazolin 50 Normal saline 20 Heparin 453 471 Oral 540 400 420 Output: Urine 250 Shay 250 250 Other: # Bowel Movements 1 1 Estimated Stool Amount Large Large Laboratory Results - last 24 hr 10/04/18 10/05/18 10/05/18 17:53 06:41 06:41 WBC 9.2 RBC 2.28 L Hgb 7.3 L Hct 22 L MCV 94 MCH 32 H MCHC 34 RDW 17 H Plt Count 336 MPV 7.7 Neut % (Auto) 80.5 Lymph % (Auto) 7.1 [place] % (Auto) 10.2 Eos % (Auto) 2.0 Baso % (Auto) 0.2 Absolute Neuts (auto) 7.4 Absolute Lymphs (auto) 0.6 L Absolute Monos (auto) 0.9 H Absolute Eos (auto) 0.2 Absolute Basos (auto) 0.0 Absolute Nucleated RBC 0.0 Nucleated RBC % 0.0 INR (Anticoag Therapy) 1.40 H APTT 60.6 H Sodium Potassium Chloride Carbon Dioxide Anion Gap BUN Creatinine Est GFR ( Amer) Est GFR (Non-Af Amer) BUN/Creatinine Ratio Glucose Calcium 10/05/18 06:41 WBC RBC Hgb Hct MCV MCH MCHC RDW Plt Count MPV Neut % (Auto) Lymph % (Auto) [place] % (Auto) Eos % (Auto) Baso % (Auto) Absolute Neuts (auto) Absolute Lymphs (auto) Absolute Monos (auto) Absolute Eos (auto) Absolute Basos (auto) Absolute Nucleated RBC Nucleated RBC % INR (Anticoag Therapy) APTT Sodium 133 L Potassium 4.1 Chloride 103 Carbon Dioxide 21 L Anion Gap 9 BUN 65 H Creatinine 3.45 H Est GFR ( Amer) 21.1 Est GFR (Non-Af Amer) 17.4 BUN/Creatinine Ratio 18.8 Glucose 131 H Calcium 8.3 L Microbiology 10/03/18 18:15 Gram Stain - Final Joint Fluid(Synovial) Body Fluid Culture - Preliminary No Growth Day 2 Skin and Soft Tissue MRSA/MSSA (PCR - Final Mrsa Negative S.aureus Negative 10/03/18 18:15 Anaerobic Culture - Preliminary Body Fluid No Growth Day 2 Acid Fast Bacilli Smear - Final 09/29/18 19:44 Aerobic Blood Culture - Final Blood Venous No Growth Day 5 Anaerobic Blood Culture - Final No Growth Day 5 09/29/18 19:45 Aerobic Blood Culture - Final Blood Venous No Growth Day 5 Anaerobic Blood Culture - Final No Growth Day 5 09/30/18 19:12 Wound Gram Stain - Final Tissue - Hip Left Tissue Culture - Final Staphylococcus Aureus Anaerobic Culture - Final Skin and Soft Tissue MRSA/MSSA (PCR - Final Mrsa Negative S.aureus Positive 10/01/18 19:13 Urine Culture - Final Urine No Growth (<1,000 CFU/mL) 09/30/18 19:12 Skin and Soft Tissue MRSA/MSSA (PCR - Final Hip Left Mrsa Negative S.aureus Positive Gram Stain - Final Wound Culture - Final Staphylococcus Aureus 09/30/18 15:30 Urine Culture - Final Urine No Growth (<1,000 CFU/mL) 09/30/18 22:40 Nasal Screen MRSA (PCR) - Final Nasal Mrsa Not Detected 09/28/18 12:37 Aerobic Blood Culture - Final Blood Venous Not Reportable Anaerobic Blood Culture - Final Not Reportable Blood Culture - Final Staphylococcus Aureus Blood MRSA/MSSA (PCR) - Final Mrsa Negative S.aureus Positive 09/28/18 12:12 Aerobic Blood Culture - Final Blood Venous Staphylococcus Aureus Anaerobic Blood Culture - Final Staphylococcus Aureus Blood MRSA/MSSA (PCR) - Final Mrsa Negative S.aureus Positive 09/27/18 12:14 Aerobic Blood Culture - Final Blood Venous Staphylococcus Aureus Anaerobic Blood Culture - Final Staphylococcus Aureus Blood MRSA/MSSA (PCR) - Final Mrsa Negative S.aureus Positive 09/27/18 14:56 Aerobic Blood Culture - Final Blood Venous Staphylococcus Aureus Anaerobic Blood Culture - Final Staphylococcus Aureus Blood MRSA/MSSA (PCR) - Final Mrsa Negative S.aureus Positive 09/27/18 17:27 Urine Culture - Final Urine No Growth (<1,000 CFU/mL) legs with significant edema, no blistering dressing dry and intact left hip has active DF left ankle sensation intact distally Assessment: []s/p I&D left total hip infection, POD #3 Plan: []May change to Eliquis for DVT prophylaxis Cefazolin WBAT LLE Await medical stabilization for PMRU discharge
--- NOTE | 2018-10-05 15:38 | PN ---
<Hipolito Villegas - Last Filed: 10/05/18 15:32> Subjective Date of Service: 10/05/18 Interval History: Patient doesnot complain of symptom. He feels his leg lower extremity swelling is getting bigger. He has no other complaint of SOB, fever or chest pain. Objective Active Medications: Acetaminophen (Tylenol Tab*) 650 mg PO Q6H PRN PRN Reason: pain/fever Last Admin: 10/05/18 09:43 Dose: 650 mg Albuterol (Ventolin 2.5 Mg/3 Ml Neb.Oxana*) 2.5 mg INH Q4H PRN PRN Reason: SOB/WHEEZING Last Admin: 10/03/18 18:18 Dose: 2.5 mg Diltiazem HCl (Cardizem Cd Cap*) 240 mg PO DAILY DEBBIE Last Admin: 10/05/18 09:39 Dose: 240 mg Docusate Sodium (Colace Cap*) 100 mg PO BID PRN PRN Reason: CONSTIPATION Last Admin: 10/04/18 09:56 Dose: 100 mg Ferrous Gluconate (Fergon Tab*) 324 mg PO BID DEBBIE Last Admin: 10/05/18 09:39 Dose: 324 mg Heparin Sodium (Porcine) (Heparin Vial(*)) 0 units IV .PER PROTOCOL DEBBIE Last Admin: 10/02/18 16:35 Dose: 6,500 units Cefazolin Sodium 1 gm/ Sodium (Chloride) 50 mls @ 200 mls/hr IVPB Q12HR DEBBIE Last Admin: 10/05/18 09:40 Dose: 200 mls/hr Heparin Sodium/Dextrose (Heparin Drip 25,000 Units(*)) 25,000 units in 500 mls @ 0 mls/hr IV PER RATE DEBBIE; Protocol Last Admin: 10/05/18 05:20 Dose: 32 mls/hr Latanoprost (Xalatan 0.005%*) 1 drop BOTH EYES QPM DEBBIE Last Admin: 10/04/18 17:38 Dose: 1 drop Morphine Sulfate (Morphine Inj (Syringe))*) 2 mg IV Q2H PRN PRN Reason: PAIN Last Admin: 10/03/18 07:30 Dose: 2 mg Pharmacy Profile Note (Coumadin Per Pharmacy*) 1 note FOLLOW UP .PER PHARMACY PROTOC [facility]; Protocol Polyethylene Glycol/Electrolytes (Miralax*) 17 gm PO DAILY PRN PRN Reason: CONSTIPATION Last Admin: 10/04/18 09:55 Dose: 17 gm Senna (Senokot Tab*) 1 tab PO BEDTIME [facility] Last Admin: 10/04/18 21:03 Dose: Not Given Sodium Bicarbonate (Sodium Bicarbonate (Antacid)*) 1,300 mg PO TID [facility] Last Admin: 10/05/18 14:31 Dose: 1,300 mg Warfarin Sodium (Coumadin Tab(*)) 5 mg PO 1700 ONE Stop: 10/05/18 17:01 Vital Signs - 8 hr 10/05/18 10/05/18 10/05/18 09:30 11:16 15:20 Temperature 97.7 F 98.3 F Pulse Rate 72 68 Respiratory 16 18 17 Rate Blood Pressure 133/50 129/47 (mmHg) O2 Sat by Pulse 98 97 Oximetry Oxygen Devices in Use Now: None Exam: Patient is lying on bed. General: There is diffuse swelling of left leg more on left knee. Tenderness of left knee. Scrotum swollen and red. CVS: Normal heart sound heard. Respiratory: Mild wheezes heard. GI: Normal bowel sound heard. Neuro: Alert, conscious and oriented. Result Diagrams: 10/05/18 06:41 10/05/18 06:41 Additional Lab and Data: Laboratory Results - last 24 hr 09/27/18 09/28/18 09/28/18 17:27 06:27 06:27 WBC 10.6 RBC 2.23 L Hgb 7.7 L Hct 23 L MCV 102 H MCH 35 H MCHC 34 RDW 15 Plt Count 138 L MPV 8.5 Neut % (Auto) 83.6 Lymph % (Auto) 4.8 [place] % (Auto) 11.5 Eos % (Auto) 0.0 Baso % (Auto) 0.1 Absolute Neuts (auto) 8.8 H Absolute Lymphs (auto) 0.5 L Absolute Monos (auto) 1.2 H Absolute Eos (auto) 0.0 Absolute Basos (auto) 0.0 Absolute Nucleated RBC 0.0 Nucleated RBC % 0.0 Sodium 133 L Potassium 3.9 Chloride 104 Carbon Dioxide 21 L Anion Gap 8 BUN 21 Creatinine 0.91 Est GFR ( Amer) 98.0 Est GFR (Non-Af Amer) 81.0 BUN/Creatinine Ratio 23.1 H Glucose 160 H Calcium 7.9 L Magnesium 1.6 L Iron < 20 L TIBC 358 % Saturation 6 L Unsat Iron Binding < 343 Transferrin 256 Ferritin 62.5 Vitamin B12 565 Folate 7.20 Urine Color Yellow Urine Appearance Cloudy Urine pH 5.0 Ur Specific [place] 1.018 Urine Protein 2+(100 mg/dl) A Urine Ketones Negative Urine Blood Negative Urine Nitrate Negative Urine Bilirubin Negative Urine Urobilinogen Negative Ur Leukocyte Esterase Negative Urine WBC (Auto) 1+(6-10/hpf) A Urine RBC (Auto) Absent Ur Squamous Epith Cells Present A Urine Bacteria Absent Hyaline Casts Present A Urine Glucose Negative Microbiology and Other Data: Microbiology 09/27/18 14:56 Aerobic Blood Culture - Preliminary Blood Venous Blood MRSA/MSSA (PCR) - Final Mrsa Negative S.aureus Positive 09/27/18 12:14 Aerobic Blood Culture - Preliminary Blood Venous Blood MRSA/MSSA (PCR) - Final Mrsa Negative S.aureus Positive Assess/Plan/Problems-Billing 78 y/o M w/ PMH HTN, B/L hip replacement presents with fever and left hip pain after fall from a chair. Admitted with diagnosis of MSSA Bacteremia secondary to left hip infection s/p wash out. Hospital stay complicated by anemia and renal failure. Further evaluation for infection revealed Endocarditis. - Patient Problems (1) MSSA bacteremia Current Visit: Yes Status: Acute Code(s): R78.81 - BACTEREMIA SNOMED Code( s): 864136104 Comment: secondary to left hip infection. Continue cefazolin. (2) Iron deficiency anemia Current Visit: No Status: Acute Code(s): D50.9 - IRON DEFICIENCY ANEMIA, UNSPECIFIED SNOMED Code(s): 01430615 Comment: 1 U of PRBC given before surgery and now Hb is 7.4. Continue CBC. (3) Acute renal failure (ARF) Current Visit: Yes Status: Acute Comment: Creatinine with slight improvement today. Exact cause not identified. (4) Atrial fibrillation Current Visit: Yes Status: Acute Code(s): I48.91 - UNSPECIFIED ATRIAL FIBRILLATION SNOMED Code(s): 72944400 Comment: Started on warfarin and heparin. Can consider NOAC if creatinine improves (5) Endocarditis Current Visit: Yes Status: Acute Code(s): I38 - ENDOCARDITIS, VALVE UNSPECIFIED SNOMED Code(s): 38909820 Comment: Vegetation seen on Aortic valve on CECILIA. 8 wks IV abx (6) DVT prophylaxis Current Visit: No Status: Acute Code(s): KUW1040 - SNOMED Code(s): 185915137 Comment: Patient started on heparin and warfarin yesterday. Patient has left leg swelling and pain. Doppler didnot show any venous thromboembolism on left leg. Status and Disposition: medicine inpatient. Attending: Devon Rios <Devon Rios - Last Filed: 10/05/18 17:23> Objective Active Medications: Acetaminophen (Tylenol Tab*) 650 mg PO Q6H PRN PRN Reason: pain/fever Last Admin: 10/05/18 09:43 Dose: 650 mg Albuterol (Ventolin 2.5 Mg/3 Ml Neb.Oxana*) 2.5 mg INH Q4H PRN PRN Reason: SOB/WHEEZING Last Admin: 10/03/18 18:18 Dose: 2.5 mg Diltiazem HCl (Cardizem Cd Cap*) 240 mg PO DAILY DEBBIE Last Admin: 10/05/18 09:39 Dose: 240 mg Docusate Sodium (Colace Cap*) 100 mg PO BID PRN PRN Reason: CONSTIPATION Last Admin: 10/04/18 09:56 Dose: 100 mg Ferrous Gluconate (Fergon Tab*) 324 mg PO BID DEBBIE Last Admin: 10/05/18 09:39 Dose: 324 mg Heparin Sodium (Porcine) (Heparin Vial(*)) 0 units IV .PER PROTOCOL DEBBIE Last Admin: 10/02/18 16:35 Dose: 6,500 units Cefazolin Sodium 1 gm/ Sodium (Chloride) 50 mls @ 200 mls/hr IVPB Q12HR DEBBIE Last Admin: 10/05/18 09:40 Dose: 200 mls/hr Heparin Sodium/Dextrose (Heparin Drip 25,000 Units(*)) 25,000 units in 500 mls @ 0 mls/hr IV PER RATE DEBBIE; Protocol Last Admin: 10/05/18 05:20 Dose: 32 mls/hr Latanoprost (Xalatan 0.005%*) 1 drop BOTH EYES QPM DEBBIE Last Admin: 10/04/18 17:38 Dose: 1 drop Morphine Sulfate (Morphine Inj (Syringe))*) 2 mg IV Q2H PRN PRN Reason: PAIN Last Admin: 10/03/18 07:30 Dose: 2 mg Pharmacy Profile Note (Coumadin Per Pharmacy*) 1 note FOLLOW UP .PER PHARMACY PROTOC [facility]; Protocol Polyethylene Glycol/Electrolytes (Miralax*) 17 gm PO DAILY PRN PRN Reason: CONSTIPATION Last Admin: 10/04/18 09:55 Dose: 17 gm Senna (Senokot Tab*) 1 tab PO BEDTIME [facility] Last Admin: 10/04/18 21:03 Dose: Not Given Sodium Bicarbonate (Sodium Bicarbonate (Antacid)*) 1,300 mg PO TID [facility] Last Admin: 10/05/18 14:31 Dose: 1,300 mg Vital Signs - 8 hr 10/05/18 10/05/18 10/05/18 09:30 11:16 15:20 Temperature 97.7 F 98.3 F Pulse Rate 72 68 Respiratory 16 18 17 Rate Blood Pressure 133/50 129/47 (mmHg) O2 Sat by Pulse 98 97 Oximetry Result Diagrams: 10/05/18 06:41 10/05/18 06:41 Assess/Plan/Problems-Billing NAD IRIR CTA b/l soft, NT/ND LLE 3+ edema to and including scrotum AOX3 although occasionally disoriented during conversation Assessment: 78 yo M a/w sepsis 2/2 MSSA bacteremia, left septic hip and inefective endocarditis MSSA and sequelae -8 weeks abx to cover for endocarditis -no additional surgeries planned for left hip -left knee w/o infection Afib -heparin to coumadin AKF - stable -tend daily Anemia -can consider another unit PRBC prior to d/c - Patient Problems (1) Acute renal failure (ARF) Comment: Creatinine with slight improvement today. Exact cause not identified. (2) Atrial fibrillation Comment: Started on warfarin and heparin. Can consider NOAC if creatinine improves (3) MSSA bacteremia Comment: secondary to left hip infection. Continue cefazolin. (4) Septic hip Comment: s/p washout no plan for explant will need chcf or life long suppressive abx Will need to discuss any additional plans for surgery if we decide to start a NOAC (5) Edema Comment: significant at left lower leg >4 liters PO water intake yesterday fluid restrict to 2 liters/24 hrs elevate leg Start wrapping leg in REBECCA [place]age tomorrow (6) Endocarditis Comment: Vegetation seen on Aortic valve on CECILIA. 8 wks IV abx Attestation Documenting Resident: Bakari Supervising Physician: Gabriel Attestation: This service has been performed in part by a resident under the direction of a teaching physician.IGabriel, performed the service, or was physically present during the critical, or crump portions of the service, furnished by the resident. I participated in the management of the patient.
[2018-10-05] MEDS ORDERED: Warfarin TAB(*) 5 MG PO ONE (17:00)
[2018-10-05] MEDS: Latanoprost 0.005%* 2.5 ml BTL BOTH EYES SCH (18:09)
[2018-10-05] MEDS: Senna TAB PO SCH (20:25)
[2018-10-06 08:13] LABS: Hematocrit 22 % (42-52); Hemoglobin 7.7 g/dL (14.0-18.0); Mean Corpuscular HGB Conc 35 g/dL (31-36); Mean Corpuscular Hemoglobin 32 pg (27-31); Mean Corpuscular Volume 94 fL (80-94); Mean Platelet Volume 7.7 fL (7.4-10.4); Platelet Count 354 10^3/uL (150-450); Red Blood Count 2.37 10^6 /uL (4.18-5.48); Red Cell Distribution Width 17 % (10-15); White Blood Count 9.1 10^3/uL (3.5-10.8)
[2018-10-06 08:35] LABS: INR 1.5 (0.82-1.09)
[2018-10-06 08:36] LABS: Calcium 8.1 mg/dL (8.6-10.3); Potassium 4.1 mmol/L (3.5-5.0)
[2018-10-06 08:41] LABS: BUN/Creatinine Ratio 19.8 (8-20); EGFR African American 20.8 (>60); EGFR Non-African American 17.2 (>60)
[2018-10-06] MEDS: Sodium Bicarbonate (ANTACID)* 650 MG TAB PO SCH ×3 (09:28→22:26)
[2018-10-06] MEDS: Diltiazem CD CAP* 240 MG PO SCH (09:28)
[2018-10-06] MEDS: Ferrous Gluconate TAB* 324 MG TAB PO SCH (09:28)
[2018-10-06] MEDS: ceFAZolin 1 GM ADVAN(*) 1 GM in NS 0.9% 50 ML* 50 ML IVPB SCH ×2 (09:29→22:25)
[2018-10-06] MEDS: Acetaminophen TAB* 325 MG PO PRN (12:29)
--- NOTE | 2018-10-06 12:30 | PN ---
Progress Note - Progress Note Date of Service: 10/06/18 SOAP: Subjective: CC: Septic left hip in the setting of a prosthetic hip. HPI: Mr. Miller is a 78 yo male with PMH significant for left TKA, bilateral ZEKE, anemia, HTN, A fib, GERD, and chronic back pain, who presented to the emergency room for left hip pain and inability to ambulate. 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 Denies fever, chills, back pain, ABD pain, nausea, vomiting, or diarrhea. Reports left hip pain that is improving. No pain in the left knee or right hip. Objective: Vital Signs - 8 hr 10/06/18 10/06/18 07:33 11:20 Temperature 98.6 F 98.0 F Pulse Rate 79 73 Respiratory 17 15 Rate Blood Pressure 135/55 134/52 (mmHg) O2 Sat by Pulse 97 99 Oximetry Physical Exam: General: NAD, sitting up in bed Neurological: Alert and Oriented to person and place Cardiovascular: Heart rate regular Respiratory: Lung sounds clear bilateral Abdominal: Bowel sounds present; ABD soft, non tender and large MSK: No tenderness with palpation of the left knee, right hip. Mild tenderness with palpation of the left hip. Small left knee effusion. Negative log roll bilateral hips. No tenderness with palpation of the upper back or neck. Skin: No rash. Dressing to left hip, no surrounding erythema. No erythema to the left knee. Laboratory Results - last 24 hr 10/06/18 10/06/18 10/06/18 01:06 07:52 07:52 INR (Anticoag Therapy) 1.50 H APTT 94.4 H Sodium 134 L Potassium 4.1 Chloride 102 Carbon Dioxide 23 Anion Gap 9 BUN 69 H Creatinine 3.48 H Est GFR ( Amer) 20.8 Est GFR (Non-Af Amer) 17.2 BUN/Creatinine Ratio 19.8 Glucose 125 H Calcium 8.1 L 10/06/18 10/06/18 07:52 07:54 WBC 9.1 RBC 2.37 L Hgb 7.7 L Hct 22 L MCV 94 MCH 32 H MCHC 35 RDW 17 H Plt Count 354 MPV 7.7 APTT 89.3 H Microbiology 09/27/18 14:56 Aerobic Blood Culture - Final Blood Venous Staphylococcus Aureus Anaerobic Blood Culture - Final Staphylococcus Aureus Blood MRSA/MSSA (PCR) - Final Mrsa Negative S.aureus Positive 10/03/18 18:15 Gram Stain - Final Joint Fluid(Synovial) Body Fluid Culture - Preliminary No Growth Day 3 Skin and Soft Tissue MRSA/MSSA (PCR - Final Mrsa Negative S.aureus Negative 10/03/18 18:15 Anaerobic Culture - Preliminary Body Fluid No Growth Day 3 Acid Fast Bacilli Smear - Final 09/29/18 19:44 Aerobic Blood Culture - Final Blood Venous No Growth Day 5 Anaerobic Blood Culture - Final No Growth Day 5 09/29/18 19:45 Aerobic Blood Culture - Final Blood Venous No Growth Day 5 Anaerobic Blood Culture - Final No Growth Day 5 09/30/18 19:12 Wound Gram Stain - Final Tissue - Hip Left Tissue Culture - Final Staphylococcus Aureus Anaerobic Culture - Final Skin and Soft Tissue MRSA/MSSA (PCR - Final Mrsa Negative S.aureus Positive 10/01/18 19:13 Urine Culture - Final Urine No Growth (<1,000 CFU/mL) 09/30/18 19:12 Skin and Soft Tissue MRSA/MSSA (PCR - Final Hip Left Mrsa Negative S.aureus Positive Gram Stain - Final Wound Culture - Final Staphylococcus Aureus 09/30/18 15:30 Urine Culture - Final Urine No Growth (<1,000 CFU/mL) 09/30/18 22:40 Nasal Screen MRSA (PCR) - Final Nasal Mrsa Not Detected 09/28/18 12:37 Aerobic Blood Culture - Final Blood Venous Not Reportable Anaerobic Blood Culture - Final Not Reportable Blood Culture - Final Staphylococcus Aureus Blood MRSA/MSSA (PCR) - Final Mrsa Negative S.aureus Positive 09/28/18 12:12 Aerobic Blood Culture - Final Blood Venous Staphylococcus Aureus Anaerobic Blood Culture - Final Staphylococcus Aureus Blood MRSA/MSSA (PCR) - Final Mrsa Negative S.aureus Positive 09/27/18 12:14 Aerobic Blood Culture - Final Blood Venous Staphylococcus Aureus Anaerobic Blood Culture - Final Staphylococcus Aureus Blood MRSA/MSSA (PCR) - Final Mrsa Negative S.aureus Positive 09/27/18 17:27 Urine Culture - Final Urine No Growth (<1,000 CFU/mL) Assessment: 1. Septic left hip arthroplasty with bacteremia. S/P I&D, POD #7. With MSSA in blood and left hip. Bacteremia has resolved. Afebrile and leukocytosis has resolved. 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 Bacteremia has resolved. 3. Presence of left knee arthroplasty which is more edematous. S/P joint aspiration and no growth in fluid 4. Acute kidney injury. ?ATN or GN related to systemic Staph infection Plan: Continue Ancef dosed for GFR <10, will adjust as needed. Day 7/56, eventual rifampin, then detention oral antibiotics.
--- NOTE | 2018-10-06 15:08 | PN ---
Progress Note - Progress Note Date of Service: 10/06/18 SOAP: Subjective: Pt seen at bedside. No complaint of pain. Denies CP, SOB, F/C. Vital Signs: Temp Pulse Resp BP Pulse Ox 98.0 F 73 15 134/52 99 10/06/18 11:20 10/06/18 11:20 10/06/18 11:20 10/06/18 11:20 10/06/18 11:20 Laboratory Last Values WBC 9.1 10^3/uL (3.5-10.8) 10/06/18 07:54 RBC 2.37 10^6 /uL (4.18-5.48) L 10/06/18 07:54 Hgb 7.7 g/dL (14.0-18.0) L 10/06/18 07:54 Hct 22 % (42-52) L 10/06/18 07:54 MCV 94 fL (80-94) 10/06/18 07:54 MCH 32 pg (27-31) H 10/06/18 07:54 MCHC 35 g/dL (31-36) 10/06/18 07:54 RDW 17 % (10-15) H 10/06/18 07:54 Plt Count 354 10^3/uL (150-450) 10/06/18 07:54 MPV 7.7 fL (7.4-10.4) 10/06/18 07:54 Neut % (Auto) 80.5 % 10/05/18 06:41 Lymph % (Auto) 7.1 % 10/05/18 06:41 [place] % (Auto) 10.2 % 10/05/18 06:41 Eos % (Auto) 2.0 % 10/05/18 06:41 Baso % (Auto) 0.2 % 10/05/18 06:41 Absolute Neuts (auto) 7.4 10^3/ul (1.5-7.7) 10/05/18 06:41 Absolute Lymphs (auto) 0.6 10^3/ul (1.0-4.8) L 10/05/18 06:41 Absolute Monos (auto) 0.9 10^3/ul (0-0.8) H 10/05/18 06:41 Absolute Eos (auto) 0.2 10^3/ul (0-0.6) 10/05/18 06:41 Absolute Basos (auto) 0.0 10^3/ul (0-0.2) 10/05/18 06:41 Absolute Nucleated RBC 0.0 10^3/ul 10/05/18 06:41 Nucleated RBC % 0.0 10/05/18 06:41 ESR > 120 mm/Hr (0-19) H 10/01/18 14:31 INR (Anticoag Therapy) 1.50 (0.82-1.09) H 10/06/18 07:52 APTT 89.3 seconds (26.0-38.0) H 10/06/18 07:52 Patient Temperature Not Reportable 09/30/18 14:37 ABG pH 7.39 (7.35-7.45) 09/30/18 14:37 ABG pH (Temp Correct) Not Reportable 09/30/18 14:37 ABG pCO2 26 mmHg (35-45) L 09/30/18 14:37 ABG pCO2 (Temp Corrct Not Reportable 09/30/18 14:37 ABG pO2 119 mmHg (80-100) H 09/30/18 14:37 ABG pO2 (Temp Correct Not Reportable 09/30/18 14:37 ABG HCO3 19.0 mmol/L (19-31) 09/30/18 14:37 ABG O2 Saturation 100.0 % (94.0-98.0) H 09/30/18 14:37 ABG Base Excess -7.6 mmol/L (-2.0-2.0) L 09/30/18 14:37 Respiration Rate Not Reportable 09/30/18 14:37 O2 Delivery Device nasal cannula 09/30/18 14:37 Ventilator Type Not Reportable 09/30/18 14:37 Vent Mode Not Reportable 09/30/18 14:37 FiO2 2 09/30/18 14:37 Inspiratory Time Not Reportable 09/30/18 14:37 PEEP Not Reportable 09/30/18 14:37 Pressure Support Not Reportable 09/30/18 14:37 Pressure Control Not Reportable 09/30/18 14:37 EPAP Not Reportable 09/30/18 14:37 IPAP Not Reportable 09/30/18 14:37 BiPAP Not Reportable 09/30/18 14:37 Sodium 134 mmol/L (135-145) L 10/06/18 07:52 Potassium 4.1 mmol/L (3.5-5.0) 10/06/18 07:52 Chloride 102 mmol/L (101-111) 10/06/18 07:52 Carbon Dioxide 23 mmol/L (22-32) 10/06/18 07:52 Anion Gap 9 mmol/L (2-11) 10/06/18 07:52 BUN 69 mg/dL (6-24) H 10/06/18 07:52 Creatinine 3.48 mg/dL (0.67-1.17) H 10/06/18 07:52 Est GFR ( Amer) 20.8 (>60) 10/06/18 07:52 Est GFR (Non-Af Amer) 17.2 (>60) 10/06/18 07:52 BUN/Creatinine Ratio 19.8 (8-20) 10/06/18 07:52 Glucose 125 mg/dL (70-100) H 10/06/18 07:52 Lactic Acid 1.8 mmol/L (0.5-2.0) 09/27/18 14:56 Uric Acid 7.0 mg/dL (4.4-7.6) 09/27/18 14:56 Calcium 8.1 mg/dL (8.6-10.3) L 10/06/18 07:52 Magnesium 2.3 mg/dL (1.9-2.7) 09/30/18 04:12 Iron < 20 ug/dL (50-212) L 09/28/18 06:27 TIBC 358 mcg/dL (250-450) 09/28/18 06:27 % Saturation 6 % (15-55) L 09/28/18 06:27 Unsat Iron Binding < 343 ug/dL 09/28/18 06:27 Transferrin 256 mg/dL (203-362) 09/28/18 06:27 Ferritin 62.5 ng/mL (24-336) 09/28/18 06:27 Total Bilirubin 0.80 mg/dL (0.2-1.0) 09/27/18 14:56 AST 37 U/L (13-39) 09/27/18 14:56 ALT 29 U/L (7-52) 09/27/18 14:56 Alkaline Phosphatase 92 U/L (34-104) 09/27/18 14:56 C-Reactive Protein 185.96 mg/L (<8.01) H 09/27/18 14:56 Total Protein 7.0 g/dL (6.4-8.9) 09/27/18 14:56 Albumin 3.8 g/dL (3.2-5.2) 09/27/18 14:56 Globulin 3.2 g/dL (2-4) 09/27/18 14:56 Albumin/Globulin Ratio 1.2 (1-3) 09/27/18 14:56 Vitamin B12 565 pg/mL (180-914) 09/28/18 06:27 Folate 7.20 ng/mL (>3.99) 09/28/18 06:27 Urine Color [place] 10/01/18 19:13 Urine Appearance Turbid 10/01/18 19:13 Urine pH 5.0 (5-9) 10/01/18 19:13 Ur Specific [place] 1.016 (1.010-1.030) 10/01/18 19:13 Urine Protein 2+(100 mg/dl) (Negative) A 10/01/18 19:13 Urine Ketones Negative (Negative) 10/01/18 19:13 Urine Blood 2+ (Negative) A 10/01/18 19:13 Urine Nitrate Negative (Negative) 10/01/18 19:13 Urine Bilirubin Negative (Negative) 10/01/18 19:13 Urine Urobilinogen Negative (Negative) 10/01/18 19:13 Ur Leukocyte Esterase Trace (Negative) A 10/01/18 19:13 Urine WBC (Auto) 3+(>20/hpf) (Absent) A 10/01/18 19:13 Urine RBC (Auto) 3+(>10/hpf) (Absent) A 10/01/18 19:13 Ur Squamous Epith Cells Present (Absent) A 09/27/18 17:27 Urine Bacteria 1+ (Absent) A 10/01/18 19:13 Hyaline Casts Present (Absent) A 09/27/18 17:27 Urine Collection Time 24 hr 10/01/18 13:32 Urine Total Volume 900 mL 10/01/18 13:32 Ur Creatinine 24 Hour 1019.88 mg/24Hr (600-1800) 10/01/18 13:32 Ur Creatinine Concen 113.32 mg/dL 10/01/18 13:32 Ur Total Protein Conc 181 mg/dL 10/01/18 13:32 Ur Total Protein 24 Hr 1629 mg/24Hr (0-165) H 10/01/18 13:32 Urine Glucose Negative (Negative) 10/01/18 19:13 Fluid Source Synovial fluid 10/03/18 18:15 Fluid Volume 9 mL 10/03/18 18:15 Fluid Color [place] 10/03/18 18:15 Fluid Appearance Cloudy 10/03/18 18:15 Fluid WBC 230 /mcL (0-566143) 10/03/18 18:15 Fluid RBC 7346 /mcL 10/03/18 18:15 Fluid Tot Cell Count 100 10/03/18 18:15 Fluid Neutrophils 67 % 10/03/18 18:15 Fluid Lymphocytes 12 % 10/03/18 18:15 Fluid Monocytes 20 % 10/03/18 18:15 Fluid Basophils 1 % 10/03/18 18:15 Fluid Other Cells 2 10/03/18 18:15 Fluid Cell Count Rvw By 10/03/18 18:15 Vancomycin Trough 18.5 mcg/mL 09/28/18 17:29 Anti-Nuclear Antibody 0.2 U 10/01/18 14:31 Proteinase 3 (PR3) < 0.2 U 10/01/18 14:31 Myeloperoxidase Ab < 0.2 U 10/01/18 14:31 Glomerular Base Memb Ab <0.2 U 10/02/18 06:02 Anti-Streptolysin Titr Negative IU/mL (<200 IU/mL) 10/01/18 14:31 Miscellaneous Test See comment 10/03/18 18:15 Blood Type O Positive 09/27/18 23:58 Antibody Screen Negative 09/27/18 23:58 Crossmatch See Detail 09/27/18 23:58 Objective: Awake and alert, NAD, Significant edema bilateral lower extremities, Calves soft and nontender, 2+DP pulses. Assessment: s/p I&D left THR POD #4 Plan: WBAT LLE Continue cefazolin DVT prophylaxis - Eliquis PMRU when medically stable
[2018-10-06] MEDS ORDERED: Warfarin TAB(*) 5 MG PO ONE (17:00)
--- NOTE | 2018-10-06 17:08 | PN ---
<Hipolito Villegas - Last Filed: 10/06/18 17:00> Subjective Date of Service: 10/06/18 Interval History: Patient doesnot have any fresh complaint. He has a scrotal swelling. He thinks his left leg swelling is getting better. Objective Active Medications: Acetaminophen (Tylenol Tab*) 650 mg PO Q6H PRN PRN Reason: pain/fever Last Admin: 10/06/18 12:29 Dose: 650 mg Albuterol (Ventolin 2.5 Mg/3 Ml Neb.Oxana*) 2.5 mg INH Q4H PRN PRN Reason: SOB/WHEEZING Last Admin: 10/03/18 18:18 Dose: 2.5 mg Diltiazem HCl (Cardizem Cd Cap*) 240 mg PO DAILY [facility] Last Admin: 10/06/18 09:28 Dose: 240 mg Ferrous Gluconate (Fergon Tab*) 324 mg PO BID [facility] Last Admin: 10/06/18 09:28 Dose: 324 mg Heparin Sodium (Porcine) (Heparin Vial(*)) 0 units IV .PER PROTOCOL [facility] Last Admin: 10/02/18 16:35 Dose: 6,500 units Cefazolin Sodium 1 gm/ Sodium (Chloride) 50 mls @ 200 mls/hr IVPB Q12HR [facility] Last Admin: 10/06/18 09:29 Dose: 200 mls/hr Heparin Sodium/Dextrose (Heparin Drip 25,000 Units(*)) 25,000 units in 500 mls @ 0 mls/hr IV PER RATE [facility]; Protocol Last Admin: 10/05/18 20:02 Dose: 28 mls/hr Latanoprost (Xalatan 0.005%*) 1 drop BOTH EYES QPM [facility] Last Admin: 10/05/18 18:09 Dose: 1 drop Morphine Sulfate (Morphine Inj (Syringe))*) 2 mg IV Q2H PRN PRN Reason: PAIN Last Admin: 10/03/18 07:30 Dose: 2 mg Pharmacy Profile Note (Coumadin Per Pharmacy*) 1 note FOLLOW UP .PER PHARMACY PROTOC [facility]; Protocol Polyethylene Glycol/Electrolytes (Miralax*) 17 gm PO DAILY PRN PRN Reason: CONSTIPATION Last Admin: 10/04/18 09:55 Dose: 17 gm Rifampin (Rifampin Cap*) 300 mg PO BID [facility] Senna (Senokot Tab*) 1 tab PO BEDTIME [facility] Last Admin: 10/05/18 20:25 Dose: Not Given Sodium Bicarbonate (Sodium Bicarbonate (Antacid)*) 1,300 mg PO TID [facility] Last Admin: 10/06/18 14:13 Dose: 1,300 mg Warfarin Sodium (Coumadin Tab(*)) 5 mg PO 1700 ONE Stop: 10/06/18 17:01 Vital Signs - 8 hr 10/06/18 10/06/18 11:20 14:59 Temperature 98.0 F 98.5 F Pulse Rate 73 62 Respiratory 15 16 Rate Blood Pressure 134/52 122/41 (mmHg) O2 Sat by Pulse 99 97 Oximetry Oxygen Devices in Use Now: None Exam: Patient is sitting on a chair.. General: There is diffuse swelling of left leg more on left knee. Tenderness of left knee. Scrotum swollen and red. CVS: Normal heart sound heard. Respiratory: Normal vesicular sound heard. GI: Normal bowel sound heard. Neuro: Alert, conscious and oriented. Result Diagrams: 10/06/18 07:54 10/06/18 07:52 Additional Lab and Data: Laboratory Results - last 24 hr 09/27/18 09/28/18 09/28/18 17:27 06:27 06:27 WBC 10.6 RBC 2.23 L Hgb 7.7 L Hct 23 L MCV 102 H MCH 35 H MCHC 34 RDW 15 Plt Count 138 L MPV 8.5 Neut % (Auto) 83.6 Lymph % (Auto) 4.8 [place] % (Auto) 11.5 Eos % (Auto) 0.0 Baso % (Auto) 0.1 Absolute Neuts (auto) 8.8 H Absolute Lymphs (auto) 0.5 L Absolute Monos (auto) 1.2 H Absolute Eos (auto) 0.0 Absolute Basos (auto) 0.0 Absolute Nucleated RBC 0.0 Nucleated RBC % 0.0 Sodium 133 L Potassium 3.9 Chloride 104 Carbon Dioxide 21 L Anion Gap 8 BUN 21 Creatinine 0.91 Est GFR ( Amer) 98.0 Est GFR (Non-Af Amer) 81.0 BUN/Creatinine Ratio 23.1 H Glucose 160 H Calcium 7.9 L Magnesium 1.6 L Iron < 20 L TIBC 358 % Saturation 6 L Unsat Iron Binding < 343 Transferrin 256 Ferritin 62.5 Vitamin B12 565 Folate 7.20 Urine Color Yellow Urine Appearance Cloudy Urine pH 5.0 Ur Specific [place] 1.018 Urine Protein 2+(100 mg/dl) A Urine Ketones Negative Urine Blood Negative Urine Nitrate Negative Urine Bilirubin Negative Urine Urobilinogen Negative Ur Leukocyte Esterase Negative Urine WBC (Auto) 1+(6-10/hpf) A Urine RBC (Auto) Absent Ur Squamous Epith Cells Present A Urine Bacteria Absent Hyaline Casts Present A Urine Glucose Negative Microbiology and Other Data: Microbiology 09/27/18 14:56 Aerobic Blood Culture - Preliminary Blood Venous Blood MRSA/MSSA (PCR) - Final Mrsa Negative S.aureus Positive 09/27/18 12:14 Aerobic Blood Culture - Preliminary Blood Venous Blood MRSA/MSSA (PCR) - Final Mrsa Negative S.aureus Positive Assess/Plan/Problems-Billing 78 y/o M w/ PMH HTN, B/L hip replacement presents with fever and left hip pain after fall from a chair. Admitted with diagnosis of MSSA Bacteremia secondary to left hip infection s/p wash out(resolved). Hospital stay complicated by anemia and renal failure. Further evaluation for infection revealed Endocarditis. - Patient Problems (1) MSSA bacteremia Current Visit: Yes Status: Acute Code(s): R78.81 - BACTEREMIA SNOMED Code( s): 207697360 Comment: secondary to left hip infection. Continue cefazolin. (2) Iron deficiency anemia Current Visit: No Status: Acute Code(s): D50.9 - IRON DEFICIENCY ANEMIA, UNSPECIFIED SNOMED Code(s): 33979193 Comment: 1 U of PRBC given before surgery and now Hb is 7.4. Continue CBC. (3) Acute renal failure (ARF) Current Visit: Yes Status: Acute Comment: Creatinine with slight improvement today. Exact cause not identified. (4) Atrial fibrillation Current Visit: Yes Status: Acute Code(s): I48.91 - UNSPECIFIED ATRIAL FIBRILLATION SNOMED Code(s): 25849079 Comment: Started on warfarin and heparin. (5) Endocarditis Current Visit: Yes Status: Acute Code(s): I38 - ENDOCARDITIS, VALVE UNSPECIFIED SNOMED Code(s): 68737540 Comment: Vegetation seen on Aortic valve on CECILIA. 8 wks IV abx needed. Cefazolin 1 gm 12 hrly(09/30) and Oral Rifampin 300 mg BID(10/06). His warfarin dose needs to be adjusted according to his INR as rifampin increases its metabolism. (6) DVT prophylaxis Current Visit: No Status: Acute Code(s): YSE8439 - SNOMED Code(s): 531563473 Comment: Patient started on heparin and warfarin. Doppler of left leg showed no thromboembolism. Needs adjustment of warfarin. Status and Disposition: medicine inpatient. Attending: Cherry Alex <Cherry Alex - Last Filed: 10/06/18 19:08> Objective Active Medications: Acetaminophen (Tylenol Tab*) 650 mg PO Q6H PRN PRN Reason: pain/fever Last Admin: 10/06/18 12:29 Dose: 650 mg Albuterol (Ventolin 2.5 Mg/3 Ml Neb.Oxana*) 2.5 mg INH Q4H PRN PRN Reason: SOB/WHEEZING Last Admin: 10/03/18 18:18 Dose: 2.5 mg Diltiazem HCl (Cardizem Cd Cap*) 240 mg PO DAILY [facility] Last Admin: 10/06/18 09:28 Dose: 240 mg Ferrous Gluconate (Fergon Tab*) 324 mg PO BID [facility] Last Admin: 10/06/18 09:28 Dose: 324 mg Heparin Sodium (Porcine) (Heparin Vial(*)) 0 units IV .PER PROTOCOL [facility] Last Admin: 10/02/18 16:35 Dose: 6,500 units Cefazolin Sodium 1 gm/ Sodium (Chloride) 50 mls @ 200 mls/hr IVPB Q12HR [facility] Last Admin: 10/06/18 09:29 Dose: 200 mls/hr Heparin Sodium/Dextrose (Heparin Drip 25,000 Units(*)) 25,000 units in 500 mls @ 0 mls/hr IV PER RATE [facility]; Protocol Last Admin: 10/05/18 20:02 Dose: 28 mls/hr Latanoprost (Xalatan 0.005%*) 1 drop BOTH EYES QPM [facility] Last Admin: 10/06/18 18:01 Dose: 1 drop Morphine Sulfate (Morphine Inj (Syringe))*) 2 mg IV Q2H PRN PRN Reason: PAIN Last Admin: 10/03/18 07:30 Dose: 2 mg Pharmacy Profile Note (Coumadin Per Pharmacy*) 1 note FOLLOW UP .PER PHARMACY PROTOC [facility]; Protocol Polyethylene Glycol/Electrolytes (Miralax*) 17 gm PO DAILY PRN PRN Reason: CONSTIPATION Last Admin: 10/04/18 09:55 Dose: 17 gm Rifampin (Rifampin Cap*) 300 mg PO BID [facility] Senna (Senokot Tab*) 1 tab PO BEDTIME [facility] Last Admin: 10/05/18 20:25 Dose: Not Given Sodium Bicarbonate (Sodium Bicarbonate (Antacid)*) 1,300 mg PO TID [facility] Last Admin: 10/06/18 14:13 Dose: 1,300 mg Vital Signs - 8 hr 10/06/18 10/06/18 11:20 14:59 Temperature 98.0 F 98.5 F Pulse Rate 73 62 Respiratory 15 16 Rate Blood Pressure 134/52 122/41 (mmHg) O2 Sat by Pulse 99 97 Oximetry Result Diagrams: 10/06/18 07:54 10/06/18 07:52 Assess/Plan/Problems-Billing No overnight events. Pt reports knowing that he can move around but doesn't want to because he needs help to do it. Reports leg tightness, not worse than before. chronically ill appearing, NAD alert and interactive no JVD lungs ctab irreg irreg abd soft ntnd LLE with 2+ edema up to scrotum, warmer than RLE, RLE with 1+ edema up to knee A/P 78M with b/l hip replacements, afib on AC, HTN, presents with fever and L hip pain after fall, found to have infective endocarditis and L septic hip with MSSA , now on cefazolin IV (cultures cleared 09/29) and rifampin. Course complicated by JOSELUIS of unknown etiology, and traumatic Shay insertion. # IE and septic prosthetic hip - cont cefazolin IV until 11/24 for 8 week course since clearance - adding rifampin - appreciate ID and ortho input # Renal failure - pending further urine studies and renal input # Scrotal swelling - uro aware - pt declines Shay replacement - encouraged to ambulate # Afib - cont heparin bridge to warfarin - NOAC contraindicated with rifampin - cont dilt # Fe-deficiency anemia: - cont PO iron Attestation Documenting Resident: Bakari Supervising Physician: Isai Attestation: This service has been performed in part by a resident under the direction of a teaching physician.I, Isai, performed the service, or was physically present during the critical, or crump portions of the service, furnished by the resident. I participated in the management of the patient.
[2018-10-06] MEDS: Latanoprost 0.005%* 2.5 ml BTL BOTH EYES SCH (18:01)
[2018-10-06] MEDS: Senna TAB PO SCH (22:27)
[2018-10-06] MEDS: RiFAMPin CAP* 300 MG CAP PO SCH (22:27)
[2018-10-07 06:42] LABS: Activated Partial Thrombo Time 73.3 seconds (26.0-38.0); INR 1.89 (0.82-1.09)
[2018-10-07 06:44] LABS: BUN/Creatinine Ratio 20.1 (8-20); Calcium 8.2 mg/dL (8.6-10.3); EGFR African American 21.5 (>60); EGFR Non-African American 17.8 (>60); Potassium 4.1 mmol/L (3.5-5.0)
[2018-10-07] MEDS ORDERED: Furosemide IV* 10 MG/ML 2 ML VIAL (20 MG) IV ONE (08:03)
[2018-10-07] MEDS: RiFAMPin CAP* 300 MG CAP PO SCH ×2 (08:30→22:03)
[2018-10-07] MEDS: Sodium Bicarbonate (ANTACID)* 650 MG TAB PO SCH ×3 (08:30→22:03)
[2018-10-07] MEDS: Ferrous Gluconate TAB* 324 MG TAB PO SCH (08:30)
[2018-10-07] MEDS: Diltiazem CD CAP* 240 MG PO SCH (08:30)
[2018-10-07] MEDS: ceFAZolin 1 GM ADVAN(*) 1 GM in NS 0.9% 50 ML* 50 ML IVPB SCH ×2 (08:32→21:22)
[2018-10-07 14:07] LABS: BUN/Creatinine Ratio 20.6 (8-20); Calcium 8.1 mg/dL (8.6-10.3); EGFR African American 21.1 (>60); EGFR Non-African American 17.4 (>60); Magnesium 2.6 mg/dL (1.9-2.7); Potassium 4.3 mmol/L (3.5-5.0)
[2018-10-07 14:28] LABS: Creatinine, Serum 3.48 mg/dL (0.51-0.95)
[2018-10-07 14:52] LABS: Renal Sodium Excretion 0.52 %; Urine Creatinine Concentration 157.48 mg/dL
--- NOTE | 2018-10-07 15:42 | PN ---
Progress Note - Progress Note Date of Service: 10/07/18 SOAP: Subjective: CC: hip infection HPI: 78 year old man with MSSA left Hip infection, no fever, rash, or diarrhea. Legs and scrotum are swollen. Appetite is decreased. No new joint pain. Objective: Vital Signs Temp 36.8 C 10/07/18 11:32 Pulse 72 10/07/18 11:32 Resp 18 10/07/18 11:32 BP 141/56 10/07/18 11:32 Pulse Ox 98 10/07/18 11:32 Intake & Output 10/06/18 10/07/18 10/07/18 18:59 06:59 18:59 Intake Total 690 1707 430 Output Total 200 250 300 Balance 490 1457 130 Intake: Heparin 787 Oral 690 920 430 Output: Shay 200 250 300 Other: # Bowel Movements 0 Gen:awake, no distress HEENT:no thrush Heart:RRR no murmur Lungs:CTA BL Abd:+BS NTND soft Skin: no rash MSK: BL LE edema, left hip incision intact Laboratory Results - last 24 hr 10/06/18 10/06/18 10/06/18 16:30 23:00 23:00 Eosinophil Smear None seen INR (Anticoag Therapy) APTT 63.4 H Sodium Potassium Chloride Carbon Dioxide Anion Gap BUN Creatinine Est GFR ( Amer) Est GFR (Non-Af Amer) BUN/Creatinine Ratio Glucose Calcium Magnesium Ur Creatinine Concen U Sodium Concentration Renal Sodium Excretion Ur Urea Nitrogen Conc 510 10/06/18 10/06/18 10/07/18 23:00 23:00 00:19 Eosinophil Smear INR (Anticoag Therapy) APTT 68.2 H Sodium 134 L Potassium Chloride Carbon Dioxide Anion Gap BUN Creatinine 3.48 H Est GFR ( Amer) Est GFR (Non-Af Amer) BUN/Creatinine Ratio Glucose Calcium Magnesium Ur Creatinine Concen 157.48 U Sodium Concentration 32 32 Renal Sodium Excretion 0.52 Ur Urea Nitrogen Conc 10/07/18 10/07/18 10/07/18 06:03 06:03 13:16 Eosinophil Smear INR (Anticoag Therapy) 1.89 H APTT 73.3 H Sodium 134 L 134 L Potassium 4.1 4.3 Chloride 102 100 L Carbon Dioxide 21 L 23 Anion Gap 11 11 BUN 68 H 71 H Creatinine 3.39 H 3.45 H Est GFR ( Amer) 21.5 21.1 Est GFR (Non-Af Amer) 17.8 17.4 BUN/Creatinine Ratio 20.1 H 20.6 H Glucose 120 H 116 H Calcium 8.2 L 8.1 L Magnesium 2.6 Ur Creatinine Concen U Sodium Concentration Renal Sodium Excretion Ur Urea Nitrogen Conc Assessment: 1. MSSA prosthetic left hip infection s/p I&D 2. Infective endocarditis, aortic valve 3. presence of right hip and left knee arthroplasty (left knee aspirated, fluid benign) 4. Acute kidney injury ?IC mediated process related to IE Plan: 1. continue ancef 1 gm IV Q12hrs (dosed for GFR 10), rifampin 300 mg po twice daily , IV antibiotics 8 weeks, PO minimum 6 months, we discussed 90% chance of cure 2. rifampin induces warfarin metabolism, will need higher coumadin dose than baseline 35 minutes floor time >50% face to face in counseling with patient his regarding antibiotic plans
[2018-10-07] MEDS ORDERED: Warfarin TAB(*) 4 MG PO ONE (17:00)
[2018-10-07] MEDS: Latanoprost 0.005%* 2.5 ml BTL BOTH EYES SCH (17:36)
--- NOTE | 2018-10-07 18:19 | PN ---
<Hipolito Villegas - Last Filed: 10/07/18 18:49> Subjective Date of Service: 10/07/18 Interval History: Patient doesnot have any complain. He feels that he is getting better. He says his leg swelling is decreasing but scrotal swelling is same. No fever, SOB, Chest pain, lightheadedness. Objective Active Medications: Acetaminophen (Tylenol Tab*) 650 mg PO Q6H PRN PRN Reason: pain/fever Last Admin: 10/06/18 12:29 Dose: 650 mg Albuterol (Ventolin 2.5 Mg/3 Ml Neb.Oxana*) 2.5 mg INH Q4H PRN PRN Reason: SOB/WHEEZING Last Admin: 10/03/18 18:18 Dose: 2.5 mg Diltiazem HCl (Cardizem Cd Cap*) 240 mg PO DAILY [facility] Last Admin: 10/07/18 08:30 Dose: 240 mg Ferrous Gluconate (Fergon Tab*) 324 mg PO DAILY@0800 [facility] Last Admin: 10/07/18 08:30 Dose: 324 mg Heparin Sodium (Porcine) (Heparin Vial(*)) 0 units IV .PER PROTOCOL [facility] Last Admin: 10/02/18 16:35 Dose: 6,500 units Cefazolin Sodium 1 gm/ Sodium (Chloride) 50 mls @ 200 mls/hr IVPB Q12HR [facility] Last Admin: 10/07/18 08:32 Dose: 200 mls/hr Heparin Sodium/Dextrose (Heparin Drip 25,000 Units(*)) 25,000 units in 500 mls @ 0 mls/hr IV PER RATE [facility]; Protocol Last Admin: 10/05/18 20:02 Dose: 28 mls/hr Latanoprost (Xalatan 0.005%*) 1 drop BOTH EYES QPM [facility] Last Admin: 10/07/18 17:36 Dose: 1 drop Morphine Sulfate (Morphine Inj (Syringe))*) 2 mg IV Q2H PRN PRN Reason: PAIN Last Admin: 10/03/18 07:30 Dose: 2 mg Pharmacy Profile Note (Coumadin Per Pharmacy*) 1 note FOLLOW UP .PER PHARMACY PROTOC [facility]; Protocol Polyethylene Glycol/Electrolytes (Miralax*) 17 gm PO DAILY PRN PRN Reason: CONSTIPATION Last Admin: 10/04/18 09:55 Dose: 17 gm Rifampin (Rifampin Cap*) 300 mg PO BID [facility] Last Admin: 10/07/18 08:30 Dose: 300 mg Senna (Senokot Tab*) 1 tab PO BEDTIME [facility] Last Admin: 10/06/18 22:27 Dose: 1 tab Sodium Bicarbonate (Sodium Bicarbonate (Antacid)*) 1,300 mg PO TID [facility] Last Admin: 10/07/18 14:53 Dose: 1,300 mg Vital Signs - 8 hr 10/07/18 10/07/18 11:32 15:51 Temperature 98.2 F 98.1 F Pulse Rate 72 74 Respiratory 18 16 Rate Blood Pressure 141/56 136/68 (mmHg) O2 Sat by Pulse 98 99 Oximetry Oxygen Devices in Use Now: None Exam: Patient is sitting on a chair. HEENT: Normocephalic, Atraumatic. Eyes PERRLA. HEART: Normal heart sound heard with no any murmur. Lungs: Normal vesicular sound heard. GI: Soft, Non-tender. Normal bowel sound heard. Neuro: Alert, conscious and oriented. Extremity: B/L pitting edema upto thighs with redness on anterior tibia of left leg. : Scrotal swelling present. Result Diagrams: 10/06/18 07:54 10/07/18 13:16 Additional Lab and Data: Laboratory Results - last 24 hr 09/27/18 09/28/18 09/28/18 17:27 06:27 06:27 WBC 10.6 RBC 2.23 L Hgb 7.7 L Hct 23 L MCV 102 H MCH 35 H MCHC 34 RDW 15 Plt Count 138 L MPV 8.5 Neut % (Auto) 83.6 Lymph % (Auto) 4.8 [place] % (Auto) 11.5 Eos % (Auto) 0.0 Baso % (Auto) 0.1 Absolute Neuts (auto) 8.8 H Absolute Lymphs (auto) 0.5 L Absolute Monos (auto) 1.2 H Absolute Eos (auto) 0.0 Absolute Basos (auto) 0.0 Absolute Nucleated RBC 0.0 Nucleated RBC % 0.0 Sodium 133 L Potassium 3.9 Chloride 104 Carbon Dioxide 21 L Anion Gap 8 BUN 21 Creatinine 0.91 Est GFR ( Amer) 98.0 Est GFR (Non-Af Amer) 81.0 BUN/Creatinine Ratio 23.1 H Glucose 160 H Calcium 7.9 L Magnesium 1.6 L Iron < 20 L TIBC 358 % Saturation 6 L Unsat Iron Binding < 343 Transferrin 256 Ferritin 62.5 Vitamin B12 565 Folate 7.20 Urine Color Yellow Urine Appearance Cloudy Urine pH 5.0 Ur Specific [place] 1.018 Urine Protein 2+(100 mg/dl) A Urine Ketones Negative Urine Blood Negative Urine Nitrate Negative Urine Bilirubin Negative Urine Urobilinogen Negative Ur Leukocyte Esterase Negative Urine WBC (Auto) 1+(6-10/hpf) A Urine RBC (Auto) Absent Ur Squamous Epith Cells Present A Urine Bacteria Absent Hyaline Casts Present A Urine Glucose Negative Microbiology and Other Data: Microbiology 09/27/18 14:56 Aerobic Blood Culture - Preliminary Blood Venous Blood MRSA/MSSA (PCR) - Final Mrsa Negative S.aureus Positive 09/27/18 12:14 Aerobic Blood Culture - Preliminary Blood Venous Blood MRSA/MSSA (PCR) - Final Mrsa Negative S.aureus Positive Assess/Plan/Problems-Billing 78M with b/l hip replacements, afib on AC, HTN, presents with fever and L hip pain after fall, found to have 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 Course complicated by JOSELUIS mostly pre-renal cause(FeNa is 0.71), and scrotal swelling( has traumatic helms insertion). - Patient Problems (1) MSSA bacteremia Current Visit: Yes Status: Acute Code(s): R78.81 - BACTEREMIA SNOMED Code( s): 161158166 Comment: secondary to left hip infection. Cultures cleared now. Continue cefazolin for endocarditis. (2) Acute renal failure (ARF) Current Visit: Yes Status: Acute Comment: Creatinine with slight improvement today. Most probably pre-renal cause(FEnA IS 0.71) Monitor renal function. Nephrology cleared the patient for rehab transfer. (3) Endocarditis Current Visit: Yes Status: Acute Code(s): I38 - ENDOCARDITIS, VALVE UNSPECIFIED SNOMED Code(s): 97186647 Comment: Vegetation seen on Aortic valve on CECILIA. 8 wks IV abx needed. Cefazolin 1 gm 12 hrly(09/30) and Oral Rifampin 300 mg BID(10/06). His warfarin dose needs to be adjusted according to his INR as rifampin increases its metabolism. (4) Atrial fibrillation Current Visit: Yes Status: Acute Code(s): I48.91 - UNSPECIFIED ATRIAL FIBRILLATION SNOMED Code(s): 35556097 Comment: Started on warfarin and heparin. NOAC cannot be started due to rifampin. (5) Iron deficiency anemia Current Visit: No Status: Acute Code(s): D50.9 - IRON DEFICIENCY ANEMIA, UNSPECIFIED SNOMED Code(s): 45376004 Comment: 1 U of PRBC given before surgery and now Hb is 7.4. Continue PO iron. (6) DVT prophylaxis Current Visit: No Status: Acute Code(s): WNN7730 - SNOMED Code(s): 914928708 Comment: Patient started on heparin and warfarin. Doppler of left leg showed no thromboembolism. Needs adjustment of warfarin. (7) Scrotal swelling Current Visit: Yes Status: Acute Code(s): N50.89 - OTHER SPECIFIED DISORDERS OF THE MALE GENITAL ORGANS SNOMED Code(s): 234633385 Comment: Urology consulted. May be depedent swelling. patient is on sling. Status and Disposition: medicine inpatient. Attending: Cherry Alex <Cherry Alex - Last Filed: 10/07/18 20:26> Objective Active Medications: Acetaminophen (Tylenol Tab*) 650 mg PO Q6H PRN PRN Reason: pain/fever Last Admin: 10/06/18 12:29 Dose: 650 mg Albuterol (Ventolin 2.5 Mg/3 Ml Neb.Oxana*) 2.5 mg INH Q4H PRN PRN Reason: SOB/WHEEZING Last Admin: 10/03/18 18:18 Dose: 2.5 mg Diltiazem HCl (Cardizem Cd Cap*) 240 mg PO DAILY [facility] Last Admin: 10/07/18 08:30 Dose: 240 mg Ferrous Gluconate (Fergon Tab*) 324 mg PO DAILY@0800 [facility] Last Admin: 10/07/18 08:30 Dose: 324 mg Heparin Sodium (Porcine) (Heparin Vial(*)) 0 units IV .PER PROTOCOL [facility] Last Admin: 10/02/18 16:35 Dose: 6,500 units Cefazolin Sodium 1 gm/ Sodium (Chloride) 50 mls @ 200 mls/hr IVPB Q12HR [facility] Last Admin: 10/07/18 08:32 Dose: 200 mls/hr Heparin Sodium/Dextrose (Heparin Drip 25,000 Units(*)) 25,000 units in 500 mls @ 0 mls/hr IV PER RATE [facility]; Protocol Last Admin: 10/05/18 20:02 Dose: 28 mls/hr Latanoprost (Xalatan 0.005%*) 1 drop BOTH EYES QPM [facility] Last Admin: 10/07/18 17:36 Dose: 1 drop Morphine Sulfate (Morphine Inj (Syringe))*) 2 mg IV Q2H PRN PRN Reason: PAIN Last Admin: 10/03/18 07:30 Dose: 2 mg Pharmacy Profile Note (Coumadin Per Pharmacy*) 1 note FOLLOW UP .PER PHARMACY PROTOC [facility]; Protocol Polyethylene Glycol/Electrolytes (Miralax*) 17 gm PO DAILY PRN PRN Reason: CONSTIPATION Last Admin: 10/04/18 09:55 Dose: 17 gm Rifampin (Rifampin Cap*) 300 mg PO BID [facility] Last Admin: 10/07/18 08:30 Dose: 300 mg Senna (Senokot Tab*) 1 tab PO BEDTIME [facility] Last Admin: 10/06/18 22:27 Dose: 1 tab Sodium Bicarbonate (Sodium Bicarbonate (Antacid)*) 1,300 mg PO TID [facility] Last Admin: 10/07/18 14:53 Dose: 1,300 mg Vital Signs - 8 hr 10/07/18 10/07/18 15:51 19:49 Temperature 98.1 F 98.3 F Pulse Rate 74 74 Respiratory 16 17 Rate Blood Pressure 136/68 145/61 (mmHg) O2 Sat by Pulse 99 95 Oximetry Result Diagrams: 10/06/18 07:54 10/07/18 14:20 Assess/Plan/Problems-Billing No overnight events. Seen by urology yesterday - pending note. Pt without complaints - leg "tightness" the same. Had a BM this AM. Gave furosemide 20mg IV today. Pt had possible diastolic dysfunction on previous echo, and certainly has risk factors and clinical picture consistent with HFpEF. This may improve his forward flow and eventually renal function - check BMP this afternoon. chronically ill appearing, NAD alert and interactive no JVD lungs ctab irreg irreg abd soft ntnd LLE with 2+ edema up to scrotum, warmer than RLE, RLE with 1+ edema up to knee A/P 78M with b/l hip replacements, afib on AC, HTN, presents with fever and L hip pain after fall, found to have infective endocarditis and L septic hip with MSSA , now on cefazolin IV (cultures cleared 09/29) and rifampin. Course complicated by JOSELUIS of unknown etiology, and traumatic Helms insertion. # IE and septic prosthetic hip - cont cefazolin IV until 11/24 for 8 week course since clearance - adding rifampin - appreciate ID and ortho input # Renal failure. US without structural change. Possibly from vanc/zosyn vs AIN, post-infectious glomerulopathy? Although, FeNa < 1, so possible that kidneys under-perfused if he indeed has HFpEF. - pending further urine studies and renal input - will monitor BMP s/p furosemide # Scrotal swelling - uro aware - pt declines Helms replacement - encouraged to ambulate - has sling # Afib - cont heparin bridge to warfarin - NOAC contraindicated with rifampin - cont diltiazem # Fe-deficiency anemia: - cont PO iron Pending PMRU. Attestation Documenting Resident: Bakari Supervising Physician: Isai Attestation: This service has been performed in part by a resident under the direction of a teaching physician.IIsai, performed the service, or was physically present during the critical, or crump portions of the service, furnished by the resident. I participated in the management of the patient.
[2018-10-07] MEDS: Senna TAB PO SCH (22:03)
[2018-10-08 06:38] LABS: Activated Partial Thrombo Time 98.5 seconds (26.0-38.0); INR 2.4 (0.82-1.09)
[2018-10-08 06:56] LABS: BUN/Creatinine Ratio 20.5 (8-20); Calcium 8.2 mg/dL (8.6-10.3); EGFR African American 22.1 (>60); EGFR Non-African American 18.3 (>60); Potassium 4.1 mmol/L (3.5-5.0)
--- NOTE | 2018-10-08 08:51 | DS ---
<Hipolito Villegas - Last Filed: 10/08/18 10:36> Resident Discharge Summary Discharge Summary: Date of Admission: 09/27/18 Date of Discharge: 10/08/2018 Admitting MD: Candi Carty MD Attending MD: Cherry Alex MD Primary Care Physician: Js Gonzalez MD Home Medications Medication Instructions Recorded Confirmed Type Apixaban* [Eliquis*] 5 mg PO BID 08/14/17 09/27/18 History Chlorthalidone TAB* [Hygroton TAB*] 25 mg PO DAILY 08/14/17 09/27/18 History Diltiazem CD CAP* [Cardizem CD 240 mg PO DAILY 08/14/17 09/27/18 History CAP*] Ferrous Sulfate TAB* 325 mg PO BID 08/14/17 09/27/18 History Omeprazole CAP (NF) [Prilosec CAP* 40 mg PO BID 08/14/17 09/27/18 History 20 MG] Latanoprost 0.005%* [Xalatan 1 drop BOTH EYES QPM 09/27/18 09/27/18 History 0.005%*] Oxycodone HCl/Acetaminophen 1 tab PO Q6HR PRN 09/27/18 09/27/18 History [Percocet] Disposition: PMRU Condition: Improved Primary Diagnosis: 1. MSSA Bacteremia probably due to Left Septic hip. 2. Acute Kidney Injury 3. Infective Endocarditis 4. Scrotal swelling Secondary Diagnosis: 1. Atrial Fibrillation 2. Iron deficiency Anemia Diagnostic Imaging: Hip/Pelvis X-Ray: Normally located left total hip prosthesis. Chest X-ray: cardiomegaly, Stigmata of obstructive lung disease. No acute pulmonary or cardiac process evident. Pelvis CT: Subtle soft tissue fullness around left hip may reflect joint effusion. Hip Aspiration: Attempts at aspiration were non-productive. MRI Lumbar spine: No evidence of epidural abscess. Multilevel Spondylosis resulting in moderate left neural foraminal stenosis at L4-L5 and moderate- severe foraminal stenosis at L5-S1. Hip MRI: Soft tissue swelling is identified lateral to each hip and involving bilateral thighs. Fascial edema in proximal thigh more on left hip. Bilateral hip prosthesis. Multiloculated fluid collection lateral to the left greater trochanter and extending into the thigh- maybe abscess or complex bursitis. Abdomen/Bladder US: No evidence of hydronephrosis. Knee(Left) x-ray: Soft tissue swelling mostly on anterior. Total knee prosthesis. Venous doppler(LEFT): No evidence of Deep vein Thrombosis. Transthoracic Echo: Ejection fraction is 50-55% and patient is in A. Fib. Left atrium is severely dilated. Right atrium is moderately to severely dilated. MIld MR, Mild TR. Peak pulmonary pressure is 39.0 mm Hg. Transesophageal Echo: Mobile vegetation on anterior leaflet of the aortic valve. Pertinent Laboratory Results: WBC- 11.9 ON presentation and 9.1 on discharge RBC: 8.3 on presentation and 7.7 on discharge. INR- 2.4 on discharge aPTT- 98.5 On discharge Creatinine: 1.03 on admission and 3.31 on discharge GFR: 70.2 on presentation and 18.3 on discharge FeNA:0.71 Blood Culture: MMSA (Culture negative on 09/29/2018) Hospital Course: 78 y/o M with PMH of B/L total hip replacement, AC(on eliquis), anemia of unknown originand Hypertension presented with left hip pain and fever after fall from chair.No pain in any other site, no nausea and vomiting or loss of consciousness. He had a recent bout of shingles. In emergency, his blood count was high and temp was 102.1. Imaging was done which showed joint effusion and he was admitted. He was first started on Vancomycin but later changed to cephazolin because of his worsening kidney function. Blood culture showed MSSA. Wash out of left hip was done which revealed pus and he was transfused 1 U of prbc before surgery. He was found to have Infective Endocarditis and his IV antibiotic was planned to continue for 8 weeks and oral rifampin was added ID Consultation. He is on warfarin as eliquis cannot be given because of its unpredictable reaction with rifampin. His INR is 2.4. His kidney function is plateau now so we will regularly follow up now. Follow Up Instructions: F/U with PCP in 1-2 weeks. F/U with ID in 2-4 weeks. FLu with Director Of Physical Therapy in 1 week. Please note: 1. His INR should be in 2-3. 2. Daily weight measurement. 3. IV cefazolin for total of 8 weeks(culture cleared on 09/29/18) 4. Oral rifampin added. 5. Sling for scrotal swelling. In case of an emergency or after clinic hours, please go to your nearest Emergency Department. You may also call the [facility] upsetting machine operator at ( [phone]. <Cherry Alex - Last Filed: 10/08/18 11:29> Resident Discharge Summary Discharge Summary: Date of Admission: 09/27/18 Date of Discharge: Admitting MD: Candi Carty MD Attending MD: Cherry Alex MD Primary Care Physician: Js Gonzalez MD Home Medications Medication Instructions Recorded Confirmed Type Diltiazem CD CAP* [Cardizem CD 240 mg PO DAILY 08/14/17 09/27/18 History CAP*] Latanoprost 0.005%* [Xalatan 1 drop BOTH EYES QPM 09/27/18 09/27/18 History 0.005%*] Acetaminophen TAB* [Tylenol TAB*] 650 mg PO Q6H PRN tab 10/08/18 Rx CeFAZolin 1 GM PREMIX(*) [Kefzol 1 gm IVPB Q12H #30 bag 10/08/18 Rx PREMIX(*)] Ferrous Gluconate TAB* [Fergon 324 mg PO DAILY@0800 tab 10/08/18 Rx TAB*] Polyethylene Glycol 3350* 17 gm PO DAILY PRN packet 10/08/18 Rx [Miralax*] RiFAMPin CAP* 300 mg PO BID cap 10/08/18 Rx Sodium Bicarbonate (ANTACID)* 1,300 mg PO TID tab 10/08/18 Rx Warfarin TAB(*) [Coumadin TAB(*)] 4 mg PO DAILY #30 tab 10/08/18 Rx Please note that patient is newly on cefazolin IV, rifampin, and warfarin. Follow Up Instructions: Pt should remain on IV antibiotics until at least November 24. He should follow up with ID before this time, as he will eventually need to be switched to PO antibiotics for at least several months time.
--- NOTE | 2018-10-08 09:35 | PN ---
PROGRESS NOTE: DATE OF SERVICE: 10/08/18 SUBJECTIVE: I was asked by the rn medical inpatient services Dr. Ruiz to come and see Mr. Miller with regard to his edema. Mr. Miller had previously been consulted on by Dr. Soto. 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 He has been significantly edematous over the past week. He has had scrotal edema and edema extending up to his abdominal wall. A fractional excretion of sodium has been obtained, which was 0.7, so prerenal state continues in the face of his significant edema. I reviewed the records and examined the patient at the bedside together with Dr. Ruiz. He has evidenced on echocardiography of severe left atrial and right atrial enlargement along with right ventricular enlargement. He is not having any problems with orthopnea. He has some anorexia and some nausea. He has no chest pain. His legs are not really hurting him. He does complain a little bit of his scrotal edema. OBJECTIVE: His blood pressure is 145/61 with a pulse of 72. He had jugular venous distention at approximately 15 cm above the right atrium. The chest was clear. I could ballote his liver margin at approximately 4 cm below the right costal margin. There was a positive hepatojugular reflux. He had significant scrotal edema and edema extending all the way up to the lower chest wall. There was some erythema to his right jim. LABORATORY DATA: His most recent white count was 9.1, hemoglobin of 7.7, platelets 364,000. Sodium 134, potassium 4.1, total CO2 21, chloride 102, glucose 120, BUN 68, creatinine 3.39. His maximum creatinine has been 3.53. DISCUSSION: At the present time, I do not think it is warranted to go ahead and diurese him. Diuretics will prolong the recovery from his acute renal injury and delay it somewhat. The amount of edema that he has is not causing any clinical problem. I would go ahead and use diuretics if, in fact, he had some evidence of pulmonary edema or significant tissue breakdown because of the edema. I discussed the case at length with Dr. Ruiz. [id number]/[facility] #: [id number] [facility] HEALTHWilfredo
[2018-10-08] MEDS: ceFAZolin 1 GM ADVAN(*) 1 GM in NS 0.9% 50 ML* 50 ML IVPB SCH (09:37)
[2018-10-08] MEDS: Ferrous Gluconate TAB* 324 MG TAB PO SCH (09:37)
[2018-10-08] MEDS: Diltiazem CD CAP* 240 MG PO SCH (09:37)
[2018-10-08] MEDS: RiFAMPin CAP* 300 MG CAP PO SCH (09:37)
[2018-10-08] MEDS: Sodium Bicarbonate (ANTACID)* 650 MG TAB PO SCH (09:37)
[2018-10-08 11:14] VITALS: BP 155/72
[2018-10-08] MEDS ORDERED: Warfarin TAB(*) 3 MG PO ONE (17:00)
== END 2018-10-08 11:25 | DRG 309 ==
LOC: ED 14:24 → SSU 19:54 → ICU 09-30 21:54 → SSU 10-01 15:35
PROVIDERS: ADMIT Internal Medicine; ATTEND Internal Medicine
PROC: 0SBB0ZZ Excision of Left Hip Joint, Open Approach (ICD-10-PCS; 2018-09-30)
PROC: 30233N1 Transfusion of Nonautologous Red Blood Cells into Peripheral Vein, Percutaneous Approach (ICD-10-PCS; 2018-09-30)
PROC: 0S9B0ZZ Drainage of Left Hip Joint, Open Approach (ICD-10-PCS; principal; 2018-09-30 17:00)
PROC: B24BZZ4 Ultrasonography of Heart with Aorta, Transesophageal (ICD-10-PCS; 2018-10-03)
PROC: 0S9B3ZX Drainage of Left Hip Joint, Percutaneous Approach, Diagnostic (ICD-10-PCS; 2018-10-03)
DX: T84.52XA Infection and inflammatory reaction due to internal left hip prosthesis, initial encounter (principal); A41.01 Sepsis due to Methicillin susceptible Staphylococcus aureus; I33.0 Acute and subacute infective endocarditis; N17.9 Acute kidney failure, unspecified; E87.2 Acidosis; M00.052 Staphylococcal arthritis, left hip; Z96.643 Presence of artificial hip joint, bilateral; Z96.652 Presence of left artificial knee joint; I10 Essential (primary) hypertension; K21.9 Gastro-esophageal reflux disease without esophagitis; G89.29 Other chronic pain; M54.9 Dorsalgia, unspecified; N50.89 Other specified disorders of the male genital organs; D50.9 Iron deficiency anemia, unspecified; M43.06 Spondylolysis, lumbar region; M48.061 Spinal stenosis, lumbar region without neurogenic claudication; M19.90 Unspecified osteoarthritis, unspecified site; I48.2 Chronic atrial fibrillation; D53.9 Nutritional anemia, unspecified; B02.9 Zoster without complications; S70.12XA Contusion of left thigh, initial encounter; W07.XXXA Fall from chair, initial encounter; E66.9 Obesity, unspecified; H40.9 Unspecified glaucoma; Z82.49 Family history of ischemic heart disease and other diseases of the circulatory system; Z82.3 Family history of stroke; Z82.0 Family history of epilepsy and other diseases of the nervous system; Z87.891 Personal history of nicotine dependence; Z79.01 Long term (current) use of anticoagulants; Z98.42 Cataract extraction status, left eye; Z98.41 Cataract extraction status, right eye; Z72.89 Other problems related to lifestyle; Y92.89 Other specified places as the place of occurrence of the external cause; Z68.32 Body mass index [BMI] 32.0-32.9, adult
CPT/HCPCS: 20610; 36415; 36600; 71045; 72158; 72192; 76770; 77002; 80048; 80053; 80202; 81003; 81015; 82565; 82570; 82607; 82728; 82746; 82803; 83516; 83520; 83540; 83550; 83605; 83735; 84156; 84300; 84520; 84540; 84550; 85025; 85027; 85610; 85652; 85730; 86038; 86060; 86140; 86850; 86900; 86901; 86922; 87040; 87070; 87073; 87077; 87086; 87102; 87116; 87150; 87186; 87205; 87206; 87640; 87641; 89051; 89190; 93005; 93306; 93312; 93325; 94640; 99156; 99284; A9270-GY; A9579; C8929; G8978-GP-CL; G8979-GP-CI; J0690; J0696; J0780; J1170; J1644; J1940; J2250; J2270; J2310; J2405; J2704; J3010; J3370; J3475; P9040

== ENCOUNTER 2018-10-08 07:15 | Inpatient (IN) | payer BC ==
[2018-10-08] MEDS ORDERED: Magnesium Hydroxide LIQ* 30 ML UDC PO PRN (12:06)
[2018-10-08] MEDS ORDERED: Acetaminophen TAB* 325 MG PO PRN (12:06)
[2018-10-08] MEDS ORDERED: Senna TAB 8.6 mg* TAB PO PRN (12:06)
[2018-10-08] MEDS: Warfarin TAB(*) 3 MG PO SCH (16:47)
[2018-10-08] MEDS: Docusate CAP* 100 MG PO SCH (19:27)
[2018-10-08] MEDS: Latanoprost 0.005%* 2.5 ml BTL BOTH EYES SCH (19:30)
[2018-10-08] MEDS: RiFAMPin CAP* 300 MG CAP PO SCH (20:45)
[2018-10-08] MEDS: LORazepam TAB(*) 0.5 MG PO PRN (21:39)
[2018-10-08] MEDS: ceFAZolin 1 GM ADVAN(*) 1 GM in NS 0.9% 50 ML* 50 ML IVPB SCH (21:40)
--- NOTE | 2018-10-08 22:26 | HP ---
ADMISSION HISTORY AND PHYSICAL: DATE OF ADMISSION: 10/08/18 REASON FOR ADMISSION: Septic left hip; hematoma left hip. HISTORY OF ILLNESS: Sukhi Miller is a 78-year-old male. He had a left total hip replacement done by Dr. Joel San in 2002. He also has a history of atrial fibrillation and normally takes apixaban for anticoagulation. The patient was on a cruise on , 09/25/18. He went to sit on a chair and fell backwards and landed on his hip. He was able to get up, but the hip was quite painful. He walked over to the medical office. They had x-ray facilities on the ship and were able to take an x-ray and told him he did not fracture his hip, they gave him some Percocet. He could not walk around and had to use a wheelchair for the rest of the cruise. After the cruise pulled in to [place], his drove the car and him home to [place]. When they got back to [place], the patient was unable to get out of the car because it was too painful. 911 was called and the patient was brought to the hospital. He again had x-rays, which were negative. This was on 09/27/18. He had blood cultures drawn because he had a fever of 102. The patient was admitted to the hospital. His blood culture result showed that 4/4 bottles were positive for Staph aureus. He was evaluated by Orthopedics. An MRI of his back was gotten and later an MRI of his left hip. There was a large hematoma over the left hip. Dr. Berumen in the orthopedics team felt that this was likely the source of his infection. The patient was taken to the operating room on 09/30/18. He had been started on IV antibiotics at that point. He was taken for an open arthrotomy of the left hip joint and lateral thigh with irrigation and debridement of the infection. The patient later developed significant left knee pain. Dr. Berumen aspirated this; however, this did not grow out anything. The patient also had samples taken from his left hip and these did grow out Staph aureus. He had an infectious disease consultation done by Dr. Thomas Justin. Dr. Justin recommended that the patient continue on IV antibiotics. IV cefazolin every 12 hours. The patient had to be renally dosed because he had an acute kidney injury. The patient's renal failure may have been due to oral vancomycin, which had been changed to cefazolin. The patient did have a renal and bladder ultrasound. Also, a Shay catheter was placed because of his concern perhaps of retention. The patient's renal function slowly improved. The patient's BUN and creatinine peaked at 69 and 3.48. Today , it was 68 and 3.31. On admission, his creatinine was 1.03. The patient also developed significant edema specifically scrotal edema but also edema in his trunk and his legs. Because of his acute kidney injury, he was not a candidate for diuresis at the present time. The patient's apixaban was held because the patient had gone to the operating room. He had been put on a heparin drip. The patient had rifampin added to his antibiotic regimen. Unfortunately, the rifampin meant that the patient could not go back on apixaban. He is now on Coumadin for his atrial fibrillation. The patient also remains anemic from the hematoma. His last hemoglobin was 10/06/18 and was 7.7 with a hematocrit of 22. The patient is felt to have physical therapy and occupational therapy needs. He is now being admitted for inpatient rehab so that he may return to independent living. PAST MEDICAL HISTORY: Significant for the aforementioned atrial fibrillation. He has had multiple joint replacements including left total knee replacement, right and left total hip replacements. He has a history of hypertension and atrial fibrillation, gastroesophageal reflux disease, and chronic back pain. CURRENT MEDICATIONS: Include: 1. Cardizem CD. 2. Colace. 3. Coumadin. 4. Xalatan eye drops. 5. Rifampin. 6. IV cefazolin. 7. Tylenol for pain relief. ALLERGIES: No known drug allergies. SOCIAL HISTORY: He is nonsmoker, rare drinker. He lives with his in a one - story house on [facility]. REVIEW OF SYSTEMS: The patient reports no current shortness of breath or chest pain. PHYSICAL EXAMINATION VITAL SIGNS: The patient's temperature is 98.0, blood pressure is 136/59, pulse is 72, respirations 22. HEENT: Extraocular movements were intact. Tongue is midline. NECK: Supple. LUNGS: Sounded clear to auscultation bilaterally. HEART: Sounds were irregular. S1 and S2 were audible. ABDOMEN: Soft and nontender. EXTREMITIES: His left hip has a wound, which is clean. He has a bit of edema in his left leg. Some ecchymoses are noted. His peripheral pulses appear to be intact. NEUROLOGIC: His neurologic sensation was intact. Muscle strength appears to be 5/5 in both upper and lower extremities. His left hip, however, may be 3/5 secondary to pain. FUNCTIONAL EXAM: The patient transfers with moderate amount of assistance. ASSESSMENT: Infected hematoma, left hip after a fall. PLAN: Integrate him into a comprehensive and therapeutic rehab program with the following goals: 1. Physical therapy will work with the patient. They are going to work on functional transfer training and ambulation training with a walker. 2. Occupational therapy will see the patient and work on his activities of daily living including toileting and toilet transfers. 3. We are going to continue Coumadin for his atrial fibrillation as well as his DVT prophylaxis. 4. Right now we are going to continue his Shay catheter. 5. For his acute kidney injury, we will follow his BUN and creatinine and have Dr. Shi reconsult if necessary. 6. For atrial fibrillation, continue Cardizem and Coumadin. 7. For the anemia, continue iron supplementation. Follow hemoglobin and hematocrit. 8. For the infection, we are going to continue IV cefazolin and oral rifampin. Per the Infectious Disease team, he will be on IV cefazolin until November. 9. director dental services will be closely involved to make sure that any services and equipment the patient requires is in place prior to discharge. 10. Adequate analgesia. 11. His bowels will be regulated. 12. Family training as appropriate. 13. Advance directives: The patient is a full code. 14. Home with appropriate services. ESTIMATED LENGTH OF STAY: 17 to 21 days. [id number]/[facility] #: [id number] [facility] HOSPITALWilfredo
[2018-10-09 05:55] LABS: Hematocrit 23 % (42-52); Hemoglobin 7.9 g/dL (14.0-18.0); Mean Platelet Volume 7.8 fL (7.4-10.4); Platelet Count 356 10^3/uL (150-450)
[2018-10-09 06:00] LABS: INR 2.35 (0.82-1.09)
[2018-10-09] MEDS: Diltiazem CD CAP* 240 MG PO SCH (08:23)
[2018-10-09] MEDS: RiFAMPin CAP* 300 MG CAP PO SCH ×2 (08:23→21:15)
[2018-10-09] MEDS: Ferrous Gluconate TAB* 324 MG TAB PO SCH (08:23)
[2018-10-09] MEDS: Docusate CAP* 100 MG PO SCH ×2 (08:25→21:16)
[2018-10-09] MEDS: ceFAZolin 1 GM ADVAN(*) 1 GM in NS 0.9% 50 ML* 50 ML IVPB SCH ×2 (09:14→21:28)
[2018-10-09] MEDS: Latanoprost 0.005%* 2.5 ml BTL BOTH EYES SCH (17:46)
[2018-10-09] MEDS: Warfarin TAB(*) 3 MG PO SCH (17:46)
--- NOTE | 2018-10-09 18:32 | PN ---
Progress Note Date of Service: 10/09/18 Note: SAULO LEAVITT was visited. Therapy notes read and reviewed. He complains of pain near the helms insertion site. He had some urine around the catheter as a patient on the acute service. Will add Flomax for enlarged prostate and Tramadol (renally dosed) for pain. He also notes dyspepsia and states he usually takes omeprazole at home (20 BID). Will order pantoprazole. Hb/Hct stable. INR 2.35 Current Medications: Active Medications Generic Name Dose Route Start Last Admin Trade Name Freq PRN Reason Stop Dose Admin Acetaminophen 650 mg 10/08/18 12:06 Tylenol Tab* PO Q6H PRN FEVER/PAIN Calcium Carbonate 500 mg 10/09/18 17:13 Tums* PO Q4H PRN DYSPEPSIA Diltiazem HCl 240 mg 10/09/18 09:00 10/09/18 08:23 Cardizem Cd Cap* PO 240 mg DAILY DEBBIE Administration Docusate Sodium 100 mg 10/08/18 21:00 10/09/18 08:25 Colace Cap* PO Not Given BID DEBBIE Ferrous Gluconate 324 mg 10/09/18 09:00 10/09/18 08:23 Fergon Tab* PO 324 mg DAILY DEBBIE Administration Hydrocortisone 1 applic 10/09/18 21:00 Hytone Cream 1%* TOPICAL BID DEBBIE Cefazolin Sodium 1 gm/ Sodium 50 mls @ 200 mls/hr 10/08/18 22:00 10/09/18 09: 14 Chloride IVPB 200 mls/hr Q12H DEBBIE Administration Latanoprost 1 drop 10/08/18 18:00 10/09/18 17:46 Xalatan 0.005%* BOTH EYES 1 drop QPM DEBBIE Administration Lorazepam 0.5 mg 10/08/18 21:15 10/08/18 21:39 Ativan Tab(*) PO 0.5 mg BEDTIME PRN Administration INSOMNIA Magnesium Hydroxide 30 ml 10/08/18 12:06 Milk Of Magnesia Liq* PO Q6H PRN CONSTIPATION Pantoprazole Sodium 40 mg 10/10/18 09:00 Protonix Tab* PO DAILY DEBBIE Rifampin 300 mg 10/08/18 21:00 10/09/18 08:23 Rifampin Cap* PO 300 mg BID DEBBIE Administration Senna 2 tab 10/08/18 12:06 Senokot Tab* PO BEDTIME PRN CONSTIPATION Tamsulosin HCl 0.4 mg 10/09/18 21:00 Flomax Cap* PO BEDTIME DEBBIE Tramadol HCl 50 mg 10/09/18 17:35 Ultram* PO Q12H PRN PAIN - MODERATE Warfarin Sodium 3 mg 10/08/18 17:00 10/09/18 17:46 Coumadin Tab(*) PO 3 mg DAILY@1700 [facility] Administration Protocol Vital Signs: Vital Signs Temp Pulse Resp BP Pulse Ox 98.2 F 72 22 134/62 98 10/09/18 16:41 10/09/18 16:41 10/09/18 16:41 10/09/18 16:41 10/09/18 16:41 Lab Results: Laboratory Results - last 24 hr 10/09/18 10/09/18 05:45 05:45 Hgb 7.9 L Hct 23 L Plt Count 356 MPV 7.8 INR (Anticoag Therapy) 2.35 H Exam: GENERAL: Mild distress LUNGS: Clear bilaterally HEART: Irreg rhythm ABDOMEN: Soft, +BS : Scrotal edema EXTREMITIES: Swollen LEs, ecchymoses left thigh and hip. Stitches in left hip intact NEUROLOGIC: A&O. Sensation intact. Muscle strength 5/5 UEs and 4/5 LLE due to pain, 4+/% RLE due to swelling Assessment/Plan: 1. Infected hematoma, Left hip, S/P I&D, washout: IV Cefazolin, renal dosing. Rifampin. PT/OT 2. Atrial Fibrillation: Cardizem/Coumadin. Can't have Eliquis due to Rifampin 3. Acute Renal Failure: Await BUN/CR in am. Dr. Shi following 4. Analgesia: Will try tramadol 5. BPH: Had 2 traumatic helms insertion attempts before current helms. Will try Flomax 6. Scrotal edema/BLE edema: Can't have diuretics until renal function improves, per Dr. Shi. Elevate scrotum 7. DVT Prophylaxis: Coumadin 8. GERD: Pantoprazole. TUMS. 9. Anemia: Hb/Hct stable. Iron supplements 10. Advance Directives: Full code. is surrogate decision maker 10/09/18 18:32 10/09/18 18:34 10/09/18 18:39
[2018-10-09] MEDS: traMADol TAB* 50 MG PO PRN (19:07)
[2018-10-09] MEDS: Calcium Carbonate CHEW TAB* 500 MG (TUMS) PO PRN (19:08)
[2018-10-09] MEDS: Tamsulosin CAP* 0.4 MG PO SCH (21:15)
[2018-10-09] MEDS: Hydrocortisone 1% CREAM* 30 GM TUBE TOPICAL SCH (21:31)
[2018-10-09] MEDS: LORazepam TAB(*) 0.5 MG PO PRN (23:28)
[2018-10-10 08:12] LABS: ABS Basophils 0.1 10^3/ul (0-0.2); ABS Eosinophils 0.1 10^3/ul (0-0.6); ABS Lymphocytes 0.7 10^3/ul (1.0-4.8); ABS Monocytes 1.2 10^3/ul (0-0.8); ABS Neutrophils 8.5 10^3/ul (1.5-7.7); Eosinophil % 1.2 %; Hematocrit 22 % (42-52); Hemoglobin 7.4 g/dL (14.0-18.0); Lymphocyte % 6.8 %; Mean Corpuscular HGB Conc 35 g/dL (31-36); Mean Corpuscular Hemoglobin 32 pg (27-31); Mean Corpuscular Volume 93 fL (80-94); Mean Platelet Volume 7.9 fL (7.4-10.4); Platelet Count 306 10^3/uL (150-450); Red Blood Count 2.32 10^6 /uL (4.18-5.48); Red Cell Distribution Width 17 % (10-15); White Blood Count 10.6 10^3/uL (3.5-10.8)
[2018-10-10 08:20] LABS: INR 2.14 (0.82-1.09)
[2018-10-10 08:29] LABS: ALT < 3 U/L (7-52); AST 36 U/L (13-39); Albumin 2.4 g/dL (3.2-5.2); Albumin/Globulin Ratio 0.6 (1-3); Alkaline Phosphatase 205 U/L (34-104); Anion Gap 9 mmol/L (2-11); BUN/Creatinine Ratio 21.3 (8-20); Blood Urea Nitrogen 70 mg/dL (6-24); CO2 Carbon Dioxide 25 mmol/L (22-32); Calcium 8.1 mg/dL (8.6-10.3); Chloride 102 mmol/L (101-111); EGFR African American 22.2 (>60); EGFR Non-African American 18.4 (>60); Globulin 3.8 g/dL (2-4); Glucose 112 mg/dL (70-100); Potassium 4.2 mmol/L (3.5-5.0); Sodium 136 mmol/L (135-145); Total Protein 6.2 g/dL (6.4-8.9)
[2018-10-10] MEDS: Pantoprazole TAB * 40 MG TAB PO SCH (08:44)
[2018-10-10] MEDS: Hydrocortisone 1% CREAM* 30 GM TUBE TOPICAL SCH ×2 (08:45→20:50)
[2018-10-10] MEDS: RiFAMPin CAP* 300 MG CAP PO SCH ×2 (08:45→20:46)
[2018-10-10] MEDS: Docusate CAP* 100 MG PO SCH ×2 (08:45→20:51)
[2018-10-10] MEDS: Diltiazem CD CAP* 240 MG PO SCH (08:45)
[2018-10-10] MEDS: Ferrous Gluconate TAB* 324 MG TAB PO SCH (08:45)
[2018-10-10] MEDS: ceFAZolin 1 GM ADVAN(*) 1 GM in NS 0.9% 50 ML* 50 ML IVPB SCH ×2 (09:57→21:55)
--- NOTE | 2018-10-10 10:16 | PN ---
Progress Note Date of Service: 10/10/18 Note: SAULO LEAVITT was visited. Nursing and therapy notes read and reviewed. No chest pain, shortness of breath or abdominal pain. Tramadol may help a little with bladder. Current Medications: Active Medications Generic Name Dose Route Start Last Admin Trade Name Freq PRN Reason Stop Dose Admin Acetaminophen 650 mg 10/08/18 12:06 Tylenol Tab* PO Q6H PRN FEVER/PAIN Calcium Carbonate 500 mg 10/09/18 17:13 10/09/18 19:08 Tums* PO 500 mg Q4H PRN Administration DYSPEPSIA Diltiazem HCl 240 mg 10/09/18 09:00 10/10/18 08:45 Cardizem Cd Cap* PO 240 mg DAILY DEBBIE Administration Docusate Sodium 100 mg 10/08/18 21:00 10/10/18 08:45 Colace Cap* PO 100 mg BID DEBBIE Administration Ferrous Gluconate 324 mg 10/09/18 09:00 10/10/18 08:45 Fergon Tab* PO 324 mg DAILY DEBBIE Administration Hydrocortisone 1 applic 10/09/18 21:00 10/10/18 08:45 Hytone Cream 1%* TOPICAL Not Given BID DEBBIE Cefazolin Sodium 1 gm/ Sodium 50 mls @ 200 mls/hr 10/08/18 22:00 10/10/18 09: 57 Chloride IVPB 200 mls/hr Q12H DEBBIE Administration Latanoprost 1 drop 10/08/18 18:00 10/09/18 17:46 Xalatan 0.005%* BOTH EYES 1 drop QPM DEBBIE Administration Lorazepam 0.5 mg 10/08/18 21:15 10/09/18 23:28 Ativan Tab(*) PO 0.5 mg BEDTIME PRN Administration INSOMNIA Magnesium Hydroxide 30 ml 10/08/18 12:06 Milk Of Magnesia Liq* PO Q6H PRN CONSTIPATION Pantoprazole Sodium 40 mg 10/10/18 09:00 10/10/18 08:44 Protonix Tab* PO 40 mg DAILY DEBBIE Administration Rifampin 300 mg 10/08/18 21:00 10/10/18 08:45 Rifampin Cap* PO 300 mg BID DEBBIE Administration Senna 2 tab 10/08/18 12:06 Senokot Tab* PO BEDTIME PRN CONSTIPATION Tamsulosin HCl 0.4 mg 10/09/18 21:00 10/09/18 21:15 Flomax Cap* PO 0.4 mg BEDTIME DEBBIE Administration Tramadol HCl 50 mg 10/09/18 17:35 10/09/18 19:07 Ultram* PO 50 mg Q12H PRN Administration PAIN - MODERATE Warfarin Sodium 3 mg 10/08/18 17:00 10/09/18 17:46 Coumadin Tab(*) PO 3 mg DAILY@1700 DEBBIE Administration Protocol Vital Signs: Vital Signs Temp Pulse Resp BP Pulse Ox 97.6 F 83 20 140/59 97 10/10/18 05:35 10/10/18 05:35 10/10/18 05:35 10/10/18 05:35 10/10/18 05:35 Lab Results: Laboratory Results - last 24 hr 10/10/18 10/10/18 10/10/18 07:48 07:48 07:48 WBC 10.6 RBC 2.32 L Hgb 7.4 L Hct 22 L MCV 93 MCH 32 H MCHC 35 RDW 17 H Plt Count 306 MPV 7.9 Neut % (Auto) 79.8 Lymph % (Auto) 6.8 [place] % (Auto) 11.7 Eos % (Auto) 1.2 Baso % (Auto) 0.5 Absolute Neuts (auto) 8.5 H Absolute Lymphs (auto) 0.7 L Absolute Monos (auto) 1.2 H Absolute Eos (auto) 0.1 Absolute Basos (auto) 0.1 Absolute Nucleated RBC 0.0 Nucleated RBC % 0.0 INR (Anticoag Therapy) 2.14 H Sodium 136 Potassium 4.2 Chloride 102 Carbon Dioxide 25 Anion Gap 9 BUN 70 H Creatinine 3.29 H Est GFR ( Amer) 22.2 Est GFR (Non-Af Amer) 18.4 BUN/Creatinine Ratio 21.3 H Glucose 112 H Calcium 8.1 L Total Bilirubin 1.50 H AST 36 ALT < 3 L Alkaline Phosphatase 205 H Total Protein 6.2 L Albumin 2.4 L Globulin 3.8 Albumin/Globulin Ratio 0.6 L Exam: GENERAL: No acute distress. Alert and appropriate LUNGS: Clear to auscultation bilaterally HEART: Irregularly irregular ABDOMEN: Soft, + bowel sounds, non-tender, non-distended : Scrotal and penile edema EXTREMITIES: BLE edema. Left hip sutures intact. NEUROLOGIC: Sensation intact. Motor 5/5 BUE and RLE; 4/5 LLE due to pain Assessment/Plan: 1. Infected hematoma, Left hip, S/P I&D, washout: IV Cefazolin, renal dosing. Rifampin. PT/OT 2. Atrial Fibrillation: Cardizem/Coumadin. INR stable. INR QMWF. Can't have Eliquis due to Rifampin 3. Acute Renal Failure: Cr stable in 3's. Dr. Shi following 4. Analgesia: tramadol prn. 5. BPH: Had 2 traumatic helms insertion attempts before current helms. Started Flomax 10/09 6. Scrotal/Penile/BLE edema: Can't have diuretics until renal function improves , per Dr. Shi. Elevate scrotum. REBECCA wrap legs 7. DVT Prophylaxis: Coumadin 8. GERD: Pantoprazole. TUMS. 9. Anemia: Hb/Hct stable. Iron supplements 10. Advance Directives: Full code. is surrogate decision maker 11. Estimated LOS: [facility] today 10/10/18 10:15
[2018-10-10] MEDS: traMADol TAB* 50 MG PO PRN ×2 (10:20→21:55)
--- NOTE | 2018-10-10 12:34 | PMRUTEAM ---
PMRU: Team Meeting Current Status: Nursing: Current Status Skin Deviations [scrotum] Other Skin Deviations [Back] Rash Skin Deviations [Left Hip] Incision Skin Deviations [Right Hand] Skin Tear Skin Deviations [Right Arm] Skin Tear Skin Deviations [Left Calf] Incision Skin Deviation Description [ remains swollen scrotum] Skin Deviation Description [ lotion applied Back] 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 place - KVNG Left Hip] Skin Deviation Description [ Appears to be an old blood draw or IV site Right Hand] Skin Deviation Description [ skin tear after removing tape from blood draw. Right Arm] optifoam applied. 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 Left Calf] Physical Therapy: Current Status Bed Mobility Assistance Mod Assist Transfer Mobility Assistance Contact Guard Assist Transfer/Bed Mobility Rolling Walker Recommended Devices Ambulation Assistance Contact Guard Assist Ambulation Assistive Devices Rolling Walker Number of Feet Patient 140' Ambulated Stairs Assistance Not Tested Stairs Recommended Devices Two Rails Number of Stairs 5 Occupational Therapy: Current Status Upper Body Dressing Min Assist Lower Body Dressing Mod Assist Bathing Mod Assist Toileting Min Assist Toilet Transfer Min Assist Eating Independent Rec Therapy: Current Status Summary of Assessment and Patient was open to meeting with telegraphic typewriter operator to discuss Clinical Impression his leisure lifestyle prior to admission. Patient was euthymic, often made jokes throughout our conversation. Able to identify multiple leisure interests, is expecting his to bring his tablet later. Is open to continued leisure visits. Treatment Goals Patient will engage in recreation and leisure activities while on the unit. Treatment Plan Provide and encourage involvement in RT services. Social Work: Current Status Discharge Plan return home with home care svs and family support Potential for Family Training pt's is involved and attentive Anticipated Discharge Home Destination Discharge With home care svs and family support Goals: Physical Therapy: Initial Goals Bed Mobility Assistance Independent Transfer Mobility Assistance Independent Transfer/Bed Mobility Rolling Walker Recommended Devices Ambulation Independent Ambulation Recommended Devices Rolling Walker Ambulation Distance 150 Stairs Assistance Independent Stair Recommended Devices One Rail Number of Stairs 5 Home Exercise Program Independent Assistance Occupational Therapy: Initial Goals Goals to be Completed in (Days 7 ) Upper Body Bathing Routine Independent Lower Body Bathing Routine Modified Independent with Upper Body Dressing Routine Independent Lower Body Dressing Routine Minimal Contact Assist for socks and shoes Toilet Hygeine and Clothing Modified Independent with Management Routine Toilet Transfer Routine Modified Independent with Step-In Shower Transfer Supervision/Set Up Routine Functional Transfers for ADL Modified Independent with Grooming Routine Independent Feeding Routine Independent Social Work: Goals Discharge Plan return home with home care svs and family support Potential for Family Training pt's is involved and attentive Anticipated Discharge Home Destination Discharge With home care svs and family support Care Plan: Care Plan ADL's - Improve/Maintain Start: 10/08/18 22:49 Freq: DAILY Status: Active Target: Protocol: Activity Type Activity Date Activity User E-Sign Co-Sign Detail Recorded Client Recorded Date Recorded By Document 10/09/18 15:03 [id number] [email or web address] 10/09/18 15:03 [id number] 10/09/18 15:03 PMRU Outcome: ADL's/ADL Transfers Orders/Interventions Occupational Therapy Evaluation & Treatment Communication Tool in Patient Room Patient to receive OT 5x/wk for 60-120 Therex min/day Self Care Management Group Therapy UE/LE ADL's with Assist Yes: min A ADL Transfers with Assist Yes: mod I Toileting: Transfers,Clothing Management Yes: mod I ,Hygeine w/Assist Light Kitchen/Laundry w/Assist No Progression Toward Outcome/Goals Progressing Outcome/Goals Met Pt is a 78 yr old male s/p L hip I&D and L hip infected hematoma after a fall. Pt presents with L hip pain, L hip AROM, L hip precautions, decreased endurance, and balance deficits that affect his ability to complete bathing, dressing, toileting, toilet transfers, and showering. Pt would benefit from skilled OT rehabilitation to maximize independence with ADLs and functional transfers. DVT Prophylaxis- Improve/Maintain Start: 10/08/18 22:49 Freq: QSHIFT Status: Active Target: Protocol: Activity Type Activity Date Activity User E-Sign Co-Sign Detail Recorded Client Recorded Date Recorded By Document 10/10/18 10:21 [id number] [email or web address] 10/10/18 10:21 [id number] 10/10/18 10:21 PMRU Outcome: DVT Prophylaxis Outcome/Goals Remains Free of DVT Free of complications from current DVT TEDS Stockings on Every AM, Off at HS Progression Toward Outcome/Goals Progressing Discharge Planning - Improve/Maintain Start: 10/08/18 22:49 Freq: DAILY Status: Active Target: Protocol: Activity Type Activity Date Activity User E-Sign Co-Sign Detail Recorded Client Recorded Date Recorded By Document 10/10/18 00:05 [id number] [email or web address] 10/10/18 00:05 [id number] 10/10/18 00:05 PMRU Outcome: Discharge Planning Update Patient Family No Outcome/Goals Demonstrates Understanding of Discharge Plan Education-Improve/Maintain Start: 10/08/18 22:49 Freq: QSHIFT Status: Active Target: Protocol: Activity Type Activity Date Activity User E-Sign Co-Sign Detail Recorded Client Recorded Date Recorded By Document 10/10/18 10:21 [id number] [email or web address] 10/10/18 10:21 [id number] 10/10/18 10:21 PMRU Outcome: Education Outcome/Goals Demonstrate/ Verbalize Understanding of Written Discharge Instructions Demonstrates Skills Encourage Questions Progression Toward Outcome/Goals Progressing /GI-Improve/Maintain Start: 10/08/18 22:49 Freq: QSHIFT Status: Active Target: Protocol: Activity Type Activity Date Activity User E-Sign Co-Sign Detail Recorded Client Recorded Date Recorded By Document 10/10/18 10:21 [email or web address] 10/10/18 10:21 [id number] 10/10/18 10:21 PMRU Outcome: Genitourinary/ Gastrointestinal Genitourinary- Outcome/Goals Maintain/ Achieve Urinary Continence Remain Free of Hospital- Acquired UTI Gastrointestinal-Outcome/Goals Maintain/ Achieve Bowel Regularity in Accordance with Pt's Baseline Prevent Constipation Bowel Regularity at Home Progression Toward Outcome/Goals - Progressing Progression Toward Outcome/Goals - GI Progressing Outcome/Goals Met Comment helms in place Safety- Improve/Maintain Start: 10/08/18 22:49 Freq: QSHIFT Status: Active Target: Protocol: Activity Type Activity Date Activity User E-Sign Co-Sign Detail Recorded Client Recorded Date Recorded By Document 10/10/18 10:22 [email or web address] 10/10/18 10:21 [id number] 10/10/18 10:22 PMRU Outcome: Safety Outcome/Goals Remain Free of Injury or Harm Cooperates with Safety Measures for Least Restrictive Environment Prevent Falls/ Injury Progression Toward Outcome/Goals Progressing Outcome/Goals Met Comment PA in place Skin- Improve/Maintain Start: 10/08/18 22:49 Freq: QSHIFT Status: Active Target: Protocol: Activity Type Activity Date Activity User E-Sign Co-Sign Detail Recorded Client Recorded Date Recorded By Document 10/10/18 10:22 [id number] [email or web address] 10/10/18 10:21 [id number] 10/10/18 10:22 PMRU Outcome: Skin Skin Risk Level High Skin Orders Heels Off Bed Outcome/Goals Maintain/ Improve Wound Status Progression Toward Outcome/Goals Progressing Medicine Note: Length of Stay: [1.5wks] Anticipated Discharge Destination: Home Tentative Discharge Date: [10/21/18] Discharged to: [home]
--- NOTE | 2018-10-10 12:35 | PMRUTEAM ---
PMRU: Team Meeting Current Status: Nursing: Current Status Skin Deviations [scrotum] Other Skin Deviations [Back] Rash Skin Deviations [Left Hip] Incision Skin Deviations [Right Hand] Skin Tear Skin Deviations [Right Arm] Skin Tear Skin Deviations [Left Calf] Incision Skin Deviation Description [ remains swollen scrotum] Skin Deviation Description [ lotion applied Back] 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 place - KVNG Left Hip] Skin Deviation Description [ Appears to be an old blood draw or IV site Right Hand] Skin Deviation Description [ skin tear after removing tape from blood draw. Right Arm] optifoam applied. 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 place - ASSISTED LIVING ADMINISTRATOR Left Calf] Physical Therapy: Current Status Bed Mobility Assistance Mod Assist Transfer Mobility Assistance Contact Guard Assist,Min Assist Transfer/Bed Mobility Rolling Walker Recommended Devices Ambulation Assistance Contact Guard Assist,Min Assist Ambulation Assistive Devices Rolling Walker Number of Feet Patient 1x90', 1x110' Ambulated Stairs Assistance Not Tested Stairs Recommended Devices Two Rails Number of Stairs 5 Occupational Therapy: Current Status Upper Body Dressing Min Assist Lower Body Dressing Mod Assist Bathing Mod Assist Toileting Min Assist Toilet Transfer Min Assist Eating Independent Rec Therapy: Current Status Summary of Assessment and Patient was open to meeting with fiction and nonfiction prose writer to discuss Clinical Impression his leisure lifestyle prior to admission. Patient was euthymic, often made jokes throughout our conversation. Able to identify multiple leisure interests, is expecting his to bring his tablet later. Is open to continued leisure visits. Treatment Goals Patient will engage in recreation and leisure activities while on the unit. Treatment Plan Provide and encourage involvement in RT services. Social Work: Current Status Discharge Plan return home with home care svs and family support Potential for Family Training pt's is involved and attentive Anticipated Discharge Home Destination Discharge With home care svs and family support Goals: Physical Therapy: Initial Goals Bed Mobility Assistance Independent Transfer Mobility Assistance Independent Transfer/Bed Mobility Rolling Walker Recommended Devices Ambulation Independent Ambulation Recommended Devices Rolling Walker Ambulation Distance 150 Stairs Assistance Independent Stair Recommended Devices One Rail Number of Stairs 5 Home Exercise Program Independent Assistance Physical Therapy: Updated Goals Transfer/Bed Mobility Rolling Walker Recommended Devices Occupational Therapy: Initial Goals Goals to be Completed in (Days 7 ) Upper Body Bathing Routine Independent Lower Body Bathing Routine Modified Independent with Upper Body Dressing Routine Independent Lower Body Dressing Routine Minimal Contact Assist Toilet Hygeine and Clothing Modified Independent with Management Routine Toilet Transfer Routine Modified Independent with Step-In Shower Transfer Supervision/Set Up Routine Functional Transfers for ADL Modified Independent with Grooming Routine Independent Feeding Routine Independent Social Work: Goals Discharge Plan return home with home care svs and family support Potential for Family Training pt's is involved and attentive Anticipated Discharge Home Destination Discharge With home care svs and family support Care Plan: Care Plan ADL's - Improve/Maintain Start: 10/08/18 22:49 Freq: DAILY Status: Active Target: Protocol: Activity Type Activity Date Activity User E-Sign Co-Sign Detail Recorded Client Recorded Date Recorded By Document 10/09/18 15:03 [id number] 10/09/18 15:03 [id number] 10/09/18 15:03 PMRU Outcome: ADL's/ADL Transfers Orders/Interventions Occupational Therapy Evaluation & Treatment Communication Tool in Patient Room Patient to receive OT 5x/wk for 60-120 Therex min/day Self Care Management Group Therapy UE/LE ADL's with Assist Yes: min A ADL Transfers with Assist Yes: mod I Toileting: Transfers,Clothing Management Yes: mod I ,Hygeine w/Assist Light Kitchen/Laundry w/Assist No Progression Toward Outcome/Goals Progressing Outcome/Goals Met Pt is a 78 yr old male s/p L hip I&D and L hip infected hematoma after a fall. Pt presents with L hip pain, L hip AROM, L hip precautions, decreased endurance, and balance deficits that affect his ability to complete bathing, dressing, toileting, toilet transfers, and showering. Pt would benefit from skilled OT rehabilitation to maximize independence with ADLs and functional transfers. DVT Prophylaxis- Improve/Maintain Start: 10/08/18 22:49 Freq: QSHIFT Status: Active Target: Protocol: Activity Type Activity Date Activity User E-Sign Co-Sign Detail Recorded Client Recorded Date Recorded By Document 10/10/18 10:21 [id number] 10/10/18 10:21 [id number] 10/10/18 10:21 PMRU Outcome: DVT Prophylaxis Outcome/Goals Remains Free of DVT Free of complications from current DVT TEDS Stockings on Every AM, Off at HS Progression Toward Outcome/Goals Progressing Discharge Planning - Improve/Maintain Start: 10/08/18 22:49 Freq: DAILY Status: Active Target: Protocol: Activity Type Activity Date Activity User E-Sign Co-Sign Detail Recorded Client Recorded Date Recorded By Document 10/10/18 00:05 [id number] [email or web address] 10/10/18 00:05 [id number] 10/10/18 00:05 PMRU Outcome: Discharge Planning Update Patient Family No Outcome/Goals Demonstrates Understanding of Discharge Plan Education-Improve/Maintain Start: 10/08/18 22:49 Freq: QSHIFT Status: Active Target: Protocol: Activity Type Activity Date Activity User E-Sign Co-Sign Detail Recorded Client Recorded Date Recorded By Document 10/10/18 10:21 [id number] [email or web address] 10/10/18 10:21 [id number] 10/10/18 10:21 PMRU Outcome: Education Outcome/Goals Demonstrate/ Verbalize Understanding of Written Discharge Instructions Demonstrates Skills Encourage Questions Progression Toward Outcome/Goals Progressing /GI-Improve/Maintain Start: 10/08/18 22:49 Freq: QSHIFT Status: Active Target: Protocol: Activity Type Activity Date Activity User E-Sign Co-Sign Detail Recorded Client Recorded Date Recorded By Document 10/10/18 10:21 [email or web address] 10/10/18 10:21 [id number] 10/10/18 10:21 PMRU Outcome: Genitourinary/ Gastrointestinal Genitourinary- Outcome/Goals Maintain/ Achieve Urinary Continence Remain Free of Hospital- Acquired UTI Gastrointestinal-Outcome/Goals Maintain/ Achieve Bowel Regularity in Accordance with Pt's Baseline Prevent Constipation Bowel Regularity at Home Progression Toward Outcome/Goals - Progressing Progression Toward Outcome/Goals - GI Progressing Outcome/Goals Met Comment helms in place Safety- Improve/Maintain Start: 10/08/18 22:49 Freq: QSHIFT Status: Active Target: Protocol: Activity Type Activity Date Activity User E-Sign Co-Sign Detail Recorded Client Recorded Date Recorded By Document 10/10/18 10:22 [id number] 10/10/18 10:21 [id number] 10/10/18 10:22 PMRU Outcome: Safety Outcome/Goals Remain Free of Injury or Harm Cooperates with Safety Measures for Least Restrictive Environment Prevent Falls/ Injury Progression Toward Outcome/Goals Progressing Outcome/Goals Met Comment PA in place Skin- Improve/Maintain Start: 10/08/18 22:49 Freq: QSHIFT Status: Active Target: Protocol: Activity Type Activity Date Activity User E-Sign Co-Sign Detail Recorded Client Recorded Date Recorded By Document 10/10/18 10:22 [id number] [email or web address] 10/10/18 10:21 [id number] 10/10/18 10:22 PMRU Outcome: Skin Skin Risk Level High Skin Orders Heels Off Bed Outcome/Goals Maintain/ Improve Wound Status Progression Toward Outcome/Goals Progressing Medicine Note: Length of Stay: [] Anticipated Discharge Destination: Home Tentative Discharge Date: [] Discharged to: []
[2018-10-10] MEDS: Warfarin TAB(*) 3 MG PO SCH (17:23)
[2018-10-10] MEDS: Latanoprost 0.005%* 2.5 ml BTL BOTH EYES SCH (17:24)
[2018-10-10] MEDS: Tamsulosin CAP* 0.4 MG PO SCH (20:46)
[2018-10-10] MEDS: LORazepam TAB(*) 0.5 MG PO PRN (21:55)
[2018-10-11] MEDS: Hydrocortisone 1% CREAM* 30 GM TUBE TOPICAL SCH ×2 (08:23→21:33)
[2018-10-11] MEDS: Pantoprazole TAB * 40 MG TAB PO SCH (09:51)
[2018-10-11] MEDS: Diltiazem CD CAP* 240 MG PO SCH (09:51)
[2018-10-11] MEDS: Ferrous Gluconate TAB* 324 MG TAB PO SCH (09:51)
[2018-10-11] MEDS: Docusate CAP* 100 MG PO SCH ×2 (09:51→21:45)
[2018-10-11] MEDS: RiFAMPin CAP* 300 MG CAP PO SCH ×2 (09:57→21:42)
[2018-10-11] MEDS: ceFAZolin 1 GM ADVAN(*) 1 GM in NS 0.9% 50 ML* 50 ML IVPB SCH ×2 (10:03→21:37)
--- NOTE | 2018-10-11 11:04 | PN ---
Progress Note Date of Service: 10/11/18 Note: SAULO LEAVITT was visited. Nursing and therapy notes read and reviewed. No chest pain, shortness of breath or abdominal pain. Still helms discomfort especially in therapies, but not as bad. Current Medications: Active Medications Generic Name Dose Route Start Last Admin Trade Name Freq PRN Reason Stop Dose Admin Acetaminophen 650 mg 10/08/18 12:06 Tylenol Tab* PO Q6H PRN FEVER/PAIN Calcium Carbonate 500 mg 10/09/18 17:13 10/09/18 19:08 Tums* PO 500 mg Q4H PRN Administration DYSPEPSIA Diltiazem HCl 240 mg 10/09/18 09:00 10/11/18 09:51 Cardizem Cd Cap* PO 240 mg DAILY DEBBIE Administration Docusate Sodium 100 mg 10/08/18 21:00 10/11/18 09:51 Colace Cap* PO 100 mg BID DEBBIE Administration Ferrous Gluconate 324 mg 10/09/18 09:00 10/11/18 09:51 Fergon Tab* PO 324 mg DAILY DEBBIE Administration Hydrocortisone 1 applic 10/09/18 21:00 10/11/18 08:23 Hytone Cream 1%* TOPICAL 1 applic BID DEBBIE Administration Cefazolin Sodium 1 gm/ Sodium 50 mls @ 200 mls/hr 10/08/18 22:00 10/11/18 10: 03 Chloride IVPB 200 mls/hr Q12H DEBBIE Administration Latanoprost 1 drop 10/08/18 18:00 10/10/18 17:24 Xalatan 0.005%* BOTH EYES 1 drop QPM DEBBIE Administration Lorazepam 0.5 mg 10/08/18 21:15 10/10/18 21:55 Ativan Tab(*) PO 0.5 mg BEDTIME PRN Administration INSOMNIA Magnesium Hydroxide 30 ml 10/08/18 12:06 Milk Of Magnesia Liq* PO Q6H PRN CONSTIPATION Pantoprazole Sodium 40 mg 10/10/18 09:00 10/11/18 09:51 Protonix Tab* PO 40 mg DAILY DEBBIE Administration Rifampin 300 mg 10/08/18 21:00 10/11/18 09:57 Rifampin Cap* PO 300 mg BID DEBBIE Administration Senna 2 tab 10/08/18 12:06 Senokot Tab* PO BEDTIME PRN CONSTIPATION Tamsulosin HCl 0.4 mg 10/09/18 21:00 10/10/18 20:46 Flomax Cap* PO 0.4 mg BEDTIME DEBBIE Administration Tramadol HCl 50 mg 10/09/18 17:35 10/10/18 21:55 Ultram* PO 50 mg Q12H PRN Administration PAIN - MODERATE Warfarin Sodium 3 mg 10/08/18 17:00 10/10/18 17:23 Coumadin Tab(*) PO 3 mg DAILY@1700 DEBBIE Administration Protocol Vital Signs: Vital Signs Temp Pulse Resp BP Pulse Ox 97.7 F 76 16 137/68 97 10/11/18 05:24 10/11/18 05:24 10/11/18 05:24 10/11/18 05:24 10/11/18 05:24 Exam: GENERAL: No acute distress. Alert and appropriate LUNGS: Clear to auscultation bilaterally HEART: Irregularly irregular ABDOMEN: Soft, + bowel sounds, non-tender, non-distended : Scrotal and penile edema EXTREMITIES: BLE edema. Left hip sutures intact. NEUROLOGIC: Sensation intact. Motor 5/5 BUE and RLE; 4/5 LLE due to pain Assessment/Plan: 1. Infected left ZEKE, S/P I&D, washout: IV Cefazolin, renal dosing. Rifampin. PT /OT 2. Atrial Fibrillation: Cardizem/Coumadin. INR stable. INR QMWF. Can't have Eliquis due to Rifampin 3. Acute Renal Failure: Cr stable in 3's. Dr. Shi following. Recheck Saturday. 4. Analgesia: tramadol prn. 5. BPH: Had 2 traumatic helms insertion attempts before current helms. Started Flomax 10/09 6. Scrotal/Penile/BLE edema: Can't have diuretics until renal function improves , per Dr. Shi. Elevate scrotum. REBECCA wrap legs 7. DVT Prophylaxis: Coumadin 8. GERD: Pantoprazole. TUMS. 9. Anemia: Hb/Hct stable. Iron supplements. Recheck Saturday 10. Advance Directives: Full code. is surrogate decision maker 11. Estimated LOS: 10/21/18 10/11/18 11:02
[2018-10-11] MEDS: Warfarin TAB(*) 3 MG PO SCH (17:58)
[2018-10-11] MEDS: Latanoprost 0.005%* 2.5 ml BTL BOTH EYES SCH (17:59)
[2018-10-11] MEDS: Tamsulosin CAP* 0.4 MG PO SCH (21:42)
[2018-10-11] MEDS: LORazepam TAB(*) 0.5 MG PO PRN (21:42)
[2018-10-11] MEDS: traMADol TAB* 50 MG PO PRN (21:42)
[2018-10-12] MEDS: Ferrous Gluconate TAB* 324 MG TAB PO SCH (08:44)
[2018-10-12] MEDS: Docusate CAP* 100 MG PO SCH ×2 (08:44→21:17)
[2018-10-12] MEDS: RiFAMPin CAP* 300 MG CAP PO SCH ×2 (08:44→21:16)
[2018-10-12] MEDS: Diltiazem CD CAP* 240 MG PO SCH (08:45)
[2018-10-12] MEDS: Pantoprazole TAB * 40 MG TAB PO SCH (08:45)
[2018-10-12] MEDS: Hydrocortisone 1% CREAM* 30 GM TUBE TOPICAL SCH ×2 (08:47→21:17)
--- NOTE | 2018-10-12 09:39 | PN ---
Progress Note Date of Service: 10/12/18 Note: SAULO LEAVITT was visited. Nursing and therapy notes read and reviewed. No chest pain, shortness of breath or abdominal pain. Current Medications: Active Medications Generic Name Dose Route Start Last Admin Trade Name Freq PRN Reason Stop Dose Admin Acetaminophen 650 mg 10/08/18 12:06 Tylenol Tab* PO Q6H PRN FEVER/PAIN Calcium Carbonate 500 mg 10/09/18 17:13 10/09/18 19:08 Tums* PO 500 mg Q4H PRN Administration DYSPEPSIA Diltiazem HCl 240 mg 10/09/18 09:00 10/12/18 08:45 Cardizem Cd Cap* PO 240 mg DAILY DEBBIE Administration Docusate Sodium 100 mg 10/08/18 21:00 10/12/18 08:44 Colace Cap* PO 100 mg BID DEBBIE Administration Ferrous Gluconate 324 mg 10/09/18 09:00 10/12/18 08:44 Fergon Tab* PO 324 mg DAILY DEBBIE Administration Hydrocortisone 1 applic 10/09/18 21:00 10/12/18 08:47 Hytone Cream 1%* TOPICAL 1 applic BID DEBBIE Administration Cefazolin Sodium 1 gm/ Sodium 50 mls @ 200 mls/hr 10/08/18 22:00 10/11/18 21: 37 Chloride IVPB 200 mls/hr Q12H DEBBIE Administration Latanoprost 1 drop 10/08/18 18:00 10/11/18 17:59 Xalatan 0.005%* BOTH EYES 1 drop QPM DEBBIE Administration Lorazepam 0.5 mg 10/08/18 21:15 10/11/18 21:42 Ativan Tab(*) PO 0.5 mg BEDTIME PRN Administration INSOMNIA Magnesium Hydroxide 30 ml 10/08/18 12:06 Milk Of Magnesia Liq* PO Q6H PRN CONSTIPATION Pantoprazole Sodium 40 mg 10/10/18 09:00 10/12/18 08:45 Protonix Tab* PO 40 mg DAILY DEBBIE Administration Rifampin 300 mg 10/08/18 21:00 10/12/18 08:44 Rifampin Cap* PO 300 mg BID DEBBIE Administration Senna 2 tab 10/08/18 12:06 Senokot Tab* PO BEDTIME PRN CONSTIPATION Tamsulosin HCl 0.4 mg 10/09/18 21:00 10/11/18 21:42 Flomax Cap* PO 0.4 mg BEDTIME DEBBIE Administration Tramadol HCl 50 mg 10/09/18 17:35 10/11/18 21:42 Ultram* PO 50 mg Q12H PRN Administration PAIN - MODERATE Warfarin Sodium 3 mg 10/08/18 17:00 10/11/18 17:58 Coumadin Tab(*) PO 3 mg DAILY@1700 DEBBIE Administration Protocol Vital Signs: Vital Signs Temp Pulse Resp BP Pulse Ox 98.2 F 61 18 148/74 96 10/12/18 05:22 10/12/18 05:22 10/12/18 05:22 10/12/18 05:22 10/12/18 05:22 Exam: GENERAL: No acute distress. Alert and appropriate LUNGS: Clear to auscultation bilaterally HEART: Regular rate and rhythm (has h/o A.Fib) ABDOMEN: Soft, + bowel sounds, non-tender, non-distended : Scrotal and penile edema EXTREMITIES: BLE edema. Left hip sutures intact. NEUROLOGIC: Sensation intact. Motor 5/5 BUE and RLE; 4/5 LLE due to pain Assessment/Plan: 1. Infected left ZEKE, S/P I&D, washout: IV Cefazolin, renal dosing. Rifampin. PT /OT 2. Atrial Fibrillation: Cardizem/Coumadin. INR stable. INR QMWF. Can't have Eliquis due to Rifampin 3. Acute Renal Failure: Cr stable in 3's. Dr. Shi following. Recheck Saturday. 4. Analgesia: tramadol prn. 5. BPH: Had 2 traumatic helms insertion attempts before current helms. Started Flomax 10/09 6. Scrotal/Penile/BLE edema: Can't have diuretics until renal function improves , per Dr. Shi. Elevate scrotum. REBECCA wrap legs 7. DVT Prophylaxis: Coumadin 8. GERD: Pantoprazole. TUMS. 9. Anemia: Hb/Hct stable. Iron supplements. Recheck Saturday 10. Advance Directives: Full code. is surrogate decision maker 11. Estimated LOS: 10/21/18 10/12/18 09:39
[2018-10-12] MEDS: ceFAZolin 1 GM ADVAN(*) 1 GM in NS 0.9% 50 ML* 50 ML IVPB SCH ×2 (10:17→21:20)
[2018-10-12] MEDS: Warfarin TAB(*) 3 MG PO SCH (16:28)
[2018-10-12] MEDS: Latanoprost 0.005%* 2.5 ml BTL BOTH EYES SCH (16:28)
[2018-10-12] MEDS: Tamsulosin CAP* 0.4 MG PO SCH (21:17)
[2018-10-12] MEDS: traMADol TAB* 50 MG PO PRN (21:19)
[2018-10-12] MEDS: Calcium Carbonate CHEW TAB* 500 MG (TUMS) PO PRN (22:04)
[2018-10-13 05:57] LABS: ABS Basophils 0.1 10^3/ul (0-0.2); ABS Eosinophils 0.1 10^3/ul (0-0.6); ABS Lymphocytes 0.7 10^3/ul (1.0-4.8); ABS Monocytes 1.2 10^3/ul (0-0.8); ABS Neutrophils 8.5 10^3/ul (1.5-7.7); Hematocrit 20 % (42-52); Hemoglobin 6.7 g/dL (14.0-18.0); Lymphocyte % 6.7 %; Mean Corpuscular HGB Conc 34 g/dL (31-36); Mean Corpuscular Hemoglobin 31 pg (27-31); Mean Corpuscular Volume 93 fL (80-94); Mean Platelet Volume 7.5 fL (7.4-10.4); Platelet Count 265 10^3/uL (150-450); Red Blood Count 2.16 10^6 /uL (4.18-5.48); Red Cell Distribution Width 16 % (10-15); White Blood Count 10.6 10^3/uL (3.5-10.8)
[2018-10-13 06:15] LABS: ALT < 3 U/L (7-52); AST 35 U/L (13-39); Albumin 2.5 g/dL (3.2-5.2); Albumin/Globulin Ratio 0.7 (1-3); Alkaline Phosphatase 168 U/L (34-104); Anion Gap 9 mmol/L (2-11); BUN/Creatinine Ratio 20.6 (8-20); Blood Urea Nitrogen 68 mg/dL (6-24); CO2 Carbon Dioxide 22 mmol/L (22-32); Calcium 8.3 mg/dL (8.6-10.3); Chloride 101 mmol/L (101-111); EGFR African American 22.2 (>60); EGFR Non-African American 18.3 (>60); Globulin 3.8 g/dL (2-4); Glucose 116 mg/dL (70-100); INR 1.46 (0.82-1.09); Potassium 4.6 mmol/L (3.5-5.0); Sodium 132 mmol/L (135-145); Total Protein 6.3 g/dL (6.4-8.9)
[2018-10-13] MEDS: RiFAMPin CAP* 300 MG CAP PO SCH ×2 (08:26→21:33)
[2018-10-13] MEDS: Diltiazem CD CAP* 240 MG PO SCH (08:26)
[2018-10-13] MEDS: Pantoprazole TAB * 40 MG TAB PO SCH (08:26)
[2018-10-13] MEDS: Ferrous Gluconate TAB* 324 MG TAB PO SCH (08:26)
[2018-10-13] MEDS: Docusate CAP* 100 MG PO SCH ×2 (08:27→19:09)
[2018-10-13] MEDS: ceFAZolin 1 GM ADVAN(*) 1 GM in NS 0.9% 50 ML* 50 ML IVPB SCH ×2 (09:31→21:32)
--- NOTE | 2018-10-13 09:41 | PN ---
Progress Note - Progress Note Date of Service: 10/13/18 SOAP: Subjective: CC: Left prosthetic hip infection HPI: Mr. 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 Denies fever, chills, back pain (at baseline and not increased), or constipation. Reports nausea and vomiting overnight due to not eating yesterday , reports 2 BMs overnight. Also with a poor appetite. Objective: Vital Signs - 8 hr 10/13/18 04:44 Temperature 98.3 F Pulse Rate 75 Respiratory 18 Rate Blood Pressure 146/62 (mmHg) O2 Sat by Pulse 97 Oximetry Physical Exam: General: NAD, sitting up in bed Neurological: Alert and Oriented to person and place HEENT: Moist MM, no thrush Cardiovascular: Heart rate regular, no murmur. 2+ bilateral LE edema Respiratory: Lung sounds clear bilateral Abdominal: Bowel sounds hypoactive; ABD large, soft, and non tender MSK: No tenderness with palpation of the left knee or right hip Skin: No rash Laboratory Results - last 24 hr 10/13/18 10/13/18 10/13/18 05:51 05:51 05:51 WBC 10.6 RBC 2.16 L Hgb 6.7 L Hct 20 L MCV 93 MCH 31 MCHC 34 RDW 16 H Plt Count 265 MPV 7.5 Neut % (Auto) 80.2 Lymph % (Auto) 6.7 [place] % (Auto) 11.4 Eos % (Auto) 1.0 Baso % (Auto) 0.7 Absolute Neuts (auto) 8.5 H Absolute Lymphs (auto) 0.7 L Absolute Monos (auto) 1.2 H Absolute Eos (auto) 0.1 Absolute Basos (auto) 0.1 Absolute Nucleated RBC 0.0 Nucleated RBC % 0.0 INR (Anticoag Therapy) 1.46 H Sodium 132 L Potassium 4.6 Chloride 101 Carbon Dioxide 22 Anion Gap 9 BUN 68 H Creatinine 3.30 H Est GFR ( Amer) 22.2 Est GFR (Non-Af Amer) 18.3 BUN/Creatinine Ratio 20.6 H Glucose 116 H Calcium 8.3 L Total Bilirubin 1.40 H AST 35 ALT < 3 L Alkaline Phosphatase 168 H Total Protein 6.3 L Albumin 2.5 L Globulin 3.8 Albumin/Globulin Ratio 0.7 L Assessment: 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 Cultures with MSSA. Afebrile and no leukocytosis 2. Infective endocarditis. Aortic valve 3. History of right hip and left knee arthroplasty. Joints benign. Had a left knee aspiration, fluid benign 4. JOSELUIS. Suspect this may be secondary to infective endocarditis. Creatinine continues to be elevated Plan: Continue Ancef 1gm Q12H (renally dosed) and Rifampin (plan for 6 months). Ancef day . Will add a CRP to this AM's labs. Weekly labs while on IV ABX: CBC, CMP, and CRP. Will need to closely monitor warfarin levels while on Rifampin.
[2018-10-13 10:01] LABS: C Reactive Protein 55.12 mg/L (<8.01)
[2018-10-13] MEDS: Hydrocortisone 1% CREAM* 30 GM TUBE TOPICAL SCH ×2 (10:04→21:33)
[2018-10-13] MEDS: Calcium Carbonate CHEW TAB* 500 MG (TUMS) PO PRN ×2 (17:11→21:50)
[2018-10-13] MEDS: Warfarin TAB(*) 5 MG PO SCH (17:23)
[2018-10-13] MEDS: Latanoprost 0.005%* 2.5 ml BTL BOTH EYES SCH (17:24)
--- NOTE | 2018-10-13 21:13 | PN ---
Progress Note Date of Service: 10/13/18 Note: SAULO LEAVITT was visited. Therapy notes read and reviewed. He was anemic today with a hemoglobin under 7 (6.7). I ordered a transfusion of one unit PRBCs. He remains with BUN/Cr about the same. On IV cefepime/oral rifampin. INR dropped to 1.46. Will increase warfarin Current Medications: Active Medications Generic Name Dose Route Start Last Admin Trade Name Freq PRN Reason Stop Dose Admin Acetaminophen 650 mg 10/08/18 12:06 Tylenol Tab* PO Q6H PRN FEVER/PAIN Calcium Carbonate 500 mg 10/09/18 17:13 10/13/18 17:11 Tums* PO 500 mg Q4H PRN Administration DYSPEPSIA Diltiazem HCl 240 mg 10/09/18 09:00 10/13/18 08:26 Cardizem Cd Cap* PO 240 mg DAILY DEBBIE Administration Docusate Sodium 100 mg 10/08/18 21:00 10/13/18 19:09 Colace Cap* PO Not Given BID DEBBIE Ferrous Gluconate 324 mg 10/09/18 09:00 10/13/18 08:26 Fergon Tab* PO 324 mg DAILY DEBBIE Administration Hydrocortisone 1 applic 10/09/18 21:00 10/13/18 10:04 Hytone Cream 1%* TOPICAL 1 applic BID DEBBIE Administration Cefazolin Sodium 1 gm/ Sodium 50 mls @ 200 mls/hr 10/08/18 22:00 10/13/18 09: 31 Chloride IVPB 200 mls/hr Q12H DEBBIE Administration Latanoprost 1 drop 10/08/18 18:00 10/13/18 17:24 Xalatan 0.005%* BOTH EYES 1 drop QPM DEBBIE Administration Lorazepam 0.5 mg 10/08/18 21:15 10/11/18 21:42 Ativan Tab(*) PO 0.5 mg BEDTIME PRN Administration INSOMNIA Magnesium Hydroxide 30 ml 10/08/18 12:06 Milk Of Magnesia Liq* PO Q6H PRN CONSTIPATION Pantoprazole Sodium 40 mg 10/10/18 09:00 10/13/18 08:26 Protonix Tab* PO 40 mg DAILY DEBBIE Administration Rifampin 300 mg 10/08/18 21:00 10/13/18 08:26 Rifampin Cap* PO 300 mg BID DEBBIE Administration Senna 2 tab 10/08/18 12:06 Senokot Tab* PO BEDTIME PRN CONSTIPATION Tamsulosin HCl 0.4 mg 10/09/18 21:00 10/12/18 21:17 Flomax Cap* PO 0.4 mg BEDTIME DEBBIE Administration Tramadol HCl 50 mg 10/09/18 17:35 10/12/18 21:19 Ultram* PO 50 mg Q12H PRN Administration PAIN - MODERATE Warfarin Sodium 5 mg 10/13/18 17:00 10/13/18 17:23 Coumadin Tab(*) PO 5 mg DAILY@1700 DEBBIE Administration Protocol Vital Signs: Vital Signs Temp Pulse Resp BP Pulse Ox 98.8 F 70 18 136/64 98 10/13/18 14:45 10/13/18 14:45 10/13/18 14:45 10/13/18 14:45 10/13/18 14:45 Lab Results: Laboratory Results - last 24 hr 10/13/18 10/13/18 10/13/18 05:47 05:51 05:51 WBC 10.6 RBC 2.16 L Hgb 6.7 L Hct 20 L MCV 93 MCH 31 MCHC 34 RDW 16 H Plt Count 265 MPV 7.5 Neut % (Auto) 80.2 Lymph % (Auto) 6.7 [place] % (Auto) 11.4 Eos % (Auto) 1.0 Baso % (Auto) 0.7 Absolute Neuts (auto) 8.5 H Absolute Lymphs (auto) 0.7 L Absolute Monos (auto) 1.2 H Absolute Eos (auto) 0.1 Absolute Basos (auto) 0.1 Absolute Nucleated RBC 0.0 Nucleated RBC % 0.0 INR (Anticoag Therapy) 1.46 H Sodium Potassium Chloride Carbon Dioxide Anion Gap BUN Creatinine Est GFR ( Amer) Est GFR (Non-Af Amer) BUN/Creatinine Ratio Glucose Calcium Total Bilirubin AST ALT Alkaline Phosphatase C-Reactive Protein Total Protein Albumin Globulin Albumin/Globulin Ratio Blood Type O Positive Antibody Screen Negative Crossmatch See Detail 10/13/18 05:51 WBC RBC Hgb Hct MCV MCH MCHC RDW Plt Count MPV Neut % (Auto) Lymph % (Auto) [place] % (Auto) Eos % (Auto) Baso % (Auto) Absolute Neuts (auto) Absolute Lymphs (auto) Absolute Monos (auto) Absolute Eos (auto) Absolute Basos (auto) Absolute Nucleated RBC Nucleated RBC % INR (Anticoag Therapy) Sodium 132 L Potassium 4.6 Chloride 101 Carbon Dioxide 22 Anion Gap 9 BUN 68 H Creatinine 3.30 H Est GFR ( Amer) 22.2 Est GFR (Non-Af Amer) 18.3 BUN/Creatinine Ratio 20.6 H Glucose 116 H Calcium 8.3 L Total Bilirubin 1.40 H AST 35 ALT < 3 L Alkaline Phosphatase 168 H C-Reactive Protein 55.12 H Total Protein 6.3 L Albumin 2.5 L Globulin 3.8 Albumin/Globulin Ratio 0.7 L Blood Type Antibody Screen Crossmatch Exam: GENERAL: No acute distress. Alert and appropriate LUNGS: Clear to auscultation bilaterally HEART: Regular rate and rhythm (has h/o A.Fib) ABDOMEN: Soft, + bowel sounds, non-tender, non-distended : Scrotal and penile edema EXTREMITIES: BLE edema. Left hip sutures intact. NEUROLOGIC: Sensation intact. Motor 5/5 BUE and RLE; 4/5 LLE due to pain Assessment/Plan: 1. Infected left ZEKE, S/P I&D, washout: IV Cefazolin, renal dosing. Rifampin. PT /OT 2. Atrial Fibrillation: Cardizem/Coumadin. INR dropped, warfarin increased to 5. INR QMWF. Can't have Eliquis due to Rifampin 3. Acute Renal Failure: Cr stable in 3's. Dr. Shi following. Recheck Saturday. 4. Analgesia: tramadol prn. 5. BPH: Had 2 traumatic helms insertion attempts before current helms. Started Flomax 10/09 6. Scrotal/Penile/BLE edema: Can't have diuretics until renal function improves , per Dr. Shi. Elevate scrotum. REBECCA wrap legs 7. DVT Prophylaxis: Coumadin 8. GERD: Pantoprazole. TUMS. 9. Anemia: Hb/Hct lower. Transfused 1 unit. Iron supplements. Recheck Saturday 10. Advance Directives: Full code. is surrogate decision maker 11. Estimated LOS: 10/21/18 10/13/18 21:14
[2018-10-13] MEDS: Tamsulosin CAP* 0.4 MG PO SCH (21:33)
[2018-10-13] MEDS: LORazepam TAB(*) 0.5 MG PO PRN (22:19)
[2018-10-14] MEDS: Hydrocortisone 1% CREAM* 30 GM TUBE TOPICAL SCH ×3 (09:18→22:06)
[2018-10-14] MEDS: Diltiazem CD CAP* 240 MG PO SCH (09:18)
[2018-10-14] MEDS: RiFAMPin CAP* 300 MG CAP PO SCH ×2 (09:18→20:55)
[2018-10-14] MEDS: Pantoprazole TAB * 40 MG TAB PO SCH (09:18)
[2018-10-14] MEDS: Ferrous Gluconate TAB* 324 MG TAB PO SCH (09:18)
[2018-10-14] MEDS: Docusate CAP* 100 MG PO SCH ×2 (09:19→20:44)
[2018-10-14] MEDS: ceFAZolin 1 GM ADVAN(*) 1 GM in NS 0.9% 50 ML* 50 ML IVPB SCH ×2 (09:21→21:01)
[2018-10-14] MEDS ORDERED: ceFAZolin 2 GM in NS PREMIX(*) 2 GM/100 ML BAG IVPB ONE (11:22)
[2018-10-14] MEDS ORDERED: Buffered Lidocaine 1% SYRIN* 1 ML/SYRINGE INTRADERM ONE (11:22)
--- NOTE | 2018-10-14 12:45 | PMRUTEAM ---
PMRU: Team Meeting Current Status: Nursing: Current Status Skin Deviations [scrotum] Other Skin Deviations [Back] Rash Skin Deviations [Left Hip] Incision Skin Deviations [Right Hand] Bruise,Previous Access Point Skin Deviations [Right Arm] Skin Tear Skin Deviations [Left Calf] Incision Skin Deviation Description [ edema, dry skin , redness scrotum] Skin Deviation Description [ lotion applied Back] Skin Deviation Description [ well approximated, sutures in place. No drianage, Left Hip] redness noted Skin Deviation Description [ Appears to be healing Right Hand] Skin Deviation Description [ Mepilex placed on 10/09, dry and intact. Right Arm] Skin Deviation Description [ healing well - KVNG Left Calf] Physical Therapy: Current Status Bed Mobility Assistance Mod Assist Transfer Mobility Assistance Contact Guard Assist Transfer/Bed Mobility Rolling Walker Recommended Devices Ambulation Assistance Contact Guard Assist Ambulation Assistive Devices Rolling Walker Number of Feet Patient 120x2 Ambulated Stairs Assistance Contact Guard Assist Stairs Recommended Devices Two Rails Number of Stairs 2 Occupational Therapy: Current Status Upper Body Dressing Min Assist Lower Body Dressing Total Assist Bathing Total Assist Toileting Total Assist Toilet Transfer Min Assist Shower Transfer Progress TBA Eating Independent Rec Therapy: Current Status Summary of Assessment and Recreation Therapy services introduced and Clinical Impression assessment is complete. Pt. has been open to leisure visits but minimally engaged in activities or conversation. Pt. has been participating in pet therapy as well. Treatment Goals Pt. will engage in leisure activities as tolerated . Treatment Plan Provide recreation therapy and encourage involvement. Social Work: Current Status Discharge Plan return home with home care svs and family support Potential for Family Training pt's is involved and supportive Anticipated Discharge Home Destination Discharge With [facility], [place] and family support Nutrition: Current Status Monitoring Pt adm to [facility] s/p infected hematoma to L hip after fall. Visited today. He reports a poor appetite w/ little interest in food; consumed 0% L and D last PM, 20% of B this AM. Encouraged pt to make preferences known and request foods as able; will continue to send previous nourishments. He denies GI s/sx at this time (last BM 10/14 per chart); states his 'stomach just feels off'. No pressure related skin breakdown per chart. Labs reviewed: Cr 3.30, Na+ 132, K+ 4.6 (WNL); last BG 116 (appropriate); will continue to monitor labs. Recommend liberalizing diet to regular, unrestricted given poor intake x1wk. Will continue to monitor and provide further nutrition intervention as indicated. Goals: Physical Therapy: Initial Goals Bed Mobility Assistance Independent Transfer Mobility Assistance Independent Transfer/Bed Mobility Rolling Walker Recommended Devices Ambulation Independent Ambulation Recommended Devices Rolling Walker Ambulation Distance 150 Stairs Assistance Independent Stair Recommended Devices One Rail Number of Stairs 5 Home Exercise Program Independent Assistance Physical Therapy: Updated Goals Transfer/Bed Mobility Rolling Walker Recommended Devices Occupational Therapy: Initial Goals Goals to be Completed in (Days 7 ) Upper Body Bathing Routine Independent Lower Body Bathing Routine Modified Independent with Upper Body Dressing Routine Independent Lower Body Dressing Routine Minimal Contact Assist Toilet Hygeine and Clothing Modified Independent with Management Routine Toilet Transfer Routine Modified Independent with Step-In Shower Transfer Supervision/Set Up Routine Functional Transfers for ADL Modified Independent with Grooming Routine Independent Feeding Routine Independent Nutrition: Goals Intervention Goals 1) Recommend liberalizing diet to regular 2) Adequate po intake to support lean body mass and hydration status 3) Improve fluid/electrolyte balance w/ adequate po intake 4) Maintain bowel regularity w/ adequate po intake w/o development of diarrhea/constipation Social Work: Goals Discharge Plan return home with home care svs and family support Potential for Family Training pt's is involved and supportive Anticipated Discharge Home Destination Discharge With [facility], [place] and family support Care Plan: Care Plan ADL's - Improve/Maintain Start: 10/08/18 22:49 Freq: DAILY Status: Active Target: Protocol: Activity Type Activity Date Activity User E-Sign Co-Sign Detail Recorded Client Recorded Date Recorded By Document 10/09/18 15:03 [id number] [id number] 10/09/18 15:03 [id number] 10/09/18 15:03 PMRU Outcome: ADL's/ADL Transfers Orders/Interventions Occupational Therapy Evaluation & Treatment Communication Tool in Patient Room Patient to receive OT 5x/wk for 60-120 Therex min/day Self Care Management Group Therapy UE/LE ADL's with Assist Yes: min A ADL Transfers with Assist Yes: mod I Toileting: Transfers,Clothing Management Yes: mod I ,Hygeine w/Assist Light Kitchen/Laundry w/Assist No Progression Toward Outcome/Goals Progressing Outcome/Goals Met Pt is a 78 yr old male s/p L hip I&D and L hip infected hematoma after a fall. Pt presents with L hip pain, L hip AROM, L hip precautions, decreased endurance, and balance deficits that affect his ability to complete bathing, dressing, toileting, toilet transfers, and showering. Pt would benefit from skilled OT rehabilitation to maximize independence with ADLs and functional transfers. DVT Prophylaxis- Improve/Maintain Start: 10/08/18 22:49 Freq: QSHIFT Status: Active Target: Protocol: Activity Type Activity Date Activity User E-Sign Co-Sign Detail Recorded Client Recorded Date Recorded By Document 10/14/18 08:00 [id number] 10/14/18 09:54 [id number] 10/14/18 08:00 PMRU Outcome: DVT Prophylaxis Outcome/Goals Remains Free of DVT Free of complications from current DVT Progression Toward Outcome/Goals Progressing Outcome/Goals Met Comment ame wraps to be applied. legs elevated while in bed Discharge Planning - Improve/Maintain Start: 10/08/18 22:49 Freq: DAILY Status: Active Target: Protocol: Activity Type Activity Date Activity User E-Sign Co-Sign Detail Recorded Client Recorded Date Recorded By Document 10/14/18 03:58 [id number] [id number] 10/14/18 03:59 [id number] 10/14/18 03:58 PMRU Outcome: Discharge Planning Update Patient Family No Outcome/Goals Demonstrates Understanding of Discharge Plan Progression Toward Outcome/Goals Progressing Education-Improve/Maintain Start: 10/08/18 22:49 Freq: QSHIFT Status: Active Target: Protocol: Activity Type Activity Date Activity User E-Sign Co-Sign Detail Recorded Client Recorded Date Recorded By Document 10/14/18 08:00 [id number] 10/14/18 09:54 [id number] 10/14/18 08:00 PMRU Outcome: Education Outcome/Goals Encourage Questions Progression Toward Outcome/Goals Progressing /GI-Improve/Maintain Start: 10/08/18 22:49 Freq: QSHIFT Status: Active Target: Protocol: Activity Type Activity Date Activity User E-Sign Co-Sign Detail Recorded Client Recorded Date Recorded By Document 10/14/18 08:00 [id number] 10/14/18 09:54 [id number] 10/14/18 08:00 PMRU Outcome: Genitourinary/ Gastrointestinal Genitourinary- Outcome/Goals Maintain/ Achieve Urinary Continence Remain Free of Hospital- Acquired UTI Gastrointestinal-Outcome/Goals Maintain/ Achieve Bowel Regularity in Accordance with Pt's Baseline Prevent Constipation Bowel Regularity at Home Progression Toward Outcome/Goals - Progressing Progression Toward Outcome/Goals - GI Progressing Outcome/Goals Met Comment helms draining orange colored urine. bm on car shifter. Safety- Improve/Maintain Start: 10/08/18 22:49 Freq: QSHIFT Status: Active Target: Protocol: Activity Type Activity Date Activity User E-Sign Co-Sign Detail Recorded Client Recorded Date Recorded By Document 10/14/18 08:00 [id number] [id number] 10/14/18 09:54 [id number] 10/14/18 08:00 PMRU Outcome: Safety Outcome/Goals Remain Free of Injury or Harm Cooperates with Safety Measures for Least Restrictive Environment Prevent Falls/ Injury Progression Toward Outcome/Goals Progressing Outcome/Goals Met Comment PA on when oob, BA on while in bed Skin- Improve/Maintain Start: 10/08/18 22:49 Freq: QSHIFT Status: Active Target: Protocol: Activity Type Activity Date Activity User E-Sign Co-Sign Detail Recorded Client Recorded Date Recorded By Document 10/14/18 08:00 [id number] 10/14/18 09:54 [id number] 10/14/18 08:00 PMRU Outcome: Skin Skin Risk Level High Skin Orders Heels Off Bed Turn/Position q2hr While in Bed Outcome/Goals Free from Decubitus Maintain/ Improve Wound Status Progression Toward Outcome/Goals Progressing Outcome/Goals Met Comment redness noted at suture sites of l hip incision Medicine Note: Length of Stay: 10 days Anticipated Discharge Destination: Home Tentative Discharge Date: 10/24/18 Discharged to: Home
[2018-10-14 13:22] LABS: ABS Basophils 0.1 10^3/ul (0-0.2); ABS Eosinophils 0.1 10^3/ul (0-0.6); ABS Lymphocytes 0.7 10^3/ul (1.0-4.8); ABS Neutrophils 8.7 10^3/ul (1.5-7.7); Hematocrit 23 % (42-52); Hemoglobin 7.6 g/dL (14.0-18.0); Lymphocyte % 6.4 %; Mean Corpuscular HGB Conc 34 g/dL (31-36); Mean Corpuscular Hemoglobin 32 pg (27-31); Mean Corpuscular Volume 94 fL (80-94); Mean Platelet Volume 8.4 fL (7.4-10.4); Platelet Count 280 10^3/uL (150-450); Red Blood Count 2.38 10^6 /uL (4.18-5.48); Red Cell Distribution Width 17 % (10-15); White Blood Count 10.5 10^3/uL (3.5-10.8)
[2018-10-14] MEDS: traMADol TAB* 50 MG PO PRN (14:20)
[2018-10-14] MEDS: Ondansetron ODT TAB* 4 MG PO PRN (17:16)
[2018-10-14] MEDS: Latanoprost 0.005%* 2.5 ml BTL BOTH EYES SCH (17:16)
[2018-10-14] MEDS: Warfarin TAB(*) 5 MG PO SCH (17:16)
--- NOTE | 2018-10-14 18:59 | PN ---
Progress Note Date of Service: 10/14/18 Note: SAULO LEAVITT was visited. Therapy notes read and reviewed. He was discussed in interdisciplinary team rounds. He is having trouble making progress. Hb jayden to 7.6 after transfusion. Will check renal function in am with INR Current Medications: Active Medications Generic Name Dose Route Start Last Admin Trade Name Freq PRN Reason Stop Dose Admin Acetaminophen 650 mg 10/08/18 12:06 Tylenol Tab* PO Q6H PRN FEVER/PAIN Calcium Carbonate 500 mg 10/09/18 17:13 10/13/18 21:50 Tums* PO 500 mg Q4H PRN Administration DYSPEPSIA Diltiazem HCl 240 mg 10/09/18 09:00 10/14/18 09:18 Cardizem Cd Cap* PO 240 mg DAILY DEBBIE Administration Docusate Sodium 100 mg 10/08/18 21:00 10/14/18 09:19 Colace Cap* PO Not Given BID DEBBIE Ferrous Gluconate 324 mg 10/09/18 09:00 10/14/18 09:18 Fergon Tab* PO 324 mg DAILY DEBBIE Administration Hydrocortisone 1 applic 10/09/18 21:00 10/14/18 09:18 Hytone Cream 1%* TOPICAL 1 applic BID DEBBIE Administration Cefazolin Sodium 1 gm/ Sodium 50 mls @ 200 mls/hr 10/08/18 22:00 10/14/18 09: 21 Chloride IVPB 200 mls/hr Q12H DEBBIE Administration Latanoprost 1 drop 10/08/18 18:00 10/14/18 17:16 Xalatan 0.005%* BOTH EYES 1 drop QPM DEBBIE Administration Lorazepam 0.5 mg 10/08/18 21:15 10/13/18 22:19 Ativan Tab(*) PO 0.5 mg BEDTIME PRN Administration INSOMNIA Magnesium Hydroxide 30 ml 10/08/18 12:06 Milk Of Magnesia Liq* PO Q6H PRN CONSTIPATION Ondansetron HCl 4 mg 10/14/18 15:39 10/14/18 17:16 Zofran Odt Tab* PO 4 mg Q8H PRN Administration NAUSEA/VOMITING Pantoprazole Sodium 40 mg 10/10/18 09:00 10/14/18 09:18 Protonix Tab* PO 40 mg DAILY DEBBIE Administration Rifampin 300 mg 10/08/18 21:00 10/14/18 09:18 Rifampin Cap* PO 300 mg BID DEBBIE Administration Senna 2 tab 10/08/18 12:06 Senokot Tab* PO BEDTIME PRN CONSTIPATION Tamsulosin HCl 0.4 mg 10/09/18 21:00 10/13/18 21:33 Flomax Cap* PO 0.4 mg BEDTIME DEBBIE Administration Tramadol HCl 50 mg 10/09/18 17:35 10/14/18 14:20 Ultram* PO 50 mg Q12H PRN Administration PAIN - MODERATE Warfarin Sodium 5 mg 10/13/18 17:00 10/14/18 17:16 Coumadin Tab(*) PO 5 mg DAILY@1700 DEBBIE Administration Protocol Vital Signs: Vital Signs Temp Pulse Resp BP Pulse Ox 98.4 F 37 18 151/69 97 10/14/18 16:25 10/14/18 16:25 10/14/18 16:43 10/14/18 16:25 10/14/18 16:25 Lab Results: Laboratory Results - last 24 hr 10/14/18 11:54 WBC 10.5 RBC 2.38 L Hgb 7.6 L Hct 23 L MCV 94 MCH 32 H MCHC 34 RDW 17 H Plt Count 280 MPV 8.4 Neut % (Auto) 82.2 Lymph % (Auto) 6.4 [place] % (Auto) 9.8 Eos % (Auto) 1.0 Baso % (Auto) 0.6 Absolute Neuts (auto) 8.7 H Absolute Lymphs (auto) 0.7 L Absolute Monos (auto) 1.0 H Absolute Eos (auto) 0.1 Absolute Basos (auto) 0.1 Absolute Nucleated RBC 0.0 Nucleated RBC % 0.0 Exam: GENERAL: No acute distress. Alert and appropriate LUNGS: Clear to auscultation bilaterally HEART: Regular rate and rhythm (has h/o A.Fib) ABDOMEN: Soft, + bowel sounds, non-tender, non-distended : Scrotal and penile edema EXTREMITIES: BLE edema. Left hip sutures intact. NEUROLOGIC: Sensation intact. Motor 5/5 BUE and RLE; 4/5 LLE due to pain Assessment/Plan: 1. Infected left ZEKE, S/P I&D, washout: IV Cefazolin, renal dosing. Rifampin. PT /OT 2. Atrial Fibrillation: Cardizem/Coumadin. INR dropped, warfarin increased to 5. INR QMWF. Can't have Eliquis due to Rifampin 3. Acute Renal Failure: Cr stable in 3's. Dr. Shi following. Recheck Saturday. 4. Analgesia: tramadol prn. 5. BPH: Had 2 traumatic helms insertion attempts before current helms. Started Flomax 10/09 6. Scrotal/Penile/BLE edema: Can't have diuretics until renal function improves , per Dr. Shi. Elevate scrotum. REBECCA wrap legs 7. DVT Prophylaxis: Coumadin 8. GERD: Pantoprazole. TUMS. 9. Anemia: Hb/Hct lower. Transfused 1 unit. Iron supplements. Hb 7.6 10. Advance Directives: Full code. is surrogate decision maker 11. Estimated LOS: 10/24/18 10/14/18 18:59
[2018-10-14] MEDS: Tamsulosin CAP* 0.4 MG PO SCH (20:55)
[2018-10-14] MEDS: LORazepam TAB(*) 0.5 MG PO PRN (22:05)
[2018-10-15] MEDS: Calcium Carbonate CHEW TAB* 500 MG (TUMS) PO PRN (04:25)
[2018-10-15 08:30] LABS: INR 1.51 (0.82-1.09)
[2018-10-15 08:40] LABS: BUN/Creatinine Ratio 22.8 (8-20); Calcium 8.5 mg/dL (8.6-10.3); EGFR African American 24.6 (>60); EGFR Non-African American 20.3 (>60)
[2018-10-15] MEDS: Ferrous Gluconate TAB* 324 MG TAB PO SCH (08:44)
[2018-10-15] MEDS: RiFAMPin CAP* 300 MG CAP PO SCH ×2 (08:44→21:15)
[2018-10-15] MEDS: Pantoprazole TAB * 40 MG TAB PO SCH (08:44)
[2018-10-15] MEDS: Diltiazem CD CAP* 240 MG PO SCH (08:44)
[2018-10-15] MEDS: Hydrocortisone 1% CREAM* 30 GM TUBE TOPICAL SCH ×3 (08:45→21:19)
[2018-10-15] MEDS: Docusate CAP* 100 MG PO SCH ×2 (08:49→21:15)
[2018-10-15] MEDS: ceFAZolin 1 GM ADVAN(*) 1 GM in NS 0.9% 50 ML* 50 ML IVPB SCH ×2 (10:21→21:24)
[2018-10-15] MEDS: Ondansetron ODT TAB* 4 MG PO PRN (14:30)
[2018-10-15] MEDS: Warfarin TAB(*) 5 MG PO SCH (17:01)
[2018-10-15] MEDS: Latanoprost 0.005%* 2.5 ml BTL BOTH EYES SCH (17:01)
--- NOTE | 2018-10-15 18:47 | PN ---
Progress Note Date of Service: 10/15/18 Note: SAULO LEAVITT was visited. Therapy notes read and reviewed. He does not feel great. Cr fell to 3.02 today, will recheck on Saturday. INR 1.51. Producing urine , will follow K Current Medications: Active Medications Generic Name Dose Route Start Last Admin Trade Name Freq PRN Reason Stop Dose Admin Acetaminophen 650 mg 10/08/18 12:06 Tylenol Tab* PO Q6H PRN FEVER/PAIN Calcium Carbonate 500 mg 10/09/18 17:13 10/15/18 04:25 Tums* PO 500 mg Q4H PRN Administration DYSPEPSIA Diltiazem HCl 240 mg 10/09/18 09:00 10/15/18 08:44 Cardizem Cd Cap* PO 240 mg DAILY DEBBIE Administration Docusate Sodium 100 mg 10/08/18 21:00 10/15/18 08:49 Colace Cap* PO Not Given BID DEBBIE Ferrous Gluconate 324 mg 10/09/18 09:00 10/15/18 08:44 Fergon Tab* PO 324 mg DAILY DEBBIE Administration Hydrocortisone 1 applic 10/09/18 21:00 10/15/18 08:45 Hytone Cream 1%* TOPICAL 1 applic BID DEBBIE Administration Cefazolin Sodium 1 gm/ Sodium 50 mls @ 200 mls/hr 10/08/18 22:00 10/15/18 10: 21 Chloride IVPB 200 mls/hr Q12H DEBBIE Administration Latanoprost 1 drop 10/08/18 18:00 10/15/18 17:01 Xalatan 0.005%* BOTH EYES 1 drop QPM DEBBIE Administration Lorazepam 0.5 mg 10/08/18 21:15 10/14/18 22:05 Ativan Tab(*) PO 0.5 mg BEDTIME PRN Administration INSOMNIA Magnesium Hydroxide 30 ml 10/08/18 12:06 Milk Of Magnesia Liq* PO Q6H PRN CONSTIPATION Ondansetron HCl 4 mg 10/14/18 15:39 10/15/18 14:30 Zofran Odt Tab* PO 4 mg Q8H PRN Administration NAUSEA/VOMITING Pantoprazole Sodium 40 mg 10/10/18 09:00 10/15/18 08:44 Protonix Tab* PO 40 mg DAILY DEBBIE Administration Rifampin 300 mg 10/08/18 21:00 10/15/18 08:44 Rifampin Cap* PO 300 mg BID DEBBIE Administration Senna 2 tab 10/08/18 12:06 Senokot Tab* PO BEDTIME PRN CONSTIPATION Tamsulosin HCl 0.4 mg 10/09/18 21:00 10/14/18 20:55 Flomax Cap* PO 0.4 mg BEDTIME DEBBIE Administration Tramadol HCl 50 mg 10/09/18 17:35 10/14/18 14:20 Ultram* PO 50 mg Q12H PRN Administration PAIN - MODERATE Warfarin Sodium 5 mg 10/13/18 17:00 10/15/18 17:01 Coumadin Tab(*) PO 5 mg DAILY@1700 DEBBIE Administration Protocol Vital Signs: Vital Signs Temp Pulse Resp BP Pulse Ox 97.8 F 77 20 145/67 95 10/15/18 06:00 10/15/18 15:52 10/15/18 06:00 10/15/18 15:52 10/15/18 15:52 Lab Results: Laboratory Results - last 24 hr 10/15/18 10/15/18 07:46 07:46 INR (Anticoag Therapy) 1.51 H Sodium 135 Potassium 5.0 Chloride 104 Carbon Dioxide 22 Anion Gap 9 BUN 69 H Creatinine 3.02 H Est GFR ( Amer) 24.6 Est GFR (Non-Af Amer) 20.3 BUN/Creatinine Ratio 22.8 H Glucose 112 H Calcium 8.5 L Exam: GENERAL: No acute distress. Alert and appropriate LUNGS: Clear to auscultation bilaterally HEART: Regular rate and rhythm (has h/o A.Fib) ABDOMEN: Soft, + bowel sounds, non-tender, non-distended : Scrotal and penile edema EXTREMITIES: BLE edema. Left hip sutures intact. NEUROLOGIC: Sensation intact. Motor 5/5 BUE and RLE; 4/5 LLE due to pain Assessment/Plan: 1. Infected left ZEKE, S/P I&D, washout: IV Cefazolin, renal dosing. Rifampin. PT /OT 2. Atrial Fibrillation: Cardizem/Coumadin. warfarin increased to 5. INR QMWF. Can't have Eliquis due to Rifampin 3. Acute Renal Failure: Cr better 3.02. Dr. Shi following. Recheck Saturday. 4. Analgesia: tramadol prn. 5. BPH: Had 2 traumatic helms insertion attempts before current helms. Started Flomax 10/09 6. Scrotal/Penile/BLE edema: Can't have diuretics until renal function improves , per Dr. Shi. Elevate scrotum. REBECCA wrap legs 7. DVT Prophylaxis: Coumadin 8. GERD: Pantoprazole. TUMS. 9. Anemia: Transfused 1 unit. Iron supplements. Hb 7.6 10. Nausea: likely from chronic antibiotics. Zofran 11. Advance Directives: Full code. is surrogate decision maker 12. Estimated LOS: 10/24/18 10/15/18 18:47
[2018-10-15] MEDS: Tamsulosin CAP* 0.4 MG PO SCH (21:15)
[2018-10-15] MEDS: Lactobacillus Acidophilus* 1 TAB PO SCH (21:28)
[2018-10-15] MEDS: LORazepam TAB(*) 0.5 MG PO PRN (22:36)
[2018-10-16] MEDS: Docusate CAP* 100 MG PO SCH ×2 (08:36→20:08)
[2018-10-16] MEDS: Hydrocortisone 1% CREAM* 30 GM TUBE TOPICAL SCH ×2 (08:37→20:08)
[2018-10-16] MEDS: Ondansetron ODT TAB* 4 MG PO PRN (09:19)
[2018-10-16] MEDS: ceFAZolin 1 GM ADVAN(*) 1 GM in NS 0.9% 50 ML* 50 ML IVPB SCH ×2 (09:20→22:04)
[2018-10-16] MEDS: RiFAMPin CAP* 300 MG CAP PO SCH ×2 (09:45→20:09)
[2018-10-16] MEDS: Pantoprazole TAB * 40 MG TAB PO SCH (09:45)
[2018-10-16] MEDS: Lactobacillus Acidophilus* 1 TAB PO SCH ×2 (09:45→20:09)
[2018-10-16] MEDS: Ferrous Gluconate TAB* 324 MG TAB PO SCH (09:45)
[2018-10-16] MEDS: Diltiazem CD CAP* 240 MG PO SCH (09:45)
[2018-10-16] MEDS: traMADol TAB* 50 MG PO PRN (15:09)
[2018-10-16] MEDS ORDERED: EPOETIN ALFA-EPBX * 4,000 UNIT/ML VIAL SUBCUT ONE (16:36)
[2018-10-16] MEDS: Warfarin TAB(*) 5 MG PO SCH (17:50)
[2018-10-16] MEDS: Latanoprost 0.005%* 2.5 ml BTL BOTH EYES SCH (17:51)
--- NOTE | 2018-10-16 19:00 | PN ---
Progress Note Date of Service: 10/16/18 Note: SAULO LEAVITT was visited. Therapy notes read and reviewed. Case was discussed with Dr. Soto from nephrology. Will start Lasix tomorrow and see how his renal function does. She also ordered one dose of EPO for him. He did not feel well today. To check labs in am. Current Medications: Active Medications Generic Name Dose Route Start Last Admin Trade Name Freq PRN Reason Stop Dose Admin Acetaminophen 650 mg 10/08/18 12:06 Tylenol Tab* PO Q6H PRN FEVER/PAIN Hydrocodone Bitart/Acetaminophen 1 tab 10/15/18 20:17 [place] 5-325 Tab* PO Q4H PRN PAIN - SEVERE Calcium Carbonate 500 mg 10/09/18 17:13 10/15/18 04:25 Tums* PO 500 mg Q4H PRN Administration DYSPEPSIA Diltiazem HCl 240 mg 10/09/18 09:00 10/16/18 09:45 Cardizem Cd Cap* PO 240 mg DAILY DEBBIE Administration Docusate Sodium 100 mg 10/08/18 21:00 10/16/18 08:36 Colace Cap* PO Not Given BID DEBBIE Ferrous Gluconate 324 mg 10/09/18 09:00 10/16/18 09:45 Fergon Tab* PO 324 mg DAILY DEBBIE Administration Furosemide 40 mg 10/17/18 09:00 Lasix Tab* PO DAILY DEBBIE Hydrocortisone 1 applic 10/09/18 21:00 10/16/18 08:37 Hytone Cream 1%* TOPICAL 1 applic BID DEBBIE Administration Cefazolin Sodium 1 gm/ Sodium 50 mls @ 200 mls/hr 10/08/18 22:00 10/16/18 09: 20 Chloride IVPB 200 mls/hr Q12H DEBBIE Administration Lactobacillus Rhamnosus 1 tab 10/15/18 21:00 10/16/18 09:45 Lactobacillus Acidophilus* PO 1 tab BID DEBBIE Administration Latanoprost 1 drop 10/08/18 18:00 10/16/18 17:51 Xalatan 0.005%* BOTH EYES 1 drop QPM DEBBIE Administration Lorazepam 0.5 mg 10/08/18 21:15 10/15/18 22:36 Ativan Tab(*) PO 0.5 mg BEDTIME PRN Administration INSOMNIA Magnesium Hydroxide 30 ml 10/08/18 12:06 Milk Of Magnesia Liq* PO Q6H PRN CONSTIPATION Ondansetron HCl 4 mg 10/14/18 15:39 10/16/18 09:19 Zofran Odt Tab* PO 4 mg Q8H PRN Administration NAUSEA/VOMITING Pantoprazole Sodium 40 mg 10/10/18 09:00 10/16/18 09:45 Protonix Tab* PO 40 mg DAILY DEBBIE Administration Rifampin 300 mg 10/08/18 21:00 10/16/18 09:45 Rifampin Cap* PO 300 mg BID DEBBIE Administration Senna 2 tab 10/08/18 12:06 Senokot Tab* PO BEDTIME PRN CONSTIPATION Tamsulosin HCl 0.4 mg 10/09/18 21:00 10/15/18 21:15 Flomax Cap* PO 0.4 mg BEDTIME DEBBIE Administration Tramadol HCl 50 mg 10/09/18 17:35 10/16/18 15:09 Ultram* PO 50 mg Q12H PRN Administration PAIN - MODERATE Warfarin Sodium 5 mg 10/13/18 17:00 10/16/18 17:50 Coumadin Tab(*) PO 5 mg DAILY@1700 DEBBIE Administration Protocol Vital Signs: Vital Signs Temp Pulse Resp BP Pulse Ox 98.1 F 74 16 149/75 93 10/16/18 17:15 10/16/18 17:15 10/16/18 17:48 10/16/18 17:15 10/16/18 17:15 Exam: GENERAL: No acute distress. Alert and appropriate LUNGS: Clear to auscultation bilaterally HEART: Regular rate and rhythm (has h/o A.Fib) ABDOMEN: Soft, + bowel sounds, non-tender, non-distended : Scrotal and penile edema EXTREMITIES: BLE edema. NEUROLOGIC: Sensation intact. Motor 5/5 BUE and RLE; 4/5 LLE due to pain Assessment/Plan: 1. Infected left ZEKE, S/P I&D, washout: IV Cefazolin, renal dosing. Rifampin. PT /OT 2. Atrial Fibrillation: Cardizem/Coumadin. warfarin increased to 5. INR QMWF. Can't have Eliquis due to Rifampin 3. Acute Renal Failure: Cr better 3.02. Dr. Soto following. Recheck Saturday. 4. Analgesia: tramadol prn. 5. BPH: Had 2 traumatic helms insertion attempts before current helms. Started Flomax 10/09 6. Scrotal/Penile/BLE edema: Will start Lasix tomorrow. Elevate scrotum. REBECCA wrap legs 7. DVT Prophylaxis: Coumadin 8. GERD: Pantoprazole. TUMS. 9. Anemia: Transfused 1 unit. Iron supplements. Hb 7.6. Got EPO 10. Nausea: likely from chronic antibiotics. Zofran 11. Advance Directives: Full code. is surrogate decision maker 12. Estimated LOS: 10/24/18 10/16/18 19:00
[2018-10-16] MEDS ORDERED: Docusate CAP* 100 MG PO PRN (19:40)
[2018-10-16] MEDS: Tamsulosin CAP* 0.4 MG PO SCH (20:10)
[2018-10-16] MEDS: HYDROcodone/ACETAMIN 5-325 MG* 1 TAB PO PRN (20:10)
--- NOTE | 2018-10-16 21:19 | PN ---
PROGRESS NOTE: DATE OF VISIT: 10/16/18 SUBJECTIVE: The patient reports that his hemorrhoids have been bothering him and he is in pain. Also has had some scrotal edema and lower leg edema. No shortness of breath. No chest pain. Vitals and labs have been reviewed. Hemoglobin 7.6, hematocrit 23. Sodium 135, potassium 5, chloride 104, CO2 of 22 , BUN 69, creatinine 3. Glucose noted to be 112. PHYSICAL EXAMINATION: HEENT: NC/AT. Heart: S1, S2 present. Lungs: Clear to auscultation. Abdomen: Distended. No rebound, no guarding. Extremities: Noted to have bilateral pitting edema. The patient also noted to have scrotal edema. Neuro: Alert and oriented. ASSESSMENT AND PLAN: 1. Acute kidney injury secondary to likely acute tubular necrosis in the recovery phase with improvement in kidney function. 2. Volume overload with anasarca and scrotal edema. We will check albumin level again tomorrow. This is noted to be low and likely responsible for patient third spacing. We will recommend starting the patient on Lasix 40 mg once a day to help with his symptoms and see how the patient's kidney function responds. If it becomes a problem, can consider albumin and Lasix when his kidney functions recovers a little further. 3. The patient has a Shay in place currently and will get a 24-hour urine to evaluate for proteinuria. This has been ordered to rule out nephrotic syndrome and other etiology. The patient previously had only 1.6 g of protein. 4. Anemia multifactorial. It would be important to rule out any active bleeding, but currently hemoglobin is stable. The patient is also severely iron deficient with previously noted TSAT of only 6%. At that time, iron was not infused as he had an active infection and there is some controversy about giving iron in the setting of active infection but there is not enough data to support that it causes any harm. Also the patient appears to be recovering and if this is able to reduce his need for transfusions that would help medicate infection risk as well. In light of this, we will repeat iron panel on him tomorrow and albumin and will give dose of Epogen but the Epogen would work well only when the iron stores are replete. Hence, if the patient's iron is still low tomorrow, can consider Venofer infusion as he is over the acute phase of his infection to help with his anemia. 5. We will follow with the rehab team. [id number]/[facility] #: [id number] [place]
[2018-10-16] MEDS: LORazepam TAB(*) 0.5 MG PO PRN (23:08)
[2018-10-17 07:14] LABS: INR 1.79 (0.82-1.09)
[2018-10-17 07:15] LABS: ABS Basophils 0.1 10^3/ul (0-0.2); ABS Eosinophils 0.2 10^3/ul (0-0.6); ABS Lymphocytes 0.7 10^3/ul (1.0-4.8); ABS Neutrophils 6.8 10^3/ul (1.5-7.7); Eosinophil % 2.3 %; Hematocrit 22 % (42-52); Hemoglobin 7.2 g/dL (14.0-18.0); Lymphocyte % 7.6 %; Mean Corpuscular HGB Conc 34 g/dL (31-36); Mean Corpuscular Hemoglobin 32 pg (27-31); Mean Corpuscular Volume 94 fL (80-94); Mean Platelet Volume 7.9 fL (7.4-10.4); Platelet Count 234 10^3/uL (150-450); Red Blood Count 2.29 10^6 /uL (4.18-5.48); Red Cell Distribution Width 17 % (10-15); White Blood Count 8.7 10^3/uL (3.5-10.8)
[2018-10-17 07:25] LABS: ALT < 3 U/L (7-52); AST 43 U/L (13-39); Albumin 2.7 g/dL (3.2-5.2); Albumin/Globulin Ratio 0.7 (1-3); Alkaline Phosphatase 162 U/L (34-104); Anion Gap 8 mmol/L (2-11); BUN/Creatinine Ratio 22.9 (8-20); Blood Urea Nitrogen 65 mg/dL (6-24); CO2 Carbon Dioxide 24 mmol/L (22-32); Calcium 8.7 mg/dL (8.6-10.3); Chloride 105 mmol/L (101-111); EGFR African American 26.4 (>60); EGFR Non-African American 21.8 (>60); Globulin 3.9 g/dL (2-4); Glucose 111 mg/dL (70-100); Potassium 4.9 mmol/L (3.5-5.0); Sodium 137 mmol/L (135-145); Total Protein 6.6 g/dL (6.4-8.9)
[2018-10-17 07:52] LABS: Total Iron Binding Capacity 286 mcg/dL (250-450); Transferrin 204 mg/dL (203-362)
[2018-10-17 08:11] LABS: % Iron Saturation 7 % (15-55); Ferritin 85.1 ng/mL (24-336); Iron < 20 ug/dL (50-212)
[2018-10-17] MEDS: Lactobacillus Acidophilus* 1 TAB PO SCH ×2 (08:48→21:32)
[2018-10-17] MEDS: RiFAMPin CAP* 300 MG CAP PO SCH ×2 (08:48→21:32)
[2018-10-17] MEDS: Pantoprazole TAB * 40 MG TAB PO SCH ×2 (08:48→21:32)
[2018-10-17] MEDS: Furosemide TAB* 40 MG PO SCH (08:48)
[2018-10-17] MEDS: Ferrous Gluconate TAB* 324 MG TAB PO SCH (08:48)
[2018-10-17] MEDS: Diltiazem CD CAP* 240 MG PO SCH (08:48)
[2018-10-17] MEDS: ceFAZolin 1 GM ADVAN(*) 1 GM in NS 0.9% 50 ML* 50 ML IVPB SCH ×2 (09:22→22:20)
[2018-10-17] MEDS: Hydrocortisone 1% CREAM* 30 GM TUBE TOPICAL SCH ×2 (11:47→21:34)
[2018-10-17] MEDS: Ondansetron ODT TAB* 4 MG PO PRN (11:56)
[2018-10-17] MEDS: Iron Sucrose* 200 MG in NS 0.9% 100 ML* 100 ML IVPB SCH (15:36)
[2018-10-17] MEDS: Warfarin TAB(*) 5 MG PO SCH (17:10)
[2018-10-17] MEDS: HYDROcodone/ACETAMIN 5-325 MG* 1 TAB PO PRN ×2 (17:10→21:32)
--- NOTE | 2018-10-17 17:26 | PN ---
Progress Note Date of Service: 10/17/18 Note: SAULO LEAVITT was visited. Therapy notes read and reviewed. His Creatinine has fallen below 3 but BUN steady. Started Lasix. Nauseated still, possibly Rifampin ? Hb stll dwindling. Got EPO yesterday, increase PPI to BID Current Medications: Active Medications Generic Name Dose Route Start Last Admin Trade Name Freq PRN Reason Stop Dose Admin Acetaminophen 650 mg 10/08/18 12:06 Tylenol Tab* PO Q6H PRN FEVER/PAIN Hydrocodone Bitart/Acetaminophen 1 tab 10/15/18 20:17 10/17/18 17:10 [place] 5-325 Tab* PO 1 tab Q4H PRN Administration PAIN - SEVERE Calcium Carbonate 500 mg 10/09/18 17:13 10/15/18 04:25 Tums* PO 500 mg Q4H PRN Administration DYSPEPSIA Diltiazem HCl 240 mg 10/09/18 09:00 10/17/18 08:48 Cardizem Cd Cap* PO 240 mg DAILY DEBBIE Administration Docusate Sodium 100 mg 10/16/18 19:40 Colace Cap* PO BID PRN CONSTIPATION Ferrous Gluconate 324 mg 10/09/18 09:00 10/17/18 08:48 Fergon Tab* PO 324 mg DAILY DEBBIE Administration Furosemide 40 mg 10/17/18 09:00 10/17/18 08:48 Lasix Tab* PO 40 mg DAILY DEBBIE Administration Hydrocortisone 1 applic 10/09/18 21:00 10/17/18 11:47 Hytone Cream 1%* TOPICAL 1 applic BID DEBBIE Administration Cefazolin Sodium 1 gm/ Sodium 50 mls @ 200 mls/hr 10/08/18 22:00 10/17/18 09: 22 Chloride IVPB 200 mls/hr Q12H DEBBIE Administration Iron Sucrose 200 mg/ Sodium 110 mls @ 110 mls/hr 10/17/18 15:00 10/17/18 15: 36 Chloride IVPB 10/23/18 14:59 110 mls/hr Q48HR DEBBIE Administration Lactobacillus Rhamnosus 1 tab 10/15/18 21:00 10/17/18 08:48 Lactobacillus Acidophilus* PO 1 tab BID DEBBIE Administration Latanoprost 1 drop 10/08/18 18:00 10/16/18 17:51 Xalatan 0.005%* BOTH EYES 1 drop QPM DEBBIE Administration Lorazepam 0.5 mg 10/08/18 21:15 10/16/18 23:08 Ativan Tab(*) PO 0.5 mg BEDTIME PRN Administration INSOMNIA Magnesium Hydroxide 30 ml 10/08/18 12:06 Milk Of Magnesia Liq* PO Q6H PRN CONSTIPATION Ondansetron HCl 4 mg 10/14/18 15:39 10/17/18 11:56 Zofran Odt Tab* PO 4 mg Q8H PRN Administration NAUSEA/VOMITING Pantoprazole Sodium 40 mg 10/17/18 21:00 Protonix Tab* PO BID DEBBIE Rifampin 300 mg 10/08/18 21:00 10/17/18 08:48 Rifampin Cap* PO 300 mg BID DEBBIE Administration Senna 2 tab 10/08/18 12:06 Senokot Tab* PO BEDTIME PRN CONSTIPATION Tamsulosin HCl 0.4 mg 10/09/18 21:00 10/16/18 20:10 Flomax Cap* PO 0.4 mg BEDTIME DEBBIE Administration Tramadol HCl 50 mg 10/09/18 17:35 10/16/18 15:09 Ultram* PO 50 mg Q12H PRN Administration PAIN - MODERATE Warfarin Sodium 5 mg 10/13/18 17:00 10/17/18 17:10 Coumadin Tab(*) PO 5 mg DAILY@1700 DEBBIE Administration Protocol Vital Signs: Vital Signs Temp Pulse Resp BP Pulse Ox 97.6 F 81 18 146/72 93 10/17/18 06:00 10/17/18 06:00 10/17/18 17:10 10/17/18 06:00 10/17/18 06:00 Lab Results: Laboratory Results - last 24 hr 10/17/18 10/17/18 10/17/18 06:48 06:48 06:48 WBC 8.7 RBC 2.29 L Hgb 7.2 L Hct 22 L MCV 94 MCH 32 H MCHC 34 RDW 17 H Plt Count 234 MPV 7.9 Neut % (Auto) 77.8 Lymph % (Auto) 7.6 [place] % (Auto) 11.3 Eos % (Auto) 2.3 Baso % (Auto) 1.0 Absolute Neuts (auto) 6.8 Absolute Lymphs (auto) 0.7 L Absolute Monos (auto) 1.0 H Absolute Eos (auto) 0.2 Absolute Basos (auto) 0.1 Absolute Nucleated RBC 0.0 Nucleated RBC % 0.0 INR (Anticoag Therapy) 1.79 H Sodium 137 Potassium 4.9 Chloride 105 Carbon Dioxide 24 Anion Gap 8 BUN 65 H Creatinine 2.84 H Est GFR ( Amer) 26.4 Est GFR (Non-Af Amer) 21.8 BUN/Creatinine Ratio 22.9 H Glucose 111 H Calcium 8.7 Iron < 20 L TIBC 286 D % Saturation 7 L Unsat Iron Binding < 271 Transferrin 204 Ferritin 85.1 Total Bilirubin 1.50 H AST 43 H ALT < 3 L Alkaline Phosphatase 162 H Total Protein 6.6 Albumin 2.7 L Globulin 3.9 Albumin/Globulin Ratio 0.7 L Exam: GENERAL: No acute distress. Alert and appropriate LUNGS: Clear to auscultation bilaterally HEART: Regular rate and rhythm (has h/o A.Fib) ABDOMEN: Soft, + bowel sounds, non-tender, non-distended : Scrotal and penile edema EXTREMITIES: BLE edema. NEUROLOGIC: Sensation intact. Motor 5/5 BUE and RLE; 4/5 LLE due to pain Assessment/Plan: 1. Infected left ZEKE, S/P I&D, washout: IV Cefazolin, renal dosing. Rifampin. PT /OT 2. Atrial Fibrillation: Cardizem/Coumadin. warfarin increased to 5. INR QMWF. Can't have Eliquis due to Rifampin 3. Acute Renal Failure: Cr better 2.84. Dr. Soto following. Recheck Saturday. 4. Analgesia: tramadol prn. 5. BPH: Had 2 traumatic helms insertion attempts before current helms. Started Flomax 10/09 6. Scrotal/Penile/BLE edema: Will start Lasix tomorrow. Elevate scrotum. REBECCA wrap legs 7. DVT Prophylaxis: Coumadin 8. GERD: Pantoprazole. TUMS. 9. Anemia: Transfused 1 unit. Iron supplements. Hb 7.2. Got EPO 10. Nausea: likely from chronic antibiotics, ernesto Rifampin. Zofran 11. Advance Directives: Full code. is surrogate decision maker 12. Estimated LOS: 10/24/18 10/17/18 17:28 10/17/18 17:28
[2018-10-17] MEDS: Latanoprost 0.005%* 2.5 ml BTL BOTH EYES SCH (18:42)
[2018-10-17 19:05] LABS: Urine Creatinine Concentration 66.64 mg/dL
[2018-10-17] MEDS: Tamsulosin CAP* 0.4 MG PO SCH (21:32)
[2018-10-17] MEDS: LORazepam TAB(*) 0.5 MG PO PRN (21:33)
[2018-10-18] MEDS: Ondansetron ODT TAB* 4 MG PO PRN (08:44)
[2018-10-18] MEDS: Pantoprazole TAB * 40 MG TAB PO SCH ×2 (09:42→21:44)
[2018-10-18] MEDS: RiFAMPin CAP* 300 MG CAP PO SCH ×2 (09:42→21:44)
[2018-10-18] MEDS: Furosemide TAB* 40 MG PO SCH (09:42)
[2018-10-18] MEDS: Ferrous Gluconate TAB* 324 MG TAB PO SCH (09:45)
[2018-10-18] MEDS: Lactobacillus Acidophilus* 1 TAB PO SCH ×2 (09:45→21:44)
[2018-10-18] MEDS: Diltiazem CD CAP* 240 MG PO SCH (09:45)
[2018-10-18] MEDS: ceFAZolin 1 GM ADVAN(*) 1 GM in NS 0.9% 50 ML* 50 ML IVPB SCH ×2 (09:49→21:43)
[2018-10-18] MEDS: Hydrocortisone 1% CREAM* 30 GM TUBE TOPICAL SCH ×2 (10:33→21:18)
[2018-10-18] MEDS: Calcium Carbonate CHEW TAB* 500 MG (TUMS) PO PRN (12:51)
--- NOTE | 2018-10-18 14:16 | PN ---
Progress Note Date of Service: 10/18/18 Note: SAULO LEAVITT was visited. Therapy notes read and reviewed. No new complaints, still notes pain from catheter as well as nausea. He is diuresing with Lasix. Dr. Soto has oredered IV iron. 24 hour urine shows proteinuria with 1.5 gm of protein, slightly better than results in mid-September Current Medications: Active Medications Generic Name Dose Route Start Last Admin Trade Name Freq PRN Reason Stop Dose Admin Acetaminophen 650 mg 10/08/18 12:06 Tylenol Tab* PO Q6H PRN FEVER/PAIN Hydrocodone Bitart/Acetaminophen 1 tab 10/15/18 20:17 10/17/18 21:32 [place] 5-325 Tab* PO 1 tab Q4H PRN Administration PAIN - SEVERE Calcium Carbonate 500 mg 10/09/18 17:13 10/18/18 12:51 Tums* PO 500 mg Q4H PRN Administration DYSPEPSIA Diltiazem HCl 240 mg 10/09/18 09:00 10/18/18 09:45 Cardizem Cd Cap* PO 240 mg DAILY DEBBIE Administration Docusate Sodium 100 mg 10/16/18 19:40 Colace Cap* PO BID PRN CONSTIPATION Ferrous Gluconate 324 mg 10/09/18 09:00 10/18/18 09:45 Fergon Tab* PO 324 mg DAILY DEBBIE Administration Furosemide 40 mg 10/17/18 09:00 10/18/18 09:42 Lasix Tab* PO 40 mg DAILY DEBBIE Administration Hydrocortisone 1 applic 10/09/18 21:00 10/18/18 10:33 Hytone Cream 1%* TOPICAL 1 applic BID DEBBIE Administration Cefazolin Sodium 1 gm/ Sodium 50 mls @ 200 mls/hr 10/08/18 22:00 10/18/18 09: 49 Chloride IVPB 200 mls/hr Q12H DEBBIE Administration Iron Sucrose 200 mg/ Sodium 110 mls @ 110 mls/hr 10/17/18 15:00 10/17/18 15: 36 Chloride IVPB 10/23/18 14:59 110 mls/hr Q48HR DEBBIE Administration Lactobacillus Rhamnosus 1 tab 10/15/18 21:00 10/18/18 09:45 Lactobacillus Acidophilus* PO 1 tab BID DEBBIE Administration Latanoprost 1 drop 10/08/18 18:00 10/17/18 18:42 Xalatan 0.005%* BOTH EYES 1 drop QPM DEBBIE Administration Lorazepam 0.5 mg 10/08/18 21:15 10/17/18 21:33 Ativan Tab(*) PO 0.5 mg BEDTIME PRN Administration INSOMNIA Magnesium Hydroxide 30 ml 10/08/18 12:06 Milk Of Magnesia Liq* PO Q6H PRN CONSTIPATION Ondansetron HCl 4 mg 10/14/18 15:39 10/18/18 08:44 Zofran Odt Tab* PO 4 mg Q8H PRN Administration NAUSEA/VOMITING Pantoprazole Sodium 40 mg 10/17/18 21:00 10/18/18 09:42 Protonix Tab* PO 40 mg BID DEBBIE Administration Rifampin 300 mg 10/08/18 21:00 10/18/18 09:42 Rifampin Cap* PO 300 mg BID DEBBIE Administration Senna 2 tab 10/08/18 12:06 Senokot Tab* PO BEDTIME PRN CONSTIPATION Tamsulosin HCl 0.4 mg 10/09/18 21:00 10/17/18 21:32 Flomax Cap* PO 0.4 mg BEDTIME DEBBIE Administration Tramadol HCl 50 mg 10/09/18 17:35 10/16/18 15:09 Ultram* PO 50 mg Q12H PRN Administration PAIN - MODERATE Warfarin Sodium 5 mg 10/13/18 17:00 10/17/18 17:10 Coumadin Tab(*) PO 5 mg DAILY@1700 DEBBIE Administration Protocol Vital Signs: Vital Signs Temp Pulse Resp BP Pulse Ox 97.8 F 81 20 141/65 94 10/18/18 05:09 10/18/18 05:09 10/18/18 05:09 10/18/18 05:09 10/18/18 08:00 Lab Results: Laboratory Results - last 24 hr 10/17/18 18:00 Urine Collection Time 24 Urine Total Volume 1000 Ur Creatinine 24 Hour 666.40 D Ur Creatinine Concen 66.64 Ur Total Protein Conc 150 Ur Total Protein 24 Hr 1500 H Exam: GENERAL: No acute distress. Alert and appropriate LUNGS: Clear to auscultation bilaterally HEART: Regular rate and rhythm (has h/o A.Fib) ABDOMEN: Soft, + bowel sounds, non-tender, non-distended : Scrotal and penile edema EXTREMITIES: BLE edema. NEUROLOGIC: Sensation intact. Motor 5/5 BUE and RLE; 4/5 LLE due to pain Assessment/Plan: 1. Infected left ZEKE, S/P I&D, washout: IV Cefazolin, renal dosing. Rifampin. PT /OT 2. Atrial Fibrillation: Cardizem/Coumadin. warfarin increased to 5. INR QMWF. Can't have Eliquis due to Rifampin 3. Acute Renal Failure: Cr better 2.84. Dr. Soto following. Recheck Saturday. 4. Analgesia: tramadol prn. 5. BPH: Had 2 traumatic helms insertion attempts before current helms. Started Flomax 10/09 6. Scrotal/Penile/BLE edema: Started Lasix, diuresing. Elevate scrotum. REBECCA wrap legs 7. DVT Prophylaxis: Coumadin 8. GERD: Pantoprazole. TUMS. 9. Anemia: Transfused 1 unit. Iron supplements. Hb 7.2. Got EPO, recheck Saturday 10. Nausea: likely from chronic antibiotics, ernesto Rifampin. Zofran 11. Advance Directives: Full code. is surrogate decision maker 12. Estimated LOS: 10/24/18 10/18/18 14:16
[2018-10-18] MEDS: traMADol TAB* 50 MG PO PRN (16:15)
[2018-10-18] MEDS: Warfarin TAB(*) 5 MG PO SCH (17:53)
[2018-10-18] MEDS: Latanoprost 0.005%* 2.5 ml BTL BOTH EYES SCH (17:54)
[2018-10-18] MEDS: Tamsulosin CAP* 0.4 MG PO SCH (21:44)
[2018-10-19] MEDS: Iron Sucrose* 200 MG in NS 0.9% 100 ML* 100 ML IVPB SCH (08:47)
[2018-10-19] MEDS: Furosemide TAB* 40 MG PO SCH (10:06)
[2018-10-19] MEDS: Diltiazem CD CAP* 240 MG PO SCH (10:06)
[2018-10-19] MEDS: Pantoprazole TAB * 40 MG TAB PO SCH ×2 (10:06→22:17)
[2018-10-19] MEDS: RiFAMPin CAP* 300 MG CAP PO SCH ×3 (10:06→22:29)
[2018-10-19] MEDS: Lactobacillus Acidophilus* 1 TAB PO SCH ×2 (10:06→22:17)
[2018-10-19] MEDS: Ferrous Gluconate TAB* 324 MG TAB PO SCH (10:06)
[2018-10-19] MEDS: ceFAZolin 1 GM ADVAN(*) 1 GM in NS 0.9% 50 ML* 50 ML IVPB SCH ×2 (10:12→21:57)
[2018-10-19] MEDS: Hydrocortisone 1% CREAM* 30 GM TUBE TOPICAL SCH ×2 (10:59→21:30)
--- NOTE | 2018-10-19 16:36 | PN ---
Progress Note Date of Service: 10/19/18 Note: SAULO LEAVITT was visited. Nursing notes read and reviewed. He has no specific complaints other than pain when he voids. He is duresing and things seem to be improving. Still little appetite. Current Medications: Active Medications Generic Name Dose Route Start Last Admin Trade Name Freq PRN Reason Stop Dose Admin Acetaminophen 650 mg 10/08/18 12:06 Tylenol Tab* PO Q6H PRN FEVER/PAIN Hydrocodone Bitart/Acetaminophen 1 tab 10/15/18 20:17 10/17/18 21:32 [place] 5-325 Tab* PO 1 tab Q4H PRN Administration PAIN - SEVERE Calcium Carbonate 500 mg 10/09/18 17:13 10/18/18 12:51 Tums* PO 500 mg Q4H PRN Administration DYSPEPSIA Diltiazem HCl 240 mg 10/09/18 09:00 10/19/18 10:06 Cardizem Cd Cap* PO 240 mg DAILY DEBBIE Administration Docusate Sodium 100 mg 10/16/18 19:40 Colace Cap* PO BID PRN CONSTIPATION Ferrous Gluconate 324 mg 10/09/18 09:00 10/19/18 10:06 Fergon Tab* PO 324 mg DAILY DEBBIE Administration Furosemide 40 mg 10/17/18 09:00 10/19/18 10:06 Lasix Tab* PO 40 mg DAILY DEBBIE Administration Hydrocortisone 1 applic 10/09/18 21:00 10/19/18 10:59 Hytone Cream 1%* TOPICAL 1 applic BID DEBBIE Administration Cefazolin Sodium 1 gm/ Sodium 50 mls @ 200 mls/hr 10/08/18 22:00 10/19/18 10: 12 Chloride IVPB 200 mls/hr Q12H DEBBIE Administration Iron Sucrose 200 mg/ Sodium 110 mls @ 110 mls/hr 10/17/18 15:00 10/19/18 08: 47 Chloride IVPB 10/23/18 14:59 110 mls/hr Q48HR DEBBIE Administration Lactobacillus Rhamnosus 1 tab 10/15/18 21:00 10/19/18 10:06 Lactobacillus Acidophilus* PO 1 tab BID DEBBIE Administration Latanoprost 1 drop 10/08/18 18:00 10/18/18 17:54 Xalatan 0.005%* BOTH EYES 1 drop QPM DEBBIE Administration Lorazepam 0.5 mg 10/08/18 21:15 10/17/18 21:33 Ativan Tab(*) PO 0.5 mg BEDTIME PRN Administration INSOMNIA Magnesium Hydroxide 30 ml 10/08/18 12:06 Milk Of Magnesia Liq* PO Q6H PRN CONSTIPATION Ondansetron HCl 4 mg 10/14/18 15:39 10/18/18 08:44 Zofran Odt Tab* PO 4 mg Q8H PRN Administration NAUSEA/VOMITING Pantoprazole Sodium 40 mg 10/17/18 21:00 10/19/18 10:06 Protonix Tab* PO 40 mg BID DEBBIE Administration Rifampin 300 mg 10/08/18 21:00 10/19/18 10:06 Rifampin Cap* PO 300 mg BID DEBBIE Administration Senna 2 tab 10/08/18 12:06 Senokot Tab* PO BEDTIME PRN CONSTIPATION Tamsulosin HCl 0.4 mg 10/09/18 21:00 10/18/18 21:44 Flomax Cap* PO 0.4 mg BEDTIME DEBBIE Administration Tramadol HCl 50 mg 10/09/18 17:35 10/18/18 16:15 Ultram* PO 50 mg Q12H PRN Administration PAIN - MODERATE Warfarin Sodium 5 mg 10/13/18 17:00 10/18/18 17:53 Coumadin Tab(*) PO 5 mg DAILY@1700 DEBBIE Administration Protocol Vital Signs: Vital Signs Temp Pulse Resp BP Pulse Ox 97.8 F 81 19 155/49 95 10/19/18 15:42 10/19/18 15:42 10/19/18 15:42 10/19/18 15:42 10/19/18 15:42 Exam: GENERAL: No acute distress. Alert and appropriate LUNGS: Clear to auscultation bilaterally HEART: Regular rate and rhythm (has h/o A.Fib) ABDOMEN: Soft, + bowel sounds, non-tender, non-distended : Scrotal and penile edema EXTREMITIES: BLE edema. NEUROLOGIC: Sensation intact. Motor 5/5 BUE and RLE; 4/5 LLE due to pain Assessment/Plan: 1. Infected left ZEKE, S/P I&D, washout: IV Cefazolin, renal dosing. Rifampin. PT /OT 2. Atrial Fibrillation: Cardizem/Coumadin. warfarin increased to 5. INR QMWF. Can't have Eliquis due to Rifampin 3. Acute Renal Failure: Cr better 2.84. Dr. Soto following. Recheck in am. 4. Analgesia: tramadol prn. 5. BPH: Had 2 traumatic helms insertion attempts before current helms. Started Flomax 10/09 6. Scrotal/Penile/BLE edema: Started Lasix, diuresing. Elevate scrotum. REBECCA wrap legs 7. DVT Prophylaxis: Coumadin 8. GERD: Pantoprazole. TUMS. 9. Anemia: Transfused 1 unit. Iron supplements. Got EPO, recheck in am 10. Nausea: likely from chronic antibiotics, ernesto Rifampin. Zofran 11. Advance Directives: Full code. is surrogate decision maker 12. Estimated LOS: 10/24/18 10/19/18 16:37
[2018-10-19] MEDS: Warfarin TAB(*) 5 MG PO SCH (17:50)
[2018-10-19] MEDS: Latanoprost 0.005%* 2.5 ml BTL BOTH EYES SCH (17:51)
[2018-10-19] MEDS: LORazepam TAB(*) 0.5 MG PO PRN (22:16)
[2018-10-19] MEDS: Tamsulosin CAP* 0.4 MG PO SCH ×2 (22:17→22:40)
[2018-10-20 05:54] LABS: INR 1.9 (0.82-1.09)
[2018-10-20 05:58] LABS: ABS Basophils 0.1 10^3/ul (0-0.2); ABS Eosinophils 0.3 10^3/ul (0-0.6); ABS Lymphocytes 0.8 10^3/ul (1.0-4.8); ABS Monocytes 1.1 10^3/ul (0-0.8); Eosinophil % 3.3 %; Hematocrit 21 % (42-52); Hemoglobin 6.9 g/dL (14.0-18.0); Lymphocyte % 10.2 %; Mean Corpuscular HGB Conc 34 g/dL (31-36); Mean Corpuscular Hemoglobin 31 pg (27-31); Mean Corpuscular Volume 94 fL (80-94); Mean Platelet Volume 7.9 fL (7.4-10.4); Nucleated Red Blood Cells % 0.1; Platelet Count 255 10^3/uL (150-450); Red Blood Count 2.19 10^6 /uL (4.18-5.48); Red Cell Distribution Width 17 % (10-15); White Blood Count 8.2 10^3/uL (3.5-10.8)
[2018-10-20 06:05] LABS: Calcium 8.5 mg/dL (8.6-10.3); EGFR African American 28.7 (>60); EGFR Non-African American 23.7 (>60); Potassium 4.5 mmol/L (3.5-5.0)
[2018-10-20] MEDS: Diltiazem CD CAP* 240 MG PO SCH (08:22)
[2018-10-20] MEDS: Hydrocortisone 1% CREAM* 30 GM TUBE TOPICAL SCH ×2 (08:22→20:49)
[2018-10-20] MEDS: Furosemide TAB* 40 MG PO SCH (08:22)
[2018-10-20] MEDS: Ferrous Gluconate TAB* 324 MG TAB PO SCH (08:23)
[2018-10-20] MEDS: Lactobacillus Acidophilus* 1 TAB PO SCH ×2 (08:23→20:49)
[2018-10-20] MEDS: RiFAMPin CAP* 300 MG CAP PO SCH ×2 (08:23→20:49)
[2018-10-20] MEDS: Pantoprazole TAB * 40 MG TAB PO SCH ×2 (08:23→20:49)
[2018-10-20 08:36] LABS: C Reactive Protein 41.78 mg/L (<8.01)
--- NOTE | 2018-10-20 09:13 | PN ---
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 Denies fever, chills, back pain, nausea, vomiting, or constipation. Reports diarrhea (according to EMR 3 BMs yesterday and 1 so far today). Objective: Vital Signs 10/20/18 05:42 Temperature 98.1 F Pulse Rate 91 Respiratory 20 Rate Blood Pressure 151/86 (mmHg) O2 Sat by Pulse 95 Oximetry Physical Exam: General: NAD, sitting up on the side of the bed Neurological: Alert and Oriented to person and place HEENT: Moist MM, no thrush Cardiovascular: Heart rate regular. 1-2+ bilateral LE edema Respiratory: Lung sounds clear Abdominal: Bowel sounds present; ABD soft, non tender and large MSK: No tenderness with palpation of the neck, back or spine. No tenderness with palpation of the left knee, no effusion and full ROM. No tenderness with palpation of the left or right hip. Skin: No rash. Laboratory Results - last 24 hr 10/20/18 10/20/18 10/20/18 05:25 05:26 05:26 WBC 8.2 RBC 2.19 L Hgb 6.9 L Hct 21 L MCV 94 MCH 31 MCHC 34 RDW 17 H Plt Count 255 MPV 7.9 Neut % (Auto) 72.7 Lymph % (Auto) 10.2 [place] % (Auto) 13.1 Eos % (Auto) 3.3 Baso % (Auto) 0.7 Absolute Neuts (auto) 6.0 Absolute Lymphs (auto) 0.8 L Absolute Monos (auto) 1.1 H Absolute Eos (auto) 0.3 Absolute Basos (auto) 0.1 Absolute Nucleated RBC 0.0 Nucleated RBC % 0.1 INR (Anticoag Therapy) 1.90 H Sodium 139 Potassium 4.5 Chloride 105 Carbon Dioxide 23 Anion Gap 11 BUN 58 H Creatinine 2.64 H Est GFR ( Amer) 28.7 Est GFR (Non-Af Amer) 23.7 BUN/Creatinine Ratio 22.0 H Glucose 115 H Calcium 8.5 L C-Reactive Protein 41.78 H Assessment: 1. Left prosthetic hip infection. S/P I+D. Cultures with MSSA. Afebrile and no leukocytosis. CRR is trending down. 2. Infective endocarditis. Aortic valve 3. History of right hip and left knee arthroplasty. Joints benign. 4. JOSELUIS. Suspect this may be secondary to infective endocarditis. Creatinine is trending down. 5. Anemia. Rifampin can cause hemolytic anemia. Plan: Continue Ancef 1gm Q12H (renally dosed) and Rifampin (plan for 6 months). Ancef day 20. CRP was added to this AM's labs. Recommend checking a LDH and Haptoglobin to help evaluate the cause of the anemia. Weekly labs while on IV ABX: CBC, CMP, and CRP. Will need to closely monitor warfarin levels while on Rifampin.
[2018-10-20] MEDS: ceFAZolin 1 GM ADVAN(*) 1 GM in NS 0.9% 50 ML* 50 ML IVPB SCH ×2 (09:20→23:17)
--- NOTE | 2018-10-20 15:52 | PN ---
Progress Note Date of Service: 10/20/18 Note: SAULO LEAVITT was visited. Therapy notes read and reviewed. Continued difficulty with nausea and poor appetite. Renal function continues to slowly improve. Hb below 7 again. Will transfuse. I will ask GI to see. He tells me he had a complete GI workup for anemia several years ago. LDH ordered by ID and was WNL. Current Medications: Active Medications Generic Name Dose Route Start Last Admin Trade Name Freq PRN Reason Stop Dose Admin Acetaminophen 650 mg 10/08/18 12:06 Tylenol Tab* PO Q6H PRN FEVER/PAIN Hydrocodone Bitart/Acetaminophen 1 tab 10/15/18 20:17 10/17/18 21:32 [place] 5-325 Tab* PO 1 tab Q4H PRN Administration PAIN - SEVERE Alprazolam 0.25 mg 10/20/18 12:05 Xanax Tab* PO Q8H PRN ANXIETY Calcium Carbonate 500 mg 10/09/18 17:13 10/18/18 12:51 Tums* PO 500 mg Q4H PRN Administration DYSPEPSIA Diltiazem HCl 240 mg 10/09/18 09:00 10/20/18 08:22 Cardizem Cd Cap* PO 240 mg DAILY DEBBIE Administration Docusate Sodium 100 mg 10/16/18 19:40 Colace Cap* PO BID PRN CONSTIPATION Ferrous Gluconate 324 mg 10/09/18 09:00 10/20/18 08:23 Fergon Tab* PO 324 mg DAILY DEBBIE Administration Furosemide 40 mg 10/17/18 09:00 10/20/18 08:22 Lasix Tab* PO 40 mg DAILY DEBBIE Administration Hydrocortisone 1 applic 10/09/18 21:00 10/20/18 08:22 Hytone Cream 1%* TOPICAL 1 applic BID DEBBIE Administration Cefazolin Sodium 1 gm/ Sodium 50 mls @ 200 mls/hr 10/08/18 22:00 10/20/18 09: 20 Chloride IVPB 200 mls/hr Q12H DEBBIE Administration Iron Sucrose 200 mg/ Sodium 110 mls @ 110 mls/hr 10/17/18 15:00 10/19/18 08: 47 Chloride IVPB 10/23/18 14:59 110 mls/hr Q48HR DEBBIE Administration Lactobacillus Rhamnosus 1 tab 10/15/18 21:00 10/20/18 08:23 Lactobacillus Acidophilus* PO 1 tab BID DEBBIE Administration Latanoprost 1 drop 10/08/18 18:00 10/19/18 17:51 Xalatan 0.005%* BOTH EYES 1 drop QPM DEBBIE Administration Magnesium Hydroxide 30 ml 10/08/18 12:06 Milk Of Magnesia Liq* PO Q6H PRN CONSTIPATION Ondansetron HCl 4 mg 10/14/18 15:39 10/18/18 08:44 Zofran Odt Tab* PO 4 mg Q8H PRN Administration NAUSEA/VOMITING Pantoprazole Sodium 40 mg 10/17/18 21:00 10/20/18 08:23 Protonix Tab* PO 40 mg BID DEBBIE Administration Rifampin 300 mg 10/08/18 21:00 10/20/18 08:23 Rifampin Cap* PO 300 mg BID DEBBIE Administration Senna 2 tab 10/08/18 12:06 Senokot Tab* PO BEDTIME PRN CONSTIPATION Tamsulosin HCl 0.4 mg 10/09/18 21:00 10/19/18 22:40 Flomax Cap* PO Not Given BEDTIME [facility] Tramadol HCl 50 mg 10/09/18 17:35 10/18/18 16:15 Ultram* PO 50 mg Q12H PRN Administration PAIN - MODERATE Warfarin Sodium 5 mg 10/13/18 17:00 10/19/18 17:50 Coumadin Tab(*) PO 5 mg DAILY@1700 DEBBIE Administration Protocol Vital Signs: Vital Signs Temp Pulse Resp BP Pulse Ox 98.3 F 84 18 159/65 96 10/20/18 14:20 10/20/18 14:20 10/20/18 14:20 10/20/18 14:20 10/20/18 14:20 Lab Results: Laboratory Results - last 24 hr 10/20/18 10/20/18 10/20/18 05:20 05:25 05:26 WBC 8.2 RBC 2.19 L Hgb 6.9 L Hct 21 L MCV 94 MCH 31 MCHC 34 RDW 17 H Plt Count 255 MPV 7.9 Neut % (Auto) 72.7 Lymph % (Auto) 10.2 [place] % (Auto) 13.1 Eos % (Auto) 3.3 Baso % (Auto) 0.7 Absolute Neuts (auto) 6.0 Absolute Lymphs (auto) 0.8 L Absolute Monos (auto) 1.1 H Absolute Eos (auto) 0.3 Absolute Basos (auto) 0.1 Absolute Nucleated RBC 0.0 Nucleated RBC % 0.1 INR (Anticoag Therapy) 1.90 H Sodium Potassium Chloride Carbon Dioxide Anion Gap BUN Creatinine Est GFR ( Amer) Est GFR (Non-Af Amer) BUN/Creatinine Ratio Glucose Calcium Lactate Dehydrogenase C-Reactive Protein Blood Type O Positive Antibody Screen Negative Crossmatch See Detail 10/20/18 05:26 WBC RBC Hgb Hct MCV MCH MCHC RDW Plt Count MPV Neut % (Auto) Lymph % (Auto) [place] % (Auto) Eos % (Auto) Baso % (Auto) Absolute Neuts (auto) Absolute Lymphs (auto) Absolute Monos (auto) Absolute Eos (auto) Absolute Basos (auto) Absolute Nucleated RBC Nucleated RBC % INR (Anticoag Therapy) Sodium 139 Potassium 4.5 Chloride 105 Carbon Dioxide 23 Anion Gap 11 BUN 58 H Creatinine 2.64 H Est GFR ( Amer) 28.7 Est GFR (Non-Af Amer) 23.7 BUN/Creatinine Ratio 22.0 H Glucose 115 H Calcium 8.5 L Lactate Dehydrogenase 183 C-Reactive Protein 41.78 H Blood Type Antibody Screen Crossmatch Exam: GENERAL: No acute distress. Alert and appropriate LUNGS: Clear to auscultation bilaterally HEART: Regular rate and rhythm (has h/o A.Fib) ABDOMEN: Soft, + bowel sounds, non-tender, non-distended : Scrotal and penile edema EXTREMITIES: BLE edema. NEUROLOGIC: Sensation intact. Motor 5/5 BUE and RLE; 4/5 LLE due to pain Assessment/Plan: 1. Infected left ZEKE, S/P I&D, washout: IV Cefazolin, renal dosing. Rifampin. PT /OT 2. Atrial Fibrillation: Cardizem/Coumadin. warfarin increased to 5. INR 1.9, checking QMWF. Can't have Eliquis due to Rifampin 3. Acute Renal Failure: Cr better 2.64. Dr. Soto following. Recheck Saturday 4. Analgesia: tramadol prn, hydrocodone prn. 5. BPH: Had 2 traumatic helms insertion attempts before current helms. Started Flomax 10/09 6. Scrotal/Penile/BLE edema: Started Lasix, diuresing. Elevate scrotum. REBECCA wrap legs 7. DVT Prophylaxis: Coumadin 8. GERD: Pantoprazole. TUMS. 9. Anemia: Transfused 1 unit today for Hb 6.9 Iron supplements. Got EPO, ask GI to see 10. Nausea: likely from chronic antibiotics, ernesto Rifampin. Zofran 11. Advance Directives: Full code. is surrogate decision maker 12. Estimated LOS: will d/w therapy team tomorrow 10/20/18 15:53 10/20/18 15:55
[2018-10-20] MEDS: Ondansetron ODT TAB* 4 MG PO PRN (16:40)
[2018-10-20] MEDS: Warfarin TAB(*) 5 MG PO SCH (17:44)
[2018-10-20] MEDS: Latanoprost 0.005%* 2.5 ml BTL BOTH EYES SCH (17:45)
--- NOTE | 2018-10-20 18:52 | CONS ---
CC: Dr. Powell * CONSULTATION REPORT: DATE OF CONSULT: 10/20/18 REQUESTING PHYSICIAN: Dr. Powell. INDICATION: Anemia. NARRATIVE: Mr. Miller is a pleasant 78-year-old gentleman who recently underwent a repair of an infected hip. He has been here for approximately 2 weeks now. I had seen him approximately 3 years ago in 2016 for anemia. He underwent colonoscopy which was normal, small bowel series that was normal, upper endoscopy revealing gastritis and then a small bowel capsule endoscopy which revealed multiple small bowel AVMs. I felt that the AVMs were either caused by or worsened by his aspirin use and/or anticoagulation. We did speak with his continuing education specialist, who stopped his aspirin; however, remains on his anticoagulation for his atrial fibrillation. His hemoglobin did increase after stopping the aspirin to approximately 13.7. I do not see that has been checked since then until middle of September of 2018, it was down to 8.3. He has gradually trended downwards to the point of 6.9 at this time. He denies any abdominal pain. He denies any black and tarry stools. There has been no vomiting. He remains on his blood thinner. At this point, he is fatigued and lethargic. PAST MEDICAL HISTORY: History of atrial fibrillation, hypertension, GERD, chronic back pain. MEDICATIONS UPON ADMISSION: Include: 1. Cardizem. 2. Colace. 3. Coumadin. 4. Xalatan. 5. Rifampin. 6. IV cefazolin here in the hospital. ALLERGIES: None. SOCIAL HISTORY: No tobacco. Rare alcohol. REVIEW OF SYSTEMS: Please see the HPI. Other than that mentioned in the HPI, 12 systems were negative. PHYSICAL EXAM: Temperature is 98.3, blood pressure is 151/70, pulse is 90, respiratory rate of 24, O2 sat is 96%. General: Well-appearing male, lying flat in bed, alert, oriented, pleasant, fluent. HEENT: Mucous membranes are moist without lesions, ulcers, or exudate. Conjunctivae are pale. Heart: Irregular rate and rhythm. Lungs: Clear to auscultation. Abdomen is obese. Positive bowel sounds. Soft, nontender, nondistended. No hepatosplenomegaly, masses, rebound, or guarding. LABORATORY DATA: Of note, his hemoglobin is down to 6.9, platelet count of 255 , white count is normal. INR is 1.9. BUN has trended down from 70 to 58, creatinine is 2.64. His LDH is normal at 183. ASSESSMENT AND PLAN: This is a pleasant 78-year-old gentleman, who went through a large workup 3 years ago for anemia that seemed to improve after stopping his aspirin. He is now in rehab for hip replacement after septic hip and his hemoglobin has trended down. I do wonder if his slow trend down could be multifactorial. He does have a known history of small bowel arteriovenous malformations, which definitely the Coumadin can exacerbate. I do not hear any obvious new sources. His LDH is within the normal range. Probably, it would not be a bad idea to check haptoglobin to rule out hemolysis. I doubt a bone marrow process is involved. This could anemia of chronic disease giving all of his medical issues. He is on maximum doses of PPI making gastritis or an ulcer less likely. I do not think we need to repeat a colonoscopy at this time, but we may want to consider doing an EGD at some point. I think we can hold on a colonoscopy since his last one was just 3 years ago. We will continue to follow along, trend his hemoglobins and make recommendations at that point. [id number]/[facility] #: [id number] [facility] HOSPITALWilfredo
[2018-10-20] MEDS: Tamsulosin CAP* 0.4 MG PO SCH (20:49)
[2018-10-21] MEDS: RiFAMPin CAP* 300 MG CAP PO SCH ×2 (09:28→20:39)
[2018-10-21] MEDS: Pantoprazole TAB * 40 MG TAB PO SCH ×2 (09:28→20:38)
[2018-10-21] MEDS: Lactobacillus Acidophilus* 1 TAB PO SCH ×2 (09:28→20:38)
[2018-10-21] MEDS: Diltiazem CD CAP* 240 MG PO SCH (09:28)
[2018-10-21] MEDS: Ferrous Gluconate TAB* 324 MG TAB PO SCH (09:28)
[2018-10-21] MEDS: Furosemide TAB* 40 MG PO SCH (09:28)
[2018-10-21] MEDS: Hydrocortisone 1% CREAM* 30 GM TUBE TOPICAL SCH ×2 (09:29→20:46)
[2018-10-21] MEDS: Iron Sucrose* 200 MG in NS 0.9% 100 ML* 100 ML IVPB SCH (09:33)
[2018-10-21] MEDS: ceFAZolin 1 GM ADVAN(*) 1 GM in NS 0.9% 50 ML* 50 ML IVPB SCH ×2 (10:43→22:01)
[2018-10-21] MEDS: ALPRAZolam TAB* 0.25 MG PO PRN ×2 (11:22→22:09)
--- NOTE | 2018-10-21 12:54 | PMRUTEAM ---
PMRU: Team Meeting Current Status: Nursing: Current Status Skin Deviations [Left lip] Abrasion Skin Deviations [scrotum] Other Skin Deviations [Bilateral Leg Bruise ] Skin Deviations [Back] Rash Skin Deviations [Left Hip] Incision Skin Deviations [Right Hand] Bruise Skin Deviations [Right Arm] Skin Tear Skin Deviations [Left Calf] Other Skin Deviation Description [ scab from skin pulled off Left lip] Skin Deviation Description [ remains edematous with dry skin scrotum] Skin Deviation Description [ healing Bilateral Leg] Skin Deviation Description [ healed Back] Skin Deviation Description [ intact and healing Left Hip] Skin Deviation Description [ Appears to be healing Right Hand] Skin Deviation Description [ optifoam removed Right Arm] Skin Deviation Description [ redness noted Left Calf] Bladder Current Status helms Bowel Current Status last bm 10/20/18. Nutrition Current Status appetite poor Medication Current Status no c/o pain. needs reinforcement Physical Therapy: Current Status Bed Mobility Assistance Mod Assist Transfer Mobility Assistance Contact Guard Assist,Min Assist Transfer/Bed Mobility Rolling Walker Recommended Devices Ambulation Assistance Contact Guard Assist,Min Assist Ambulation Assistive Devices Rolling Walker Number of Feet Patient 50 Ambulated Stairs Assistance Not Tested Stairs Recommended Devices Two Rails Number of Stairs 2 Curb Not Tested Occupational Therapy: Current Status Upper Body Dressing Supervision Upper Body Dressing Progress set up Lower Body Dressing Total Assist Bathing Max Asst,Total Assist Toileting Total Assist,2 Person Assist Toilet Transfer Contact Guard Assist,2 Person Assist Shower Transfer Contact Guard Assist,2 Person Assist Shower Transfer Progress TBA Eating Independent Rec Therapy: Current Status Summary of Assessment and Recreation Therapy services introduced and Clinical Impression assessment is complete. Pt. has been open to leisure visits but minimally engaged in activities or conversation d/t not feeling well. Treatment Goals Pt. will engage in leisure activities as tolerated . Treatment Plan Provide recreation therapy and encourage involvement. Social Work: Current Status Discharge Plan return home with home care svs and family support Potential for Family Training pt's is involved and supportive Anticipated Discharge Home Destination Discharge With VNS, [place] and family support Nutrition: Current Status Monitoring Pt's diet liberalized to regular, unrestricted at B 8/ w/ continued poor intake; consumed 40% of B this AM. Per N&D staff, pt has not been interested in any nourishments; he is not amenable to supplements at this time. Pt w/ inadequate oral intake since 10/10; may consider more aggressive interventions (i.e. nutrition support) if intake does not improve in the near future; will monitor for indication and make recommendations as indicated. He denies nausea this AM (Zofran last given 10/18); he reports some diarrhea (last BM 10/20 per chart; on standing bowel meds); will continue to monitor GI s/sx for impact on intake. Labs reviewed: Cr 2.64 (improving), K+ 4.5 (WNL); BG 115 this AM (appropriate); will continue to monitor labs. Agree w/ liberalized diet order. Will continue to monitor and provide further nutrition intervention as indicated. Goals: Physical Therapy: Initial Goals Bed Mobility Assistance Independent Transfer Mobility Assistance Independent Transfer/Bed Mobility Rolling Walker Recommended Devices Ambulation Independent Ambulation Recommended Devices Rolling Walker Ambulation Distance 150 Stairs Assistance Independent Stair Recommended Devices One Rail Number of Stairs 5 Home Exercise Program Independent Assistance Physical Therapy: Updated Goals Transfer/Bed Mobility Rolling Walker Recommended Devices Occupational Therapy: Initial Goals Goals to be Completed in (Days 7 ) Upper Body Bathing Routine Independent Lower Body Bathing Routine Modified Independent with Upper Body Dressing Routine Independent Lower Body Dressing Routine Minimal Contact Assist Toilet Hygeine and Clothing Modified Independent with Management Routine Toilet Transfer Routine Modified Independent with Step-In Shower Transfer Supervision/Set Up Routine Functional Transfers for ADL Modified Independent with Grooming Routine Independent Feeding Routine Independent Nursing: Goals Bladder Goal independent Bowel Goal indepdent Nutrition Goal 90% of all meals consumed Medication Goal supervision Nutrition: Goals Intervention Goals 1) Adequate po intake to support lean body mass and hydration status 2) Maintain fluid/electrolyte balance w/ adequate po intake 3) Maintain bowel regularity w/ adequate po intake w/o exacerbation of diarrhea or development of constipation 4) Questions regarding nutrition education will be answered prior to d/c Social Work: Goals Discharge Plan return home with home care svs and family support Potential for Family Training pt's is involved and supportive Anticipated Discharge Home Destination Discharge With VNS, [place] and family support Care Plan: Care Plan ADL's - Improve/Maintain Start: 10/08/18 22:49 Freq: DAILY@1000 Status: Active Target: 10/24/18 Protocol: Activity Type Activity Date Activity User E-Sign Co-Sign Detail Recorded Client Recorded Date Recorded By Document 10/20/18 16:03 [id number] 10/20/18 16:03 [id number] 10/20/18 16:03 PMRU Outcome: ADL's/ADL Transfers Orders/Interventions Occupational Therapy Evaluation & Treatment Communication Tool in Patient Room Patient to receive OT 5x/wk for 60-120 Therex min/day Self Care Management Group Therapy UE/LE ADL's with Assist Yes: min A ADL Transfers with Assist Yes: mod I Toileting: Transfers,Clothing Management Yes: mod I ,Hygeine w/Assist Light Kitchen/Laundry w/Assist No Progression Toward Outcome/Goals Not Progressing Lack of Progression Comment Pt was able to minimally participate in therapy, fatigue continues to limit functional performance. DVT Prophylaxis- Improve/Maintain Start: 10/08/18 22:49 Freq: QSHIFT Status: Active Target: 10/24/18 Protocol: Activity Type Activity Date Activity User E-Sign Co-Sign Detail Recorded Client Recorded Date Recorded By Document 10/21/18 08:00 [id number] 10/21/18 09:52 [id number] 10/21/18 08:00 PMRU Outcome: DVT Prophylaxis Current DVT Outcome/Goals Remains Free of DVT Complies with DVT Prophylaxis /Treatment Demonstrates Knowledge of DVT Prevention/ Treatment Other DVT Other Outcome/Goals ame wraps bilaterally Progression Toward Outcome/Goals Progressing Discharge Planning - Improve/Maintain Start: 10/08/18 22:49 Freq: DAILY Status: Active Target: 10/24/18 Protocol: Activity Type Activity Date Activity User E-Sign Co-Sign Detail Recorded Client Recorded Date Recorded By Document 10/21/18 01:34 [id number] 10/21/18 01:35 [id number] 10/21/18 01:34 PMRU Outcome: Discharge Planning Update Patient Family No Current Discharge Planning Outcome/Goals Demonstrates Understanding of Discharge Plan Progression Toward Outcome/Goals Progressing Education-Improve/Maintain Start: 10/08/18 22:49 Freq: QSHIFT Status: Active Target: 10/24/18 Protocol: Activity Type Activity Date Activity User E-Sign Co-Sign Detail Recorded Client Recorded Date Recorded By Document 10/21/18 08:00 [id number] 10/21/18 09:52 [id number] 10/21/18 08:00 PMRU Outcome: Education Current Education Outcome/Goals Demonstrates Skills Encourage Questions Progression Toward Outcome/Goals Progressing /GI-Improve/Maintain Start: 10/08/18 22:49 Freq: QSHIFT Status: Active Target: 10/24/18 Protocol: Activity Type Activity Date Activity User E-Sign Co-Sign Detail Recorded Client Recorded Date Recorded By Document 10/21/18 08:00 [id number] 10/21/18 09:52 [id number] 10/21/18 08:00 PMRU Outcome: Genitourinary/ Gastrointestinal Current Gastrointestinal Outcome/Goals Maintain/ Achieve Bowel Regularity in Accordance with Pt's Baseline Remain Free of Emesis Prevent Constipation Laxatives as Ordered Progression Toward Outcome/Goals Progressing Current Genitourinary Outcome/Goals Maintain/ Achieve Urinary Continence Remain Free of Hospital- Acquired UTI Progression Toward Outcome/Goals Not Progressing Lack of Progression Comment helms remains in Safety- Improve/Maintain Start: 10/08/18 22:49 Freq: QSHIFT Status: Active Target: 10/24/18 Protocol: Activity Type Activity Date Activity User E-Sign Co-Sign Detail Recorded Client Recorded Date Recorded By Document 10/21/18 08:00 [id number] 10/21/18 09:52 [id number] 10/21/18 08:00 PMRU Outcome: Safety Current Safety Outcome/Goals Remain Free of Injury or Harm Cooperates with Safety Measures for Least Restrictive Environment Prevent Falls/ Injury Other Safety Outcome/Goals PA/BA on. patient makes no attempts to transfer independently. patient uses call delong appropriately Progression Toward Outcome/Goals Progressing Skin- Improve/Maintain Start: 10/08/18 22:49 Freq: QSHIFT Status: Active Target: 10/24/18 Protocol: Activity Type Activity Date Activity User E-Sign Co-Sign Detail Recorded Client Recorded Date Recorded By Document 10/21/18 08:00 [id number] 10/21/18 09:52 [id number] 10/21/18 08:00 PMRU Outcome: Skin Skin Risk Level Mild Risk Skin Orders Turn/Position q2hr While in Bed Current Skin Outcome/Goals Maintain/ Improve Skin Integrity Free from Pressure Injury Surgical Incisions Healing Progression Toward Outcome/Goals Progressing Medicine Note: Length of Stay: TBD Anticipated Discharge Destination: Home Tentative Discharge Date: [] Discharged to: TBD
[2018-10-21] MEDS ORDERED: Albuterol HFA INHALER* 8 gm MDI INH PRN (16:27)
[2018-10-21] MEDS: Ondansetron ODT TAB* 4 MG PO PRN (16:47)
--- NOTE | 2018-10-21 17:21 | PN ---
Progress Note Date of Service: 10/21/18 Note: SAULO LEAVITT was visited. Therapy notes read and reviewed. He was discussed in interdisciplinary team rounds. He is having a hard time doing therapy due to his medical problems. I think we will have to move him back to acute medical service Current Medications: Active Medications Generic Name Dose Route Start Last Admin Trade Name Freq PRN Reason Stop Dose Admin Acetaminophen 650 mg 10/08/18 12:06 Tylenol Tab* PO Q6H PRN FEVER/PAIN Hydrocodone Bitart/Acetaminophen 1 tab 10/15/18 20:17 10/17/18 21:32 [place] 5-325 Tab* PO 1 tab Q4H PRN Administration PAIN - SEVERE Albuterol 2 puff 10/21/18 16:27 10/21/18 16:38 Ventolin Hfa Inhaler* INH 2 puff Q6H PRN Administration SOB/WHEEZING Alprazolam 0.25 mg 10/20/18 12:05 10/21/18 11:22 Xanax Tab* PO 0.25 mg Q8H PRN Administration ANXIETY Calcium Carbonate 500 mg 10/09/18 17:13 10/18/18 12:51 Tums* PO 500 mg Q4H PRN Administration DYSPEPSIA Diltiazem HCl 240 mg 10/09/18 09:00 10/21/18 09:28 Cardizem Cd Cap* PO 240 mg DAILY DEBBIE Administration Docusate Sodium 100 mg 10/16/18 19:40 Colace Cap* PO BID PRN CONSTIPATION Ferrous Gluconate 324 mg 10/09/18 09:00 10/21/18 09:28 Fergon Tab* PO 324 mg DAILY DEBBIE Administration Furosemide 40 mg 10/17/18 09:00 10/21/18 09:28 Lasix Tab* PO 40 mg DAILY DEBBIE Administration Hydrocortisone 1 applic 10/09/18 21:00 10/21/18 09:29 Hytone Cream 1%* TOPICAL Not Given BID DEBBIE Cefazolin Sodium 1 gm/ Sodium 50 mls @ 200 mls/hr 10/08/18 22:00 10/21/18 10: 43 Chloride IVPB 200 mls/hr Q12H DEBBIE Administration Iron Sucrose 200 mg/ Sodium 110 mls @ 110 mls/hr 10/17/18 15:00 10/21/18 09: 33 Chloride IVPB 10/23/18 14:59 110 mls/hr Q48HR DEBBIE Administration Lactobacillus Rhamnosus 1 tab 10/15/18 21:00 10/21/18 09:28 Lactobacillus Acidophilus* PO 1 tab BID DEBBIE Administration Latanoprost 1 drop 10/08/18 18:00 10/20/18 17:45 Xalatan 0.005%* BOTH EYES 1 drop QPM DEBBIE Administration Magnesium Hydroxide 30 ml 10/08/18 12:06 Milk Of Magnesia Liq* PO Q6H PRN CONSTIPATION Ondansetron HCl 4 mg 10/14/18 15:39 10/21/18 16:47 Zofran Odt Tab* PO 4 mg Q8H PRN Administration NAUSEA/VOMITING Pantoprazole Sodium 40 mg 10/17/18 21:00 10/21/18 09:28 Protonix Tab* PO 40 mg BID DEBBIE Administration Rifampin 300 mg 10/08/18 21:00 10/21/18 09:28 Rifampin Cap* PO 300 mg BID DEBBIE Administration Senna 2 tab 10/08/18 12:06 Senokot Tab* PO BEDTIME PRN CONSTIPATION Tamsulosin HCl 0.4 mg 10/09/18 21:00 10/20/18 20:49 Flomax Cap* PO 0.4 mg BEDTIME DEBBIE Administration Tramadol HCl 50 mg 10/09/18 17:35 10/18/18 16:15 Ultram* PO 50 mg Q12H PRN Administration PAIN - MODERATE Warfarin Sodium 5 mg 10/13/18 17:00 10/20/18 17:44 Coumadin Tab(*) PO 5 mg DAILY@1700 DEBBIE Administration Protocol Vital Signs: Vital Signs Temp Pulse Resp BP Pulse Ox 98.1 F 86 26 152/85 99 10/21/18 15:58 10/21/18 15:58 10/21/18 16:39 10/21/18 15:58 10/21/18 16:39 Exam: GENERAL: No acute distress. Alert and appropriate LUNGS: Clear to auscultation bilaterally HEART: Regular rate and rhythm (has h/o A.Fib) ABDOMEN: Soft, + bowel sounds, non-tender, non-distended : Scrotal and penile edema EXTREMITIES: BLE edema. NEUROLOGIC: Sensation intact. Motor 5/5 BUE and RLE; 4/5 LLE due to pain Assessment/Plan: 1. Infected left ZEKE, S/P I&D, washout: IV Cefazolin, renal dosing. Rifampin. PT /OT 2. Atrial Fibrillation: Cardizem/Coumadin. warfarin increased to 5. INR 1.9, checking QMWF. Can't have Eliquis due to Rifampin 3. Acute Renal Failure: Cr better 2.64. Dr. Soto following. Recheck Saturday 4. Analgesia: tramadol prn, hydrocodone prn. 5. BPH: Had 2 traumatic helms insertion attempts before current helms. Started Flomax 10/09 6. Scrotal/Penile/BLE edema: Started Lasix, diuresing. Elevate scrotum. REBECCA wrap legs 7. DVT Prophylaxis: Coumadin 8. GERD: Pantoprazole. TUMS. 9. Anemia: Transfused 1 unit today for Hb 6.9 Iron supplements. Got EPO, GI did not think he needed scoping. Will check how long he needs IV iron 10. Nausea: likely from chronic antibiotics, ernesto Rifampin. Zofran 11. Advance Directives: Full code. is surrogate decision maker 12. Estimated LOS: may need to go [facility] 10/21/18 17:21
[2018-10-21] MEDS: Latanoprost 0.005%* 2.5 ml BTL BOTH EYES SCH (17:37)
[2018-10-21] MEDS: Warfarin TAB(*) 5 MG PO SCH (17:37)
[2018-10-21] MEDS: Tamsulosin CAP* 0.4 MG PO SCH (20:39)
[2018-10-22] MEDS: Hydrocortisone 1% CREAM* 30 GM TUBE TOPICAL SCH ×2 (06:05→20:48)
[2018-10-22 07:30] LABS: INR 2.43 (0.82-1.09)
[2018-10-22] MEDS: Diltiazem CD CAP* 240 MG PO SCH (07:46)
[2018-10-22] MEDS: Pantoprazole TAB * 40 MG TAB PO SCH ×2 (07:46→20:41)
[2018-10-22] MEDS: Lactobacillus Acidophilus* 1 TAB PO SCH ×2 (07:46→20:41)
[2018-10-22] MEDS: Furosemide TAB* 40 MG PO SCH (07:46)
[2018-10-22] MEDS: Ferrous Gluconate TAB* 324 MG TAB PO SCH (07:46)
[2018-10-22] MEDS: RiFAMPin CAP* 300 MG CAP PO SCH ×2 (07:46→20:41)
[2018-10-22] MEDS: ceFAZolin 1 GM ADVAN(*) 1 GM in NS 0.9% 50 ML* 50 ML IVPB SCH ×2 (11:40→21:43)
[2018-10-22 16:26] VITALS: BP 141/60
[2018-10-22] MEDS: Latanoprost 0.005%* 2.5 ml BTL BOTH EYES SCH (17:53)
[2018-10-22] MEDS: Warfarin TAB(*) 5 MG PO SCH (17:55)
[2018-10-22] MEDS ORDERED: Warfarin TAB(*) 4 MG PO ONE (18:00)
--- NOTE | 2018-10-22 19:12 | PN ---
Progress Note Date of Service: 10/22/18 Note: SAULO LEAVITT was visited. Therapy notes read and reviewed. He will be transferred to acute medical service as his nausea is preventing him from doing 3 hours of therapy a day. Current Medications: Active Medications Generic Name Dose Route Start Last Admin Trade Name Freq PRN Reason Stop Dose Admin Acetaminophen 650 mg 10/08/18 12:06 Tylenol Tab* PO Q6H PRN FEVER/PAIN Hydrocodone Bitart/Acetaminophen 1 tab 10/15/18 20:17 10/17/18 21:32 [place] 5-325 Tab* PO 1 tab Q4H PRN Administration PAIN - SEVERE Albuterol 2 puff 10/21/18 16:27 10/21/18 16:38 Ventolin Hfa Inhaler* INH 2 puff Q6H PRN Administration SOB/WHEEZING Alprazolam 0.25 mg 10/20/18 12:05 10/21/18 22:09 Xanax Tab* PO 0.25 mg Q8H PRN Administration ANXIETY Calcium Carbonate 500 mg 10/09/18 17:13 10/18/18 12:51 Tums* PO 500 mg Q4H PRN Administration DYSPEPSIA Diltiazem HCl 240 mg 10/09/18 09:00 10/22/18 07:46 Cardizem Cd Cap* PO 240 mg DAILY DEBBIE Administration Docusate Sodium 100 mg 10/16/18 19:40 Colace Cap* PO BID PRN CONSTIPATION Ferrous Gluconate 324 mg 10/09/18 09:00 10/22/18 07:46 Fergon Tab* PO 324 mg DAILY DEBBIE Administration Furosemide 40 mg 10/17/18 09:00 10/22/18 07:46 Lasix Tab* PO 40 mg DAILY DEBBIE Administration Hydrocortisone 1 applic 10/09/18 21:00 10/22/18 06:05 Hytone Cream 1%* TOPICAL 1 applic BID DEBBIE Administration Cefazolin Sodium 1 gm/ Sodium 50 mls @ 200 mls/hr 10/08/18 22:00 10/22/18 11: 40 Chloride IVPB 200 mls/hr Q12H DEBBIE Administration Iron Sucrose 200 mg/ Sodium 110 mls @ 110 mls/hr 10/17/18 15:00 10/21/18 09: 33 Chloride IVPB 10/23/18 14:59 110 mls/hr Q48HR DEBBIE Administration Lactobacillus Rhamnosus 1 tab 10/15/18 21:00 10/22/18 07:46 Lactobacillus Acidophilus* PO 1 tab BID DEBBIE Administration Latanoprost 1 drop 10/08/18 18:00 10/22/18 17:53 Xalatan 0.005%* BOTH EYES 1 drop QPM DEBBIE Administration Magnesium Hydroxide 30 ml 10/08/18 12:06 Milk Of Magnesia Liq* PO Q6H PRN CONSTIPATION Ondansetron HCl 4 mg 10/14/18 15:39 10/21/18 16:47 Zofran Odt Tab* PO 4 mg Q8H PRN Administration NAUSEA/VOMITING Pantoprazole Sodium 40 mg 10/17/18 21:00 10/22/18 07:46 Protonix Tab* PO 40 mg BID DEBBIE Administration Rifampin 300 mg 10/08/18 21:00 10/22/18 07:46 Rifampin Cap* PO 300 mg BID DEBBIE Administration Senna 2 tab 10/08/18 12:06 Senokot Tab* PO BEDTIME PRN CONSTIPATION Tamsulosin HCl 0.4 mg 10/09/18 21:00 10/21/18 20:39 Flomax Cap* PO 0.4 mg BEDTIME DEBBIE Administration Tramadol HCl 50 mg 10/09/18 17:35 10/18/18 16:15 Ultram* PO 50 mg Q12H PRN Administration PAIN - MODERATE Vital Signs: Vital Signs Temp Pulse Resp BP Pulse Ox 98.1 F 84 32 141/60 91 10/22/18 16:25 10/22/18 16:25 10/22/18 16:25 10/22/18 16:25 10/22/18 17:37 Lab Results: Laboratory Results - last 24 hr 10/20/18 10/22/18 05:26 06:57 Haptoglobin 162 INR (Anticoag Therapy) 2.43 H Exam: GENERAL: No acute distress. Alert and appropriate LUNGS: Clear to auscultation bilaterally HEART: Regular rate and rhythm (has h/o A.Fib) ABDOMEN: Soft, + bowel sounds, non-tender, non-distended : Scrotal and penile edema EXTREMITIES: BLE edema. NEUROLOGIC: Sensation intact. Motor 5/5 BUE and RLE; 4/5 LLE due to pain Assessment/Plan: 1. Infected left ZEKE, S/P I&D, washout: IV Cefazolin, renal dosing. Rifampin. PT /OT 2. Atrial Fibrillation: Cardizem/Coumadin. warfarin decreased to 4. INR 2.45, checking QMWF. Can't have Eliquis due to Rifampin 3. Acute Renal Failure: Cr better 2.64. Dr. Soto following. Recheck Saturday 4. Analgesia: tramadol prn, hydrocodone prn. 5. BPH: Had 2 traumatic helms insertion attempts before current helms. Started Flomax 10/09 6. Scrotal/Penile/BLE edema: Started Lasix, diuresing. Elevate scrotum. REBECCA wrap legs 7. DVT Prophylaxis: Coumadin 8. GERD: Pantoprazole. TUMS. 9. Anemia: Transfused for Hb 6.9 Iron supplements. Got EPO, GI did not think he needed scoping. Will check how long he needs IV iron 10. Nausea: likely from chronic antibiotics, ernesto Rifampin. Zofran 11. Advance Directives: Full code. is surrogate decision maker 12. Estimated LOS: may need to go to acute hospital 10/22/18 19:13
[2018-10-22 19:37] LABS: ABS Basophils 0.1 10^3/ul (0-0.2); ABS Eosinophils 0.4 10^3/ul (0-0.6); ABS Lymphocytes 1.2 10^3/ul (1.0-4.8); ABS Monocytes 1.2 10^3/ul (0-0.8); ABS Neutrophils 6.2 10^3/ul (1.5-7.7); Eosinophil % 4.8 %; Hematocrit 24 % (42-52); Hemoglobin 7.9 g/dL (14.0-18.0); Lymphocyte % 13.5 %; Mean Corpuscular HGB Conc 34 g/dL (31-36); Mean Corpuscular Hemoglobin 32 pg (27-31); Mean Corpuscular Volume 94 fL (80-94); Mean Platelet Volume 7.2 fL (7.4-10.4); Platelet Count 262 10^3/uL (150-450); Red Blood Count 2.48 10^6 /uL (4.18-5.48); Red Cell Distribution Width 17 % (10-15); White Blood Count 9.1 10^3/uL (3.5-10.8)
[2018-10-22 20:04] LABS: ALT < 3 U/L (7-52); AST 43 U/L (13-39); Albumin 2.7 g/dL (3.2-5.2); Albumin/Globulin Ratio 0.7 (1-3); Alkaline Phosphatase 160 U/L (34-104); Anion Gap 8 mmol/L (2-11); Blood Urea Nitrogen 45 mg/dL (6-24); CO2 Carbon Dioxide 27 mmol/L (22-32); Calcium 8.6 mg/dL (8.6-10.3); Chloride 105 mmol/L (101-111); EGFR African American 32.5 (>60); EGFR Non-African American 26.8 (>60); Globulin 3.9 g/dL (2-4); Glucose 126 mg/dL (70-100); Potassium 4.4 mmol/L (3.5-5.0); Sodium 140 mmol/L (135-145); Total Protein 6.6 g/dL (6.4-8.9)
[2018-10-22] MEDS: Tamsulosin CAP* 0.4 MG PO SCH (20:41)
[2018-10-22] MEDS: Ondansetron ODT TAB* 4 MG PO PRN (20:50)
[2018-10-23] MEDS ORDERED: Warfarin TAB(*) 4 MG PO SCH (17:00)
--- NOTE | 2018-11-05 20:59 | DS ---
DISCHARGE SUMMARY: DATE OF ADMISSION: 10/08/18 DATE OF DISCHARGE: 10/22/18 DISCHARGE DIAGNOSES: 1. Infected left total hip replacement, status post I and D and wash out. 2. Atrial fibrillation. 3. Acute renal failure. 4. Prostatic hypertrophy. 5. Scrotal and penile edema with lower extremity edema. 6. Gastroesophageal reflux disease. 7. Acute blood loss anemia. 8. Anorexia. HISTORY OF PRESENT ILLNESS/HOSPITAL COURSE: For complete history of the events leading up to his rehab stay, please see the history and physical dictated by me on 10/08/18. While on the rehab unit, the patient had a lot of difficulty with his appetite. He was maintained on IV antibiotics as well as oral rifampin. His BUN and creatinine slowly improved. He did have followup by the nephrology team and Dr. Soto. Dr. Soto saw the patient 10/16/18 and felt that the patient could restart oral diuretics. The patient's BUN and creatinine continued to fall and he did seem to have his edema slowly improved. The patient was transfused twice for acute drops in his hemoglobin. It was unclear if he was losing blood or if he was not producing blood. He was given a shot of Epogen with no real improvement in his H and H. A GI consult was done. Dr. Taylor from the gastroenterology service saw the patient and did say that the patient had a workup for anemia in 2016 and had a upper endoscopy revealing gastritis and a small bowel capsule endoscopy, which showed multiple small bowel AVMs. Dr. Taylor recommended continuing the patient on twice daily proton pump inhibitors and LDH was normal and the patient did have a workup for possible hemolytic anemia, which can be from rifampin, but this did not prove to be the source of his anemia. The patient continued to have difficulty participating in rehab both from fatigue and from pain. A hospitalist consult was obtained. Ultimately on 10/22/18 it was decided to transfer the patient back to the acute medical service to work up the cause of his anemia as well as a rising bilirubin and continue to treat him with antibiotics. Discharge diet was regular. DISCHARGE MEDICATIONS: Included: 1. Tylenol 650 mg every 6 hours as needed. 2. [place] 5/325 1 tablet every 4 hours as needed. 3. Ventolin inhaler 2 puffs every 6 hours as needed. 4. Xanax 0.25 mg every 8 hours as needed. 5. Cardizem CD 240 mg daily. 6. Fergon 324 mg orally daily. 7. Lasix 40 mg daily. 8. IV cefazolin 1 g every 12 hours. 9. Lactobacillus 1 tablet twice daily. 10. Xalatan eyedrops 1 drop to both eyes in the evening. 11. Protonix 40 mg twice daily. 12. Rifampin 300 mg twice daily. 13. Flomax 0.4 mg at bedtime. 14. Tramadol 50 mg every 12 hours as needed. CONDITION AT DISCHARGE: Guarded. TIME SPENT: Time for this discharge was approximately 30 minutes including discussing the patient with the hospitalist team. [id number]/[facility] #: [id number] [place]
== END 2018-10-22 22:30 | disposition short-term general hospital (02) | DRG 862 ==
LOC: PMRU 11:27
PROVIDERS: ADMIT Physical Medicine & Rehabilitation; ATTEND Physical Medicine & Rehabilitation
PROC: F07Z5ZZ Bed Mobility Treatment (ICD-10-PCS; 2018-10-08)
PROC: F07Z9ZZ Gait Training/Functional Ambulation Treatment (ICD-10-PCS; 2018-10-08)
PROC: F07Z8ZZ Transfer Training Treatment (ICD-10-PCS; 2018-10-08)
PROC: F08Z0ZZ Bathing/Showering Techniques Treatment (ICD-10-PCS; 2018-10-08)
PROC: F08Z1ZZ Dressing Techniques Treatment (ICD-10-PCS; 2018-10-08)
PROC: F08Z3ZZ Feeding/Eating Treatment (ICD-10-PCS; 2018-10-08)
PROC: 30233N1 Transfusion of Nonautologous Red Blood Cells into Peripheral Vein, Percutaneous Approach (ICD-10-PCS; principal; 2018-10-13)
DX: Z48.817 Encounter for surgical aftercare following surgery on the skin and subcutaneous tissue (principal); N17.0 Acute kidney failure with tubular necrosis; I33.0 Acute and subacute infective endocarditis; T84.52XD Infection and inflammatory reaction due to internal left hip prosthesis, subsequent encounter; W17.89XD Other fall from one level to another, subsequent encounter; B95.61 Methicillin susceptible Staphylococcus aureus infection as the cause of diseases classified elsewhere; I48.91 Unspecified atrial fibrillation; I10 Essential (primary) hypertension; K21.9 Gastro-esophageal reflux disease without esophagitis; G89.29 Other chronic pain; Z96.652 Presence of left artificial knee joint; Z96.643 Presence of artificial hip joint, bilateral; N50.89 Other specified disorders of the male genital organs; E87.70 Fluid overload, unspecified; N40.0 Benign prostatic hyperplasia without lower urinary tract symptoms; D64.9 Anemia, unspecified; R11.0 Nausea; Z79.899 Other long term (current) drug therapy
CPT/HCPCS: 36415; 80048; 80053; 82270; 82570; 82728; 83010; 83540; 83550; 83615; 84156; 85014; 85018; 85025; 85049; 85610; 86140; 86850; 86900; 86901; 86922; A9270-GY; J0690; J1756; P9040; Q5106

== ENCOUNTER 2021-03-26 09:11 | Inpatient (IN) ==
[2021-03-26] MEDS ORDERED: Lactated Ringers 1000 ml BAG 1,000 ML IV ONE (09:23)
[2021-03-26] MEDS ORDERED: Ondansetron 4 mg VIAL 2 MG/ML 2 ml VIAL IV ONE (09:46)
[2021-03-26] MEDS ORDERED: Morphine 4 MG/ML VIAL (1 ml) IV ONE (09:47)
[2021-03-26 10:35] LABS: Hematocrit 24 % (42-52); Hemoglobin 7.9 g/dL (14.0-18.0); Red Blood Count 2.54 10^6 /uL (4.18-5.48); White Blood Count 1.7 10^3/uL (3.5-10.8)
[2021-03-26 10:36] LABS: Mean Corpuscular HGB Conc 34 g/dL (31-36); Mean Corpuscular Hemoglobin 31 pg (27-31); Mean Corpuscular Volume 92 fL (80-94); Platelet Count 116 10^3/uL (150-450); Red Cell Distribution Width 16 % (10-15)
[2021-03-26 10:51] LABS: Rapid COVID-19 Molecular Undetected (Undetected)
[2021-03-26 11:12] LABS: Albumin 3.1 g/dL (3.2-5.2); Albumin/Globulin Ratio 1.4 (1-3); Globulin 2.2 g/dL (2-4); Magnesium 1.7 mg/dL (1.9-2.7); Potassium 4.1 mmol/L (3.5-5.0); Total Bilirubin 0.7 mg/dL (0.2-1.0); Total Protein 5.3 g/dL (6.4-8.9); eGFR CKD-EPI 33.9 (>60)
[2021-03-26 11:25] LABS: ABS Lymphocytes 0.1 10^3/ul (1.0-4.8); ABS Monocytes 0.2 10^3/ul (0-0.8); ABS Neutrophils 1.3 10^3/ul (1.5-7.7); Eosinophil % 1.8 %; Lymphocyte % 8.2 %; Nucleated Red Blood Cells % 0.7
[2021-03-26] MEDS ORDERED: Magnesium Sulfate 2 gm BAG 2 GM/50 ML BAG IVPB ONE (11:33)
[2021-03-26] MEDS ORDERED: Piperacillin/Tazobac ADVAN 3.375 GM in NS 0.9% 100 ml BAG 100 ML IV ONE (13:48)
[2021-03-26] MEDS ORDERED: Zosyn per Pharmacy NOTE FOLLOW UP SCH (14:00)
[2021-03-26] MEDS ORDERED: Enoxaparin 40 MG/0.4 ML SYR SUBCUT SCH (14:00)
[2021-03-26 14:11] LABS: C Reactive Protein 72.44 mg/L (<8.01)
[2021-03-26 14:44] LABS: Urine Appearance Cloudy; Urine Bilirubin Negative (Negative); Urine Blood 1+ (Negative); Urine Color Yellow; Urine Glucose 1+(50 mg/dL) (Negative); Urine Ketones Trace (Negative); Urine Nitrite Negative (Negative); Urine Protein 3+(>=500 mg/dL) (Negative); Urine Specific Gravity 1.016 (1.002-1.030); Urine Urobilinogen Negative (Negative)
[2021-03-26] MEDS ORDERED: Albuterol HFA INHALER 8 gm MDI INH PRN (14:47)
[2021-03-26 15:20] LABS: Urine Amorphous Crystals Present (Absent); Urine Bacteria 1+ (Absent); Urine Red Blood Cell Trace(0-2/hpf) (Absent); Urine Squamous Epithelial Cell Present (Absent); Urine White Blood Cell Trace(0-5/hpf) (Absent)
[2021-03-26 15:24] LABS: INR 1.21 (0.86-1.15)
[2021-03-26] MEDS ORDERED: Fluticasone NASAL SPRAY 50MCG 16 gm SPRAY BTL BOTH NARES PRN (16:01)
[2021-03-26] MEDS ORDERED: Dextrose 50% Syringe 50 ml 25 GM/50 ML SYRINGE IV PUSH PRN (16:09)
[2021-03-26] MEDS: Psyllium PAK PO SCH (18:58)
[2021-03-26] MEDS ORDERED: ZOSYN 3.375 GM Q8H per EXTENDED INFUSION IV SCH (20:00)
[2021-03-27] MEDS: LATANOPROST BOTH EYES SCH ×2 (00:54→21:40)
[2021-03-27] MEDS: NETARSUDIL BOTH EYES SCH ×2 (00:54→21:40)
[2021-03-27] MEDS: ZOSYN 3.375 GM Q8H per EXTENDED INFUSION IV SCH ×2 (10:07→18:18)
[2021-03-27] MEDS: Psyllium PAK PO SCH (10:18)
[2021-03-27] MEDS ORDERED: DARIFENACIN 7.5 MG PO SCH (12:00)
[2021-03-27] MEDS: DARIFENACIN 7.5 MG PO SCH (12:44)
[2021-03-27] MEDS: NS 0.9% 1000 ml BAG 1,000 ML IV SCH (21:19)
[2021-03-28] MEDS: ZOSYN 3.375 GM Q8H per EXTENDED INFUSION IV SCH ×3 (01:00→19:50)
[2021-03-28 07:25] LABS: Hematocrit 24 % (42-52); Hemoglobin 8.1 g/dL (14.0-18.0); Mean Corpuscular HGB Conc 34 g/dL (31-36); Mean Corpuscular Hemoglobin 31 pg (27-31); Mean Corpuscular Volume 92 fL (80-94); Mean Platelet Volume 7.2 fL (7.4-10.4); Platelet Count 94 10^3/uL (150-450); Red Cell Distribution Width 16 % (10-15); White Blood Count 1.9 10^3/uL (3.5-10.8)
[2021-03-28 07:40] LABS: Calcium 7.5 mg/dL (8.6-10.3); Potassium 3.8 mmol/L (3.5-5.0); eGFR CKD-EPI 34.6 (>60)
[2021-03-28 08:36] LABS: Anisocytosis 1+
[2021-03-28 08:37] LABS: ABS Lymphocytes 0.3 10^3/ul (1.0-4.8); ABS Monocytes 0.5 10^3/ul (0-0.8); ABS Neutrophils 1.1 10^3/ul (1.5-7.7); Eosinophil % 2.1 %; Lymphocyte % 15.8 %; Nucleated Red Blood Cells % 0.7
[2021-03-28] MEDS: Psyllium PAK PO SCH (09:48)
[2021-03-28] MEDS: DARIFENACIN 7.5 MG PO SCH (11:54)
[2021-03-28] MEDS: methylPREDNISolone 125 mg 2 ML VIAL IV SCH (11:56)
[2021-03-28] MEDS: NS 0.9% 1000 ml BAG 1,000 ML IV SCH (16:03)
[2021-03-28] MEDS: LATANOPROST BOTH EYES SCH (19:50)
[2021-03-28] MEDS: NETARSUDIL BOTH EYES SCH (19:50)
[2021-03-28] MEDS ORDERED: Ondansetron 4 mg VIAL 2 MG/ML 2 ml VIAL IV PRN (20:11)
[2021-03-29] MEDS: ZOSYN 3.375 GM Q8H per EXTENDED INFUSION IV SCH ×2 (02:19→08:24)
[2021-03-29 06:13] LABS: Hematocrit 23 % (42-52); Hemoglobin 7.9 g/dL (14.0-18.0); Mean Corpuscular HGB Conc 34 g/dL (31-36); Mean Corpuscular Hemoglobin 31 pg (27-31); Mean Corpuscular Volume 92 fL (80-94); Mean Platelet Volume 7.2 fL (7.4-10.4); Platelet Count 100 10^3/uL (150-450); Red Blood Count 2.53 10^6 /uL (4.18-5.48); Red Cell Distribution Width 16 % (10-15); White Blood Count 2.2 10^3/uL (3.5-10.8)
[2021-03-29 06:14] LABS: ABS Lymphocytes 0.2 10^3/ul (1.0-4.8); ABS Monocytes 0.3 10^3/ul (0-0.8); ABS Neutrophils 1.7 10^3/ul (1.5-7.7); Lymphocyte % 9.9 %; Nucleated Red Blood Cells % 0.2
[2021-03-29 06:27] LABS: Calcium 7.5 mg/dL (8.6-10.3); Magnesium 1.8 mg/dL (1.9-2.7); Potassium 3.9 mmol/L (3.5-5.0); eGFR CKD-EPI 30.7 (>60)
[2021-03-29] MEDS: Psyllium PAK PO SCH (08:22)
[2021-03-29] MEDS: methylPREDNISolone 125 mg 2 ML VIAL IV SCH (08:22)
[2021-03-29] MEDS: DARIFENACIN 7.5 MG PO SCH (12:49)
[2021-03-29] MEDS: LATANOPROST BOTH EYES SCH ×2 (19:48→20:03)
[2021-03-29] MEDS: NETARSUDIL BOTH EYES SCH ×2 (19:48→20:03)
[2021-03-30 05:36] LABS: Hematocrit 23 % (42-52); Hemoglobin 7.8 g/dL (14.0-18.0); Mean Corpuscular HGB Conc 34 g/dL (31-36); Mean Corpuscular Hemoglobin 31 pg (27-31); Mean Corpuscular Volume 92 fL (80-94); Mean Platelet Volume 7.3 fL (7.4-10.4); Platelet Count 100 10^3/uL (150-450); Red Blood Count 2.52 10^6 /uL (4.18-5.48); Red Cell Distribution Width 16 % (10-15); White Blood Count 2.9 10^3/uL (3.5-10.8)
[2021-03-30 05:46] LABS: ABS Lymphocytes 0.2 10^3/ul (1.0-4.8); ABS Monocytes 0.5 10^3/ul (0-0.8); ABS Neutrophils 2.2 10^3/ul (1.5-7.7); Lymphocyte % 6.3 %; Nucleated Red Blood Cells % 0.2
[2021-03-30 05:57] LABS: Albumin/Globulin Ratio 1.4 (1-3); Calcium 7.9 mg/dL (8.6-10.3); Globulin 2.1 g/dL (2-4); Magnesium 1.8 mg/dL (1.9-2.7); Potassium 4.2 mmol/L (3.5-5.0); Total Bilirubin 0.3 mg/dL (0.2-1.0); Total Protein 5.1 g/dL (6.4-8.9); eGFR CKD-EPI 28.8 (>60)
[2021-03-30] MEDS ORDERED: Magnesium Sulfate 2 gm BAG 2 GM/50 ML BAG IVPB ONE (08:32)
[2021-03-30] MEDS: methylPREDNISolone 125 mg 2 ML VIAL IV SCH (10:15)
[2021-03-30] MEDS: DARIFENACIN 7.5 MG PO SCH (13:10)
[2021-03-30] MEDS: NETARSUDIL BOTH EYES SCH (21:53)
[2021-03-30] MEDS: LATANOPROST BOTH EYES SCH (21:53)
[2021-03-31 07:50] LABS: Hematocrit 27 % (42-52); Mean Corpuscular HGB Conc 34 g/dL (31-36); Mean Corpuscular Hemoglobin 31 pg (27-31); Mean Corpuscular Volume 92 fL (80-94); Mean Platelet Volume 6.9 fL (7.4-10.4); Platelet Count 118 10^3/uL (150-450); Red Blood Count 2.89 10^6 /uL (4.18-5.48); Red Cell Distribution Width 17 % (10-15)
[2021-03-31 08:06] LABS: Calcium 8.3 mg/dL (8.6-10.3); Magnesium 2.3 mg/dL (1.9-2.7); Potassium 3.9 mmol/L (3.5-5.0); eGFR CKD-EPI 29.9 (>60)
[2021-03-31 08:34] LABS: ABS Lymphocytes 0.2 10^3/ul (1.0-4.8); ABS Monocytes 0.6 10^3/ul (0-0.8); ABS Neutrophils 3.2 10^3/ul (1.5-7.7); Lymphocyte % 5.1 %
[2021-03-31 08:37] LABS: Anisocytosis 1+
[2021-03-31] MEDS: methylPREDNISolone 125 mg 2 ML VIAL IV SCH (09:59)
[2021-03-31] MEDS: DARIFENACIN 7.5 MG PO SCH (12:22)
[2021-03-31 16:23] VITALS: BP 154/52
[2021-03-31 20:41] LABS: Calprotectin 658 mcg/g
== END 2021-03-31 16:50 | disposition home or self-care (01) | DRG 249 ==
LOC: ED 09:11 → SUATTDRO 13:54 → EDHOLD 13:54 → MEDTELE 17:21
PROVIDERS: ADMIT Internal Medicine; ATTEND Hospitalist

== ENCOUNTER 2021-04-18 12:51 | Inpatient (IN) ==
[2021-04-18] MEDS ORDERED: cefTRIAXone 1 gm/50 mL NS BAG 1 GM/50 ML BAG IVPB SCH (17:00)
[2021-04-18] MEDS ORDERED: Piperacillin/Tazobac ADVAN 3.375 GM in NS 0.9% 100 ml BAG 100 ML IV ONE (17:09)
[2021-04-18] MEDS ORDERED: Zosyn per Pharmacy NOTE FOLLOW UP SCH (18:00)
[2021-04-18] MEDS: Enoxaparin 100 MG/ML SYR SUBCUT SCH (20:40)
[2021-04-18] MEDS: ZOSYN 3.375 GM Q8H per EXTENDED INFUSION IV SCH (23:50)
[2021-04-19 08:37] LABS: Hematocrit 24 % (42-52); Hemoglobin 8.3 g/dL (14.0-18.0); Mean Corpuscular HGB Conc 34 g/dL (31-36); Mean Corpuscular Hemoglobin 31 pg (27-31); Mean Corpuscular Volume 92 fL (80-94); Platelet Count 30 10^3/uL (150-450); Red Blood Count 2.64 10^6 /uL (4.18-5.48); Red Cell Distribution Width 19 % (10-15); White Blood Count 1.9 10^3/uL (3.5-10.8)
[2021-04-19] MEDS ORDERED: LATANOPROST BOTH EYES SCH (09:00)
[2021-04-19] MEDS ORDERED: NETARSUDIL BOTH EYES SCH (09:00)
[2021-04-19] MEDS: ZOSYN 3.375 GM Q8H per EXTENDED INFUSION IV SCH ×2 (09:21→16:51)
[2021-04-19 09:23] LABS: ABS Lymphocytes 0.1 10^3/ul (1.0-4.8); ABS Monocytes 0.1 10^3/ul (0-0.8); ABS Neutrophils 1.7 10^3/ul (1.5-7.7); Eosinophil % 0.1 %; Lymphocyte % 3.2 %; Nucleated Red Blood Cells % 0.2
[2021-04-19 09:27] LABS: Potassium 4.9 mmol/L (3.5-5.0)
[2021-04-19] MEDS ORDERED: Buffered Lidocaine 1% SYRIN 1 ml INTRADERM ONE (11:13)
[2021-04-19 12:26] LABS: Albumin 2.3 g/dL (3.2-5.2)
[2021-04-19 12:28] LABS: Calcium 7.7 mg/dL (8.6-10.3); Total Bilirubin 0.6 mg/dL (0.2-1.0)
[2021-04-19 12:32] LABS: Albumin/Globulin Ratio 1.4 (1-3); Globulin 1.7 g/dL (2-4); eGFR CKD-EPI 24.1 (>60)
[2021-04-19] MEDS: DARIFENACIN 7.5 MG PO SCH (16:53)
[2021-04-19] MEDS ORDERED: Furosemide 20 mg/2 ml IV VIAL IV STA (19:00)
[2021-04-19] MEDS ORDERED: Furosemide 20 mg/2 ml IV VIAL IV ONE (20:00)
[2021-04-19] MEDS: Enoxaparin 100 MG/ML SYR SUBCUT SCH (20:44)
[2021-04-19] MEDS: NETARSUDIL BOTH EYES SCH (22:08)
[2021-04-19] MEDS: LATANOPROST BOTH EYES SCH (22:08)
[2021-04-20] MEDS: ZOSYN 3.375 GM Q8H per EXTENDED INFUSION IV SCH ×2 (00:06→08:15)
[2021-04-20 06:38] LABS: Potassium 4.8 mmol/L (3.5-5.0)
[2021-04-20 06:39] LABS: Albumin 2.3 g/dL (3.2-5.2); Albumin/Globulin Ratio 1.2 (1-3); Calcium 7.6 mg/dL (8.6-10.3); Total Bilirubin 0.5 mg/dL (0.2-1.0); Total Protein 4.3 g/dL (6.4-8.9); eGFR CKD-EPI 21.6 (>60)
[2021-04-20 07:02] LABS: ABS Lymphocytes 0.1 10^3/ul (1.0-4.8); ABS Monocytes 0.1 10^3/ul (0-0.8); Eosinophil % 0.1 %; Hematocrit 23 % (42-52); Hemoglobin 7.7 g/dL (14.0-18.0); Lymphocyte % 7.2 %; Mean Corpuscular HGB Conc 33 g/dL (31-36); Mean Corpuscular Hemoglobin 31 pg (27-31); Mean Corpuscular Volume 94 fL (80-94); Mean Platelet Volume 9.8 fL (7.4-10.4); Nucleated Red Blood Cells % 0.6; Platelet Count 25 10^3/uL (150-450); Red Cell Distribution Width 19 % (10-15); White Blood Count 1.2 10^3/uL (3.5-10.8)
[2021-04-20] MEDS ORDERED: Furosemide 20 mg/2 ml IV VIAL IV ONE (08:00)
[2021-04-20] MEDS: Furosemide 20 mg/2 ml IV VIAL IV SCH (08:15)
[2021-04-20] MEDS: Hydrocortisone ENEMA 100 MG BTL PR SCH (12:23)
[2021-04-20] MEDS: DARIFENACIN 7.5 MG PO SCH (12:41)
[2021-04-20 13:42] LABS: Hematocrit 24 % (42-52); Hemoglobin 7.8 g/dL (14.0-18.0); Mean Corpuscular HGB Conc 33 g/dL (31-36); Mean Corpuscular Hemoglobin 31 pg (27-31); Mean Corpuscular Volume 94 fL (80-94); Platelet Count 29 10^3/uL (150-450); Red Blood Count 2.51 10^6 /uL (4.18-5.48); Red Cell Distribution Width 19 % (10-15); White Blood Count 1.2 10^3/uL (3.5-10.8)
[2021-04-20 14:02] LABS: ABS Lymphocytes 0.1 10^3/ul (1.0-4.8); ABS Monocytes 0.1 10^3/ul (0-0.8); Eosinophil % 0.1 %; Lymphocyte % 7.4 %; Nucleated Red Blood Cells % 0.6
[2021-04-20 14:50] LABS: Ferritin 769.9 ng/mL (24-336)
[2021-04-20] MEDS ORDERED: fentaNYL 100 mcg/2 ml 50 MCG/ML VIAL ONE (15:03)
[2021-04-20] MEDS ORDERED: Midazolam 10 mg/10 ml VIAL 1 mg/ml 10 ml VIAL (10 mg) ONE (15:03)
[2021-04-20] MEDS: Piperacillin/Tazobac ADVAN 3.375 GM in NS 0.9% 100 ml BAG 100 ML IV SCH (22:17)
[2021-04-21] MEDS: LATANOPROST BOTH EYES SCH ×2 (00:37→19:46)
[2021-04-21] MEDS: NETARSUDIL BOTH EYES SCH ×2 (00:37→19:46)
[2021-04-21] MEDS: Piperacillin/Tazobac ADVAN 3.375 GM in NS 0.9% 100 ml BAG 100 ML IV SCH ×2 (08:51→19:46)
[2021-04-21] MEDS: Furosemide 20 mg/2 ml IV VIAL IV SCH (08:51)
[2021-04-21] MEDS: DARIFENACIN 7.5 MG PO SCH (12:19)
[2021-04-21] MEDS: Enoxaparin 100 MG/ML SYR SUBCUT SCH (12:20)
[2021-04-21] MEDS: Hydrocortisone ENEMA 100 MG BTL PR SCH (12:22)
[2021-04-22 05:18] LABS: Hematocrit 23 % (42-52); Hemoglobin 7.6 g/dL (14.0-18.0); Mean Corpuscular HGB Conc 34 g/dL (31-36); Mean Corpuscular Hemoglobin 31 pg (27-31); Mean Corpuscular Volume 92 fL (80-94); Mean Platelet Volume 8.1 fL (7.4-10.4); Platelet Count 33 10^3/uL (150-450); Red Blood Count 2.47 10^6 /uL (4.18-5.48); Red Cell Distribution Width 20 % (10-15); White Blood Count 1.8 10^3/uL (3.5-10.8)
[2021-04-22 05:35] LABS: Albumin 2.4 g/dL (3.2-5.2); Albumin/Globulin Ratio 1.1 (1-3); Globulin 2.1 g/dL (2-4); Total Bilirubin 0.5 mg/dL (0.2-1.0); Total Protein 4.5 g/dL (6.4-8.9); eGFR CKD-EPI 19.8 (>60)
[2021-04-22 05:37] LABS: Calcium 6.4 mg/dL (8.6-10.3)
[2021-04-22] MEDS: Piperacillin/Tazobac ADVAN 3.375 GM in NS 0.9% 100 ml BAG 100 ML IV SCH ×2 (07:40→20:21)
[2021-04-22] MEDS: Enoxaparin 100 MG/ML SYR SUBCUT SCH (09:00)
[2021-04-22] MEDS ORDERED: CALCIUM GLUCONATE 1GM/50ML NS 1 GM/50 ML BAG IV ONE (11:43)
[2021-04-22] MEDS: Calcium Carb (TUMS) 500 mg CHEW TAB PO SCH ×2 (12:55→20:21)
[2021-04-22] MEDS: DARIFENACIN 7.5 MG PO SCH (12:55)
[2021-04-22] MEDS: NS 0.45% 1000 ml BAG 1,000 ML IV SCH (13:11)
[2021-04-22] MEDS: Hydrocortisone ENEMA 100 MG BTL PR SCH (16:26)
[2021-04-22] MEDS: NETARSUDIL BOTH EYES SCH (20:21)
[2021-04-22] MEDS: LATANOPROST BOTH EYES SCH (20:21)
[2021-04-23 05:33] LABS: Hematocrit 24 % (42-52); Hemoglobin 7.9 g/dL (14.0-18.0); Mean Corpuscular HGB Conc 34 g/dL (31-36); Mean Corpuscular Hemoglobin 31 pg (27-31); Mean Corpuscular Volume 91 fL (80-94); Mean Platelet Volume 8.5 fL (7.4-10.4); Platelet Count 38 10^3/uL (150-450); Red Blood Count 2.58 10^6 /uL (4.18-5.48); Red Cell Distribution Width 19 % (10-15); White Blood Count 2.5 10^3/uL (3.5-10.8)
[2021-04-23 05:48] LABS: ABS Lymphocytes 0.3 10^3/ul (1.0-4.8); ABS Monocytes 0.2 10^3/ul (0-0.8); Eosinophil % 0.2 %; Lymphocyte % 10.5 %; Nucleated Red Blood Cells % 1.7
[2021-04-23 05:50] LABS: Albumin 2.5 g/dL (3.2-5.2); Albumin/Globulin Ratio 1.1 (1-3); Calcium 7.9 mg/dL (8.6-10.3); Globulin 2.3 g/dL (2-4); Potassium 3.9 mmol/L (3.5-5.0); Total Bilirubin 0.5 mg/dL (0.2-1.0); Total Protein 4.8 g/dL (6.4-8.9); eGFR CKD-EPI 18.5 (>60)
[2021-04-23] MEDS: NS 0.45% 1000 ml BAG 1,000 ML IV SCH ×2 (06:30→19:46)
[2021-04-23] MEDS: Piperacillin/Tazobac ADVAN 3.375 GM in NS 0.9% 100 ml BAG 100 ML IV SCH ×2 (08:03→19:47)
[2021-04-23] MEDS: Metoprolol Tartrate 5 mg VIAL 5 ml VIAL (1 mg/ml) IV SCH ×3 (08:03→19:48)
[2021-04-23] MEDS: Calcium Carb (TUMS) 500 mg CHEW TAB PO SCH ×2 (08:04→22:18)
[2021-04-23] MEDS: Enoxaparin 100 MG/ML SYR SUBCUT SCH (08:04)
[2021-04-23] MEDS: DARIFENACIN 7.5 MG PO SCH (12:07)
[2021-04-23 12:17] LABS: Cytomegalovirus IgG Antibody Positive (Negative)
[2021-04-23] MEDS: Hydrocortisone ENEMA 100 MG BTL PR SCH (14:30)
[2021-04-23] MEDS: NETARSUDIL BOTH EYES SCH (22:18)
[2021-04-23] MEDS: LATANOPROST BOTH EYES SCH (22:18)
[2021-04-24] MEDS: Metoprolol Tartrate 5 mg VIAL 5 ml VIAL (1 mg/ml) IV SCH ×4 (03:13→20:36)
[2021-04-24 05:44] LABS: Hematocrit 22 % (42-52); Hemoglobin 7.3 g/dL (14.0-18.0); Mean Corpuscular HGB Conc 33 g/dL (31-36); Mean Corpuscular Hemoglobin 31 pg (27-31); Mean Corpuscular Volume 93 fL (80-94); Mean Platelet Volume 8.4 fL (7.4-10.4); Platelet Count 34 10^3/uL (150-450); Red Blood Count 2.37 10^6 /uL (4.18-5.48); Red Cell Distribution Width 19 % (10-15); White Blood Count 2.9 10^3/uL (3.5-10.8)
[2021-04-24 05:55] LABS: Albumin 2.3 g/dL (3.2-5.2); Albumin/Globulin Ratio 1.2 (1-3); C Reactive Protein 25.8 mg/L (<8.01); Calcium 7.6 mg/dL (8.6-10.3); Magnesium 1.9 mg/dL (1.9-2.7); Phosphorus 3.7 mg/dL (2.5-5.0); Potassium 3.8 mmol/L (3.5-5.0); Total Bilirubin 0.5 mg/dL (0.2-1.0); Total Protein 4.3 g/dL (6.4-8.9); eGFR CKD-EPI 18.8 (>60)
[2021-04-24 06:02] LABS: ABS Lymphocytes 0.6 10^3/ul (1.0-4.8); ABS Monocytes 0.2 10^3/ul (0-0.8); ABS Neutrophils 2.1 10^3/ul (1.5-7.7); Eosinophil % 0.4 %; Lymphocyte % 20.6 %; Nucleated Red Blood Cells % 0.7
[2021-04-24] MEDS: NS 0.45% 1000 ml BAG 1,000 ML IV SCH (06:34)
[2021-04-24] MEDS: Calcium Carb (TUMS) 500 mg CHEW TAB PO SCH ×2 (09:09→20:35)
[2021-04-24] MEDS: Piperacillin/Tazobac ADVAN 3.375 GM in NS 0.9% 100 ml BAG 100 ML IV SCH ×2 (09:09→20:36)
[2021-04-24] MEDS: Enoxaparin 100 MG/ML SYR SUBCUT SCH (09:09)
[2021-04-24] MEDS: Hydrocortisone ENEMA 100 MG BTL PR SCH (09:22)
[2021-04-24 11:58] LABS: Adenovirus F40/41 Negative (Negative); Astrovirus Negative (Negative); Cryptosporidium species Negative (Negative); Cyclospora cayetanensis Negative (Negative); Entamoeba histolytica Negative (Negative); Enteroaggregative E.coli(EAEC) Negative (Negative); Enteropathogenic Ecoli(EPEC) Negative (Negative); Enterotoxigenic Ecoli(ETEC) Negative (Negative); Norovirus GI/GII Negative (Negative); Plesiomonas shigelloides Negative (Negative); Salmonella species Negative (Negative); Sapovirus Negative (Negative); Shiga toxin producing E. coli Negative (Negative); Shigella/Enteroinvasive E.coli Negative (Negative); Specimen Source STOOL; Vibrio cholerae Negative (Negative); Yersinia species Negative (Negative)
[2021-04-24] MEDS: DARIFENACIN 7.5 MG PO SCH (12:15)
[2021-04-24 14:29] LABS: CMV DNA DETECT/QT, P 2550 IU/mL (Undetected)
[2021-04-24] MEDS ORDERED: Bumetanide IV 0.25 MG/ML 4 ml VIAL (1 mg) SLOW PUSH SCH (16:00)
[2021-04-24] MEDS: Furosemide 40 mg/4 ml IV VIAL IV SLOW PU SCH ×2 (17:43→20:36)
[2021-04-24] MEDS: LATANOPROST BOTH EYES SCH (20:35)
[2021-04-24] MEDS: NETARSUDIL BOTH EYES SCH (20:35)
[2021-04-25] MEDS: Metoprolol Tartrate 5 mg VIAL 5 ml VIAL (1 mg/ml) IV SCH ×5 (01:14→20:01)
[2021-04-25] MEDS: Furosemide 40 mg/4 ml IV VIAL IV SLOW PU SCH (08:26)
[2021-04-25] MEDS: Piperacillin/Tazobac ADVAN 3.375 GM in NS 0.9% 100 ml BAG 100 ML IV SCH ×2 (08:26→20:01)
[2021-04-25] MEDS: Calcium Carb (TUMS) 500 mg CHEW TAB PO SCH ×2 (08:46→23:21)
[2021-04-25] MEDS: Hydrocortisone ENEMA 100 MG BTL PR SCH (09:05)
[2021-04-25 09:09] LABS: Hematocrit 23 % (42-52); Hemoglobin 7.7 g/dL (14.0-18.0); Mean Corpuscular HGB Conc 34 g/dL (31-36); Mean Corpuscular Hemoglobin 31 pg (27-31); Mean Corpuscular Volume 92 fL (80-94); Mean Platelet Volume 8.9 fL (7.4-10.4); Platelet Count 47 10^3/uL (150-450); Red Blood Count 2.48 10^6 /uL (4.18-5.48); Red Cell Distribution Width 19 % (10-15); White Blood Count 3.8 10^3/uL (3.5-10.8)
[2021-04-25 09:30] LABS: ABS Lymphocytes 0.7 10^3/ul (1.0-4.8); ABS Monocytes 0.2 10^3/ul (0-0.8); ABS Neutrophils 2.9 10^3/ul (1.5-7.7); Eosinophil % 0.4 %; Lymphocyte % 18.8 %; Nucleated Red Blood Cells % 0.6
[2021-04-25 10:28] LABS: Urine Creatinine Concentration 23.62 mg/dL
[2021-04-25 10:48] LABS: Urine Appearance Clear; Urine Bilirubin Negative (Negative); Urine Blood 1+ (Negative); Urine Color Straw; Urine Glucose Negative (Negative); Urine Ketones Negative (Negative); Urine Nitrite Negative (Negative); Urine Protein 2+(100 mg/dL) (Negative); Urine Specific Gravity 1.006 (1.002-1.030); Urine Urobilinogen Negative (Negative)
[2021-04-25 11:03] LABS: Urine Bacteria Absent (Absent); Urine Red Blood Cell Trace(0-2/hpf) (Absent); Urine White Blood Cell Trace(0-5/hpf) (Absent)
[2021-04-25] MEDS: DARIFENACIN 7.5 MG PO SCH (11:35)
[2021-04-25 12:55] LABS: Calcium 7.5 mg/dL (8.6-10.3); Potassium 3.5 mmol/L (3.5-5.0)
[2021-04-25 13:01] LABS: eGFR CKD-EPI 18.6 (>60)
[2021-04-25] MEDS: Potassium Chlor 20 meq TAB.ER PO SCH (15:45)
[2021-04-25] MEDS ORDERED: Furosemide 40 mg/4 ml IV VIAL IV ONE (16:00)
[2021-04-25] MEDS ORDERED: Furosemide 100 mg/10 ml IV 100 MG in NS 0.9% 100 ml BAG 90 ML IV SCH (16:00)
[2021-04-25] MEDS: Furosemide 40 mg/4 ml IV VIAL IV SCH (17:15)
[2021-04-25] MEDS: NETARSUDIL BOTH EYES SCH (23:22)
[2021-04-25] MEDS: LATANOPROST BOTH EYES SCH (23:22)
[2021-04-26] MEDS: Furosemide 40 mg/4 ml IV VIAL IV SCH ×5 (00:41→18:40)
[2021-04-26] MEDS: Metoprolol Tartrate 5 mg VIAL 5 ml VIAL (1 mg/ml) IV SCH ×4 (02:00→20:18)
[2021-04-26] MEDS: NS 0.9% 250 ml 250 ML IV SCH (06:28)
[2021-04-26 07:31] LABS: Hematocrit 24 % (42-52); Mean Corpuscular HGB Conc 33 g/dL (31-36); Mean Corpuscular Hemoglobin 31 pg (27-31); Mean Corpuscular Volume 92 fL (80-94); Mean Platelet Volume 8.7 fL (7.4-10.4); Platelet Count 46 10^3/uL (150-450); Red Blood Count 2.59 10^6 /uL (4.18-5.48); Red Cell Distribution Width 20 % (10-15); White Blood Count 4.3 10^3/uL (3.5-10.8)
[2021-04-26 07:47] LABS: Albumin 2.4 g/dL (3.2-5.2); Albumin/Globulin Ratio 1.1 (1-3); Calcium 7.9 mg/dL (8.6-10.3); Globulin 2.1 g/dL (2-4); Magnesium 1.7 mg/dL (1.9-2.7); Potassium 3.1 mmol/L (3.5-5.0); Total Bilirubin 0.4 mg/dL (0.2-1.0); Total Protein 4.5 g/dL (6.4-8.9); eGFR CKD-EPI 18.6 (>60)
[2021-04-26 08:05] LABS: Anisocytosis 2+; Polychromasia 1+
[2021-04-26 08:06] LABS: Basophilic Stippling 1+
[2021-04-26 08:07] LABS: ABS Lymphocytes 0.9 10^3/ul (1.0-4.8); ABS Monocytes 0.3 10^3/ul (0-0.8); ABS Neutrophils 3.1 10^3/ul (1.5-7.7); Eosinophil % 0.2 %; Nucleated Red Blood Cells % 0.5
[2021-04-26] MEDS: Piperacillin/Tazobac ADVAN 3.375 GM in NS 0.9% 100 ml BAG 100 ML IV SCH ×2 (08:51→20:17)
[2021-04-26] MEDS: Calcium Carb (TUMS) 500 mg CHEW TAB PO SCH ×2 (09:45→21:09)
[2021-04-26] MEDS: Potassium Chlor 20 meq TAB.ER PO SCH ×3 (09:45→21:07)
[2021-04-26] MEDS: Hydrocortisone ENEMA 100 MG BTL PR SCH (09:46)
[2021-04-26] MEDS ORDERED: Potassium Chlor 20 meq TAB.ER PO SCH (11:02)
[2021-04-26] MEDS: DARIFENACIN 7.5 MG PO SCH (12:19)
[2021-04-26] MEDS: NETARSUDIL BOTH EYES SCH (21:11)
[2021-04-26] MEDS: LATANOPROST BOTH EYES SCH (21:11)
[2021-04-27] MEDS: Furosemide 40 mg/4 ml IV VIAL IV SCH ×4 (00:41→18:04)
[2021-04-27] MEDS: Metoprolol Tartrate 5 mg VIAL 5 ml VIAL (1 mg/ml) IV SCH ×4 (02:21→20:36)
[2021-04-27] MEDS: NS 0.9% 250 ml 250 ML IV SCH (06:10)
[2021-04-27] MEDS: Piperacillin/Tazobac ADVAN 3.375 GM in NS 0.9% 100 ml BAG 100 ML IV SCH ×2 (09:24→19:34)
[2021-04-27] MEDS: Calcium Carb (TUMS) 500 mg CHEW TAB PO SCH ×2 (09:28→20:41)
[2021-04-27] MEDS: Potassium Chlor 20 meq TAB.ER PO SCH ×2 (09:29→20:36)
[2021-04-27] MEDS: DARIFENACIN 7.5 MG PO SCH (11:31)
[2021-04-27] MEDS: Hydrocortisone ENEMA 100 MG BTL PR SCH (11:34)
[2021-04-27 11:59] LABS: ABS Lymphocytes 1.2 10^3/ul (1.0-4.8); ABS Monocytes 0.3 10^3/ul (0-0.8); ABS Neutrophils 3.1 10^3/ul (1.5-7.7); Eosinophil % 0.2 %; Hematocrit 23 % (42-52); Hemoglobin 7.6 g/dL (14.0-18.0); Lymphocyte % 26.2 %; Mean Corpuscular HGB Conc 33 g/dL (31-36); Mean Corpuscular Hemoglobin 31 pg (27-31); Mean Corpuscular Volume 93 fL (80-94); Mean Platelet Volume 10.4 fL (7.4-10.4); Nucleated Red Blood Cells % 0.5; Platelet Count 63 10^3/uL (150-450); Red Cell Distribution Width 21 % (10-15); White Blood Count 4.7 10^3/uL (3.5-10.8)
[2021-04-27 12:39] LABS: Calcium 7.8 mg/dL (8.6-10.3); Potassium 3.9 mmol/L (3.5-5.0); eGFR CKD-EPI 17.6 (>60)
[2021-04-27] MEDS: LATANOPROST BOTH EYES SCH (20:40)
[2021-04-27] MEDS: NETARSUDIL BOTH EYES SCH (20:40)
[2021-04-28] MEDS: Furosemide 40 mg/4 ml IV VIAL IV SCH ×4 (00:28→19:14)
[2021-04-28] MEDS: Metoprolol Tartrate 5 mg VIAL 5 ml VIAL (1 mg/ml) IV SCH ×4 (03:18→21:31)
[2021-04-28] MEDS: Piperacillin/Tazobac ADVAN 3.375 GM in NS 0.9% 100 ml BAG 100 ML IV SCH ×2 (08:07→21:28)
[2021-04-28] MEDS: Calcium Carb (TUMS) 500 mg CHEW TAB PO SCH ×2 (09:38→21:31)
[2021-04-28] MEDS: Potassium Chlor 20 meq TAB.ER PO SCH ×2 (09:39→21:30)
[2021-04-28] MEDS: Hydrocortisone ENEMA 100 MG BTL PR SCH (09:40)
[2021-04-28 10:17] LABS: Calcium 7.8 mg/dL (8.6-10.3); Potassium 3.7 mmol/L (3.5-5.0); eGFR CKD-EPI 17.8 (>60)
[2021-04-28] MEDS: DARIFENACIN 7.5 MG PO SCH (13:35)
[2021-04-28] MEDS: LATANOPROST BOTH EYES SCH (21:37)
[2021-04-28] MEDS: NETARSUDIL BOTH EYES SCH (21:37)
[2021-04-29] MEDS: Furosemide 40 mg/4 ml IV VIAL IV SCH ×4 (00:21→17:09)
[2021-04-29] MEDS: Metoprolol Tartrate 5 mg VIAL 5 ml VIAL (1 mg/ml) IV SCH ×4 (02:04→19:55)
[2021-04-29 06:31] LABS: Calcium 7.7 mg/dL (8.6-10.3); Potassium 3.9 mmol/L (3.5-5.0); eGFR CKD-EPI 18.7 (>60)
[2021-04-29 06:52] LABS: Hematocrit 22 % (42-52); Hemoglobin 7.2 g/dL (14.0-18.0); Mean Corpuscular HGB Conc 33 g/dL (31-36); Mean Corpuscular Hemoglobin 31 pg (27-31); Mean Corpuscular Volume 93 fL (80-94); Mean Platelet Volume 8.6 fL (7.4-10.4); Platelet Count 58 10^3/uL (150-450); Red Blood Count 2.33 10^6 /uL (4.18-5.48); Red Cell Distribution Width 21 % (10-15); White Blood Count 4.3 10^3/uL (3.5-10.8)
[2021-04-29 07:08] LABS: ABS Lymphocytes 1.2 10^3/ul (1.0-4.8); ABS Monocytes 0.4 10^3/ul (0-0.8); ABS Neutrophils 2.7 10^3/ul (1.5-7.7); Eosinophil % 0.1 %; Lymphocyte % 28.8 %; Nucleated Red Blood Cells % 0.2
[2021-04-29] MEDS: Piperacillin/Tazobac ADVAN 3.375 GM in NS 0.9% 100 ml BAG 100 ML IV SCH ×2 (08:17→19:46)
[2021-04-29] MEDS: Calcium Carb (TUMS) 500 mg CHEW TAB PO SCH ×2 (08:17→19:54)
[2021-04-29] MEDS: Potassium Chlor 20 meq TAB.ER PO SCH ×2 (08:18→19:56)
[2021-04-29] MEDS: DARIFENACIN 7.5 MG PO SCH (13:41)
[2021-04-29] MEDS: Hydrocortisone ENEMA 100 MG BTL PR SCH (15:13)
[2021-04-29] MEDS: NETARSUDIL BOTH EYES SCH (23:08)
[2021-04-29] MEDS: LATANOPROST BOTH EYES SCH (23:08)
[2021-04-30] MEDS: Metoprolol Tartrate 5 mg VIAL 5 ml VIAL (1 mg/ml) IV SCH ×2 (01:40→14:38)
[2021-04-30] MEDS: Furosemide 40 mg/4 ml IV VIAL IV SCH ×4 (01:40→17:25)
[2021-04-30] MEDS: Piperacillin/Tazobac ADVAN 3.375 GM in NS 0.9% 100 ml BAG 100 ML IV SCH ×2 (08:38→20:16)
[2021-04-30] MEDS: Potassium Chlor 20 meq TAB.ER PO SCH ×2 (09:21→21:54)
[2021-04-30] MEDS: Calcium Carb (TUMS) 500 mg CHEW TAB PO SCH ×3 (09:21→21:54)
[2021-04-30 10:19] LABS: Calcium 7.9 mg/dL (8.6-10.3); Magnesium 1.3 mg/dL (1.9-2.7); Potassium 3.8 mmol/L (3.5-5.0); eGFR CKD-EPI 19.6 (>60)
[2021-04-30] MEDS ORDERED: Magnesium Sulf 4 GM/100 ML IV 4,000 MG/100 ML BAG IVPB ONE (10:46)
[2021-04-30] MEDS: DARIFENACIN 7.5 MG PO SCH (11:26)
[2021-04-30] MEDS: LATANOPROST BOTH EYES SCH (22:03)
[2021-04-30] MEDS: NETARSUDIL BOTH EYES SCH (22:03)
[2021-04-30] MEDS: NS 0.9% 100 ml BAG 100 ML ONE ×2 (22:23→22:29)
[2021-05-01] MEDS: Furosemide 40 mg/4 ml IV VIAL IV SCH ×3 (00:03→12:45)
[2021-05-01] MEDS: NS 0.9% 250 ml 250 ML IV SCH (05:31)
[2021-05-01 05:39] LABS: Hematocrit 22 % (42-52); Hemoglobin 7.2 g/dL (14.0-18.0); Mean Corpuscular HGB Conc 33 g/dL (31-36); Mean Corpuscular Hemoglobin 31 pg (27-31); Mean Corpuscular Volume 93 fL (80-94); Mean Platelet Volume 7.5 fL (7.4-10.4); Platelet Count 82 10^3/uL (150-450); Red Blood Count 2.35 10^6 /uL (4.18-5.48); Red Cell Distribution Width 21 % (10-15); White Blood Count 4.1 10^3/uL (3.5-10.8)
[2021-05-01 05:52] LABS: Albumin 2.3 g/dL (3.2-5.2); Calcium 7.8 mg/dL (8.6-10.3); Globulin 2.4 g/dL (2-4); Magnesium 2.2 mg/dL (1.9-2.7); Total Bilirubin 0.5 mg/dL (0.2-1.0); Total Protein 4.7 g/dL (6.4-8.9); eGFR CKD-EPI 18.9 (>60)
[2021-05-01 06:10] LABS: ABS Lymphocytes 1.4 10^3/ul (1.0-4.8); ABS Monocytes 0.6 10^3/ul (0-0.8); ABS Neutrophils 2.1 10^3/ul (1.5-7.7); Eosinophil % 0.2 %; Lymphocyte % 34.8 %; Nucleated Red Blood Cells % 0.1
[2021-05-01] MEDS: Piperacillin/Tazobac ADVAN 3.375 GM in NS 0.9% 100 ml BAG 100 ML IV SCH (08:19)
[2021-05-01] MEDS: Potassium Chlor 20 meq TAB.ER PO SCH (08:21)
[2021-05-01] MEDS: Calcium Carb (TUMS) 500 mg CHEW TAB PO SCH (08:22)
[2021-05-01 12:03] VITALS: BP 146/67
[2021-05-01] MEDS: DARIFENACIN 7.5 MG PO SCH (12:45)
== END 2021-05-01 16:00 | disposition home health service (06) | DRG 206 ==
LOC: CHOA 12:51 → SSU 12:51
PROVIDERS: ADMIT Internal Medicine Hematology & Oncology; ATTEND Internal Medicine Medical Oncology

== ENCOUNTER 2022-08-08 17:34 | Inpatient (IN) ==
[2022-08-08] MEDS ORDERED: Pantoprazole 80 mg in NS BAG 80 MG/250 ML BAG IV ONE (18:07)
[2022-08-08] MEDS ORDERED: Octreotide Acetate 50 MCG in NS 0.9% 50 ML 50 ML IV ONE (18:08)
[2022-08-08] MEDS ORDERED: cefTRIAXone 1 gm/50 mL D5W 1 GM/50 ML BAG IV ONE (18:08)
[2022-08-08 18:19] LABS: INR 1.13 (0.88-1.18)
[2022-08-08 18:31] LABS: Hematocrit 20.4 % (38-53); Hemoglobin 6.8 g/dL (13.2-16.3); Mean Corpuscular Hemoglobin 31.7 pg (27-33); Mean Corpuscular Hgb Conc 33.5 g/dL (31-36); Mean Corpuscular Volume 94.8 fL (80-97); Red Blood Count 2.15 10^6/uL (4.06-5.63); Red Cell Distribution Width 19.5 % (12-17); White Blood Count 5.7 10^3/uL (3.6-10.2)
[2022-08-08 18:51] LABS: ABS Eosinophils 0.2 10^3/uL (0.0-0.5); ABS Lymphocytes 0.7 10^3/uL (1.0-4.8); ABS Monocytes 0.7 10^3/uL (0.0-1.1); Eosinophil % 3.5 %; Mean Platelet Volume 7.8 fL (7.5-11.2); Nucleated Red Blood Cells % 0.1 /100 WBC (0.0-0.4); Platelet Count 75 10^3/uL (150-450)
[2022-08-08] MEDS ORDERED: Pantoprazole 80 mg in NS BAG 80 MG/250 ML BAG IV SCH (19:00)
[2022-08-08] MEDS ORDERED: Octreotide Acetate 500 MCG in NS 0.9% 100 ml BAG 100 ML IV SCH (19:00)
[2022-08-08 19:08] LABS: ALT 8 U/L (7-52); AST 18 U/L (13-39); Albumin 3.2 g/dL (3.2-5.2); Albumin/Globulin Ratio 1.5 (1-3); Alcohol, S < 13 mg/dL (<13); Alkaline Phosphatase 105 U/L (35-149); Anion Gap 9 mmol/L (2-16); Blood Urea Nitrogen 60 mg/dL (6-24); CO2 Carbon Dioxide 23 mmol/L (22-32); Calcium 8.1 mg/dL (8.6-10.3); Chloride 108 mmol/L (101-111); Creatinine, Serum 2.79 mg/dL (0.67-1.17); Globulin 2.1 g/dL (2-4); Glucose 120 mg/dL (70-100); Potassium 4.3 mmol/L (3.5-5.0); Sodium 140 mmol/L (135-145); Total Protein 5.3 g/dL (6.4-8.9); eGFR CKD-EPI 22.2 (>60)
[2022-08-08] MEDS ORDERED: Fluticasone NASAL SPRAY 50MCG 16 gm SPRAY BTL INTRANASAL PRN (22:12)
[2022-08-08] MEDS: Octreotide Acetate 500 MCG in NS 0.9% 100 ml BAG 100 ML IV SCH (23:40)
[2022-08-09] MEDS ORDERED: Thiamine 100 MG/ML 2 ml VIAL (200 mg) IM ONE (00:36)
[2022-08-09] MEDS: Octreotide Acetate 500 MCG in NS 0.9% 100 ml BAG 100 ML IV SCH ×2 (06:24→18:40)
[2022-08-09 06:30] LABS: ABS Eosinophils 0.2 10^3/uL (0.0-0.5); ABS Lymphocytes 0.7 10^3/uL (1.0-4.8); ABS Monocytes 0.8 10^3/uL (0.0-1.1); ABS Neutrophils 4.3 10^3/uL (1.5-7.6); ABS Nucleated RBC 0.01 10^3/ul; Eosinophil % 2.6 %; Hematocrit 24.1 % (38-53); Hemoglobin 8.1 g/dL (13.2-16.3); Lymphocyte % 11.4 %; Mean Corpuscular Hemoglobin 30.5 pg (27-33); Mean Corpuscular Hgb Conc 33.6 g/dL (31-36); Mean Corpuscular Volume 90.8 fL (80-97); Mean Platelet Volume 7.6 fL (7.5-11.2); Nucleated Red Blood Cells % 0.1 /100 WBC (0.0-0.4); Platelet Count 68 10^3/uL (150-450); Red Blood Count 2.66 10^6/uL (4.06-5.63); Red Cell Distribution Width 24.6 % (12-17)
[2022-08-09 06:32] LABS: INR 1.13 (0.88-1.18)
[2022-08-09 06:47] LABS: Albumin 3.2 g/dL (3.2-5.2); Albumin/Globulin Ratio 1.4 (1-3); Calcium 8.1 mg/dL (8.6-10.3); Creatinine, Serum 2.76 mg/dL (0.67-1.17); Globulin 2.3 g/dL (2-4); Potassium 5.6 mmol/L (3.5-5.0); Total Bilirubin 1.3 mg/dL (0.2-1.0); Total Protein 5.5 g/dL (6.4-8.9); eGFR CKD-EPI 22.5 (>60)
[2022-08-09] MEDS ORDERED: Netarsudil Mesylat/Lananoprost 0.02%-0.005% EYE DRP 2.5 ml BOTTLE BOTH EYES SCH ×2 (09:00→21:00)
[2022-08-09] MEDS: Pantoprazole VIAL 40 MG VIAL IV SCH ×2 (10:07→21:53)
[2022-08-09] MEDS: Multivitamins/Minerals TAB PO SCH (10:07)
[2022-08-09] MEDS: Venlafaxine 25 mg TAB (NF) PO SCH (10:08)
[2022-08-09 12:33] LABS: Hematocrit 23.8 % (38-53); Hemoglobin 8.1 g/dL (13.2-16.3)
[2022-08-09 13:11] LABS: Calcium 8.2 mg/dL (8.6-10.3); Creatinine, Serum 2.94 mg/dL (0.67-1.17); Potassium 4.8 mmol/L (3.5-5.0); eGFR CKD-EPI 20.9 (>60)
[2022-08-09] MEDS ORDERED: fentaNYL 100 mcg/2 ml 50 MCG/ML VIAL ONE (14:08)
[2022-08-09] MEDS ORDERED: Lidocaine 2% PF 5 ML VIAL ONE (14:09)
[2022-08-09] MEDS: cefTRIAXone 1 gm/50 mL D5W 1 GM/50 ML BAG IV SCH (18:20)
[2022-08-09 21:04] LABS: Hematocrit 21.3 % (38-53); Hemoglobin 7.2 g/dL (13.2-16.3)
[2022-08-10 00:54] LABS: Hematocrit 20.7 % (38-53); Hemoglobin 7.2 g/dL (13.2-16.3)
[2022-08-10] MEDS: Octreotide Acetate 500 MCG in NS 0.9% 100 ml BAG 100 ML IV SCH ×2 (05:05→17:59)
[2022-08-10 06:21] LABS: Hematocrit 22.1 % (38-53); Hemoglobin 7.5 g/dL (13.2-16.3); Mean Corpuscular Hemoglobin 30.7 pg (27-33); Mean Corpuscular Hgb Conc 33.9 g/dL (31-36); Mean Corpuscular Volume 90.4 fL (80-97); Mean Platelet Volume 7.3 fL (7.5-11.2); Platelet Count 51 10^3/uL (150-450); Red Blood Count 2.45 10^6/uL (4.06-5.63); Red Cell Distribution Width 24.2 % (12-17); White Blood Count 5.9 10^3/uL (3.6-10.2)
[2022-08-10 06:52] LABS: Calcium 8.3 mg/dL (8.6-10.3); Creatinine, Serum 2.96 mg/dL (0.67-1.17); Magnesium 1.9 mg/dL (1.9-2.7); Potassium 4.5 mmol/L (3.5-5.0); eGFR CKD-EPI 20.7 (>60)
[2022-08-10 08:30] LABS: ABS Basophils 0.1 10^3/uL (0.0-0.1); ABS Eosinophils 0.2 10^3/uL (0.0-0.5); ABS Lymphocytes 0.7 10^3/uL (1.0-4.8); ABS Monocytes 0.8 10^3/uL (0.0-1.1); ABS Neutrophils 4.1 10^3/uL (1.5-7.6); Lymphocyte % 12.4 %; Nucleated Red Blood Cells % 0.1 /100 WBC (0.0-0.4)
[2022-08-10] MEDS: Pantoprazole VIAL 40 MG VIAL IV SCH ×2 (09:08→21:01)
[2022-08-10] MEDS: Venlafaxine 25 mg TAB (NF) PO SCH (09:08)
[2022-08-10] MEDS: Multivitamins/Minerals TAB PO SCH (09:08)
[2022-08-10] MEDS ORDERED: Lactated Ringers 1000 ml BAG 500 ML IV SCH (14:00)
[2022-08-10] MEDS: cefTRIAXone 1 gm/50 mL D5W 1 GM/50 ML BAG IV SCH (18:00)
[2022-08-10] MEDS: PTO: Latanoprost 0.005% 2.5 ml BTL BOTH EYES SCH (21:00)
[2022-08-11 05:06] LABS: Urine Appearance Clear; Urine Bacteria Absent (Absent); Urine Bilirubin Negative (Negative); Urine Blood Negative (Negative); Urine Color Yellow; Urine Glucose Negative (Negative); Urine Ketones Negative (Negative); Urine Nitrite Negative (Negative); Urine Protein Negative (Negative); Urine Red Blood Cell Trace(0-2/hpf) (Absent); Urine Specific Gravity 1.006 (1.002-1.030); Urine Urobilinogen Negative (Negative); Urine White Blood Cell Absent (Absent)
[2022-08-11] MEDS: Octreotide Acetate 500 MCG in NS 0.9% 100 ml BAG 100 ML IV SCH ×2 (05:09→15:32)
[2022-08-11 07:04] LABS: Hematocrit 19.3 % (38-53); Hemoglobin 6.6 g/dL (13.2-16.3); Mean Corpuscular Hemoglobin 30.8 pg (27-33); Mean Corpuscular Volume 90.8 fL (80-97); Mean Platelet Volume 7.9 fL (7.5-11.2); Platelet Count 43 10^3/uL (150-450); Red Blood Count 2.13 10^6/uL (4.06-5.63); Red Cell Distribution Width 23.3 % (12-17); White Blood Count 5.3 10^3/uL (3.6-10.2)
[2022-08-11 07:23] LABS: Calcium 8.2 mg/dL (8.6-10.3); Creatinine, Serum 2.94 mg/dL (0.67-1.17); Magnesium 1.8 mg/dL (1.9-2.7); Potassium 4.1 mmol/L (3.5-5.0); eGFR CKD-EPI 20.9 (>60)
[2022-08-11 07:27] LABS: ABS Eosinophils 0.1 10^3/uL (0.0-0.5); ABS Lymphocytes 0.8 10^3/uL (1.0-4.8); ABS Neutrophils 3.4 10^3/uL (1.5-7.6); Eosinophil % 2.7 %; Lymphocyte % 14.5 %; Nucleated Red Blood Cells % 0.1 /100 WBC (0.0-0.4)
[2022-08-11 07:28] LABS: Anisocytosis 3+; Polychromasia 1+
[2022-08-11] MEDS ORDERED: Magnesium Sulfate 2 gm BAG 2 GM/50 ML BAG IVPB ONE (07:41)
[2022-08-11] MEDS: Pantoprazole VIAL 40 MG VIAL IV SCH ×2 (09:47→20:21)
[2022-08-11] MEDS: Multivitamins/Minerals TAB PO SCH (09:48)
[2022-08-11] MEDS: Venlafaxine 25 mg TAB (NF) PO SCH (09:48)
[2022-08-11 12:38] LABS: Folate 9.86 ng/mL (5.90-24.80)
[2022-08-11 14:31] LABS: Hematocrit 21.2 % (38-53); Hemoglobin 7.2 g/dL (13.2-16.3)
[2022-08-11] MEDS ORDERED: Ondansetron 4 mg VIAL 2 MG/ML 2 ml VIAL IV ONE (17:55)
[2022-08-11] MEDS: cefTRIAXone 1 gm/50 mL D5W 1 GM/50 ML BAG IV SCH (17:58)
[2022-08-11] MEDS: PTO: Latanoprost 0.005% 2.5 ml BTL BOTH EYES SCH (20:31)
[2022-08-12 05:52] LABS: ABS Eosinophils 0.2 10^3/uL (0.0-0.5); ABS Monocytes 1.3 10^3/uL (0.0-1.1); ABS Neutrophils 3.9 10^3/uL (1.5-7.6); Eosinophil % 2.8 %; Hematocrit 21.7 % (38-53); Hemoglobin 7.5 g/dL (13.2-16.3); Lymphocyte % 15.6 %; Mean Corpuscular Hgb Conc 34.3 g/dL (31-36); Mean Corpuscular Volume 90.4 fL (80-97); Mean Platelet Volume 7.5 fL (7.5-11.2); Platelet Count 48 10^3/uL (150-450); Red Cell Distribution Width 21.3 % (12-17); White Blood Count 6.4 10^3/uL (3.6-10.2)
[2022-08-12 06:19] LABS: Creatinine, Serum 2.93 mg/dL (0.67-1.17); Magnesium 2.2 mg/dL (1.9-2.7); Potassium 3.9 mmol/L (3.5-5.0); eGFR CKD-EPI 20.9 (>60)
[2022-08-12] MEDS: Pantoprazole VIAL 40 MG VIAL IV SCH ×2 (08:29→20:20)
[2022-08-12] MEDS: Multivitamins/Minerals TAB PO SCH (08:32)
[2022-08-12] MEDS: Venlafaxine 25 mg TAB (NF) PO SCH (08:32)
[2022-08-12] MEDS ORDERED: Bumetanide IV 0.25 MG/ML 4 ml VIAL (1 mg) IV SLOW PU ONE (11:33)
[2022-08-12] MEDS: cefTRIAXone 1 gm/50 mL D5W 1 GM/50 ML BAG IV SCH ×2 (18:24→20:25)
[2022-08-12 18:29] LABS: Hemoglobin 7.5 g/dL (13.2-16.3)
[2022-08-12] MEDS: PTO: Latanoprost 0.005% 2.5 ml BTL BOTH EYES SCH (20:20)
[2022-08-13 06:19] LABS: ABS Basophils 0.1 10^3/uL (0.0-0.1); ABS Eosinophils 0.2 10^3/uL (0.0-0.5); ABS Lymphocytes 1.1 10^3/uL (1.0-4.8); ABS Neutrophils 4.3 10^3/uL (1.5-7.6); Eosinophil % 2.5 %; Hematocrit 22.1 % (38-53); Hemoglobin 7.6 g/dL (13.2-16.3); Lymphocyte % 16.1 %; Mean Corpuscular Hemoglobin 30.3 pg (27-33); Mean Corpuscular Hgb Conc 34.1 g/dL (31-36); Mean Corpuscular Volume 88.7 fL (80-97); Platelet Count 54 10^3/uL (150-450); Red Cell Distribution Width 20.2 % (12-17); White Blood Count 6.6 10^3/uL (3.6-10.2)
[2022-08-13 06:29] LABS: Potassium 3.7 mmol/L (3.5-5.0)
[2022-08-13 06:35] LABS: Creatinine, Serum 2.99 mg/dL (0.67-1.17); eGFR CKD-EPI 20.4 (>60)
[2022-08-13] MEDS: Pantoprazole VIAL 40 MG VIAL IV SCH ×2 (10:20→20:36)
[2022-08-13] MEDS: Venlafaxine 25 mg TAB (NF) PO SCH (10:21)
[2022-08-13] MEDS: Multivitamins/Minerals TAB PO SCH (10:21)
[2022-08-13] MEDS: cefTRIAXone 1 gm/50 mL D5W 1 GM/50 ML BAG IV SCH (17:59)
[2022-08-13] MEDS: PTO: Latanoprost 0.005% 2.5 ml BTL BOTH EYES SCH (20:36)
[2022-08-14 06:06] LABS: Hematocrit 25.3 % (38-53); Hemoglobin 8.6 g/dL (13.2-16.3); Mean Corpuscular Hemoglobin 29.7 pg (27-33); Mean Corpuscular Volume 87.4 fL (80-97); Mean Platelet Volume 8.6 fL (7.5-11.2); Platelet Count 75 10^3/uL (150-450); Red Blood Count 2.89 10^6/uL (4.06-5.63); Red Cell Distribution Width 19.8 % (12-17); White Blood Count 8.1 10^3/uL (3.6-10.2)
[2022-08-14 06:14] LABS: Calcium 8.5 mg/dL (8.6-10.3); Creatinine, Serum 2.64 mg/dL (0.67-1.17); Magnesium 1.9 mg/dL (1.9-2.7); Potassium 3.6 mmol/L (3.5-5.0); eGFR CKD-EPI 23.7 (>60)
[2022-08-14 06:23] LABS: ABS Eosinophils 0.2 10^3/uL (0.0-0.5); ABS Lymphocytes 1.1 10^3/uL (1.0-4.8); ABS Monocytes 1.3 10^3/uL (0.0-1.1); ABS Neutrophils 5.5 10^3/uL (1.5-7.6); ABS Nucleated RBC 0.02 10^3/ul; Eosinophil % 2.2 %; Lymphocyte % 13.1 %; Nucleated Red Blood Cells % 0.2 /100 WBC (0.0-0.4)
[2022-08-14] MEDS: Venlafaxine 25 mg TAB (NF) PO SCH (09:42)
[2022-08-14] MEDS: Multivitamins/Minerals TAB PO SCH (09:42)
[2022-08-14] MEDS: Polyethylene Glycol 3350 17 GM PACKET PO SCH (09:43)
[2022-08-14] MEDS: Pantoprazole VIAL 40 MG VIAL IV SCH ×2 (09:43→21:44)
[2022-08-14] MEDS: Senna TAB 8.6 mg TAB PO SCH (09:43)
[2022-08-14] MEDS: Ondansetron 4 mg VIAL 2 MG/ML 2 ml VIAL IV PRN ×2 (10:28→20:26)
[2022-08-14] MEDS ORDERED: Lactulose 30 ml UDC PO ONE (18:00)
[2022-08-14] MEDS: cefTRIAXone 1 gm/50 mL D5W 1 GM/50 ML BAG IV SCH (18:34)
[2022-08-14] MEDS: PTO: Latanoprost 0.005% 2.5 ml BTL BOTH EYES SCH (21:44)
[2022-08-15 05:57] LABS: Hematocrit 23.7 % (38-53); Hemoglobin 8.1 g/dL (13.2-16.3); Mean Corpuscular Hemoglobin 30.4 pg (27-33); Mean Corpuscular Hgb Conc 34.2 g/dL (31-36); Mean Platelet Volume 8.4 fL (7.5-11.2); Platelet Count 89 10^3/uL (150-450); Red Blood Count 2.66 10^6/uL (4.06-5.63); Red Cell Distribution Width 19.4 % (12-17); White Blood Count 8.5 10^3/uL (3.6-10.2)
[2022-08-15 06:12] LABS: Albumin 3.1 g/dL (3.2-5.2); Albumin/Globulin Ratio 1.6 (1-3); Calcium 8.3 mg/dL (8.6-10.3); Creatinine, Serum 2.53 mg/dL (0.67-1.17); Magnesium 1.9 mg/dL (1.9-2.7); Potassium 3.5 mmol/L (3.5-5.0); Total Bilirubin 0.3 mg/dL (0.2-1.0); Total Protein 5.1 g/dL (6.4-8.9)
[2022-08-15] MEDS: Multivitamins/Minerals TAB PO SCH (08:01)
[2022-08-15] MEDS: Venlafaxine 25 mg TAB (NF) PO SCH (08:03)
[2022-08-15] MEDS: Senna TAB 8.6 mg TAB PO SCH (08:04)
[2022-08-15] MEDS: Polyethylene Glycol 3350 17 GM PACKET PO SCH (08:06)
[2022-08-15] MEDS: Pantoprazole VIAL 40 MG VIAL IV SCH ×2 (08:10→21:18)
[2022-08-15 08:26] LABS: ABS Eosinophils 0.2 10^3/uL (0.0-0.5); ABS Lymphocytes 1.3 10^3/uL (1.0-4.8); ABS Monocytes 1.4 10^3/uL (0.0-1.1); ABS Neutrophils 5.6 10^3/uL (1.5-7.6); ABS Nucleated RBC 0.01 10^3/ul; Eosinophil % 2.4 %; Lymphocyte % 15.5 %; Nucleated Red Blood Cells % 0.1 /100 WBC (0.0-0.4)
[2022-08-15] MEDS ORDERED: Lactulose 30 ml UDC PO ONE (10:11)
[2022-08-15] MEDS: Ondansetron 4 mg VIAL 2 MG/ML 2 ml VIAL IV PRN (16:12)
[2022-08-15 16:41] LABS: Body Fluid Appearance Bloody; Body Fluid Color Red; Body Fluid Source Pleural Fluid
[2022-08-15 17:08] LABS: Body Fluid WBC 244 /mcL
[2022-08-15 17:14] LABS: Hematocrit 25.3 % (38-53); Hemoglobin 8.6 g/dL (13.2-16.3)
[2022-08-15 17:39] LABS: INR 1.14 (0.88-1.18)
[2022-08-15 17:59] LABS: Body Fluid Mono 22 %; Body Fluid Total Cells Counted 200
[2022-08-15] MEDS: cefTRIAXone 1 gm/50 mL D5W 1 GM/50 ML BAG IV SCH (18:22)
[2022-08-15] MEDS: PTO: Latanoprost 0.005% 2.5 ml BTL BOTH EYES SCH (21:18)
[2022-08-16 06:09] LABS: Hematocrit 24.8 % (38-53); Hemoglobin 8.5 g/dL (13.2-16.3); Mean Corpuscular Hemoglobin 30.6 pg (27-33); Mean Corpuscular Hgb Conc 34.4 g/dL (31-36); Mean Platelet Volume 8.3 fL (7.5-11.2); Platelet Count 99 10^3/uL (150-450); Red Blood Count 2.78 10^6/uL (4.06-5.63); Red Cell Distribution Width 19.8 % (12-17); White Blood Count 7.5 10^3/uL (3.6-10.2)
[2022-08-16 06:16] LABS: Calcium 8.6 mg/dL (8.6-10.3); Creatinine, Serum 2.59 mg/dL (0.67-1.17); Magnesium 1.9 mg/dL (1.9-2.7); Potassium 3.5 mmol/L (3.5-5.0); eGFR CKD-EPI 24.3 (>60)
[2022-08-16 06:58] LABS: ABS Eosinophils 0.2 10^3/uL (0.0-0.5); ABS Monocytes 1.2 10^3/uL (0.0-1.1); ABS Neutrophils 5.2 10^3/uL (1.5-7.6); Lymphocyte % 13.1 %; Nucleated Red Blood Cells % 0.1 /100 WBC (0.0-0.4)
[2022-08-16] MEDS: Multivitamins/Minerals TAB PO SCH (08:58)
[2022-08-16] MEDS: Venlafaxine 25 mg TAB (NF) PO SCH (08:58)
[2022-08-16] MEDS: Pantoprazole VIAL 40 MG VIAL IV SCH ×2 (08:59→21:13)
[2022-08-16] MEDS: PTO: Latanoprost 0.005% 2.5 ml BTL BOTH EYES SCH (21:13)
[2022-08-17 06:26] LABS: Hematocrit 25.5 % (38-53); Hemoglobin 8.7 g/dL (13.2-16.3); Mean Corpuscular Hemoglobin 30.1 pg (27-33); Mean Corpuscular Hgb Conc 34.3 g/dL (31-36); Mean Platelet Volume 8.5 fL (7.5-11.2); Platelet Count 120 10^3/uL (150-450); White Blood Count 7.6 10^3/uL (3.6-10.2)
[2022-08-17 06:42] LABS: Calcium 8.5 mg/dL (8.6-10.3); Creatinine, Serum 2.86 mg/dL (0.67-1.17); Magnesium 1.9 mg/dL (1.9-2.7); Potassium 3.4 mmol/L (3.5-5.0); eGFR CKD-EPI 21.6 (>60)
[2022-08-17 08:10] LABS: ABS Eosinophils 0.2 10^3/uL (0.0-0.5); ABS Lymphocytes 1.2 10^3/uL (1.0-4.8); ABS Monocytes 1.2 10^3/uL (0.0-1.1); ABS Nucleated RBC 0.01 10^3/ul; Eosinophil % 2.5 %; Lymphocyte % 16.4 %; Nucleated Red Blood Cells % 0.1 /100 WBC (0.0-0.4)
[2022-08-17] MEDS ORDERED: Potassium Chlor 20 meq TAB.ER PO ONE (09:22)
[2022-08-17] MEDS: Pantoprazole VIAL 40 MG VIAL IV SCH (10:06)
[2022-08-17] MEDS: Venlafaxine 25 mg TAB (NF) PO SCH (10:06)
[2022-08-17] MEDS: Multivitamins/Minerals TAB PO SCH (10:07)
[2022-08-17 11:42] VITALS: BP 121/49
[2022-08-17 14:02] LABS: Lactate Dehydrogenase, BF 121 U/L
[2022-08-17 14:46] LABS: Albumin, BF 1.4 g/dL; Fluid Type, Albumin PLEURAL; Fluid Type, Protein, Total PLEURAL; Glucose, BF 121 mg/dL; Total Protein, BF 2.2 g/dL
[2022-08-18 11:14] LABS: Fluid Type: PLEURAL
== END 2022-08-17 14:02 | disposition home or self-care (01) | DRG 242 ==
LOC: ED 17:34 → SUATTDRO 20:44 → EDHOLD 20:44 → MEDTELE 21:44
PROVIDERS: ADMIT Internal Medicine; ATTEND Internal Medicine
PROC: O.GIEGD (2022-08-09 15:20)

== ENCOUNTER 2023-04-13 10:38 | Inpatient (IN) ==
[2023-04-13 12:00] LABS: Hemoglobin 8.7 g/dL (13.2-16.3); Mean Corpuscular Hemoglobin 28.4 pg (27-33); Mean Corpuscular Hgb Conc 32.1 g/dL (31-36); Mean Corpuscular Volume 88.5 fL (80-97); Red Blood Count 3.05 10^6/uL (4.06-5.63); Red Cell Distribution Width 17.2 % (12-17)
[2023-04-13 12:05] LABS: ALT 8 U/L (7-52); Albumin 2.9 g/dL (3.2-5.2); Albumin/Globulin Ratio 0.8 (1-3); Alkaline Phosphatase 239 U/L (35-149); Anion Gap 10 mmol/L (2-16); Blood Urea Nitrogen 36 mg/dL (6-24); C Reactive Protein 98.31 mg/L (<8.01); CO2 Carbon Dioxide 21 mmol/L (22-32); Calcium 8.2 mg/dL (8.6-10.3); Chloride 104 mmol/L (101-111); Creatinine, Serum 2.08 mg/dL (0.67-1.17); Globulin 3.7 g/dL (2-4); Glucose 127 mg/dL (70-100); Sodium 135 mmol/L (135-145); Total Bilirubin 0.4 mg/dL (0.2-1.0); Total Protein 6.6 g/dL (6.4-8.9); eGFR CKD-EPI 31.4 (>60)
[2023-04-13] MEDS: Lactated Ringers 1000 ml BAG 1,000 ML IV ONE (12:43)
[2023-04-13] MEDS ORDERED: Lidocaine 2% JELLY 6 ML Topical TOPICAL ONE (13:00)
[2023-04-13 13:08] LABS: ABS Basophils 0.2 10^3/uL (0.0-0.1); ABS Eosinophils 0.2 10^3/uL (0.0-0.5); ABS Lymphocytes 0.7 10^3/uL (1.0-4.8); ABS Monocytes 1.8 10^3/uL (0.0-1.1); ABS Neutrophils 13.8 10^3/uL (1.5-7.6); ABS Nucleated RBC 0.01 10^3/ul; Eosinophil % 1.1 %; Lymphocyte % 4.4 %; Mean Platelet Volume 7.6 fL (7.5-11.2); Platelet Count 235 10^3/uL (150-450); White Blood Count 16.7 10^3/uL (3.6-10.2)
[2023-04-13] MEDS: Morphine 4 MG/ML VIAL (1 ml) IV ONE (13:15)
[2023-04-13] MEDS ORDERED: HYDROmorphone 1 MG/1 ML SYRINGE IV PRN (13:43)
[2023-04-13] MEDS: HYDROmorphone 1 MG/1 ML SYRINGE IV ONE (13:50)
[2023-04-13 15:42] LABS: Urine Appearance Cloudy; Urine Color Red; Urine Specific Gravity 1.018 (1.002-1.030)
[2023-04-13 15:49] LABS: Potassium Redraw 4.8 mmol/L (3.5-5.0)
[2023-04-13 16:06] LABS: Hematocrit 26.6 % (38-53); Hemoglobin 8.5 g/dL (13.2-16.3); Mean Corpuscular Hemoglobin 28.5 pg (27-33); Mean Corpuscular Hgb Conc 32.2 g/dL (31-36); Mean Corpuscular Volume 88.7 fL (80-97); Mean Platelet Volume 7.3 fL (7.5-11.2); Platelet Count 224 10^3/uL (150-450); White Blood Count 14.6 10^3/uL (3.6-10.2)
[2023-04-13 16:09] LABS: ABS Basophils 0.1 10^3/uL (0.0-0.1); ABS Eosinophils 0.1 10^3/uL (0.0-0.5); ABS Lymphocytes 0.7 10^3/uL (1.0-4.8); ABS Monocytes 1.8 10^3/uL (0.0-1.1); Eosinophil % 0.7 %; Lymphocyte % 4.5 %
[2023-04-13 16:14] LABS: Urine Bacteria 1+ (Absent); Urine Red Blood Cell 3+(>10/hpf) (Absent); Urine White Blood Cell 2+(11-20/hpf) (Absent)
[2023-04-13] MEDS ORDERED: Albuterol HFA INHALER 8 gm MDI INH PRN (17:00)
[2023-04-13] MEDS ORDERED: Fluticasone NASAL SPRAY 50MCG 16 gm SPRAY BTL INTRANASAL PRN (17:00)
[2023-04-13] MEDS: cefTRIAXone 1 gm/50 mL D5W 1 GM/50 ML BAG IV ONE (17:18)
[2023-04-13 23:01] LABS: Hematocrit 26.5 % (38-53); Hemoglobin 8.6 g/dL (13.2-16.3)
[2023-04-14 07:16] LABS: ABS Basophils 0.1 10^3/uL (0.0-0.1); ABS Eosinophils 0.2 10^3/uL (0.0-0.5); ABS Lymphocytes 0.8 10^3/uL (1.0-4.8); ABS Monocytes 1.4 10^3/uL (0.0-1.1); ABS Neutrophils 12.7 10^3/uL (1.5-7.6); ABS Nucleated RBC 0.01 10^3/ul; Eosinophil % 1.2 %; Hematocrit 29.2 % (38-53); Hemoglobin 9.5 g/dL (13.2-16.3); Lymphocyte % 5.5 %; Mean Corpuscular Hemoglobin 28.8 pg (27-33); Mean Corpuscular Hgb Conc 32.4 g/dL (31-36); Mean Platelet Volume 7.4 fL (7.5-11.2); Platelet Count 250 10^3/uL (150-450); Red Blood Count 3.28 10^6/uL (4.06-5.63); Red Cell Distribution Width 17.3 % (12-17); White Blood Count 15.2 10^3/uL (3.6-10.2)
[2023-04-14 07:33] LABS: Calcium 8.7 mg/dL (8.6-10.3); Creatinine, Serum 2.01 mg/dL (0.67-1.17); Potassium 4.8 mmol/L (3.5-5.0); eGFR CKD-EPI 32.7 (>60)
[2023-04-14] MEDS: Venlafaxine XR 75 mg PO SCH (08:06)
[2023-04-14] MEDS: HYDROmorphone 0.5 MG/0.5 ML SYRINGE IV SLOW PU PRN (09:38)
[2023-04-14] MEDS: cefTRIAXone 1 gm/50 mL D5W 1 GM/50 ML BAG IV SCH (18:23)
[2023-04-15 06:27] LABS: ABS Basophils 0.1 10^3/uL (0.0-0.1); ABS Eosinophils 0.2 10^3/uL (0.0-0.5); ABS Lymphocytes 0.9 10^3/uL (1.0-4.8); ABS Monocytes 1.4 10^3/uL (0.0-1.1); ABS Neutrophils 10.8 10^3/uL (1.5-7.6); Eosinophil % 1.6 %; Hematocrit 26.1 % (38-53); Hemoglobin 8.4 g/dL (13.2-16.3); Lymphocyte % 6.9 %; Mean Corpuscular Hemoglobin 28.3 pg (27-33); Mean Corpuscular Hgb Conc 32.1 g/dL (31-36); Mean Corpuscular Volume 88.2 fL (80-97); Mean Platelet Volume 7.7 fL (7.5-11.2); Platelet Count 190 10^3/uL (150-450); Red Blood Count 2.96 10^6/uL (4.06-5.63); Red Cell Distribution Width 17.4 % (12-17); White Blood Count 13.4 10^3/uL (3.6-10.2)
[2023-04-15 06:46] LABS: Calcium 8.7 mg/dL (8.6-10.3); Creatinine, Serum 2.21 mg/dL (0.67-1.17); Magnesium 1.8 mg/dL (1.9-2.7); eGFR CKD-EPI 29.2 (>60)
[2023-04-15] MEDS: Magnesium Sulfate 2 gm BAG 2 GM/50 ML BAG IVPB ONE (09:46)
[2023-04-15] MEDS: Magnesium Sulfate IV 1GM/100ML 1 GM/100 ML BAG IV ONE (11:05)
[2023-04-15] MEDS ORDERED: Ondansetron 4 mg VIAL 2 MG/ML 2 ml VIAL IV PRN (13:57)
[2023-04-15] MEDS ORDERED: Naloxone 0.4 mg VIAL 0.4 mg/ml 1 ml VIAL IV PRN ×2 (13:57)
[2023-04-15] MEDS ORDERED: Dexamethasone IV 4 MG/ML VIAL 1 ml VIAL IV SLOW PU ONE (16:33)
[2023-04-15] MEDS ORDERED: Ondansetron 4 mg VIAL 2 MG/ML 2 ml VIAL IV ONE (16:33)
[2023-04-15] MEDS ORDERED: Lidocaine 2% PF 5 ML VIAL INJ ONE (16:33)
[2023-04-15] MEDS ORDERED: Rocuronium 50 mg VIAL 10 mg/ml 5 ml VIAL (50 mg) IV ONE (16:33)
[2023-04-15] MEDS ORDERED: fentaNYL 100 mcg/2 ml 50 MCG/ML VIAL IV ONE ×2 (16:35→17:55)
[2023-04-15] MEDS ORDERED: Propofol 10 MG/ML 20 ML BTL IV ONE (17:53)
[2023-04-15] MEDS ORDERED: Levalbuterol 1.25MG/0.5ML NEB.SOL ONE (18:20)
[2023-04-15] MEDS ORDERED: HYDROmorphone 1 MG/1 ML SYRINGE ONE (18:37)
[2023-04-15] MEDS ORDERED: fentaNYL 100 mcg/2 ml 50 MCG/ML VIAL ONE ×2 (18:41→19:23)
[2023-04-15] MEDS: fentaNYL 100 mcg/2 ml 50 MCG/ML VIAL IV PRN (18:42)
[2023-04-15] MEDS: Albuterol/Ipratropium NEB.SOL (2.5/0.5 MG) 3 ML NEB.SOLN INH ONE (21:05)
[2023-04-16 07:03] LABS: ABS Lymphocytes 0.3 10^3/uL (1.0-4.8); ABS Monocytes 0.8 10^3/uL (0.0-1.1); ABS Neutrophils 16.6 10^3/uL (1.5-7.6); Hematocrit 25.9 % (38-53); Hemoglobin 8.4 g/dL (13.2-16.3); Lymphocyte % 1.9 %; Mean Corpuscular Hemoglobin 28.6 pg (27-33); Mean Corpuscular Hgb Conc 32.4 g/dL (31-36); Mean Corpuscular Volume 88.3 fL (80-97); Mean Platelet Volume 7.5 fL (7.5-11.2); Platelet Count 217 10^3/uL (150-450); Red Blood Count 2.94 10^6/uL (4.06-5.63); Red Cell Distribution Width 17.1 % (12-17); White Blood Count 17.8 10^3/uL (3.6-10.2)
[2023-04-16 07:34] LABS: Calcium 8.4 mg/dL (8.6-10.3); Creatinine, Serum 2.35 mg/dL (0.67-1.17); Magnesium 2.5 mg/dL (1.9-2.7); Potassium 5.2 mmol/L (3.5-5.0); eGFR CKD-EPI 27.1 (>60)
[2023-04-16] MEDS: NS 0.9% 1000 ml BAG 1,000 ML IV SCH (13:24)
[2023-04-17 06:10] LABS: Hematocrit 22.6 % (38-53); Hemoglobin 7.4 g/dL (13.2-16.3); Mean Corpuscular Hemoglobin 28.7 pg (27-33); Mean Corpuscular Hgb Conc 32.6 g/dL (31-36); Mean Corpuscular Volume 88.2 fL (80-97); Mean Platelet Volume 7.6 fL (7.5-11.2); Platelet Count 176 10^3/uL (150-450); Red Blood Count 2.56 10^6/uL (4.06-5.63); Red Cell Distribution Width 16.9 % (12-17); White Blood Count 14.1 10^3/uL (3.6-10.2)
[2023-04-17 06:28] LABS: Creatinine, Serum 2.39 mg/dL (0.67-1.17); Magnesium 2.3 mg/dL (1.9-2.7); Potassium 4.8 mmol/L (3.5-5.0); eGFR CKD-EPI 26.6 (>60)
[2023-04-17] MEDS: Amoxicillin/Clavul 500/125 TAB (Augmentin 500 mg tab) PO SCH (11:17)
[2023-04-18 06:23] LABS: Hematocrit 25.1 % (38-53); Hemoglobin 7.7 g/dL (13.2-16.3); Mean Corpuscular Hemoglobin 28.6 pg (27-33); Mean Corpuscular Hgb Conc 30.7 g/dL (31-36); Mean Corpuscular Volume 93.1 fL (80-97); Mean Platelet Volume 7.5 fL (7.5-11.2); Platelet Count 170 10^3/uL (150-450); Red Cell Distribution Width 17.8 % (12-17); White Blood Count 12.4 10^3/uL (3.6-10.2)
[2023-04-18 06:41] LABS: Creatinine, Serum 2.45 mg/dL (0.67-1.17); Potassium 4.9 mmol/L (3.5-5.0); eGFR CKD-EPI 25.8 (>60)
[2023-04-18] MEDS: Venlafaxine XR 75 mg PO SCH (10:36)
[2023-04-18] MEDS: Polyethylene Glycol 3350 17 GM PACKET PO SCH (14:49)
[2023-04-19 05:56] LABS: Calcium 7.9 mg/dL (8.6-10.3); Creatinine, Serum 2.43 mg/dL (0.67-1.17); Magnesium 1.8 mg/dL (1.9-2.7); Potassium 4.7 mmol/L (3.5-5.0); eGFR CKD-EPI 26.1 (>60)
[2023-04-19 06:38] LABS: Hematocrit 27.8 % (38-53); Hemoglobin 8.1 g/dL (13.2-16.3); Mean Corpuscular Hemoglobin 28.7 pg (27-33); Mean Corpuscular Hgb Conc 29.3 g/dL (31-36); Mean Corpuscular Volume 98.1 fL (80-97); Mean Platelet Volume 7.8 fL (7.5-11.2); Platelet Count 150 10^3/uL (150-450); Red Blood Count 2.83 10^6/uL (4.06-5.63); Red Cell Distribution Width 18.9 % (12-17); White Blood Count 12.4 10^3/uL (3.6-10.2)
[2023-04-19] MEDS: Magnesium Sulfate 2 gm BAG 2 GM/50 ML BAG IVPB ONE (07:50)
[2023-04-19] MEDS: Lactated Ringers 1000 ml BAG 1,000 ML IV SCH (07:50)
[2023-04-20] MEDS: Benzocaine/Menthol LOZ PO PRN (06:01)
[2023-04-20] MEDS: Senna TAB 8.6 mg TAB PO PRN (21:54)
[2023-04-21] MEDS: Magnesium Hydroxide LIQ 30 ML UDC PO PRN (08:32)
[2023-04-22 06:13] LABS: Calcium 7.9 mg/dL (8.6-10.3); Creatinine, Serum 2.55 mg/dL (0.67-1.17); Potassium 5.2 mmol/L (3.5-5.0); eGFR CKD-EPI 24.6 (>60)
[2023-04-22 06:14] LABS: Hematocrit 23.6 % (38-53); Hemoglobin 7.3 g/dL (13.2-16.3); Mean Corpuscular Hemoglobin 28.1 pg (27-33); Mean Corpuscular Volume 90.7 fL (80-97); Mean Platelet Volume 7.7 fL (7.5-11.2); Platelet Count 153 10^3/uL (150-450); Red Cell Distribution Width 17.5 % (12-17)
[2023-04-22 10:15] LABS: Rapid COVID-19 Molecular Undetected (Undetected)
[2023-04-22 10:40] VITALS: BP 134/59
== END 2023-04-22 13:35 | disposition swing bed (61) | DRG 461 ==
LOC: ED 10:38 → EDHOLD 10:38 → SUATTDRO 16:50 → SSU 18:34 → SUATTDRO 04-16 15:21
PROVIDERS: ADMIT Student in an Organized Health Care Education/Training Program; ATTEND Student in an Organized Health Care Education/Training Program

== ENCOUNTER 2023-04-28 19:13 | Inpatient (IN) ==
[2023-04-28] MEDS ORDERED: Al Hydrox/Mg Hydrox/Simet LIQ 30 ML UDC PO PRN (20:27)
[2023-04-28] MEDS ORDERED: Polyethylene Glycol 3350 17 GM PACKET PO PRN (20:27)
[2023-04-28] MEDS ORDERED: cefTRIAXone 1 gm/50 mL D5W 1 GM/50 ML BAG IV SCH (21:15)
[2023-04-28] MEDS ORDERED: Fluticasone NASAL SPRAY 50MCG 16 gm SPRAY BTL INTRANASAL PRN (21:29)
[2023-04-28 21:30] LABS: Activated Partial Thrombo Time 32.4 seconds (26.0-38.0); INR 1.28 (0.83-1.13)
[2023-04-28] MEDS ORDERED: Albuterol HFA INHALER 8 gm MDI INH PRN (21:30)
[2023-04-28] MEDS ORDERED: Albuterol/Ipratropium NEB.SOL (2.5/0.5 MG) 3 ML NEB.SOLN INH PRN (21:33)
[2023-04-28 21:39] LABS: Calcium 8.1 mg/dL (8.6-10.3); Creatinine, Serum 3.1 mg/dL (0.67-1.17); Potassium 6.9 mmol/L (3.5-5.0); eGFR CKD-EPI 19.5 (>60)
[2023-04-28 21:44] LABS: Hemoglobin 5.6 g/dL (13.2-16.3); Mean Corpuscular Hemoglobin 28.6 pg (27-33); Mean Corpuscular Hgb Conc 33.1 g/dL (31-36); Mean Corpuscular Volume 86.6 fL (80-97); Mean Platelet Volume 8.2 fL (7.5-11.2); Platelet Count 87 10^3/uL (150-450); Red Blood Count 1.96 10^6/uL (4.06-5.63); Red Cell Distribution Width 16.2 % (12-17); White Blood Count 17.2 10^3/uL (3.6-10.2)
[2023-04-28] MEDS ORDERED: Calcium Gluconate 1 GM/10 ML VIAL (in Pyxis) IV PUSH ONE (21:46)
[2023-04-28] MEDS ORDERED: Linezolid 600 MG IVPREMIX(*) 600 MG/300 ML BAG IVPB SCH (22:00)
[2023-04-28] MEDS: Octreotide Acetate 50 MCG in NS 0.9% 50 ML 50 ML IV ONE (22:03)
[2023-04-28] MEDS: Pantoprazole 80 mg in NS BAG 80 MG/250 ML BAG IV SCH (22:04)
[2023-04-28] MEDS: cefTRIAXone 1 GM Q24H (ADVAN) IVPB SCH (22:05)
[2023-04-28] MEDS: Octreotide Acetate 500 MCG in NS 0.9% 100 ml BAG 100 ML IV SCH (22:20)
[2023-04-28] MEDS: Dextrose 50% Syringe 50 ml 25 GM/50 ML SYRINGE IV PUSH ONE (22:32)
[2023-04-28] MEDS: CALCIUM GLUCONATE 1GM/50ML NS BAG IV ONE (22:32)
[2023-04-28] MEDS: Bumetanide IV 0.25 MG/ML 4 ml VIAL (1 mg) IV SLOW PU ONE (22:32)
[2023-04-28] MEDS: Lactulose 30 ml UDC PO ONE (22:32)
[2023-04-28] MEDS: Sodium Polystyrene ORAL.SUSP 15 GM/60 ML BTL PO ONE (22:33)
[2023-04-28 22:35] LABS: RBC Morphology Normal (Normal)
[2023-04-28 22:36] LABS: ABS Eosinophils 0.1 10^3/uL (0.0-0.5); ABS Lymphocytes 0.6 10^3/uL (1.0-4.8); ABS Monocytes 2.5 10^3/uL (0.0-1.1); ABS Neutrophils 13.9 10^3/uL (1.5-7.6); ABS Nucleated RBC 0.01 10^3/ul; Eosinophil % 0.4 %; Lymphocyte % 3.6 %
[2023-04-28 23:51] LABS: Calcium 8.1 mg/dL (8.6-10.3); Creatinine, Serum 3.18 mg/dL (0.67-1.17); Potassium 6.6 mmol/L (3.5-5.0); eGFR CKD-EPI 18.9 (>60)
[2023-04-29] MEDS ORDERED: Calcium Gluconate 1 GM/10 ML VIAL (in Pyxis) IV PUSH ONE (00:25)
[2023-04-29] MEDS: Dextrose 50% Syringe 50 ml 25 GM/50 ML SYRINGE IV PUSH ONE ×2 (00:46→06:32)
[2023-04-29] MEDS: CALCIUM GLUCONATE 1GM/50ML NS BAG IV ONE (00:47)
[2023-04-29] MEDS: Sodium Polystyrene RECTAL 30 GM/120 ML RECTAL.SUS PR ONE (04:43)
[2023-04-29] MEDS: SODIUM ZIRCONIUM CYCLOSILICATE 10 GM PACKET PO SCH (04:43)
[2023-04-29] MEDS: Bumetanide IV 0.25 MG/ML 4 ml VIAL (1 mg) IV SLOW PU ONE (05:11)
[2023-04-29 05:30] LABS: Hematocrit 20.8 % (38-53); Mean Corpuscular Hemoglobin 28.8 pg (27-33); Mean Corpuscular Hgb Conc 33.9 g/dL (31-36); Mean Corpuscular Volume 85.2 fL (80-97); Mean Platelet Volume 8.2 fL (7.5-11.2); Platelet Count 92 10^3/uL (150-450); Red Blood Count 2.44 10^6/uL (4.06-5.63); Red Cell Distribution Width 15.4 % (12-17); White Blood Count 22.4 10^3/uL (3.6-10.2)
[2023-04-29 05:42] LABS: Calcium 8.8 mg/dL (8.6-10.3); Creatinine, Serum 3.11 mg/dL (0.67-1.17); Potassium 6.5 mmol/L (3.5-5.0); eGFR CKD-EPI 19.4 (>60)
[2023-04-29 06:07] LABS: ABS Eosinophils 0.1 10^3/uL (0.0-0.5); ABS Lymphocytes 0.6 10^3/uL (1.0-4.8); ABS Monocytes 3.3 10^3/uL (0.0-1.1); ABS Neutrophils 18.3 10^3/uL (1.5-7.6); ABS Nucleated RBC 0.01 10^3/ul; Eosinophil % 0.4 %; Lymphocyte % 2.9 %
[2023-04-29] MEDS: CALCIUM GLUCONATE 1GM/50ML NS 1 GM/50 ML BAG IV ONE (06:32)
[2023-04-29] MEDS ORDERED: cefTRIAXone 1 gm/50 mL NS BAG 1 GM/50 ML BAG IVPB SCH (10:30)
[2023-04-29 10:53] LABS: PCO2 Arterial 36 mmHg (35-45); PO2 Arterial 79 mmHg (80-100)
[2023-04-29] MEDS: Lactulose 30 ml UDC PO SCH (11:23)
[2023-04-29] MEDS: Venlafaxine XR 75 mg PO SCH (11:24)
[2023-04-29 11:28] LABS: Urine Appearance Extra Turbid; Urine Bilirubin Negative (Negative); Urine Blood 3+ (Negative); Urine Glucose Negative (Negative); Urine Ketones Negative (Negative); Urine Nitrite Negative (Negative); Urine Protein 1+ (>=30 mg/dL) (Negative); Urine Specific Gravity 1.007 (1.002-1.030); Urine Urobilinogen Negative (Negative); Urine pH 5.5 (5.0-8.0)
[2023-04-29 11:31] LABS: Urine Bacteria 1+ /HPF (Absent); Urine Red Blood Cell 3+(>10/hpf) /HPF (0-Trace); Urine Squamous Epithelial Cell Present /HPF (Absent); Urine White Blood Cell 3+(>20/hpf) /HPF (0-Trace)
[2023-04-29 13:12] LABS: Urine Color Yellow
[2023-04-29 15:14] LABS: Hematocrit 20.1 % (38-53); Hemoglobin 6.8 g/dL (13.2-16.3)
[2023-04-29] MEDS: metroNIDAZOLE IV 500 MG/100ML 500 MG/100 ML BAG IVPB SCH (17:27)
[2023-04-29 20:08] LABS: Hematocrit 22.7 % (38-53); Hemoglobin 7.7 g/dL (13.2-16.3); Mean Corpuscular Hemoglobin 29.3 pg (27-33); Mean Corpuscular Volume 86.2 fL (80-97); Mean Platelet Volume 7.8 fL (7.5-11.2); Platelet Count 101 10^3/uL (150-450); Red Blood Count 2.63 10^6/uL (4.06-5.63); White Blood Count 20.2 10^3/uL (3.6-10.2)
[2023-04-29 20:11] LABS: ABS Basophils 0.1 10^3/uL (0.0-0.1); ABS Eosinophils 0.1 10^3/uL (0.0-0.5); ABS Lymphocytes 0.7 10^3/uL (1.0-4.8); ABS Monocytes 2.4 10^3/uL (0.0-1.1); ABS Neutrophils 16.9 10^3/uL (1.5-7.6); ABS Nucleated RBC 0.01 10^3/ul; Eosinophil % 0.5 %; Lymphocyte % 3.3 %
[2023-04-29 20:30] LABS: Albumin 2.7 g/dL (3.2-5.2); Albumin/Globulin Ratio 0.8 (1-3); Calcium 8.6 mg/dL (8.6-10.3); Creatinine, Serum 2.99 mg/dL (0.67-1.17); Globulin 3.2 g/dL (2-4); Potassium 5.4 mmol/L (3.5-5.0); Total Bilirubin 1.4 mg/dL (0.2-1.0); Total Protein 5.9 g/dL (6.4-8.9); eGFR CKD-EPI 20.3 (>60)
[2023-04-29] MEDS: Acetaminophen IV 1 GM/100ML 1,000 MG/100 ML BAG IV PRN (22:45)
[2023-04-30] MEDS: Pantoprazole 80 mg in NS BAG 80 MG/250 ML BAG IV SCH (00:21)
[2023-04-30] MEDS: fentaNYL 100 mcg/2 ml 50 MCG/ML VIAL IV SLOW PU PRN (02:05)
[2023-04-30] MEDS ORDERED: Lorazepam PYXIS KEY PRN (04:40)
[2023-04-30 04:57] LABS: Hematocrit 22.8 % (38-53); Hemoglobin 7.8 g/dL (13.2-16.3); Mean Corpuscular Hemoglobin 29.1 pg (27-33); Mean Corpuscular Hgb Conc 34.1 g/dL (31-36); Mean Corpuscular Volume 85.2 fL (80-97); Mean Platelet Volume 7.7 fL (7.5-11.2); Platelet Count 106 10^3/uL (150-450); Red Blood Count 2.68 10^6/uL (4.06-5.63); Red Cell Distribution Width 15.6 % (12-17); White Blood Count 21.9 10^3/uL (3.6-10.2)
[2023-04-30 05:14] LABS: Calcium 8.7 mg/dL (8.6-10.3); Creatinine, Serum 3.13 mg/dL (0.67-1.17); Magnesium 1.9 mg/dL (1.9-2.7); Potassium 4.9 mmol/L (3.5-5.0); eGFR CKD-EPI 19.2 (>60)
[2023-04-30] MEDS: LORazepam 2 mg VIAL 1 ml IV PUSH ONE (05:34)
[2023-04-30 06:07] LABS: ABS Basophils 0.1 10^3/uL (0.0-0.1); ABS Eosinophils 0.2 10^3/uL (0.0-0.5); ABS Monocytes 2.3 10^3/uL (0.0-1.1); ABS Neutrophils 18.3 10^3/uL (1.5-7.6); Eosinophil % 0.9 %; Lymphocyte % 4.4 %
[2023-04-30] MEDS: Magnesium Sulfate 2 gm BAG 2 GM/50 ML BAG IVPB ONE (06:26)
[2023-04-30] MEDS: Lidocaine 2% JELLY 6 ML Topical TOPICAL ONE (12:08)
[2023-04-30 13:08] LABS: Urine Appearance Extra Turbid; Urine Bilirubin Negative (Negative); Urine Blood 3+ (Negative); Urine Glucose Negative (Negative); Urine Ketones Negative (Negative); Urine Nitrite Negative (Negative); Urine Protein 2+ (>=100 mg/dL) (Negative); Urine Specific Gravity 1.012 (1.002-1.030); Urine Urobilinogen Negative (Negative)
[2023-04-30 13:13] LABS: Urine Bacteria Absent /HPF (Absent); Urine Red Blood Cell 3+(>10/hpf) /HPF (0-Trace); Urine Renal Epithelial Cells Present /HPF (Absent); Urine White Blood Cell 3+(>20/hpf) /HPF (0-Trace)
[2023-04-30] MEDS: Morphine 2 MG/ML SYRINGE IV PRN (13:35)
[2023-04-30 13:49] LABS: Urine Color Amber
[2023-04-30] MEDS ORDERED: Ondansetron ODT 4 mg TAB 4 MG TAB SL PRN (14:48)
[2023-04-30] MEDS ORDERED: Atropine 1% (ORAL/SL) 15 ML BTL SL PRN (14:48)
[2023-04-30] MEDS: LORazepam 2 mg VIAL 1 ml IV PUSH PRN (15:56)
[2023-04-30] MEDS: Scopolamine 1 mg/72hr PATCH TRANSDERM SCH (16:01)
[2023-04-30] MEDS ORDERED: Octreotide Acetate 500 MCG in NS 0.9% 100 ml BAG 100 ML IV SCH (17:28)
[2023-05-01] MEDS: Morphine ORAL CONCENTRATE 5 MG/0.25 ML ORAL.SYRIN SL PRN ×2 (12:32→18:29)
[2023-05-01] MEDS ORDERED: Morphine ORAL CONCENTRATE 5 MG/0.25 ML ORAL.SYRIN SL PRN ×3 (15:28→16:05)
[2023-05-01] MEDS: Morphine ORAL.SOLN 10 mg 2 mg/ml UDC 5 ml (10 mg) PO SCH (16:13)
[2023-05-02 00:24] VITALS: BP 124/69
== END 2023-05-02 08:10 | disposition expired | DRG 253 ==
LOC: ICU 20:01 → MEDTELE 04-30 21:54
PROVIDERS: ADMIT Student in an Organized Health Care Education/Training Program; ATTEND Hospitalist